=== PATIENT | male | born 1970 | race Caucasian/White ===

== ENCOUNTER 2023-11-25 12:07 | Inpatient (IN) | payer OTHER, SELFPAY ==
[2023-11-25] VITALS (36 sets, daily range): BP systolic 114–207; BP diastolic 81–125; PULSE 2–87; BMI 28.7; BMI 28.4
[2023-11-25] MEDS: VENTOLIN NEBULES 7.5 MG INH (09:15)
[2023-11-25] MEDS: ATROVENT NEBULES 1 MG INH (09:15)
[2023-11-25] MEDS: DECADRON 10 MG IV (09:15)
--- NOTE | 2023-11-25 09:31 | ED.GENMED ---
History of Present Illness
General
Chief Complaint: Breathing Problem
Source: patient and ambulance crew
Exam Limitations: none
Time Seen by Provider: 11/25/23 09:08
Nursing documentation reviewed up to this point in time: agreed with
History of Present Illness
History of Present Illness:
Patient presents to ED secondary to sudden onset of shortness of breath upon waking up this morning. Per paramedics, patient was found to be in moderate respite distress with initial pulse ox in low 80% on room air. Patient was placed on 100%
nonrebreather and transferred to ED for an evaluation. Of note, patient experienced similar symptoms 2 weeks ago, which gradually resolved on its own. Patient does not see his primary care physician on regular basis. As such, patient does not
have any diagnosed medical condition, for which he is being treated for. Patient is a daily smoker. Patient also smokes marijuana. Denies recent illness. Denies fever or chills. Denies coughing. Denies sore throat. Denies nausea, vomiting, or
diarrhea. Denies sick contact. Denies recent travel or surgery.
Past History
Past History
ED Past Medical History: None
ED Past Surgical History: Appendectomy and Orthopedic (Right wrist surgery)
Social History
Tobacco: Smoker
Alcohol: Occasional
Personal: Single
Living: with family
Employment: Employed
Family History
Family History: Negative Diabetes
Review of Systems
Review of Systems
Allergies reviewed?: Yes
All Other Systems: ROS reviewed and negative except as documented in HPI and ROS
Constitutional: Reports no symptoms
EENT: Reports no symptoms
Respiratory: Reports trouble breathing
Cardiac: Reports no symptoms
ABD/GI: Reports no symptoms
: Reports no symptoms
Musculoskeletal: Reports no symptoms
Skin: Reports no symptoms
Neurological: Reports no symptoms
Phy Exam
Physical Exam
Physical Exam:
Physical Exam
General: moderate respiratory distress, acutely ill. afebrile. hypoxic
Head: nc/at. eomi
Neck: supple. no meningeal signs. jvd noted
Heart: s1/s2 regular rate and rhythm, no murmur. equal radial pulses.
Lungs: moderate respiratory distress with use of intercostal muscles. crackles bilaterally with faint expiratory wheezing
Abdomen: normal bowel sounds. not tender.
Neuro: alert and oriented. no focal neurological deficits
Skin: no rash
Psychiatric: well kept. interactive and cooperative
Extremities: no edema. no calf tenderness.
Scores
Heart Failure Risk
Heart Failure Risk Score: Yes
History of Stroke or TIA: No
History of intubation for respiratory distress: No
Heart rate on ED arrival >/= 110: No
SaO2 <90% on arrival on room air: Yes
HR >/=110 during 3min walk test (or too ill to perform test): No
ECG has acute ischemic changes: No
Urea >/=12mmol/L (BUN 33.6mg/dL): No
Serum CO2>/=35mmol/L: No
Troponin I or T elevated to [place] Level (0.4mg/dL): No
NT-proBNP >/=5,000ng/L (5,000pg/ml): No
HF Risk Score: 1
Admission Status: MEDIUM RISK 5.1% Consider observation or discharge to home with homecare & f/u visit to PCP/Folder Machine Adjuster, or SNF for treatment
Course
Orders/Labs/Results
Orders:
Orders
11/25/23 09:08
EKG [Electrocardiogram (*1)] Urgent
Reason for Study: Chest Pain
EKG- Treatment ONCE
11/25/23 09:09
CR Chest Portable - 1 View Urgent
Comment:
Reason For Exam: sob
Reason Study Needs to be Portable: Patient Unstable
11/25/23 09:10
Albuterol Nebs [Ventolin Nebules] 7.5 mg .ROUTE .STK-MED ONE
Albuterol Sulfate [Ventolin Nebules] 7.5 mg INH R NOW STA
Dexamethasone Sod Phosphate [Decadron] 10 mg IV NOW STA
Dexamethasone Sod Phosphate [Decadron] 20 mg .ROUTE .STK-MED ONE
Ipratropium Nebs [Atrovent Nebules] 0.5 mg .ROUTE .STK-MED ONE
Ipratropium Nebs [Atrovent Nebules] 1 mg INH R NOW STA
Lorazepam [Ativan] 0.5 mg IV NOW STA
11/25/23 09:15
Furosemide [Lasix] 40 mg IV NOW STA
Nitroglycerin 100 mg/250 ml [Nitroglycerin Premix] 100 mg in 250 ml IV PER PROTOCOL
Initial dose in mcg/min, then titrate:: 100
Titrate to keep:: SBP < 160 mmHg
Titrate by mcg/min:: 5 mcg/min, may increase by 10 mcg/min if dose > 20 mcg/min
Frequency of titrations (minutes):: every 3-5 minutes
Maximum dose in mcg/min:: 200
Begin to taper infusion when:: Remained at goal for 2hrs
Taper by mcg/min:: 5 mcg/min
Frequency of taper (minutes) if patient maintains goal:: 30
Taper to off?: Yes
If infusion off & no longer maintaining goal:: Contact Provider
11/25/23 09:20
COVID-19 Antigen Urgent
Source: Nasal Swab
Complete Blood Count/With Diff Urgent
Comprehensive Metabolic Panel Urgent
Glycohemoglobin (HgbA1c) Urgent
Magnesium Urgent
NT-proBNP Urgent
Troponin I Urgent
11/25/23 10:21
Arterial Blood Gas Urgent
%Oxygen/Room Air: 78
11/25/23 11:36
Admit/Transfer Patient As Directed
Co-Sign Provider:
Level of Care: Inpatient admission
Assign to:: Telemetry
Physician / Group: Kevon
Diagnosis: Hypertensive emergency, acute heart failure, acute respiratory failure
Reason for Telemetry: Acute Heart Failure
Date to Stop Telemetry: 11/28/23
Time to Stop Telemetry: 11:00
Reason for Hospitalization: Oxygen therapy, diuresis, cardiology consult
Expected length of stay greater than two midnights?: Yes
ELOS- Estimated Length of Stay in days: 3
I certify the patient meets the requirements for IP care: Yes
11/25/23 11:38
Code Status As Directed
Resuscitation Status: Full Code
11/25/23 14:22
Acetaminophen [Tylenol] 650 mg PO Q6HPRN PRN
Albuterol Nebs [Ventolin Nebules] 2.5 mg INH R Q4HPRN PRN
11/25/23 14:22
Echo 2D MMode Color/Doppler [Echo 2D MMode Color/Doppler] Routine
Reason for Study: CHF
CARDIOLOGY CONSULT Routine
Consulting Provider: Julio Cesar Brennan
Was physician already notified: Yes
Activity As Directed
Activity Level: Ambulate
I&O [Intake/ Output] As Directed
Frequency: q12h
DX Deep Vein Thrombosis Video Routine
11/25/23 18:00
Enoxaparin Sodium [Lovenox] 40 mg SC QPM
11/26/23 06:00
Comprehensive Metabolic Panel IN AM
11/26/23 08:00
Furosemide [Lasix] 40 mg IV DAILY
11/27/23 06:00
Comprehensive Metabolic Panel IN AM
11/28/23 11:00
DC Protocol for Telemetry ONCE
Abnormal Lab Results
11/25/23 11/25/23
09:20 10:21
MPV 10.5 H fL
(7.4-10.4)
Absolute Neuts (auto) 7.2 H 10^3/uL
(1.4-6.5)
Lymphocytes % 14.0 L %
(20.5-51.1)
Eosinophils % 6.5 H %
(0-6)
pCO2 50 H mmHg
(35-48)
HCO3 29.6 H mmol/L
(21-28)
ABG O2 Sat (Measured) 98.9 H %
(94-98)
BUN 26 H mg/dl
(9-20)
Glucose 132 H mg/dl
(70-99)
AST 67 H U/L
(17-59)
ALT 69 H U/L
(0-50)
Alkaline Phosphatase 167 H U/L
(38-126)
11/25/23 09:20
11/25/23 09:20
Vital Signs
Initial and Last Documented VS:
Initial Vital Signs
Pulse Resp BP Pulse Ox
90 42 207/119 96
11/25/23 09:08 11/25/23 09:08 11/25/23 09:08 11/25/23 09:08
Last Documented Vital Signs
Temp Pulse Resp BP Pulse Ox
98.0 F 83 18 144/89 97
11/26/23 07:00 11/26/23 07:00 11/26/23 07:00 11/26/23 07:00 11/26/23 07:00
MDM/Problems Addressed
MDM/Problems Addressed:
Patient evaluated immediately upon arrival to ED, secondary to severe respiratory distress along with hypoxia. Initial evaluation concerning for COPD exacerbation versus watchful to hypotension resulting in pulm edema. As such, decision made to
place patient on BiPAP, and start nebulizer treatment, along with nitroglycerin infusion as well as a dose of Lasix. Patient slowly started to improve with treatment.
COVID test negative. Chest x-ray: No focal infiltrate, findings concerning for pulmonary edema.
Patient will be admitted for further evaluation and treatment.
Critical care statement: A total of 40 minutes of critical care time was provided for this patient. This includes management of unstable vital signs, evaluation of the patient at bedside, reviewing the patient's pertinent medical records, review of
old EKGs and review of pertinent medical records. This time with separate from time utilized to perform the aforementioned documented procedures
*Radiology
Radiology exam reviewed: radiology read reviewed
*EKG
Interpreted by ED Provider?: Yes
EKG Intrepretation Date: 11/25/23
Heart Rate: 92
Rate: normal
Rhythm: sinus
[place]: normal axis
Interval: normal interval
*Critical Care Note
Total Time (30-74mins, 75-104mins- exclusive of procedures): 40 min
ED Attending Note
-
Portions of this chart may have been created with voice recognition software.� Occasional wrong word or��sound alike� substitutions may have occurred due to the inherent limitations of voice recognition software.
Discharge Plan
Departure
Patient Disposition: Admit
Date of Disposition: 11/25/23
Time of Disposition: 09:59
Admit to: IMU
Presentation/result/management discussed w/ accepting MD/DO: Hospitalist
Patient with high blood pressure during this ER visit?: Yes
Condition: Fair
Covid-19: Negative COVID-19
Discharge Problem:
Hypertensive emergency, Pulmonary edema, COPD (chronic obstructive pulmonary disease)
Interventions
Interventions:
*General Assessment Last Done: 11/25/23 09:08
*Neglect/Abuse Screening Last Done: 11/25/23 09:08
ED- Fall Risk Assessment Last Done: 11/25/23 09:08
*Nursing Disposition Last Done: 11/25/23 14:23
ED- Cardiac Assessment Last Done: 11/25/23 09:08
ED- Pulmonary Assessment Last Done: 11/25/23 09:08
Discharge Date and Time
Discharge Date/Time: 11/25/23 14:05
[2023-11-25] MEDS: ATIVAN 0.5 MG IV (09:32)
[2023-11-25] MEDS: LASIX 40 MG IV (09:32)
[2023-11-25] MEDS: NITROGLYCERIN PREMIX 250 IV (09:33)
[2023-11-25 09:37] LABS: % Basophils 0.9 % (0-2); % Eosinophils 6.5 % (0-6); % Immature Granulocytes 0.4 % (0-0.5); % Monocytes 4.5 % (1.7-9.3); % Neutrophils 73.7 % (42.2-75.2); Absolute Basophils 0.1 10^3/uL (0-0.2); Absolute Eosinophils 0.6 10^3/uL (0-0.7); Absolute Lymphocytes 1.4 10^3/uL (1.2-3.4); Absolute Monocytes 0.4 10^3/uL (0.1-0.6); Absolute Neutrophils 7.2 10^3/uL (1.4-6.5); Hematocrit 51.8 % (39.0-52.0); Hemoglobin 17.3 g/dL (13.0-18.0); Mean Corp Hgb Conc. 33.4 g/dL (33.0-37.0); Mean Corpuscular Hgb 29.1 pg (27.0-31.0); Mean Corpuscular Volume 87.1 fL (80.0-94.0); Mean Platelet Volume 10.5 fL (7.4-10.4); Nucleated Red Blood Cells % 0 % (-); Platelet Count 260 10^3/uL (130-400); Red Blood Cell Count 5.95 10^6/uL (4.70-6.10); Red Cell Dist. Width 12.1 % (11.5-14.5); White Blood Cell Count 9.8 10^3/uL (4.8-10.8)
[2023-11-25 09:48] LABS: ALT (SGPT) 69 U/L (0-50); AST (SGOT) 67 U/L (17-59); Albumin 4.3 g/dl (3.5-5.0); Alkaline Phosphatase 167 U/L (38-126); Blood Urea Nitrogen 26 mg/dl (9-20); Calcium 9.2 mg/dl (8.4-10.2); Carbon Dioxide 30 mmol/L (22-30); Chloride 103 mmol/L (98-107); Glucose 132 mg/dl (70-99); Potassium 4.1 mmol/L (3.5-5.1); Sodium 136 mmol/L (135-145); Total Bilirubin 0.8 mg/dl (0.2-1.3); eGFR > 60.00
[2023-11-25 09:50] LABS: COVID-19 Antigen Negative (Negative)
[2023-11-25 09:59] LABS: NT-proBNP 2450 pg/ml; Troponin I 0.016 ng/ml
--- NOTE | 2023-11-25 10:06 | EDRN ---
Patient unable to recall the last time he had a medical exam. States he believes Alex was president when he was last at a doctors office.
[2023-11-25 10:36] LABS: B.E. 3.3 mmol/L; HCO3 29.6 mmol/L (21-28); O2 Saturation % 98.9 % (94-98); PCO2 50 mmHg (35-48); PO2 101 mmHg (83-108); pH 7.38 (7.35-7.45)
--- NOTE | 2023-11-25 11:40 | HPS.HSE ---
Family Physician
-
Family Physician: NOT KNOW UNKNOWN - PT DOES
Chief Complaint
-
Shortness of breath
History of Present Illness
53-year-old male with acute onset of shortness of breath this morning. Denies associated chest pain or tightness. Has not been to a doctor since 2007. Not on home medications. states that he had a transient episode of shortness of breath 2
weeks ago but did not pursue any workup for this.
Medical History
Past Medical History
Past Medical History: Reports HTN
Past Surgical History: Reports Appendectomy and Orthopedic
Social History
Tobacco: Smoker
Alcohol: None
Drug: Marijuana
Personal:
Living: With Family
Family History
Family History: Not pertinent
Allergies / Home Medications
Allergies reflects when Allergies were last updated in [employer].
Home Medications with original date entered in [employer]
Allergy/Medication List:
Allergies
Allergy/AdvReac Type Severity Reaction Status Date / Time
No Known Allergies Allergy Verified 03/30/19 17:45
Home Medications
No Meds [No Current Medications] 11/25/23
Review of Systems
-
History Source: Patient
A 12 point ROS was completed and negative except as noted: Yes
Respiratory: Reports Trouble Breathing
Physical Exam
Vital Signs
Vital Signs
Pulse Resp BP Pulse Ox
82 17 150/95 99
11/25/23 10:30 11/25/23 10:30 11/25/23 10:30 11/25/23 10:30
Physical Exam
General: Well Developed, Well Nourished, No Apparent Distress and Comfortable
HEENT: NormoCephalic, Anicteric and Moist mucous membranes
Respiratory: Decreased Breath Sounds
Cardiac: S1/S2 and Regular Rhythm
GI: Soft, Non Tender and Non Distended
Musculoskeletal: No Clubbing, No Cyanosis and No Edema
Skin: Warm and Dry
Neuro: AO x 3
Hematologic/Lymphatic: No Lymphadenopathy
Psych: Calm
Laboratory Results
-
11/25/23 09:20
11/25/23 09:20
Laboratory Results
pH 7.38 (7.35-7.45) 11/25/23:
pCO2 50 mmHg (35-48) H 11/25/23:
pO2 101 mmHg (83-108) 11/25/23 10:
HCO3 29.6 mmol/L (21-28) H 11/25/23:
Total Bilirubin 0.8 mg/dl (0.2-1.3) 11/25/23 09:20
AST 67 U/L (17-59) H 11/25/23:20
ALT 69 U/L (0-50) H 11/25/23 09:20
Alkaline Phosphatase 167 U/L (38-126) H 11/25/23 09:20
Troponin I 0.016 ng/ml 11/25/23 09:20
Impression/Plan
-
Acute hypoxic respiratory failure -due to acute pulmonary edema due to acute heart failure exacerbation, hypertensive emergency. Presentation with pulse ox of 70% on room air. Chest x-ray shows pulmonary edema.
Currently on BiPAP in the emergency room, transition to nasal cannula. Discussed with ER staff. Admit to telemetry.
Hypertensive emergency -with acute heart failure, acute pulmonary edema. Blood pressure much improved, currently on nitroglycerin drip. Patient with known history of essential hypertension but not currently being treated. Does not have a doctor.
Acute heart failure exacerbation -unknown type. Await echocardiogram. Admit to telemetry. Continue IV Lasix. Consult cardiology. BNP 2450.
Hyperglycemia -rule out DM2. Check hemoglobin A1c.
Elevated LFTs -could be due to passive congestion from heart failure. Will trend labs.
Full code
updated at the bedside.
[2023-11-25] MEDS: ZESTRIL 5 MG PO (14:56)
[2023-11-25] MEDS: LOVENOX 40 MG SC (17:09)
[2023-11-25] MEDS: ZESTRIL 10 MG PO (17:54)
--- NOTE | 2023-11-25 18:26 | PTCARENOTE ---
Pt's B/P on admission was 178/102. Zestril 5mg po given as ordered. Pt's B/P then 159/92. When rechecked later, pt was 174/105. Dr. Lund made aware and Zestril 10mg po given at 1754. Will continue to monitor.
--- NOTE | 2023-11-25 19:38 | CON.CAR ---
Consultation
Consultation Request
Date/Time Consultation Requested: 11/25/2023 at noon
Date/Time Consultation Performed: 11/25/2023 at 8 PM
Requesting Provider: Dr. Lund
Performing Provider: Julio Cesar Brennan
Reason for Consultation: Acute heart failure with hypertensive emergency
Medical History
-
Chief Complaint: Heart failure, shortness of breath
History of Present Illness:
53-year-old man who does not seek medical care with little past history other than hypertension who presents with increasing shortness of breath but no chest discomfort
Past Medical History
Past Medical History: HTN
Past Surgical History: Appendectomy and Orthopedic
Social History
Tobacco: Smoker
Alcohol: None
Drug: Marijuana
Personal: (No children)
Living: With Family
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
Family History
Family History: Reviewed & Not Pertinent
Allergies / Home Medications
Allergy/AdvReac Type Severity Reaction Status Date / Time
No Known Allergies Allergy Verified 03/30/19 17:45
Medication Instructions Recorded Confirmed Type
No Meds [No Current Medications] 11/25/23 11/25/23 History
Review of Systems
-
All other systems: Negative unless noted
Physical Exam
Vital Signs
Temp Pulse Resp BP Pulse Ox
36.6 C 76 18 174/105 95
11/25/23 15:00 11/25/23 15:00 11/25/23 15:00 11/25/23 17:54 11/25/23 15:29
Lab Results
11/25/23 09:20
11/25/23 09:20
Troponin I 0.016 ng/ml 11/25/23 09:20
Cny-F-Dqtdsspbgdp Pept 2450 pg/ml 11/25/23 09:20
Physical Exam
General: No Apparent Distress
HEENT: Normocephalic
Respiratory: Other (Relatively clear, diminished)
Cardiac: Regular Rhythm, Carotid Pulses (Normal) and Other (Very soft systolic murmur at apex)
Musculoskeletal: No Cyanosis and No Edema
Skin: Warm and Dry
Neuro: AO x 3
Psych: Calm
Impression / Plan
-
Impression:
Acute heart failure, EF unknown, suspect preserved
Hypertensive emergency
Hypoxemic respiratory failure, acute
Tobacco abuse
Plan:
He presents with acute heart failure, suspect preserved EF. He appears comfortable having received IV Lasix. He is hypertensive but blood pressure is preserved.
All may be related to hypertensive emergency, though obstructive CAD needs to be considered and EF needs to be determined.
Blood pressure elevated but improved. His exam does not show evidence of severe volume overload. Troponin is barely detectable and no acute EKG changes.
Will uptitrate lisinopril, add amlodipine, suspect he will need two drug therapy at least.
Continue IV furosemide.
Check echocardiography.
He will need an ischemic evaluation, either noninvasive or invasive, but suspect all related to hypertension.
Data Reviewed
-
EKG: Tracing Personally Visualized and interpreted (Sinus rhythm, LVH, biatrial enlargement, nonspecific ST and T changes)
Radiology: Image Personally Visualized and interpreted (CHF)
Labs: Labs Reviewed by me (Hemoglobin 17.3, platelets 260, BUN/creatinine 26 and 0.8, potassium 4.1 glucose 132, ABG 7.3 8/101/50/20 9.6, ALT and AST 69 and 67 respectively, troponin 0.0 16, proBNP 2450)
[2023-11-25] MEDS: NORVASC 2.5 MG PO (20:59)
[2023-11-26] VITALS (7 sets, daily range): BP systolic 114–160; BP diastolic 72–98; BMI 28.3
[2023-11-26 07:00] LABS: ALT (SGPT) 43 U/L (0-50); AST (SGOT) 29 U/L (17-59); Albumin 3.3 g/dl (3.5-5.0); Alkaline Phosphatase 125 U/L (38-126); Blood Urea Nitrogen 24 mg/dl (9-20); Calcium 8.8 mg/dl (8.4-10.2); Carbon Dioxide 27 mmol/L (22-30); Chloride 103 mmol/L (98-107); Estimated Creatinine Clearance 113 ml/min; Glucose 117 mg/dl (70-99); Potassium 3.9 mmol/L (3.5-5.1); Sodium 135 mmol/L (135-145); Total Bilirubin 0.8 mg/dl (0.2-1.3); Total Protein 5.6 g/dl (6.3-8.2); eGFR > 60.00
[2023-11-26] MEDS: NORVASC 5 MG PO (08:44)
[2023-11-26] MEDS: LASIX 40 MG IV (08:44)
[2023-11-26] MEDS: ZESTRIL 5 MG PO (08:44)
--- NOTE | 2023-11-26 10:38 | W.PN.HOSP.TC ---
Today's Communication/Plan
-
Continue current meds
Echocardiogram
Assessment / Plan
Assessment / Plan
Gen-AAOx3, NAD
HEENT-NC, AT, anicteric, clear oral mm
Neck-supple
CV-reg, no M, +S1/S2
Lungs-clear B/L
Abd-soft, NT, ND
Ext-no edema
Musculoskeletal-no cyanosis, clubbing
Skin-warm and dry
Neuro-grossly non-focal
Psych-calm, cooperative
Acute hypoxic respiratory failure -due to acute pulmonary edema due to acute heart failure exacerbation, hypertensive emergency.� Presentation with pulse ox of 70% on room air.� Chest x-ray shows pulmonary edema.
Transition to 4 L nasal cannula oxygen overnight, now improved and on room air. Denies dyspnea on exertion today.
Hypertensive emergency -with acute heart failure, acute pulmonary edema.� Blood pressure much improved. Continue amlodipine, lisinopril, furosemide.
Acute heart failure exacerbation -unknown type.� Await echocardiogram.� Improving, weight down 2 kg. Continue IV Lasix.� Cardiology following.� BNP 2450.
Hyperglycemia -rule out DM2.� Check hemoglobin A1c.
Elevated LFTs -could be due to passive congestion from heart failure.� LFTs improved.
Tobacco dependence -counseled on need for abstinence.
Full code
Anticipated Discharge: 24 - 48 hours
Subjective/Interval History
-
Date of Service: November 26, 2023
Patient seen and examined. Shortness of breath resolved. Feels a lot better today. No complaints.
Objective Data
-
Labs:
Laboratory Results
11/26/23
06:00
Sodium 135
Potassium 3.9
Chloride 103
Carbon Dioxide 27
BUN 24 H
Creatinine 0.9
Glucose 117 H
Calcium 8.8
Total Bilirubin 0.8
AST 29
ALT 43
Alkaline Phosphatase 125
Vital Signs:
Vital Signs
Temp Pulse Resp BP Pulse Ox
98.0 F 83 18 144/89 97
11/26/23 07:00 11/26/23 07:00 11/26/23 07:00 11/26/23 07:00 11/26/23 07:00
I&O
11/25/23 11/26/23 11/27/23
06:59 06:59 06:59
Intake Total 840 / 840
Output Total 2054
Balance -1215 / -1215
Review of Systems
-
History Source: Patient
All other systems: Reviewed and negative
--- NOTE | 2023-11-26 13:51 | CM ---
CM following re: d/c planning.
Pt now on RA.
CM met with pt at bedside to complete IA.
Pt resides with spouse in private residence.
Pt independent with mobility and ADLs.
No DME or VN.
Pt states he does not have a PCP, CM offered PCP list, but pt states he is planning to use 's PCP in [place].
Pharmacy [facility] in [place].
Pt does not anticipate any d/c needs.
CM will continue to follow.
[2023-11-26 14:01] LABS: Glycohemoglobin (HgbA1c) 5.9 % (4.0-5.6)
[2023-11-26] MEDS: LOVENOX 40 MG SC (17:37)
--- NOTE | 2023-11-26 18:50 | W.PN.CARDCBS ---
Today's Communication / Plan
-
Oral furosemide
Await echocardiogram
Hopeful discharge tomorrow
Impression / Plan
-
Impression:
Acute heart failure, EF unknown, suspect preserved
Hypertensive emergency
Hypoxemic respiratory failure, acute
Tobacco abuse
Plan:
From standpoint of acute heart failure he is very well compensated, switch to oral furosemide in AM.
From standpoint of hypertensive urgency/emergency is also much improved. Blood pressure not yet ideal but dramatically better with low-dose lisinopril and amlodipine.
Await echocardiogram.
Hopefully for discharge after echo tomorrow, can arrange for outpatient cardiac follow-up, sestamibi study, etc.
Hopefully he will not resume smoking.
I told him he could probably return to work sometime this week.
Progress Note - Photogrammetric Engineer
Subjective
Date of Service: November 26, 2023:
Allergies: None
No home meds
Current medications: Subcu Lovenox, furosemide 40 mg a day, lisinopril 5 mg daily, amlodipine 5 mg a day
PMH/PSH/FH/SH: Reviewed
Review of systems: Negative except as above
BUN and creatinine 24 and 0.9, potassium 3.9, troponin 0.03
ECG sinus rhythm left atrial enlargement QT top normal, left axis, LVH
Objective
Labs:
11/25/23 09:20
11/26/23 06:00
Labs
Hgb 17.3 g/dL (13.0-18.0) 11/25/23 09:20
Hct 51.8 % (39.0-52.0) 11/25/23 09:20
Plt Count 260 10^3/uL (130-400) 11/25/23 09:20
Sodium 135 mmol/L (135-145) 11/26/23 06:00
Potassium 3.9 mmol/L (3.5-5.1) 11/26/23 06:00
BUN 24 mg/dl (9-20) H 11/26/23 06:00
Creatinine 0.9 mg/dL (0.7-1.3) 11/26/23 06:00
Glucose 117 mg/dl (70-99) H 11/26/23 06:00
Troponins
11/25/23 11/26/23
09:20 06:00
Troponin I 0.016 0.030
Vital Signs and I&O:
Vital Signs
Temp Pulse Resp BP Pulse Ox
36.5 C 80 18 114/72 95
11/26/23 15:00 11/26/23 15:00 11/26/23 15:00 11/26/23 15:00 11/26/23 15:00
Vital Signs
Temp Pulse Resp BP Pulse Ox
36.5 C 80 18 114/72 95
11/26/23 15:00 11/26/23 15:00 11/26/23 15:00 11/26/23 15:00 11/26/23 15:00
Intake & Output
11/24/23 11/25/23 11/26/23 11/27/23
07:59 07:59 07:59 07:59
Intake Total 840 / 840
Output Total 2054
Balance -1215 / -1215
Physical Exam
Physical Exam
114/72, pulse 80, respirate 18, afebrile, Still intermittently hypertensive, no distress, head neck exam unremarkable, lungs clear, cardiac regular rate and rhythm JVD okay, abdomen benign, extremities without substantial edema, neuro nonfocal
[2023-11-26] MEDS: KCL 20 MEQ PO (19:56)
[2023-11-27 03:24] VITALS: BP 156/86
[2023-11-27 04:52] VITALS: BMI 28.4
[2023-11-27 07:52] VITALS: BP 127/81
[2023-11-27 07:59] LABS: ALT (SGPT) 33 U/L (0-50); AST (SGOT) 21 U/L (17-59); Albumin 3.2 g/dl (3.5-5.0); Alkaline Phosphatase 105 U/L (38-126); Blood Urea Nitrogen 25 mg/dl (9-20); Calcium 8.7 mg/dl (8.4-10.2); Carbon Dioxide 31 mmol/L (22-30); Chloride 102 mmol/L (98-107); Estimated Creatinine Clearance 102 ml/min; Glucose 107 mg/dl (70-99); Potassium 4.3 mmol/L (3.5-5.1); Sodium 132 mmol/L (135-145); Total Bilirubin 0.9 mg/dl (0.2-1.3); Total Protein 5.4 g/dl (6.3-8.2); eGFR > 60.00
[2023-11-27] MEDS: ZESTRIL 10 MG PO (08:16)
[2023-11-27] MEDS: KCL 20 MEQ PO (08:16)
[2023-11-27] MEDS: NORVASC 5 MG PO (08:16)
[2023-11-27] MEDS: TYLENOL 650 MG PO ×2 (08:16→20:50)
[2023-11-27] MEDS: LASIX 40 MG PO (08:16)
[2023-11-27 11:00] VITALS: BP 126/78
--- NOTE | 2023-11-27 11:06 | W.PN.CARDCBS ---
Addendum entered and electronically signed by Bo Rojo DO 11/27/23 15:26:
I saw and examined the patient.
The Cryptographic Machine Operator's note was reviewed and I agree with the note.
Comment:
Plan:
Echo reviewed and EF is reduced at 30-35% with global hypokinesis and mild LVH and mild MR and mild AR and mild TR and PASP 30-35mmHg
Reviewed with pt his dilated CM and discussed left heart cath to eval for CAD.
He appears euvolemic
Cont Lisinopril. Stop Norvasc and start Coreg 3.125 mg BID. Meds will likely need to be titrated for his CM with reeval echo as outpt.
Discussed that pending his cath findings and if his EF fails to improve with GDMT that he could be considered for ICD possibly in the future.
He was agreeable to stay for cath
Reviewed with nursing and with primary service.
Original Note:
Today's Communication / Plan
-
Continue PO lasix
BMP in 1 week
Continue lisinopril, amlodipine
If echo stable, ok for discharge
Will arrange follow up
Impression / Plan
-
PCP: None
Shared Services Manager: None prior to admission
Impression:
Acute HF unknown EF
Hypertensive emergency
Hypoxemic respiratory failure, acute
Tobacco abuse
Echo 11/27/2023: Study completed, report pending
Plan:
-Presented with increased shortness of breath and found to be in acute heart failure in the setting of hypertensive emergency.
-Diuresed with IV lasix over the weekend and has improved symptomatically. Weight down at least 2lbs.
-Creat stable at 1.0. Transitioned to PO lasix 40mg daily today.
-Check BMP in 1 week
-BP improved with addition of lasix, lisinopril, and amlodipine.
-Echo checked 11/27. Await results and if stable, would be ok for discharge today.
-Will arrange follow up and can consider OP ischemic evaluation.
HPI: 53-year-old man who does not seek medical care with little past history other than hypertension who presents with increasing shortness of breath but no chest discomfort
Progress Note - Shared Services Manager
Subjective
Date of Service: November 27, 2023
No complaints. Feeling well this AM.
Objective
Labs:
11/25/23 09:20
11/27/23 07:32
Labs
Hgb 17.3 g/dL (13.0-18.0) 11/25/23 09:20
Hct 51.8 % (39.0-52.0) 11/25/23 09:20
Plt Count 260 10^3/uL (130-400) 11/25/23 09:20
Sodium 132 mmol/L (135-145) L 11/27/23 07:32
Potassium 4.3 mmol/L (3.5-5.1) 11/27/23 07:32
BUN 25 mg/dl (9-20) H 11/27/23 07:32
Creatinine 1.0 mg/dL (0.7-1.3) 11/27/23 07:32
Glucose 107 mg/dl (70-99) H 11/27/23 07:32
Troponins
11/25/23 11/26/23
09:20 06:00
Troponin I 0.016 0.030
Vital Signs and I&O:
Vital Signs
Temp Pulse Resp BP Pulse Ox
97.9 F 74 18 127/81 96
11/27/23 07:52 11/27/23 07:52 11/27/23 07:52 11/27/23 07:52 11/27/23 07:52
Vital Signs
Temp Pulse Resp BP Pulse Ox
97.9 F 74 18 127/81 96
11/27/23 07:52 11/27/23 07:52 11/27/23 07:52 11/27/23 07:52 11/27/23 07:52
Intake & Output
11/25/23 11/26/23 11/27/23 11/28/23
06:59 06:59 06:59 06:59
Intake Total 840 / 840 1080 / 1080
Output Total 2054 1500 / 1500
Balance -1215 / -1215 -420 / -420
Physical Exam
Physical Exam
GEN: No distress, awake, alert, oriented x3
HEENT: supple, anicteric, mmm
LUNGS: CTA b/l, no wheezes/rales
CV: Reg, S1/S2, no murmur
ABD: soft, BS+, NT/ND
EXT: No clubbing, cyanosis, or edema
NEURO: Gross non-focal
SKIN: Warm, dry, no rash
--- NOTE | 2023-11-27 11:53 | W.PN.HOSP.TC ---
Today's Communication/Plan
-
await ECOH
Cards recs
monitor BP
Assessment / Plan
Assessment / Plan
Gen-AAOx3, NAD
HEENT-NC, AT, anicteric, clear oral mm
Neck-supple
CV-reg, no M, +S1/S2
Lungs-clear B/L
Abd-soft, NT, ND
Ext-no edema
Musculoskeletal-no cyanosis, clubbing
Skin-warm and dry
Neuro-grossly non-focal
Psych-calm, cooperative
Acute hypoxic respiratory failure -due to acute pulmonary edema due to acute heart failure exacerbation, hypertensive emergency.� Presentation with pulse ox of 70% on room air.� Chest x-ray shows pulmonary edema.
Transition to 4 L nasal cannula oxygen overnight, now improved and on room air. Denies dyspnea on exertion today and ambulating in room without difficulty.
Hypertensive emergency -with acute heart failure, acute pulmonary edema.� Blood pressure much improved. Continue amlodipine, lisinopril, furosemide.
Acute heart failure exacerbation -unknown type.� Await echocardiogram.� On 40mg po lasix now. � Cardiology following.� BNP 2450.
Hyperglycemia -a1c 5.9.
Elevated LFTs -could be due to passive congestion from heart failure.� LFTs improved.
Tobacco dependence -counseled on need for abstinence. Smokes 1PPD. Offered nicotine patch-pt refused
Full code
Anticipated Discharge: Today
Subjective/Interval History
-
Date of Service: November 27, 2023
on room air since yesterday
walking around
no cp or shortness of breath
Objective Data
-
Labs:
Laboratory Results
11/27/23
07:32
Sodium 132 L
Potassium 4.3
Chloride 102
Carbon Dioxide 31 H
BUN 25 H
Creatinine 1.0
Glucose 107 H
Calcium 8.7
Total Bilirubin 0.9
AST 21
ALT 33
Alkaline Phosphatase 105
Vital Signs:
Vital Signs
Temp Pulse Resp BP Pulse Ox
97.9 F 74 18 127/81 96
11/27/23 07:52 11/27/23 07:52 11/27/23 07:52 11/27/23 07:52 11/27/23 07:52
I&O
11/26/23 11/27/23 11/28/23
06:59 06:59 06:59
Intake Total 840 / 840 1080 / 1080
Output Total 2054 1500 / 1500
Balance -1215 / -1215 -420 / -420
--- NOTE | 2023-11-27 14:40 | CM ---
Patient seen bedside.
Patient denies home care needs.
Plan: home no needs.
[2023-11-27 15:20] VITALS: BP 133/77
[2023-11-27] MEDS: LOVENOX 40 MG SC (17:32)
[2023-11-27] MEDS: LOW STRENGTH ASPIRIN 81 MG PO (17:32)
[2023-11-27 20:01] VITALS: BP 110/60
[2023-11-27] MEDS: COREG 3.125 MG PO (20:25)
[2023-11-27 23:29] VITALS: BP 118/89
[2023-11-28] VITALS (14 sets, daily range): BP systolic 114–158; BP diastolic 73–96; BMI 28.4
[2023-11-28] MEDS: LOW STRENGTH ASPIRIN 81 MG PO (08:00)
[2023-11-28] MEDS: COREG 3.125 MG PO (08:00)
[2023-11-28] MEDS: LASIX 40 MG PO (08:00)
[2023-11-28] MEDS: KCL 20 MEQ PO (08:00)
[2023-11-28] MEDS: ZESTRIL 10 MG PO (08:00)
[2023-11-28 09:09] LABS: Blood Urea Nitrogen 23 mg/dl (9-20); Calcium 9.1 mg/dl (8.4-10.2); Carbon Dioxide 32 mmol/L (22-30); Chloride 99 mmol/L (98-107); Estimated Creatinine Clearance 102 ml/min; Glucose 99 mg/dl (70-99); Potassium 4.8 mmol/L (3.5-5.1); Sodium 135 mmol/L (135-145); eGFR > 60.00
--- NOTE | 2023-11-28 10:59 | PTCARENOTE ---
report was provided to cardiac cath lab radiological technologist regarding pt and his medications which he was provided this morning. pt was asked to pass his urine and remove all his clothing from the waist down. two nurses from the cardiac team came to collect pt.
[2023-11-28 11:52] LABS: ACT-LR - POC 205 Seconds (116-155)
[2023-11-28 12:00] LABS: ACT-LR - POC 232 Seconds (116-155)
--- NOTE | 2023-11-28 12:21 | ITS.CL.CATH ---
Critical Care Unit Nurse - Catheterization
Cardiac Catheterization
Procedure Report:
LEFT HEART CATHETERIZATION
Date of Procedure: November 28, 2023
Referring: Dr. Bo Rojo
PROCEDURES:
1. Left heart catheterization with coronary and single-plane left ventriculography
2. Hemodynamic assessment of the LAD, diagonal, and circumflex using a Godwin Verrata wire
INDICATION: This is a 53-year-old gentleman with a past medical history notable for hypertension. He was admitted to [facility] with acute heart failure and an echocardiogram was performed. He was found to have new LV dysfunction with an
estimated ejection fraction of 30-35%. The ventricle was globally hypokinetic. There was mild mitral regurgitation and mild aortic insufficiency. He is now referred for coronary angiography
ACCESS: Right radial artery, 6 [place] sheath
HEMODYNAMICS : (mmHg)
AO (s/d) : 123/86
LV (s/d) : 129/12
LVEDP : 14
CORONARY FINDINGS
DOMINANCE: Right
LEFT MAIN: Short and unobstructed
LEFT ANTERIOR DESCENDING: The LAD arises normally from the left main and runs in the anterior interventricular groove. The LAD supplies a large bifurcating first diagonal branch from the proximal one third of the artery. The mid LAD just beyond
the diagonal branch has a 30% steroid. The iFR in the LAD and diagonal branch both measure above the ischemic threshold at 0.90 as described below
CIRCUMFLEX: The circumflex is a medium caliber nondominant vessel with a 40% proximal stenosis. The circumflex gives rise to a single sizable obtuse marginal branch. Only minor irregularities are noted. The iFR in the terminal circumflex/OM
serially measured at 1.0.
RIGHT CORONARY ARTERY: The right coronary artery is a dominant vessel that has diffuse luminal irregularities to 20-30% over its course. No focal obstructive stenosis. The PDA is large. Posterolateral branch has minor irregularities
VENTRICULOGRAPHY: The digital single-plane left ventricular ejection fraction is estimated at 25-30%. The ventricle was dilated and globally hypokinetic.
HEMODYNAMIC ASSESSMENT OF THE LAD/DIAGONAL AND CIRCUMFLEX WITH A VOLCANO VERRATA WIRE: The origin of the left main was cannulated with a 5 Fr JL 4 guide catheter. Intravenous heparin was administered and the ACT was followed during the procedure.
Two hundred micrograms of intracoronary nitroglycerin was given through the guide catheter. A Godwin Verrata wire was advanced to the guide catheter tip and normalized to guide catheter pressure. The Verrata wire was then carefully manipulated
across the stenosis in the first diagonal branch and advanced to the distal vessel beyond the bifurcation of the diagonal branch. The iFR serially measured just above the ischemic threshold at 0.90 and 0.90 unknown angiographically the vessel
appeared free of significant atherosclerotic disease. The Verrata wire was then redirected to the apical LAD where the iFR again serially measured above the ischemic threshold at 0.90 and 0.91. A pullback was performed with the Pd/Pa measuring
0.98 back at the guide catheter. The Verrata wire was re-normalized and advanced across the stenosis in the mid circumflex and into the distal vessel where the iFR serially measured above the ischemic threshold at 1.0. The wire was withdrawn to
the guide catheter tip where the Pd/Pa measured 0.98 confirming no significant baseline drift
RADIATION SUMMARY: Fluoro Time (min): 8.1, Dose (mGy): 699.7, DAP (Gy.cm2) : 68.6
Closure Device: TR band
CONCLUSIONS
1. Nonischemic cardiomyopathy
RECOMMENDATIONS
1. Guideline directed medical therapy for newly diagnosed left ventricular dysfunction
Copy to: Dr. Julio Cesar Jenkins
--- NOTE | 2023-11-28 12:37 | PTCARENOTE ---
pt returned to the floor post cardiac cath. right wrist with external pressure device. post cath flow sheet initiated and vital signs followed. pt was alert, oriented and verbally responsive. pt was ordering his lunch currently. no complains of
discomfort or pain
--- NOTE | 2023-11-28 12:45 | W.PN.HOSP.TC ---
Today's Communication/Plan
-
Goal-directed medical therapy for now
Cardiac catheterization today
Monitor blood pressure
Cardiology recs
Assessment / Plan
Assessment / Plan
Gen-AAOx3, NAD
HEENT-NC, AT, anicteric, clear oral mm
Neck-supple
CV-reg, no M, +S1/S2
Lungs-clear B/L
Abd-soft, NT, ND
Ext-no edema
Musculoskeletal-no cyanosis, clubbing
Skin-warm and dry
Neuro-grossly non-focal
Psych-calm, cooperative
Acute hypoxic respiratory failure -due to acute pulmonary edema due to acute heart failure exacerbation, hypertensive emergency.� Presentation with pulse ox of 70% on room air.� Chest x-ray shows pulmonary edema.
Transition to 4 L nasal cannula oxygen overnight, now improved and on room air. Denies dyspnea on exertion today and ambulating in room without difficulty.
Hypertensive emergency -with acute heart failure, acute pulmonary edema.� Blood pressure much improved. Continue lisinopril, furosemide. Norvasc was discontinued and started on carvedilol. ICD per cardiology.
Acute heart failure exacerbation -unknown type.� Echocardiogram with reduced ejection fraction of 30% on 40mg po lasix now. � Cardiology following.� BNP 2450. Plan for ischemic eval with cardiac catheterization today.
Hyperglycemia -a1c 5.9.
Elevated LFTs -could be due to passive congestion from heart failure.� LFTs improved and found to be in normal limit now
Tobacco dependence -counseled on need for abstinence. Smokes 1PPD. Offered nicotine patch-pt refused
Full code
Anticipated Discharge: Within 24 hours
Subjective/Interval History
-
Date of Service: November 28, 2023
Does not chest pain or shortness of breath
Objective Data
-
Labs:
Laboratory Results
11/28/23
08:17
Sodium 135
Potassium 4.8
Chloride 99
Carbon Dioxide 32 H
BUN 23 H
Creatinine 1.0
Glucose 99
Calcium 9.1
Vital Signs:
Vital Signs
Temp Pulse Resp BP Pulse Ox
98.1 F 63 18 126/73 96
11/28/23 12:28 11/28/23 12:28 11/28/23 12:28 11/28/23 12:28 11/28/23 12:28
I&O
11/27/23 11/28/23 11/29/23
06:59 06:59 06:59
Intake Total 1080 / 1080 1800 / 1800
Output Total 1500 / 1500
Balance -420 / -420 1800 / 1800
--- NOTE | 2023-11-28 13:55 | CM ---
Patient seen bedside, reports no new concerns at this time. Patient reports his will provide transportation home when he is ready for discharge. CM will continue to follow for discharge planning needs.
Plan; home no needs.
[2023-11-28] MEDS: LOVENOX 40 MG SC (17:53)
[2023-11-28] MEDS: LIPITOR 40 MG PO (17:53)
[2023-11-28] MEDS: COREG 6.25 MG PO (20:23)
[2023-11-29 03:27] VITALS: BP 129/69
[2023-11-29 06:00] VITALS: BMI 28.1
[2023-11-29 07:00] VITALS: BP 165/104
[2023-11-29] MEDS: LASIX 40 MG PO (07:55)
[2023-11-29] MEDS: COREG 6.25 MG PO (07:55)
[2023-11-29] MEDS: ZESTRIL 20 MG PO (07:55)
[2023-11-29] MEDS: KCL 20 MEQ PO (07:55)
[2023-11-29] MEDS: LOW STRENGTH ASPIRIN 81 MG PO (07:55)
[2023-11-29 08:40] LABS: Blood Urea Nitrogen 23 mg/dl (9-20); Calcium 9.5 mg/dl (8.4-10.2); Carbon Dioxide 28 mmol/L (22-30); Chloride 98 mmol/L (98-107); Estimated Creatinine Clearance 102 ml/min; Glucose 112 mg/dl (70-99); HDL Cholesterol 36 mg/dl; LDL Cholesterol, Calculated 108 mg/dl; Potassium 4.7 mmol/L (3.5-5.1); Sodium 135 mmol/L (135-145); Total Cholesterol 180 mg/dl (50-199); Triglyceride 181 mg/dl (10-149); Very Low Density Lipoprotein 36 mg/dl (0-30); eGFR > 60.00
--- NOTE | 2023-11-29 09:37 | W.PN.CARDCBS ---
Addendum entered and electronically signed by Dannie Bajwa MD 11/29/23 12:29:
I saw and examined the patient.
The Newspaper Copy Editor's note was reviewed and I agree with the note.
Comment:
GEN: No distress, awake, Ox3
HEENT: supple, anicteric, mmm
LUNGS: CTA, no wheezes/rales
CV: Reg, S1/S2, 1/6 syst LSB, no gallop
ABD: soft, BS+, NT/ND
EXT: No edema
NEURO: Gross non-focal
SKIN: No rash
Plan:
Cardiac cath with nonobstructive CAD. Filling pressures were overall normal.
Continue lisinopril, Coreg and will start spironolactone.
Check basic metabolic panel in 1 week. Will discharge on Lasix 40 mg daily.
Okay for discharge from cardiology standpoint. Check basic metabolic panel in 1 week.
Original Note:
Today's Communication / Plan
-
Continue medical therapy of nonischemic CM
Continue lisinopril, coreg
Start spironolactone
Continue PO lasix
With starting spironolactone, will stop KCl supplement
BMP in 1 week.
Follow up arranged.
Impression / Plan
-
PCP: None
Hotel Reservation Agent: None prior to admission
Impression:
Acute HFrEF
Nonischemic CM
Hypertensive emergency
Hypoxemic respiratory failure, acute
Tobacco abuse
Echo 11/27/2023: EF 30-35%, global hypokinesis, mild cLVH, mild MR, mild AR, mild TR, estimated PAP 30-35mmHg
LHC 11/28/2023: Nonischemic cardiomyopathy. Moderate nonobstructive CAD.
Plan:
-Presented with increased shortness of breath and found to be in acute heart failure in the setting of hypertensive emergency.
-Diuresed with IV lasix over the weekend and has improved symptomatically. Weight down at least 4lbs this admission.
-Continue PO lasix 40mg daily. Creat stable at 1.0.
-Echo 11/27 with CM, EF 30-35%. Underwent LHC on 11/28 which revealed nonobstructive CAD.
-Continue medical therapy with lisinopril and coreg. BP stable, will add spironolactone 12.5mg daily.
-LDL 108. Started on lipitor 40mg daily this admission.
-Check BMP in 1 week
-Follow up arranged.
HPI: 53-year-old man who does not seek medical care with little past history other than hypertension who presents with increasing shortness of breath but no chest discomfort
Progress Note - Hotel Reservation Agent
Subjective
Date of Service: November 29, 2023
Feeling well. No chest pain or SOB. Ambulating without symptoms.
Objective
Labs:
11/25/23 09:20
11/29/23 07:54
Labs
Hgb 17.3 g/dL (13.0-18.0) 11/25/23 09:20
Hct 51.8 % (39.0-52.0) 11/25/23 09:20
Plt Count 260 10^3/uL (130-400) 11/25/23 09:20
Sodium 135 mmol/L (135-145) 11/29/23 07:54
Potassium 4.7 mmol/L (3.5-5.1) 11/29/23 07:54
BUN 23 mg/dl (9-20) H 11/29/23 07:54
Creatinine 1.0 mg/dL (0.7-1.3) 11/29/23 07:54
Glucose 112 mg/dl (70-99) H 11/29/23 07:54
Vital Signs and I&O:
Vital Signs
Temp Pulse Resp BP Pulse Ox
98.1 F 71 18 165/104 98
11/29/23 07:00 11/29/23 07:00 11/29/23 07:00 11/29/23 07:00 11/29/23 07:00
Vital Signs
Temp Pulse Resp BP Pulse Ox
98.1 F 71 18 165/104 98
11/29/23 07:00 11/29/23 07:00 11/29/23 07:00 11/29/23 07:00 11/29/23 07:00
Intake & Output
11/27/23 11/28/23 11/29/23 11/30/23
06:59 06:59 06:59 06:59
Intake Total 1080 / 1080 1800 / 1800 1440 / 1440
Output Total 1500 / 1500 1700 / 1700
Balance -420 / -420 1800 / 1800 -260 / -260
Physical Exam
Physical Exam
GEN: No distress, awake, alert, oriented x3
HEENT: supple, anicteric, mmm
LUNGS: CTA b/l, no wheezes/rales
CV: Reg, S1/S2, no murmur
ABD: soft, BS+, NT/ND
EXT: No clubbing, cyanosis, or edema
NEURO: Gross non-focal
SKIN: Warm, dry, no rash
[2023-11-29 11:00] VITALS: BP 127/83
--- NOTE | 2023-11-29 11:05 | W.PN.HOSP.TC ---
Today's Communication/Plan
-
GDMT
OP cards f/u
Assessment / Plan
Assessment / Plan
Gen-AAOx3, NAD
HEENT-NC, AT, anicteric, clear oral mm
Neck-supple
CV-reg, no M, +S1/S2
Lungs-clear B/L
Abd-soft, NT, ND
Ext-no edema
Musculoskeletal-no cyanosis, clubbing
Skin-warm and dry
Neuro-grossly non-focal
Psych-calm, cooperative
Acute hypoxic respiratory failure -due to acute pulmonary edema due to acute heart failure exacerbation, hypertensive emergency.� Presentation with pulse ox of 70% on room air.� Chest x-ray shows pulmonary edema.
Transition to 4 L nasal cannula oxygen overnight, now improved and on room air. Denies dyspnea on exertion today and ambulating in room without difficulty.
Hypertensive emergency -with acute heart failure, acute pulmonary edema.� Blood pressure much improved. Continue lisinopril, furosemide. Norvasc was discontinued and started on carvedilol. ICD per cardiology. Aldactone added per cards.
Acute HFrEF-� Echocardiogram with reduced ejection fraction of 30% on 40mg po lasix now. � Cardiology following.� BNP 2450. Ps/p cardiac cath-non ishemic CM
Hyperglycemia -a1c 5.9.
Elevated LFTs -could be due to passive congestion from heart failure.� LFTs improved and found to be in normal limit now
Tobacco dependence -counseled on need for abstinence. Smokes 1PPD. Offered nicotine patch-pt refused
Full code
More than 30 minutes spent in discharge including
Final examination of the patient
Summarizing hospital stay
Instructions for continuing care to all relevant caregivers
Preparation of discharge records, prescriptions, and referral forms
Total time spent (in minutes): 50
Anticipated Discharge: Today
Subjective/Interval History
-
Date of Service: November 29, 2023
denies cp or sob
Objective Data
-
Labs:
Laboratory Results
11/29/23
07:54
Sodium 135
Potassium 4.7
Chloride 98
Carbon Dioxide 28
BUN 23 H
Creatinine 1.0
Glucose 112 H
Calcium 9.5
Vital Signs:
Vital Signs
Temp Pulse Resp BP Pulse Ox
98.1 F 71 18 165/104 98
11/29/23 07:00 11/29/23 07:00 11/29/23 07:00 11/29/23 07:00 11/29/23 07:00
I&O
11/28/23 11/29/23 11/30/23
06:59 06:59 06:59
Intake Total 1800 / 1800 1440 / 1440
Output Total 1700 / 1700
Balance 1800 / 1800 -260 / -260
--- NOTE | 2023-11-29 11:14 | W.DCSUMMARY ---
Discharge Summary
Discharge Data
Date of Admission: 11/25/23
Date of Discharge: 11/29/23
-
Pending Results: No
Hospital Course
52-year-old male past medical history of tobacco abuse on daily basis with dependence was presenting with shortness of breath. Patient was found to be in acute hypoxic respiratory failure secondary to pulmonary edema which was seen secondary acute
heart failure exacerbation in setting of hypertension emergency. Patient was on IV Lasix. Cardiology was consulted. Patient underwent echocardiogram which showed EF of 30%. Patient with diuresis with significant improvement in oxygenation.
Patient was weaned off to room air. Patient denies any further chest pain or shortness of breath and was ambulating in room without difficulty. Patient was started on goal-directed medical therapy with lisinopril, Lasix, carvedilol. Patient
underwent cardiac catheterization and was found to be nonischemic. Patient was started on aldactone. Patient was discharged home recommendation to follow-up with cardiology and primary doctor. Patient was counseled multiple times on complete
tobacco cessation. Patient will need to follow-up outpatient with cardiology for ICD placement consideration.
Discharge Plan
-
Patient Disposition: Home (Routine Discharge)
Discharge Diagnosis/Procedures: Acute systolic exacerbation
Status post cardiac catheterization
Nonischemic cardiomyopathy
Transaminitis secondary to congestion from heart failure
Condition: Fair
Diet: 2 Gram Sodium and Restrict fluids to 48 oz
Activity: With assistance and As tolerated
Blood Work: BMP in 1 week with primary doctor or cardiology
Specialty Instructions: Weigh Daily- Call MD for wt gain/loss 3 lbs overnight/5 lbs in 1 week
Instructions: Quitting smoking, *PCP/Other Appraisal Specialist Heart Failure Instructions
Referrals:
Sarah Lopes PA-C [Specified Professional Personl] - 12/06/23 2:40 pm (You have a follow up visit with cardiology at the [facility]. Please call with questions. )
UNKNOWN - PT DOES,NOT KNOW [Family Provider] - in less than 1 week
Prescriptions:
New
furosemide 40 mg Tablet
40 mg PO DAILY 30 Days Qty: 30 0RF
atorvastatin 40 mg Tablet
40 mg PO QPM 30 Days Qty: 30 0RF
carvedilol 6.25 mg Tablet
6.25 mg PO BID 30 Days Qty: 60 0RF
spironolactone 25 mg Tablet
12.5 mg PO DAILY 30 Days Qty: 15 0RF
lisinopril 20 mg Tablet
20 mg PO DAILY 30 Days Qty: 30 0RF
aspirin [Adult Low Dose Aspirin] 81 mg tablet,delayed release (DR/EC)
81 mg PO DAILY Qty: 30 0RF
Discharge Orders:
Discharge Patient (As Directed); Ordered 11/29/23
Ordered By: Alok Hutchins
Discharge Date and Time
Discharge Date/Time: 11/29/23 13:00
--- NOTE | 2023-11-29 11:27 | CM ---
Plan: home no needs.
Spouse will transport.
[2023-11-29] MEDS: FLUZONE QUAD 2023-2024 SYRINGE 0.5 ML IM (12:45)
--- NOTE | 2023-11-29 13:11 | PTCARENOTE ---
Rn Flow mainstreaming facilitator- Patient taken to d/c lounge, iv access removed and d/c instructions provided.
--- NOTE | 2023-11-29 13:23 | PTCARENOTE ---
Rn Flow Manager Requirements- Patient requesting a work note. mic texted Dr Hutchins. This nurse went to Hospitalist office and picked up script for work note.
--- NOTE | 2023-12-18 13:21 | HFEDUCATE ---
Pt had F/U appt on 12/06/23 at 2:40PM with Dr. Sarah Lopes PA-C.
== END 2023-11-29 13:00 | disposition home or self-care (01) | DRG 286 ==
LOC: 4 WEST ACU 12:07
PROVIDERS: Internal Medicine Interventional Cardiology; ADMITTING PHYSICIAN Hospitalist; ATTENDING PHYSICIAN Hospitalist; CONSULT PHYSICIAN Internal Medicine Cardiovascular Disease; EMERGENCY PHYSICIAN Emergency Medicine
PROC: 5A09357 Assistance with Respiratory Ventilation, Less than 24 Consecutive Hours, Continuous Positive Airway Pressure (ICD-10-PCS; 2023-11-25)
PROC: 4A033BC Measurement of Arterial Pressure, Coronary, Percutaneous Approach (ICD-10-PCS; 2023-11-28)
PROC: B2111ZZ Fluoroscopy of Multiple Coronary Arteries using Low Osmolar Contrast (ICD-10-PCS; 2023-11-28)
PROC: B2151ZZ Fluoroscopy of Left Heart using Low Osmolar Contrast (ICD-10-PCS; 2023-11-28)
PROC: 4A023N7 Measurement of Cardiac Sampling and Pressure, Left Heart, Percutaneous Approach (ICD-10-PCS; 2023-11-28)
PROC: 3E02340 Introduction of Influenza Vaccine into Muscle, Percutaneous Approach (ICD-10-PCS; 2023-11-29)
DX: I11.0 Hypertensive heart disease with heart failure (principal); I50.21 Acute systolic (congestive) heart failure; J96.01 Acute respiratory failure with hypoxia; I16.1 Hypertensive emergency; I42.8 Other cardiomyopathies; F17.200 Nicotine dependence, unspecified, uncomplicated; R74.01 Elevation of levels of liver transaminase levels; F12.90 Cannabis use, unspecified, uncomplicated; I50.9 Heart failure, unspecified; R73.9 Hyperglycemia, unspecified; J44.9 Chronic obstructive pulmonary disease, unspecified; Z90.49 Acquired absence of other specified parts of digestive tract; Z23 Encounter for immunization; Z11.52 Encounter for screening for COVID-19
CPT/HCPCS: 71045; 76604; 80048; 80053; 80061; 82805; 83036; 83735; 83880; 84484; 85025; 85347; 87811; 90686; 93005; 93306; 93458; 93571; 93572; 94640; 94660; 96365; 96366; 96375; 99291; C1769; C1894; G0008; Q9967

== ENCOUNTER → 2024-02-29 08:12 | Outpatient (REF) | payer OTHER, SELFPAY | LOC: RCS 08:12 | PROVIDERS: ATTENDING PHYSICIAN Physician Assistant; FAMILY PHYSICIAN Physician Assistant Medical | DX: I50.20 Unspecified systolic (congestive) heart failure (principal); I42.8 Other cardiomyopathies | CPT/HCPCS: 93306 ==

== ENCOUNTER 2024-10-04 21:36 | Inpatient (IN) | payer OTHER, SELFPAY ==
[2024-10-04] VITALS (27 sets, daily range): BP systolic 72–183; BP diastolic 52–121; BMI 32.6
[2024-10-04 18:48] LABS: Glucose - Point of Care 209 mg/dl (70-99)
[2024-10-04 18:58] LABS: % Basophils 1.3 % (0-2); % Eosinophils 0.7 % (0-6); % Immature Granulocytes 1.1 % (0-0.5); % Lymphocytes 23.9 % (20.5-51.1); % Monocytes 11.1 % (1.7-9.3); % Neutrophils 61.9 % (42.2-75.2); Absolute Basophils 0.1 10^3/uL (0-0.2); Absolute Eosinophils 0.1 10^3/uL (0-0.7); Absolute Immature Granulocytes 0.1 10^3/uL (0-0.05); Absolute Lymphocytes 2.3 10^3/uL (1.2-3.4); Absolute Monocytes 1.1 10^3/uL (0.1-0.6); Absolute Neutrophils 5.9 10^3/uL (1.4-6.5); Hematocrit 47.7 % (39.0-52.0); Hemoglobin 15.3 g/dL (13.0-18.0); Mean Corp Hgb Conc. 32.1 g/dL (33.0-37.0); Mean Corpuscular Hgb 28.7 pg (27.0-31.0); Mean Corpuscular Volume 89.3 fL (80.0-94.0); Mean Platelet Volume 9.3 fL (7.4-10.4); Nucleated Red Blood Cells % 0 % (-); Platelet Count 408 10^3/uL (130-400); Red Blood Cell Count 5.34 10^6/uL (4.70-6.10); Red Cell Dist. Width 12.1 % (11.5-14.5); White Blood Cell Count 9.5 10^3/uL (4.8-10.8)
--- NOTE | 2024-10-04 19:01 | ED.GENMED ---
History of Present Illness
General
Chief Complaint: Unresponsive
Source: ambulance crew
Time Seen by Provider: 10/04/24 18:58
History of Present Illness
History of Present Illness:
54-year-old male presents to the emergency room after being found unresponsive. Unclear circumstances surrounding how the patient was found but when paramedics arrived they found him to have agonal respirations and be hypoxic in the 60s. They were
having difficulty increasing his oxygenation despite [id number] ventilation. They were unable to intubate because the patient did have a gag reflex. En route to the hospital paramedics felt like the patient was moving only his left side. Upon
arrival the patient is localizing the pain but not responsive in any way.
Past History
Past History
ED Past Medical History: None
ED Past Surgical History: Appendectomy and Orthopedic (Right wrist surgery)
Social History
Tobacco: Smoker
Alcohol: Occasional
Personal: Single
Living: with family
Employment: Employed
Family History
Family History: Negative Diabetes
Phy Exam
Physical Exam
Physical Exam:
General: Acute respiratory distress, agonal respirations
Vitals: Hypertensive, tachycardic
Head: Atraumatic
Eyes: Pupils equal at 2 mm, EOMI
Throat: Agonal respirations
Neck: Trachea midline
Lungs: Poor aeration,
Heart: Tachycardic regular rate, no murmurs
Abd: Soft, Nontender, No pulsatile mass
Neuro: Patient presents in distress, difficult to assess neurologic exam as he required immediate rapid sequence intubation. Patient did not move left arm or leg spontaneously during initial resuscitation
Skin: Warm, dry, no rash
Extremities: pulses equal b/l, no edema
Course
Orders/Labs/Results
Orders:
Orders
10/04/24 18:45
Electrocardiogram (*1) Urgent
Reason for Study: TIA/Stroke
EKG- Treatment ONCE
10/04/24 18:47
Portable Chest Xray [CR Chest Portable - 1 View] Urgent
Comment:
Reason For Exam: s/p intubation
Reason Study Needs to be Portable: Patient Unstable
10/04/24 18:49
CT HEAD STROKE ALERT W/o Cont Urgent
Comment:
Reason For Exam: unresponsive,right sided paralysis.
Propofol 1,000,000 Mcg/100 ml [Diprivan] 1,000,000 mcg in 100 ml .ROUTE .STK-MED
10/04/24 18:50
Complete Blood Count/With Diff Urgent
Comprehensive Metabolic Panel Urgent
NT-proBNP Urgent
Prothrombin Time Urgent
Triglycerides Urgent
Comment: ADDON
Troponin I Urgent
10/04/24 19:04
CT HEAD/NECK ANG STROKE ALERT Urgent
Comment:
Reason For Exam: left sided weakness
10/04/24 19:22
Propofol 1,000,000 Mcg/100 ml [Diprivan] 1,000,000 mcg in 100 ml IV NOW
Indication:: Light Sedation
Begin Infusion:: Now
Goal:: RASS 0 to -2
Maximum dose in mcg/kg/min:: 50
Initial dose based on RASS:: Yes
If RASS is:: +1 or pt hemodynamically unstable (SBP < 90mmHg), initiate at 10 mcg/kg/min
If RASS is:: +2, initiate at 20 mcg/kg/min
If RASS is:: greater than or equal to +3, initiate at 30 mcg/kg/min
Titration Instructions:: Titrate by 5-10 mcg/kg/min every 5 minutes until RASS 0 to -2 achieved.
Taper Instructions:: If RASS is at or below goal for 4 consecutive hours decrease infusion by
Taper Instructions:: 5-10 mcg/kg/min every 2 hours to off.
Over-sedation Instructions:: If CPOT 0-2 (at goal) AND RASS -3 to -5 (below goal) decrease sedative by
Over-sedation Instructions:: 50% first. If pain score remains at goal and RASS remains below goal in
Over-sedation Instructions:: 1 hour, decrease opioid infusion by 50%.
Notify provider:: immediately if patient exhibits signs/symptoms of propofol-related
Notify provider:: infusion syndrome.
Additional Instructions:: Patient MUST be mechanically ventilated and MUST receive analgesia.
10/04/24 19:30
ABG [Arterial Blood Gas] Urgent
%Oxygen/Room Air: 100
10/04/24 19:39
Acetaminophen [Tylenol/Feverall] 650 mg .ROUTE .STK-MED ONE
Acetaminophen [Tylenol/Feverall] 650 mg RECTAL NOW STA
10/04/24 19:42
Add On- LAB Urgent
Tests Added?: bnp
10/04/24 19:43
Cefepime HCl [Maxipime] 2,000 mg IV NOW STA
10/04/24 19:44
Lactated Ringers [Lr] 1,000 ml IV BOLUS
10/04/24 19:56
Add On- LAB Urgent
Tests Added?: Triglycerides
COVID-19 Antigen Urgent
Source: Nasal Swab
Blood Culture Routine
KEELY Source: Blood/Venous
Specimen Description:
Blood Culture Urgent
KEELY Source: Blood/Venous
Specimen Description:
Influenza A+B Rapid Molecular Urgent
KEELY Source: Nasal Swab
Specimen Description:
10/04/24 20:00
Lactic Acid Q4H
Comment: ON ICE, CANCEL 2ND ORDER IF FIRST LACTIC ACID LEVEL <2
Urinalysis Reflex To Culture Urgent
Date Specimen was Collected: 10/04/24
Time Specimen was Collected: 19:55
Urine Microscopic Reflex Cult Urgent
10/04/24 20:03
Sterile Water [Sterile Water For Injection] 20 ml .ROUTE .STK-MED
Vancomycin [Vancocin] 2,000 mg 0.9% Sodium Chloride 500 ml [Nss] 500 ml IV NOW
10/04/24 20:24
FentaNYL INFUSION TITRATE NOW X 1 BAG FentaNYL 1,000 MCG/100 ML [Sublimaze] 1,000 mcg in 100 ml IV NOW
Indication:: Light Sedation
Begin Infusion:: Now
Goal:: pain score </= 1, CPOT 0-2
Maximum dose in mcg/hr:: 300
Initial Dose in mcg/hr:: 100
Titration Instructions:: Titrate every 30 minutes if patient exhibits signs of pain or discomfort
Titration Instructions:: (pain score >/= 2, CPOT >/= 3).
Titration Instructions:: Administer bolus dose and increase infusion by 25 mcg/hr.
Taper Instructions:: If pain score at goal for 4 consecutive hours (pain score </= 1, CPOT 0-2)
Taper Instructions:: decrease infusion by 50 mcg/hr every 2 hours.
Taper Instructions:: When dose </= 50 mcg/hr may turn infusion off and consider PRN
Taper Instructions:: intermittent bolus doses only.
Over-sedation Instructions:: If CPOT 0-2 (goal) and RASS -3 to -5 (below goal) decrease sedative by 50%
Over-sedation Instructions:: first. If pain score remains at goal and RASS remains below goal in 1 hour,
Over-sedation Instructions:: decrease opioid infusion by 50%.
Notify provider:: immediately if pt exhibits: chest wall rigidity, hemodynamic instability,
Notify provider:: agitation/pain despite maximum dosing, pain when RASS below goal.
Additional Instructions:: Patient MUST be mechanically ventilated.
Fentanyl Citrate/Pf [Sublimaze] 100 mcg IV NOW STA
Fentanyl Citrate/Pf [Sublimaze] 50 mcg IV [id number] PRN
10/05/24 00:00
Lactic Acid Q4H
Comment: ON ICE, CANCEL 2ND ORDER IF FIRST LACTIC ACID LEVEL <2
Abnormal Lab Results
10/04/24 10/04/24 10/04/24
18:46 18:50 19:30
MCHC 32.1 L g/dL
(33.0-37.0)
Plt Count 408 H 10^3/uL
(130-400)
Abs Immat Gran (auto) 0.1 H 10^3/uL
(0-0.05)
Absolute Monos (auto) 1.1 H 10^3/uL
(0.1-0.6)
Immature Gran % 1.1 H %
(0-0.5)
Monocytes % 11.1 H %
(1.7-9.3)
PT 15.7 H Sec
(11.4-14.6)
pH 7.13 L*
(7.35-7.45)
pCO2 78 H* mmHg
(35-48)
Sodium 129 L mmol/L
(135-145)
Chloride 90 L mmol/L
(98-107)
BUN 22 H mg/dl
(9-20)
Creatinine 1.4 H mg/dL
(0.7-1.3)
Glucose 234 H mg/dl
(70-99)
Troponin I 0.693 H* ng/ml
Ur Occult Blood Reflex
Urine Glucose
Urine Albumin (Reflex)
POC Glucose 209 H mg/dl
(70-99)
10/04/24
20:00
MCHC
Plt Count
Abs Immat Gran (auto)
Absolute Monos (auto)
Immature Gran %
Monocytes %
PT
pH
pCO2
Sodium
Chloride
BUN
Creatinine
Glucose
Troponin I
Ur Occult Blood Reflex 2+ A
(Negative)
Urine Glucose Trace A
(Negative)
Urine Albumin (Reflex) 3+ A
(Neg - Trace)
POC Glucose
10/04/24 18:50
10/04/24 18:50
Vital Signs
Initial and Last Documented VS:
Initial Vital Signs
Pulse Resp BP Pulse Ox
131 24 179/117 79
10/04/24 18:41 10/04/24 18:41 10/04/24 18:41 10/04/24 18:41
Last Documented Vital Signs
Temp Pulse Resp BP Pulse Ox
102.7 F H 120 28 175/111 98
10/04/24 18:55 10/04/24 19:45 10/04/24 19:45 10/04/24 19:45 10/04/24 19:45
Procedures
Intubations
Procedure completed by: myself
Method of Intubation: glidescope
Tube size (cm): 7.5
Placement confirmed by: auscutation, CXR, capnography and direct visualization
Breath sounds after intubation: equal
Intubation complications: no complications
MDM/Problems Addressed
Differential Diagnosis Includes:
CHF, pneumonia, seizure, CVA, influenza, covid
MDM/Problems Addressed:
Patient presents after being found unresponsive with agonal respirations. Bag valve ventilation causing the be somewhat more responsive per paramedics. Upon arrival here the patient was immediately intubated using rapid sequence intubation. There
was some question as to whether he was moving his right side normally and therefore stroke alert was called. However CT and CTA are unremarkable. After paralytics wore off the patient is moving all 4 extremities. I do not believe there is any
evidence to suggest an ischemic event nor would he benefit from thrombolytics. In fact I think these are absolutely contraindicated at this point. Patient found to be febrile. Acetaminophen administered. Chest x-ray consistent with increased
interstitial markings. Overall presentation seems most consistent with a pulmonary infection. Patient very difficult to oxygenate initially. We were slowly able to bring his oxygenation up to adequate levels with the use of increasing PEEP and
and increasing respiratory rate. Blood gas obtained after the patient was on the ventilator for at least 30 minutes shows a hypercapnic respiratory acidosis. Influenza test turned out to be positive. Patient treated broad-spectrum antibiotics for
predict tensional bacterial infection but also with Tamiflu ordered for down the NG tube. Patient will be admitted to the intensive care unit. Discussed with hospitalist.
Chronic conditions affecting care: HTN and Cardiomyopathy
*Radiology
Radiology exam reviewed: preliminary read by ED provider (ET tube in adequate position. Increased interstitial markings particularly right greater than left)
*Pulse Oximetry
Patient hypoxic: yes
*EKG
Interpreted by ED Provider?: Yes
Interpretation: abnormal
Heart Rate: 114
Rate: tachycardiac
Rhythm: sinus tachycardia
[place]: normal axis
Interval: normal interval
QRS Pattern: normal QRS
Ischemia: non-specific ST changes
*[employer] Interpretation
Rate: tachycardiac
Interpretation: abnormal
Rhythm: sinus
*Critical Care Note
Total Time (30-74mins, 75-104mins- exclusive of procedures): 50 min
comment:
Critical care statement: A total of 50 minutes of critical care time was provided for this patient. This includes management of unstable vital signs, evaluation of the patient at bedside, reviewing the patient's pertinent medical records, discussion
with consultants, review of old EKGs and review of pertinent medical records. This time with separate from time utilized to perform the aforementioned documented procedures
ED Attending Note
-
Portions of this chart may have been created with voice recognition software.� Occasional wrong word or��sound alike� substitutions may have occurred due to the inherent limitations of voice recognition software.
Discharge Plan
Departure
Patient Disposition: Admit
Date of Disposition: 10/04/24
Time of Disposition: 19:51
Admit to: ICU
Presentation/result/management discussed w/ accepting MD/DO: Hospitalist
Condition: Critical
Discharge Problem:
Respiratory failure, Acute hypercapnic respiratory failure, Pneumonia
Prescriptions:
No Action
furosemide 40 mg Tablet
40 mg PO DAILY 30 Days Qty: 30 0RF
spironolactone 25 mg Tablet
12.5 mg PO DAILY 30 Days Qty: 15 0RF
lisinopril 20 mg Tablet
20 mg PO DAILY 30 Days Qty: 30 0RF
atorvastatin 40 mg tablet
40 mg PO DAILY
carvedilol 6.25 mg tablet
6.25 mg PO DAILY
aspirin [Adult Low Dose Aspirin] 81 mg tablet,delayed release (DR/EC)
81 mg PO Q48H
Referrals:
UNKNOWN - PT NOT,INTERVIEWE [Family Provider] -
Interventions
Interventions:
*Risk Screen - Suicide Last Done: 10/04/24 18:41
*General Assessment Last Done: 10/04/24 18:41
*Neglect/Abuse Screening Last Done: 10/04/24 18:41
ED- Neurological Assessment Last Done: 10/04/24 18:55
Discharge Date and Time
Print Language: TAJIK
[2024-10-04 19:13] LABS: INR 1.22; PT 15.7 Sec (11.4-14.6)
[2024-10-04 19:21] LABS: ALT (SGPT) 24 U/L (0-50); AST (SGOT) 31 U/L (17-59); Albumin 4.1 g/dl (3.5-5.0); Alkaline Phosphatase 107 U/L (38-126); Blood Urea Nitrogen 22 mg/dl (9-20); Calcium 8.6 mg/dl (8.4-10.2); Carbon Dioxide 24 mmol/L (22-30); Chloride 90 mmol/L (98-107); Estimated Creatinine Clearance 77 ml/min; Glucose 234 mg/dl (70-99); Potassium 4.9 mmol/L (3.5-5.1); Sodium 129 mmol/L (135-145); Total Bilirubin 0.8 mg/dl (0.2-1.3); Total Protein 6.6 g/dl (6.3-8.2); eGFR 59.73
[2024-10-04 19:24] LABS: Troponin I 0.693 ng/ml
[2024-10-04] MEDS: DIPRIVAN 100 IV (19:31)
[2024-10-04 19:39] LABS: B.E. -5.3 mmol/L; HCO3 25.9 mmol/L (21-28); O2 Saturation % 96.3 % (94-98); O2 Therapy 100%; PO2 86 mmHg (83-108)
[2024-10-04 19:41] LABS: PCO2 78 mmHg (35-48); pH 7.13 (7.35-7.45)
[2024-10-04] MEDS: TYLENOL/FEVERALL 650 MG RECTAL (19:46)
[2024-10-04] MEDS: LR 1000 IV (20:04)
[2024-10-04] MEDS: MAXIPIME 2000 MG IV (20:04)
[2024-10-04 20:12] LABS: Urine Albumin 3+ (Neg - Trace); Urine Bilirubin Negative (Negative); Urine Character Clear (Clear); Urine Color Yellow; Urine Glucose Trace (Negative); Urine Ketone Negative (Negative); Urine Leukocyte Negative (Negative); Urine Nitrite Negative (Negative); Urine Occult Blood 2+ (Negative); Urine Urobilinogen Negative (Neg - 1+)
[2024-10-04 20:19] LABS: NT-proBNP 7590 pg/ml
--- NOTE | 2024-10-04 20:19 | HPS.HSE ---
Family Physician
-
Family Physician: INTERVIEWE UNKNOWN - PT NOT
Chief Complaint
-
Agonal breathing unresponsive
History of Present Illness
Patient unresponsive, unable to get any corroborating history from family, history is as obtained by EMS record on initial ED records.
Patient is a 54-year-old who has a past medical history of nonischemic cardiomyopathy EF around 50% on last evaluation on echo, COPD, diabetes and chronic tobacco use, hypertension with history of hypertensive urgency in the past, prior admissions
for CHF exacerbation who presents to the emergency department with agonal breathing and unresponsiveness. Per EMS record on the arrival to the home the patient was awake and alert but in acute respiratory distress and unable to communicate. The
home was found disheveled with pets cigarette smoke other paraphernalia. EMS he was frothing at the mouth. No known seizure-like activity but they thought he was flaccid on the right side. He became unresponsive upon transportation. They tried
to intubate en route but also unsuccessful. Patient was bagged until arrival in the emergency department where he was successfully intubated. Initially hypotensive. Was started on propofol and his blood pressure has dropped since then.
At the time of seeing the patient he was on the ventilator and getting a bolus of lactated ringer. Was found to be febrile to 102.7, he was satting 90% on 100%. Blood pressure was 90/60. Heart rate had come down from 120s to the 1 teens. It was
regular. ECG sinus tachycardia, RBBB. Troponin was 0.6. BMP is pending. He has a white count of 9.5 hemoglobin 15.3 platelet count of 408. BUN/creatinine were 22 and 1.4 potassium was 4.9 sodium [address] head shows no bleed. CT angio
shows no acute dissection aneurysm or acute stenosis. Chest x-ray shows diffuse bronchial alveolar infiltrates which could be pulmonary edema or acute infection.
Medical History
Past Medical History
Past Medical History: Reports CHF (Nonischemic cardiomyopathy), COPD, HTN and Hypercholesterolemia
Past Surgical History: Reports Other
Social History
Tobacco: Smoker
Drug: None
Personal:
Living: With Family
Family History
Family History: Not pertinent
Allergies / Home Medications
Allergies reflects when Allergies were last updated in [facility].
Home Medications with original date entered in [facility]
Allergy/Medication List:
Allergies
Allergy/AdvReac Type Severity Reaction Status Date / Time
No Known Allergies Allergy Verified 03/30/19 17:45
Home Medications
furosemide 40 mg tablet 40 mg PO DAILY Fluid retention/Swelling 30 days #30 tabs 11/29/23
lisinopril 20 mg tablet 20 mg PO DAILY 30 days #30 tabs 11/29/23
spironolactone 25 mg tablet 12.5 mg (1/2 x 25 mg) PO DAILY Fluid retention/Swelling 30 days #15 tabs 11/29/23
aspirin 81 mg tablet,delayed release (Adult Low Dose Aspirin) 81 mg PO Q48H Heart disease/condition 10/04/24
atorvastatin 40 mg tablet 40 mg PO DAILY High cholesterol 10/04/24
carvedilol 6.25 mg tablet 6.25 mg PO DAILY Blood pressure 10/04/24
Review of Systems
-
Unable to obtain full review of systems at this time due to: Patient Intubation
Physical Exam
Vital Signs
Vital Signs
Temp Pulse Resp BP Pulse Ox
102.7 F H 120 28 175/111 98
10/04/24 18:55 10/04/24 19:45 10/04/24 19:45 10/04/24 19:45 10/04/24 19:45
Physical Exam
General: Intubated
HEENT: NormoCephalic, Anicteric, Moist mucous membranes and Atraumatic
Respiratory: Wheezes
Cardiac: S1/S2 and Tachycardia
Breast: Deferred by me
GI: Soft, Non Distended, Normal Bowel Sounds and No Hepatosplenomegaly
Rectal: Deferred by Provider
Genito-urinary: Clear Urine
Musculoskeletal: No Clubbing, No Cyanosis, Edema, Left Lower Extremity (Trace) and Edema, Right Lower Extremity (Trace)
Skin: Warm
Neuro: Sedated
Hematologic/Lymphatic: No Lymphadenopathy
Laboratory Results
-
10/04/24 18:50
10/04/24 18:50
Laboratory Results
PT 15.7 Sec (11.4-14.6) H 10/04/24 18:50
INR 1.22 10/04/24 18:50
pH 7.13 (7.35-7.45) L* 10/04/24 19:30
pCO2 78 mmHg (35-48) H* 10/04/24 19:30
pO2 86 mmHg (83-108) 10/04/24 19:30
HCO3 25.9 mmol/L (21-28) 10/04/24 19:30
Total Bilirubin 0.8 mg/dl (0.2-1.3) 10/04/24 18:50
AST 31 U/L (17-59) 10/04/24 18:50
ALT 24 U/L (0-50) 10/04/24 18:50
Alkaline Phosphatase 107 U/L (38-126) 10/04/24 18:50
Troponin I 0.693 ng/ml H* 10/04/24 18:50
Data Reviewed
-
Diagnostic Radiology: Image Personally Visualized and interpreted
CT Scan: Report Reviewed by me
Medical Tests (Nuc Med, Echo, EKG etc): Image Personally Visualized and interpreted
Lab Data: Labs Reviewed by me
Old Records: Reviewed
Impression/Plan
-
IMPRESSION:
Patient in respiratory distress and found unresponsive s/p intubation. History of present illness sparse. Known facts including frothing at the mouth with respiratory distress, fever, transient flaccid paralysis on the right now improved, negative
head CT, CTA. Elevated troponin (h/o NICM). ABG with acute respiratory acidosis. COVID negative.
PLAN:
1. Acute Respiratory failure with AMS - Infectious, seizure, COPD exacerbation versus CHF exacerbation. With the acute fever infectious such as influenza is most likely. Unlikely acute meningitis but cannot rule out.
- airway management and vent - AC 20 500 10 100 for now
- attempt maximal sedation on propofol
- getting bolus of LR x 1 L, afterwards will start levophed due to known CHF
- will start nebs RTC and solumedrol 125 and 40 q 6
- procalcitonin, influenza, vanc, cefepime
- repeat abg and labs in 1 hour
- clinical services assistant consulted
2. ID - Fever likely of respiratory origin, influenza now positive
- blood cultures, u/a urine culture
- influenza, covid pending
- vanc/cefepime for now for possible post/co infection
- tamiflu q 12
3. NSTEMI - Suspect non-obstructive myocardial injury with trop of 0.6. Last cath with NICM
- aspirn 325 x 1
- hold heparin and trend
- continue statin
- echo
- hold furosemide, lisonopril and spironolactone
- cardiology consult
4. AMS - In addition to infection, cannot rule out seizure with aspiration given transient paralysis
- on propofol for now
- hold off on AED
- EEG in am
- neuro consultation
DVT PPX - heparin sq
Code status - full code
[2024-10-04 20:20] LABS: COVID-19 Antigen Negative (Negative)
[2024-10-04 20:23] LABS: Urine Mucus Moderate
[2024-10-04] MEDS: VANCOCIN 540 MG IV (20:24)
[2024-10-04 20:26] LABS: Lactic Acid 1.4 mmol/L (0.7-2.0); Urine Bacteria Moderate (Negative)
[2024-10-04 20:29] LABS: Triglycerides 78 mg/dl (10-149)
[2024-10-04] MEDS: SUBLIMAZE 100 MCG IV (20:30)
[2024-10-04] MEDS: SUBLIMAZE 100 IV (20:43)
[2024-10-04] MEDS: SOLU-MEDROL PF 125 MG IV (20:58)
[2024-10-04] MEDS: VENTOLIN NEBULES 2.5 MG INH (20:58)
[2024-10-04] MEDS: LEVOPHED 250 IV (21:18)
[2024-10-04 21:30] LABS: B.E. -3.3 mmol/L; PCO2 65 mmHg (35-48); PO2 125 mmHg (83-108); pH 7.21 (7.35-7.45)
[2024-10-04] MEDS: TAMIFLU 75 MG TUBE (21:45)
[2024-10-04 23:52] LABS: Blood Urea Nitrogen 23 mg/dl (9-20); Carbon Dioxide 24 mmol/L (22-30); Chloride 90 mmol/L (98-107); Estimated Creatinine Clearance 83 ml/min; Glucose 258 mg/dl (70-99); Potassium 5.4 mmol/L (3.5-5.1); Sodium 122 mmol/L (135-145); eGFR > 60.00
[2024-10-04 23:53] LABS: Triglycerides 78 mg/dl (10-149)
[2024-10-04 23:56] LABS: B.E. -2.9 mmol/L; HCO3 23.7 mmol/L (21-28); PCO2 47 mmHg (35-48); PO2 123 mmHg (83-108); pH 7.31 (7.35-7.45)
[2024-10-04 23:57] LABS: O2 Therapy 80%
[2024-10-04 23:59] LABS: Troponin I 0.907 ng/ml
[2024-10-05] VITALS (72 sets, daily range): BP systolic 77–133; BP diastolic 55–89; PULSE 2–88; BMI 30.7
[2024-10-05 00:03] LABS: Procalcitonin 8.29 ng/ml (0.0-0.25)
--- NOTE | 2024-10-05 00:58 | PTCARENOTE ---
Rec. pt. from ED approx 2300.
Intubated/Sedated/pressed. See titration flowsheets for details.
Ventilator settings adjusted per ABG results, FI02 decreased, peep decreased.
Osiel inserted.
[2024-10-05] MEDS: DIPRIVAN 100 IV ×2 (02:17→06:09)
[2024-10-05] MEDS: HEPARIN 5000 UNITS SC ×3 (02:17→16:33)
--- NOTE | 2024-10-05 03:35 | PTCARENOTE ---
No change in patient assessment.
Weaning norepi/sedation, tolerating vent settings.
--- NOTE | 2024-10-05 03:51 | PTCARENOTE ---
Auto diuresing, urine op 1500 in past 3 hours, sodium trending down. ICU NNAMDI notified.
Hypothermic 96.9, warming blankets added.
Sliding scale added for coverage of POC, serum glu elevated, of note pt. listed in H/P as DM2, however does not take anything for that in home regiment.
[2024-10-05 03:55] LABS: Glucose - Point of Care 146 mg/dl (70-99)
[2024-10-05] MEDS: MAXIPIME 2000 MG IV ×3 (04:10→20:21)
[2024-10-05] MEDS: STERILE WATER FOR INJECTION 10 ML IV ×3 (04:10→20:21)
[2024-10-05] MEDS: LEVOPHED 250 IV (04:31)
[2024-10-05 04:53] LABS: APTT 34.2 Sec (23.4-35.0)
[2024-10-05 04:55] LABS: Hemoglobin 14.4 g/dL (13.0-18.0); Mean Corp Hgb Conc. 33.5 g/dL (33.0-37.0); Mean Corpuscular Volume 86.7 fL (80.0-94.0); Mean Platelet Volume 9.5 fL (7.4-10.4); Platelet Count 323 10^3/uL (130-400); Red Blood Cell Count 4.96 10^6/uL (4.70-6.10); Red Cell Dist. Width 12.2 % (11.5-14.5); White Blood Cell Count 8.5 10^3/uL (4.8-10.8)
[2024-10-05 05:02] LABS: Blood Urea Nitrogen 24 mg/dl (9-20); Calcium 8.5 mg/dl (8.4-10.2); Carbon Dioxide 25 mmol/L (22-30); Chloride 99 mmol/L (98-107); Estimated Creatinine Clearance 98 ml/min; Glucose 140 mg/dl (70-99); Potassium 4.8 mmol/L (3.5-5.1); Sodium 134 mmol/L (135-145); eGFR > 60.00
[2024-10-05 05:03] LABS: Troponin I 0.595 ng/ml
--- NOTE | 2024-10-05 07:52 | PHA.VAN.IN ---
Assessment
- Assessment
Renal Function: Appears elevated from baseline (SCr 1.4->1.1; baseline 0.8-1.0; BUN slightly elevated)
Maximum Temperature: 102.7
Minimum Temperature: 96.9
Concomitant Antimicrobials: cefepime, oseltamavir
AUC Dosing Plan
- Empiric Dosing
Initial / Loading Dose: 2000mg 10/04 20:24
Maintenance Regimen: vanc 1250 mg q12h
Estimated AUC (mcg*h/mL): 521
Estimated Peak (mcg*h/mL): 32.3
Estimated Trough (mcg/ml): 13.5
Estimated Half Life (H): 8.3
- Monitoring
No levels ordered at this time: cosnider in the upcoming days
MRSA Screen: Ordered per protocol (PCR)
Pharmacokinetics Vancomycin I
- -
Patient Age: 54
Patient Sex: Male
Vancomycin Day #: 1
Indication: Pulmonary/Respiratory
Requesting Provider: Dr Lin
Pertinent Antimicrobial Allergies:
no known allergies
Height / Weight:
Height 6 ft
Actual Weight 102.5 kg
Pertinent Past Medical History: COPD, BMI 30
- Vital Signs / Lab Results
Temp Pulse Resp BP Pulse Ox
98 F 60 19 80/60 96
10/05/24 06:15 10/05/24 06:15 10/05/24 06:15 10/05/24 06:15 10/05/24 06:15
Lab Results - Hematology
10/04/24 10/05/24
18:50 04:11
WBC 9.5 8.5
Lab Results - Chemistry
10/04/24 10/04/24 10/05/24
18:50 23:25 04:11
BUN 22 H 23 H 24 H
Creatinine 1.4 H 1.3 1.1
Estimated Creat Clear 77 83 98
Albumin 4.1
10/04/24
20:00
Lactic Acid 1.4
Lab Results - Urine
10/04/24
20:00
Urine Nitrite (Reflex) Negative
Leukocyte Esterase Rfl Negative
Urine WBC (Reflex) 6-10
Ur Squamous Epith Cells 3-5
Urine Bacteria (Reflex) Moderate A
Microbiology Results
10/04/24 19:56 Influenza Types A & B (PIPER) - Final
Nasal Swab Influenza A Positive, NAAT
--- NOTE | 2024-10-05 08:23 | CON.INTV ---
Consultation
Consultation Request
Date/Time Consultation Requested: 10/04/20242238
Date/Time Consultation Performed: 10/05/2024819
Requesting Provider: Dr. Lin
Performing Provider: Dr. Marques
Reason for Consultation: Hypoxia; Intubated
Medical History
-
Chief Complaint: Agonal breathing/unresponsiveness
History of Present Illness:
54-year-old male active tobacco smoker with a past medical history of HFmrEF, hypertension, NICM and hypercholesterolemia who presents with unresponsiveness and agonal breathing. Initially his right side was flaccid and he was receiving rescue
breaths on arrival to the ER here at [place]. When EMS arrived at the patient's home he was in respiratory distress and unable to communicate. He is homeless disheveled with animals, cigarette smoke and other paraphernalia. EMS said that the
patient was frothing at the mouth. He became unresponsive en route here to the hospital. They tried to intubate en route here to the hospital but was unsuccessful. He was intubated in the ER for airway protection. Initially in the ER he was
febrile to 102.7 �F, pulse rate 131, breathing at 24 breaths/min, BP 179/117 and he was saturating 96% on the ventilator. Initial labs showed pCO2 78, pH 7.13, sodium 129, creatinine 1.4, glucose 234, troponin 0.693, proBNP 7590, procalcitonin
8.29, COVID-19 antigen negative and he was positive for flu A. Blood cultures were collected. CXR showed moderate diffuse coarsening of bronchovascular markings throughout both lungs. Head CT was normal, and CTA head/neck done as a stroke alert
showed no intracranial branch occlusion or intracranial stenosis, with minimal atherosclerotic plaque at the left carotid bifurcation without significant stenosis. In the ER he was given IVF with 1 L LR, 125 mg Solu-Medrol, cefepime/vancomycin,
nebulized albuterol, and given his SBP remained in the 70�80s he was started on Levophed. He was admitted to the ICU for further care and degreasing solution reclaimer services consulted for additional management/recommendations.
When I saw the patient he was resting in bed in no acute distress, intubated and currently on a pressure support wean on 02/17 at 40% FiO2. His VTe is 562 mL, PIP: 13 cmH2O and breathing at 18 breaths/min. Currently sedated on 50mcg/hr of fentanyl +
propofol 20 mcg/kg/min. Currently on Levophed at 3 mcg/min. He is awake, alert, following all commands, able to sit up from the bed without difficulty. Denies chest pain, MISHRA, abdominal pain, chills. He nods his no that he does not use a CPAP or
BiPAP at home.
PMHx: HFmrEF, hypertension, NICM, tobacco use disorder, hypercholesterolemia
PSHx: Wrist fusion, appendectomy
Past Medical History
Past Medical History: Other (Above as per HPI)
Past Surgical History: Other (Above as per HPI)
Social History
Tobacco: Smoker (Smokes 0.25-0.5 PPD)
Alcohol: Occasional
Drug: None
Family History
Family History: Reviewed & Not Pertinent
Allergies / Home Medications
Allergies
Allergy/AdvReac Type Severity Reaction Status Date / Time
No Known Allergies Allergy Verified 03/30/19 17:45
Home Medications
�Medication �Instructions �Recorded �Confirmed �Last Taken �Type
furosemide 40 mg tablet 40 mg PO DAILY Fluid 11/29/23 10/04/24 10/04/24 Rx
retention/Swelling 30 days #30 tabs
lisinopril 20 mg tablet 20 mg PO DAILY 30 days #30 tabs 11/29/23 10/04/24 10/04/24 Rx
spironolactone 25 mg tablet 12.5 mg (1/2 x 25 mg) PO DAILY 11/29/23 10/04/24 10/04/24 Rx
Fluid retention/Swelling 30 days
#15 tabs
aspirin 81 mg tablet,delayed 81 mg PO Q48H Heart 10/04/24 10/04/24 10/03/24 History
release (Adult Low Dose Aspirin) disease/condition
atorvastatin 40 mg tablet 40 mg PO DAILY High cholesterol 10/04/24 10/04/24 10/04/24 History
carvedilol 6.25 mg tablet 6.25 mg PO DAILY Blood pressure 10/04/24 10/04/24 10/04/24 History
Review of Systems
-
Unable to Obtain full review of systems at this time due to: Patient Intubation
Vitals / Labs / Diagnostic Testing
Vital Signs
Temp Pulse Resp BP Pulse Ox
98 F 60 19 80/60 96
10/05/24 06:15 10/05/24 06:15 10/05/24 06:15 10/05/24 06:15 10/05/24 08:43
Lab Data
10/05/24 04:11
10/05/24 04:11
Laboratory Results
10/04/24 10/04/24 10/04/24
18:50 19:30 21:22
PT 15.7 H
INR 1.22
APTT
pH 7.13 L* 7.21 L
pCO2 78 H* 65 H
pO2 86 125 H
HCO3 25.9 26.0
O2 Delivery Level 100%
10/04/24 10/04/24 10/05/24
23:10 23:51 04:11
PT
INR
APTT 34.2
pH Cancelled 7.31 L
pCO2 Cancelled 47
pO2 Cancelled 123 H
HCO3 Cancelled 23.7
O2 Delivery Level Cancelled 80%
Microbiology
10/04/24 19:56 Nasal Swab Influenza Types A & B (PIPER) - Final
Influenza A Positive, NAAT
Diagnostic Testing:
Physical Exam
-
HEENT: Normocephalic, Anicteric and Other (ETT in place)
Cardiovascular: S1/S2 and Peripheral Edema (negative)
Respiratory: Wheeze (negative), Rales (Right hemithorax), Rhonchi (negative), Non-Labored Respirations and Other (Mechanical breath sounds heard bilaterally)
GI: Soft, Non Distended, Non Tender and Normal Bowel Sounds
Neurology: Awake, Alert and Tremors (negative)
Skin: Warm and Dry
General: Respiratory Distress (negative), Comfortable, Fever (negative) and Chills (negative)
Assessment
-
Assessment: 54-year-old male active tobacco smoker with a past medical history of HFmrEF, hypertension, NICM and hypercholesterolemia who presents with unresponsiveness and agonal breathing. Initially his right side was flaccid and he was
receiving rescue breaths on arrival to the ER here at [place]. When EMS arrived at the patient's home he was in respiratory distress and unable to communicate. He is homeless disheveled with animals, cigarette smoke and other paraphernalia.
EMS said that the patient was frothing at the mouth. He became unresponsive en route here to the hospital. They tried to intubate en route here to the hospital but was unsuccessful. He was intubated in the ER for airway protection. Initially in
the ER he was febrile to 102.7 �F, pulse rate 131, breathing at 24 breaths/min, BP 179/117 and he was saturating 96% on the ventilator. Initial labs showed pCO2 78, pH 7.13, sodium 129, creatinine 1.4, glucose 234, troponin 0.693, proBNP 7590,
procalcitonin 8.29, COVID-19 antigen negative and he was positive for flu A. Blood cultures were collected. CXR showed moderate diffuse coarsening of bronchovascular markings throughout both lungs. Head CT was normal, and CTA head/neck done as a
stroke alert showed no intracranial branch occlusion or intracranial stenosis, with minimal atherosclerotic plaque at the left carotid bifurcation without significant stenosis. In the ER he was given IVF with 1 L LR, 125 mg Solu-Medrol,
cefepime/vancomycin, nebulized albuterol, and given his SBP remained in the 70�80s he was started on Levophed. He was admitted to the ICU for further care and degreasing solution reclaimer services consulted for additional management/recommendations.
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
Impression:
#Acute respiratory failure with hypoxia + hypercapnia on mechanical ventilation
#Influenza A pneumonia with bacterial superinfection (CAP predominantly involving right hemithorax)
#Septic shock on levophed
#Hyponatremia (mild)
#Elevated troponin likely due to demand ischemia with type II NE (troponin peaked at 0.907 on 10/04/2024)
#Tobacco use disorder
#Elevated proBNP of 7590 on 10/04/2024 with Hx of chronic HFmrEF (via TTE from 02/29/2024)
#NICM
#Hypercholesterolemia
#Hypertension
Plan:
- Continue with mechanical ventilation and perform SAT/SBT this morning with plans to extubate
- Given that he was hypercapnic on arrival he will need to be extubated to BiPAP; after extubation we can continue with BiPAP with sleep and prn during the day
- Continue with aspiration precautions
- While he remains intubated, titrate FiO2 + PEEP to maintain SpO2 >90-94%
- Maintain plateau pressure <30
- Suctioning as needed from oropharynx + ETT
- Continue DuoNebs QID with prn nebulized bronchodilators - not currently bronchospastic
- Continue with broad-spectrum antibiotics (currently on cefepime + IV vancomycin)
- Follow-up respiratory culture (collected today), + urine culture + blood cultures (collected 10/04/2024)
- Continue Tamiflu x 5 days
- Given he has severe CAP, continue with systemic steroids, currently on Solu-Medrol 40 mg IV q12hr --> wean steroids as tolerated as he clinically improves
- Maintain euglycemia while on systemic steroids with goal BG 140-180mg/dL; use ISS q6hr and once extubated can change to AC assuming he is safe to tolerte PO diet
- Maintain MAP>65 while on vasopressors and wean down as tolerated
- Although his proBNP is elevated for 7590, given his infection with septic shock would maintain net neutral volume status
- He does take Lasix at home but in the setting of hypotension on vasopressors would hold this for now
- Can resume diuretics in the next 1-2 days assuming he is hemodynamically stable off vasopressors
- Consider cardiology consult given his Hx of CHF (he follows with Dr. Brennan as an outpatient � last visit on 03/12/2024)
- Hold other anti-HTN/cardiac meds while he remains on vasopressors
- Continue to trend his sNa
- Nicotine patch
- Replete electrolytes with K>4, Mg>2
- Trend H/H and transfuse if needed to keep Hb>7g/dL; keep plt>20k, unless there is concern for bleeding then keep plt>50k
- Stress ulcer ppx: PPI
- DVT ppx: HSQ
This patient is critically ill and requires ICU level of care.
Critical care statement: A total of 42 minutes of critical care time was provided for this patient today. This includes management of unstable vital signs, evaluation of the patient at bedside, reviewing the patient's pertinent medical records
including radiographs, microbiology, laboratory evaluations, and discussion with primary team, consultants, pharmacy, nutrition, physical therapy, case management, charge nurse, critical care nursing, and respiratory therapy.
Data:
CXR 10/04/2024:
The tip of the endotracheal tube is 5 cm above the manuel
There is moderate diffuse coarsening of the bronchovascular markings throughout both lungs which has worsened in the interval since the prior study. I'm uncertain whether this reflects inflammatory airspace disease or pulmonary edema
Transthoracic echocardiogram 02/29/2024:
Left ventricle is mildly dilated with moderate concentric left ventricular
hypertrophy. Low normal left ventricular systolic function. Left ventricular
ejection fraction is 50% by Gardner's method of disc. Diastolic function
indeterminate.
Normal right ventricular size and function.
Mild mitral regurgitation.
Mild aortic sclerosis without stenosis. Mild aortic regurgitation.
Trace tricuspid regurgitation. Estimated pulmonary artery pressure of 34 mmHg
assuming a right atrial pressure of 3 mmHg.
Compared to previous echo 11/27/2023, the LVEF has improved from 30-35% to 50%.
[2024-10-05] MEDS: DUONEB 3 ML INH ×4 (08:24→19:45)
[2024-10-05] MEDS: SUBLIMAZE 100 IV (09:09)
[2024-10-05] MEDS: SOLU-MEDROL PF 40 MG IV ×2 (09:13→20:22)
[2024-10-05] MEDS: VANCOCIN 275 MG IV ×2 (09:15→18:30)
[2024-10-05] MEDS: PROTONIX IV 40 MG IV (09:15)
--- NOTE | 2024-10-05 09:15 | PTCARENOTE ---
Rec'd pt at 0800 resting in bed sedated on Diprivan at 35 mcg and Fentanyl at 50 mcg. Initially was calm and restful then around 0845 suddenly woke up and was sitting upright in bed, gagged and vomited a small amt of brownish/pink tinged secretions-
NG had been clamped and placed back to suction for return of the same-small amt. When awake initially was anxious and coughing but then settled and was calm after explaining what was going on. Then pt was nodding approp and following commands.
Denies pain. Bilat soft wrist restraints on for pt safety. TUBBS. Skin is pink wm and dry. Respris are intact on the vent. #7.5 ett 26 cm retaped in the center of the mouth. Currently on AC 20, tv 500 , peep 5- RR mostly 20, Tv 450-460's. Sats are
97%. Will update Dr. Marques now that pt is wakeful about an SBT. BS are coarse throughout and sl decreased. + cough. Suctioned for thick tannish secretions-will send resp culture as ordered. Sats are 97%. Monitor SR-Sbrady with BB config. +
pulses. Tr ankle edema. VS as documented. Remains on Levophed at 4 mcg-will wean as BP permits keeping MAP >65. Abd is soft with + BS. Orogastric [place]- briefly put back to suction- then clamped after meds. [place] intact for cloudy yellow urine. UA
drug screen sent. MRSA swab sent. IV fluids-Levo, fent and prop infusing via L upper arm IV site. Capped ints LAC and RAC. Pt repositioned. Skin care given. Plan of care reviewed with pt. Call randall in reach.
[2024-10-05] MEDS: FLUSH (NSS) 1 FLUSH IV ×3 (09:16→18:31)
[2024-10-05] MEDS: NSS (PRESERVATIVE FREE) 10 ML IV (09:16)
[2024-10-05] MEDS: FLUSH (NSS) 3 FLUSH IV (09:21)
[2024-10-05] MEDS: TAMIFLU 75 MG PO ×2 (09:21→20:29)
--- NOTE | 2024-10-05 10:00 | PTCARENOTE ---
Dr. Marques updated and currently pt placed on CPAP 5/PS 5 wean at 0950. TV 540 and RR 16-17. Overall is calm. Just needs reassurance. As pt is already awake and alert on current sedation of prop at 35 mcg and fent at 50 mcg -will wean as
tolerated. Will also wean Levophed as tolerated. Vancomycin continues to infuse.
--- NOTE | 2024-10-05 10:45 | PTCARENOTE ---
Tolerating CPAP 5/PSV 5 wean well. RR 15-17 and TV in the 500's. Denies discomfort and following commands but nods head yes to being anxious to get ETT out. Weaning Prop and Fentanyl and Levophed as tolerated.
[2024-10-05 11:05] LABS: Amphetamines Negative (Negative); Barbiturates Negative (Negative); Benzodiazepines Negative (Negative); Buprenorphine Negative (Negative); Cocaine Negative (Negative); Marijuana Negative (Negative); Methadone Negative (Negative); Methamphetamines Negative (Negative); Opiates Negative (Negative); Phencyclidine Negative (Negative); Tricyclic Antidepressants Negative (Negative)
--- NOTE | 2024-10-05 11:16 | PTCARENOTE ---
Has been tolerating CPAP/PSV wean. Fentanyl and Propophol turned off. ABG sent. Awake, following commands. VS as documented. Will continue to wean IV Levophed.
[2024-10-05 11:25] LABS: B.E. -0.7 mmol/L; HCO3 24.2 mmol/L (21-28); O2 Saturation % 99.2 % (94-98); PCO2 40 mmHg (35-48); PO2 91 mmHg (83-108); pH 7.39 (7.35-7.45)
--- NOTE | 2024-10-05 11:45 | PTCARENOTE ---
Dr. Marques updated on ABGS and order given to extubate pt.
--- NOTE | 2024-10-05 11:45 | W.PN.HOSP.TC ---
Today's Communication/Plan
-
Continue with antibiotic
Continue with Tamiflu
Continue with steroid
Went/sedation per role player
Assessment / Plan
Assessment / Plan
IMPRESSION:
Patient in respiratory distress and found unresponsive s/p intubation. History of present illness sparse. Known facts including frothing at the mouth with respiratory distress, fever, transient flaccid paralysis on the right now improved, negative
head CT, CTA. Elevated troponin (h/o NICM). ABG with acute respiratory acidosis. COVID negative.
PLAN:
Acute hypoxic and hypercapnic respiratory failure
- vent and sedation per ICU
- getting bolus of LR x 1 L, afterwards will start levophed due to known CHF
- will start nebs RTC and solumedrol 125 and 40 q 6
- procalcitonin, influenza, vanc, cefepime
- repeat abg and labs in 1 hour
- role player consulted
Shock likely 2/2 hypovolemia and exacerbated by sedation
-s/p IVF.
-Wean off levophed as tolerated
Sepsis likely 2/2 influenza w/superimposed bacterial pneumonia
- blood cultures, u/a urine culture
- influenza A positive .COVID NEGATIVE.
- vanc/cefepime for now. Procal negative.
- tamiflu q 12
NSTEMI - Suspect non-obstructive myocardial injury with trop of 0.6. Last cath with NICM
- aspirn 325 x 1
- hold heparin and trend
- continue statin
- echo on monday
- hold furosemide, lisonopril and spironolactone
Chronic HFrEF
-recent recovery of EF
-repeat ECHO pending
-restart GDMT once BP stabilizes
Toxic metabolic encephalopathy likely secondary to hypoxemia versus influenza versus hypercapnic respiratory failure versus shock versus infection
- on propofol for now
- hold off on AED
- Check UDS.
- Monitor mentation closely post extubation. Stroke alert on admission. CT head CTA do negative for acute pathology. Can consider MRI if concern for any neurological deficit. However currently on sedation and unable to properly assess.
History of tobacco dependence
DVT PPX - heparin sq
Code status - full code
Anticipated Discharge: > 48 hours
Subjective/Interval History
-
Date of Service: October 05, 2024
intubated and sedated
Objective Data
-
Labs:
Laboratory Results
10/04/24 10/04/24 10/05/24
23:25 23:51 04:11
WBC 8.5
Hgb 14.4
Hct 43.0
Plt Count 323 D
APTT 34.2
HCO3 23.7
Sodium 122 L 134 L D
Potassium 5.4 H 4.8
Chloride 90 L 99
Carbon Dioxide 24 25
BUN 23 H 24 H
Creatinine 1.3 1.1
Glucose 258 H 140 H
Calcium 8.0 L 8.5
10/05/24
11:11
WBC
Hgb
Hct
Plt Count
APTT
HCO3 24.2
Sodium
Potassium
Chloride
Carbon Dioxide
BUN
Creatinine
Glucose
Calcium
Vital Signs:
Vital Signs
Temp Pulse Resp BP Pulse Ox
98.4 F 68 17 109/76 98
10/05/24 08:00 10/05/24 11:37 10/05/24 11:37 10/05/24 10:30 10/05/24 11:37
I&O
10/04/24 10/05/24 10/06/24
06:59 06:59 06:59
Intake Total 829.7 / 872.4 507.4 / 507.4
Output Total 2310 / 2310 220 / 220
Balance -1480.3 / -1437.6 287.4 / 287.4
Physical Exam
-
General: Well Developed, No Apparent Distress and Appears Chronically Ill
HEENT: Normocephalic, Atraumatic, Moist Mucous Membranes and Other (ETT noted )
Respiratory: Wheezes
Cardiac: Regular Rhythm and S1/S2; Negative Murmur, Rub or Gallop
GI: Soft, Nondistended and Normal Bowel Sounds; Negative Organomegaly
Rectal: Deferred by Provider
Musculoskeletal: No Clubbing, No Cyanosis and No Edema
Skin: Negative Rash
Neuro: Other (sedated )
Data Reviewed
-
Total Time Spent with Patient (in minutes): 52
[2024-10-05 11:50] LABS: Glucose - Point of Care 117 mg/dl (70-99)
--- NOTE | 2024-10-05 11:58 | PTCARENOTE ---
Extubated at 1155 to Biap 12/5 +6L. Pt is awake, alert, talkative. States he does not remember coming into the hospital. Denies pain. Wrist restraints removed. Sats are 94%. Denies shortness of breath. States he feels much better. Call randall in
reach.
--- NOTE | 2024-10-05 13:30 | PTCARENOTE ---
Levophed weaned to off at 1315. VS as documented. Has tolerated Bipap- is anxious for something to eat. States he feels so much better today. Stated he was feeling awful yesterday- has had no appetite so he is excited that he is hungry again.
--- NOTE | 2024-10-05 14:00 | PTCARENOTE ---
Dr. Marques updated and pt transitioned off of Bipap to 6l nc with sats of 93%. Moist non-prod cough. Pt then assisted oob to the chair with assist of 1. Admits to feeling weak but easily able to bear wt and no increase in sob. Cholesterol
lowering Diet ordered and pt will order lunch. Pt updated on plan of care and call randall in reach.
--- NOTE | 2024-10-05 15:48 | CM ---
CM attempted to call patient , Daren Coary [phone], but unable to leave VM and no response.
[2024-10-05] MEDS: NICODERM TRANSDERMAL 14 MG TRANSDERM (16:34)
--- NOTE | 2024-10-05 16:45 | PTCARENOTE ---
Has remained sitting oob since earlier and states he is more comfortable sitting up. States overall he feels much better. Denies shortness of breath. Skin is wm and dry. Face at times gets flushed but temp 98.7 po. Respirs are decreased at the bases
and few crackles at the L base. Occasional moist non-prod cough. Monitor SR. VS as documented. Excellent appetite for lunch earlier and no c/o nausea. Pt asked about having jason out -ok given by Dr. Marques and jason [email or web address] at 1645. Pt repositioning
himself in the chair. Watching TV - call randall in reach. Droplet precautions maintained.
[2024-10-05 16:52] LABS: Glucose - Point of Care 167 mg/dl (70-99)
[2024-10-05] MEDS: NOVOLOG FLEXPEN-LOW RESISTANCE 1 UNITS SC (18:53)
--- NOTE | 2024-10-05 19:21 | PTCARENOTE ---
assumed care of pt. approx 1900.
Extubated by day team, on 6L NC, hemodynamically stable.
OOB in chair, no neurological deficits noted, focally intact, normocephalic/atraumatic. Anicteric =/r 3mm brisk response, full gaze. All protective reflexes intact.
Plan of care explained to patient bedside, provided smoking cessation information, all questions answered.
[2024-10-06] VITALS (19 sets, daily range): BP systolic 96–129; BP diastolic 58–88; PULSE 2–75; BMI 30.6
--- NOTE | 2024-10-06 00:37 | PTCARENOTE ---
No change in assessment.
[2024-10-06] MEDS: HEPARIN 5000 UNITS SC ×2 (01:05→08:25)
[2024-10-06] MEDS: MAXIPIME 2000 MG IV ×3 (03:58→19:30)
[2024-10-06] MEDS: STERILE WATER FOR INJECTION 10 ML IV ×3 (03:58→19:30)
[2024-10-06 04:06] LABS: Venous Blood Gas B.E. 0.7 mmol/L (-4 to +4); Venous Blood Gas HCO3 25.4 mmol/L (22-27); Venous Blood Gas O2 Sat % 98.7 %; Venous Blood Gas pCO2 40 mmHg (35-48); Venous Blood Gas pH 7.41 (7.32-7.43); Venous Blood Gas pO2 93 mmHg (30-50)
[2024-10-06 04:17] LABS: Hematocrit 38.3 % (39.0-52.0); Hemoglobin 13.2 g/dL (13.0-18.0); Mean Corp Hgb Conc. 34.5 g/dL (33.0-37.0); Mean Corpuscular Volume 84.2 fL (80.0-94.0); Mean Platelet Volume 9.7 fL (7.4-10.4); Platelet Count 263 10^3/uL (130-400); Red Blood Cell Count 4.55 10^6/uL (4.70-6.10); Red Cell Dist. Width 12.2 % (11.5-14.5); White Blood Cell Count 8.1 10^3/uL (4.8-10.8)
[2024-10-06 04:39] LABS: Blood Urea Nitrogen 32 mg/dl (9-20); Calcium 8.3 mg/dl (8.4-10.2); Carbon Dioxide 26 mmol/L (22-30); Chloride 101 mmol/L (98-107); Estimated Creatinine Clearance 116 ml/min; Glucose 145 mg/dl (70-99); Magnesium 2.2 mg/dl (1.6-2.3); Sodium 131 mmol/L (135-145); eGFR > 60.00
[2024-10-06] MEDS: VANCOCIN 275 MG IV (05:09)
[2024-10-06] MEDS: DUONEB 3 ML INH ×4 (07:47→19:15)
[2024-10-06 07:51] LABS: Glucose - Point of Care 142 mg/dl (70-99)
[2024-10-06] MEDS: PROTONIX IV 40 MG IV (08:24)
[2024-10-06] MEDS: NOVOLOG FLEXPEN-LOW RESISTANCE SC ×2 (08:24→11:56)
[2024-10-06] MEDS: NICODERM TRANSDERMAL 14 MG TRANSDERM (08:25)
[2024-10-06] MEDS: SOLU-MEDROL PF 40 MG IV (08:25)
[2024-10-06] MEDS: NSS (PRESERVATIVE FREE) 10 ML IV (08:25)
--- NOTE | 2024-10-06 08:25 | W.PN.INTV ---
Today's Communication / Plan
Recommendations
Trend blood gas to assure pH and pCO2 remain stable - he is not tolerating BiPAP
Continue antibiotics
DuoNebs
Tamiflu
Aspiration precaution
Trend serum sodium
Restart home Lasix
Slowly resume home antihypertensives
Maintain SpO2 >90-94%
Nicotine patch; tobacco cessation strongly encouraged
Outpatient PFTs and discussion of LDCT chest for lung cancer screening
Patient has markedly improved. No longer requires ICU level of care and can be downgraded to telemetry. Pulmonary service will continue to follow along.
Assessment
-
Assessment: 54-year-old male active tobacco smoker with a past medical history of HFmrEF, hypertension, NICM and hypercholesterolemia who presents with unresponsiveness and agonal breathing. Initially his right side was flaccid and he was
receiving rescue breaths on arrival to the ER here at [facility]. When EMS arrived at the patient's home he was in respiratory distress and unable to communicate. He is homeless disheveled with animals, cigarette smoke and other paraphernalia.
EMS said that the patient was frothing at the mouth. He became unresponsive en route here to the hospital. They tried to intubate en route here to the hospital but was unsuccessful. He was intubated in the ER for airway protection. Initially in
the ER he was febrile to 102.7 �F, pulse rate 131, breathing at 24 breaths/min, BP 179/117 and he was saturating 96% on the ventilator. Initial labs showed pCO2 78, pH 7.13, sodium 129, creatinine 1.4, glucose 234, troponin 0.693, proBNP 7590,
procalcitonin 8.29, COVID-19 antigen negative and he was positive for flu A. Blood cultures were collected. CXR showed moderate diffuse coarsening of bronchovascular markings throughout both lungs. Head CT was normal, and CTA head/neck done as a
stroke alert showed no intracranial branch occlusion or intracranial stenosis, with minimal atherosclerotic plaque at the left carotid bifurcation without significant stenosis. In the ER he was given IVF with 1 L LR, 125 mg Solu-Medrol,
cefepime/vancomycin, nebulized albuterol, and given his SBP remained in the 70�80s he was started on Levophed. He was admitted to the ICU for further care and hoop driving machine operator services consulted for additional management/recommendations.
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
Impression:
#Acute respiratory failure with hypoxia + hypercapnia on mechanical ventilation (intubated 10/04 --> extubated 10/05/2024)
#Influenza A pneumonia with bacterial superinfection (CAP predominantly involving right hemithorax)
#Septic shock on levophed - shock state resolved
#Hyponatremia (mild)
#Elevated troponin likely due to demand ischemia with type II AK (troponin peaked at 0.907 on 10/04/2024)
#Tobacco use disorder
#Elevated proBNP of 7590 on 10/04/2024 with Hx of chronic HFmrEF (via TTE from 02/29/2024)
#NICM
#Hypercholesterolemia
#Hypertension
Plan:
-Patient was extubated on 10/05/2024 and is now on nasal cannula at 4 L/min saturating 93% and breathing comfortably
- Given that he was hypercapnic on arrival he was extubated to BiPAP; he is not tolerating BiPAP -> will hold off on bipap tonight and trend blood gas to see if pH and pCO2 remain stable
- If pCO2 starts to climb then he will need to resume BiPAP with sleep and be DC'd home on this
- Continue with aspiration precautions
- Maintain SpO2 >90-94%
- Continue DuoNebs QID with prn nebulized bronchodilators - not currently bronchospastic
- Continue with broad-spectrum antibiotics (currently on cefepime); MRSA swab negative --> IV vancomycin DC'd
- Follow-up respiratory culture (collected 10/05/2024 - NGTD), + urine culture + blood cultures (collected 10/04/2024 - NGTD)
- Continue Tamiflu x 5 days
- Given he had severe CAP, he was on systemic steroids with Solu-Medrol 40 mg IV q12hr --> now stopped given his marked improvement; continue to monitor off steroids
- Maintain euglycemia with goal BG 140-180mg/dL; check A1C (5.9 in November 2023)
- Maintain MAP>65
- Although his proBNP is elevated for 7590, given his infection with recent septic shock would maintain net neutral volume status
- Resume home lasix tomorrow
- Consider cardiology consult given his Hx of CHF (he follows with Dr. Brennan as an outpatient � last visit on 03/12/2024)
- Slowly resume home anti-HTN/cardiac meds
- Continue to trend his sNa
- Nicotine patch
- Replete electrolytes with K>4, Mg>2
- Trend H/H and transfuse if needed to keep Hb>7g/dL; keep plt>20k, unless there is concern for bleeding then keep plt>50k
- Stress ulcer ppx: PPI DC'd now that he is extubated and off pressors
- DVT ppx: change HSQ to LMWH
Patient has markedly improved. No longer requires ICU level of care and can be downgraded to telemetry. Pulmonary service will continue to follow along; outpatient follow-up will be arranged for full PFTs, discussion of low-dose CT chest for lung
cancer screening and for symptom monitoring with possibly starting maintenance inhalers if COPD is diagnosed.
Data:
CXR 10/04/2024:
The tip of the endotracheal tube is 5 cm above the manuel
There is moderate diffuse coarsening of the bronchovascular markings throughout both lungs which has worsened in the interval since the prior study. I'm uncertain whether this reflects inflammatory airspace disease or pulmonary edema
Transthoracic echocardiogram 02/29/2024:
Left ventricle is mildly dilated with moderate concentric left ventricular
hypertrophy. Low normal left ventricular systolic function. Left ventricular
ejection fraction is 50% by Gardner's method of disc. Diastolic function
indeterminate.
Normal right ventricular size and function.
Mild mitral regurgitation.
Mild aortic sclerosis without stenosis. Mild aortic regurgitation.
Trace tricuspid regurgitation. Estimated pulmonary artery pressure of 34 mmHg
assuming a right atrial pressure of 3 mmHg.
Compared to previous echo 11/27/2023, the LVEF has improved from 30-35% to 50%.
Total time spent today was 56 minutes for this encounter. Time includes reviewing laboratory test/imaging results, reviewing pertinent medical records, obtaining and reviewing medical history, performing an appropriate exam, ordering medications,
tests and procedures. Time also includes documentation of this encounter, coordinating patient care and communicating with other healthcare professionals. Total time does not include separately billed tests performed on this date of service.
Subjective Dataa
Subjective Data
Date of Service:
Date of Service: October 06, 2024
Chief Complaint: [employer] Follow Up
Subjective:
Patient seen and evaluated today at bedside. He feels much better today. Has a cough and sore throat. Denies shortness of breath or chest pain. Currently saturating 93% on 4 L/min nasal cannula, heart rate 85 and BP 111/79. Wore BiPAP overnight
on 12/5cmH2O bled with 6 L/min, but he was unable to tolerate it and only lasted about 2.5 hours before removing it.
Review of Systems
General: Other (Negative unless mentioned above)
Objective Data
Data Reviewed
Vital Signs / I&O / Oxygen:
Vital Signs
Temp Pulse Resp BP Pulse Ox
98.5 F 74 17 113/76 95
10/06/24 07:00 10/06/24 07:53 10/06/24 07:53 10/06/24 05:00 10/06/24 07:53
Intake and Output
10/05/24 10/06/24 10/07/24
06:59 06:59 06:59
Intake Total 829.7 / 872.4 1785.0 / 1785.0
Output Total 2310 / 2310 1690 / 1690
Balance -1480.3 / -1437.6 95.0 / 95.0
SaO2 [CPAP/PSV] 96
SaO2 [A/C] 97
SaO2 95
Nasal Cannula flow liters per 6
minute
Physical Exam
General: Respiratory Distress (negative), Comfortable, Chills (negative) and Sweats (negative)
HEENT: Normocephalic, Anicteric and Moist Mucous Membranes
Cardiovascular: S1-S2, Murmur (negative) and Peripheral Edema (negative)
Respiratory: Wheeze (negative), Crackles (Bibasilar (L >R)), Rhonchi (negative), Non-Labored Respirations and Stridor (negative)
GI: Soft, Non Distended, Non Tender and Normal Bowel Sounds
Neurology: AO x 3 and Tremors (negative)
Skin: Warm, Dry, Cyanosis (negative) and Jaundice (negative)
Labs/Micro/Reports
Lab Data
10/06/24 03:54
10/06/24 03:54
Laboratory Results
10/05/24
11:11
pH 7.39
pCO2 40
pO2 91
HCO3 24.2
O2 Delivery Level Not Reportable
Microbiology
10/04/24 19:56 Blood/Venous Blood Culture - Preliminary
No Growth in 24 hours- Final report to follow
10/04/24 19:56 Blood/Venous Blood Culture - Preliminary
No Growth in 24 hours- Final report to follow
10/05/24 09:49 Sputum Gram Stain - Preliminary
10/05/24 09:49 Nose Nasal Screen MRSA (PCR) - Final
MRSA not detected - performed by PCR methodology.
10/04/24 19:56 Nasal Swab Influenza Types A & B (PIPER) - Final
Influenza A Positive, NAAT
[2024-10-06] MEDS: FLUSH (NSS) 2 FLUSH IV (08:26)
[2024-10-06] MEDS: TAMIFLU 75 MG PO ×2 (08:26→19:30)
--- NOTE | 2024-10-06 09:00 | PTCARENOTE ---
Rec'd pt at 0800 awake alert and oriented resting in bed. Overall states he feels better and not as weak as yesterday. Denies pain. Speech is clear. VIDHI at 3 mm. TUBBS. Skin is pink wm and dry. Face at times is sl flushed but temp wnl. Respirs
overall are unlabored on now 4l nc - sats are 93-94%. . BS are diminished-mostly at the bases with coarse breath sounds at the bases. Coughing an intermittent moist non-prod cough. Monitor SR- BB Config. + pulses. Tr ankle edema. Denies chest pain.
Abd is soft with + BS. HNV this am but was voiding during the night. Ints intact in L upper arm and L hand. Pt assisted oob to the chair for breakfast. Gait is steady and pt stated he legs felt stronger today. Call randall in reach. Plan of care
reviewed.
--- NOTE | 2024-10-06 11:45 | PTCARENOTE ---
Remains resting. Sat up for about 2 hrs and is back in bed, dozing at intervals. No complaints. Currently on 3l nc with sats of 93-94%. Voiding without difficulty.
[2024-10-06] MEDS: FLUSH (NSS) 1 FLUSH IV (11:56)
[2024-10-06 12:06] LABS: Glucose - Point of Care 134 mg/dl (70-99)
--- NOTE | 2024-10-06 13:24 | W.PN.HOSP.TC ---
Today's Communication/Plan
-
Restart goal-directed medical therapy
DC steroids
Cont bronchodilators
Continue with Tamiflu
Continue with cefepime. DC Vanco
CXR in am
Assessment / Plan
Assessment / Plan
IMPRESSION:
Patient in respiratory distress and found unresponsive s/p intubation. History of present illness sparse. Known facts including frothing at the mouth with respiratory distress, fever, transient flaccid paralysis on the right now improved, negative
head CT, CTA. Elevated troponin (h/o NICM). ABG with acute respiratory acidosis. COVID negative.
PLAN:
Acute hypoxic and hypercapnic respiratory failure
-Status post intubation status post extubation
-Status post IV fluid resuscitation. Off Levophed.
-Continue bronchodilators. Discontinue further steroids.
-Significantly elevated procalcitonin. MRSA negative. DC vancomycin. Continue with cefepime and Tamiflu.
-Wean oxygen as tolerated. Repeat 2-view x-ray in the morning
- security assistant consulted
Shock likely 2/2 hypovolemia and exacerbated by sedation
-s/p IVF.
-Off Levophed. Blood pressure stabilized.
Sepsis likely 2/2 influenza w/superimposed bacterial pneumonia
- blood cultures, u/a urine culture
- influenza A positive .COVID NEGATIVE.
- vanc/cefepime for now. Procal negative.
- tamiflu q 12
Nonischemic myocardial injury likely secondary to severe hypoxemia, shock, influenza, pneumonia, sepsis
-Trop downtrended.
- continue statin
- echo on monday. No chest pain. If with significant normality consult cardiology. Has outpatient appointment on 10/15.
-Restart Lasix and carvedilol and aspirin.
Chronic HFrEF
Nonischemic cardiomyopathy. Cardiac catheterization on 12/09 noted.
-recent recovery of EF
-repeat ECHO pending
-Restart aspirin, statin, carvedilol and Lasix. Restart lisinopril and Aldactone blood pressure can tolerate in the next 24 to 48 hours.
Toxic metabolic encephalopathy likely secondary to hypoxemia versus influenza versus hypercapnic respiratory failure versus shock versus infection
-UDS negative. Patient mentation back to baseline. Awake alert and oriented. Moving all 4 extremities.
History of tobacco dependence
Counseled on cessation. Continues to smoke.
DVT PPX - heparin sq
Code status - full code
Discussed with security assistant
Transfer to telemetry
Anticipated Discharge: > 48 hours
Subjective/Interval History
-
Date of Service: October 06, 2024
Patient is sitting in chair
Status post extubation on nasal cannula
States he is feeling better
Denies any productive cough
States is sick at home also with influenza
Tolerating diet
Objective Data
-
Labs:
Laboratory Results
10/06/24
03:54
WBC 8.1
Hgb 13.2
Hct 38.3 L
Plt Count 263
Sodium 131 L
Potassium 5.0
Chloride 101
Carbon Dioxide 26
BUN 32 H
Creatinine 0.9
Glucose 145 H
Calcium 8.3 L
Vital Signs:
Vital Signs
Temp Pulse Resp BP Pulse Ox
97.7 F 83 23 111/79 93
10/06/24 11:09 10/06/24 11:31 10/06/24 11:31 10/06/24 10:00 10/06/24 12:00
I&O
10/05/24 10/06/24 10/07/24
06:59 06:59 06:59
Intake Total 829.7 / 872.4 1785.0 / 2055.0 620 / 620
Output Total 2310 / 2310 1690 / 1690 1000 / 1000
Balance -1480.3 / -1437.6 95.0 / 365.0 -380 / -380
Physical Exam
-
General: Well Developed, No Apparent Distress and Appears Chronically Ill
HEENT: Normocephalic, Atraumatic, Moist Mucous Membranes and Oxygen
Respiratory: Rhonchi
Cardiac: Regular Rhythm and S1/S2; Negative Murmur, Rub or Gallop
GI: Soft, Nontender, Nondistended and Normal Bowel Sounds; Negative Organomegaly
Rectal: Deferred by Provider
Musculoskeletal: No Clubbing, No Cyanosis and No Edema
Skin: Negative Rash
Neuro: Awake, Alert, Oriented, AO x 3 and No Motor Deficits
Psych: Calm
Data Reviewed
-
Total Time Spent with Patient (in minutes): 58
--- NOTE | 2024-10-06 14:00 | PTCARENOTE ---
In bathroom for per pt large soft brown stool. in to see pt and updated. Pt goes between the chair and the bed. Remains in 3l nc. Sats are 93%. Call randall in reach.
--- NOTE | 2024-10-06 14:50 | CM ---
Patient seen in ICU at bedside. Patient stated that he is feeling much better. Patient lives in a 3 story home with . Patient stated that he plans to go home with no needs. Patient PCP is Dr. Monaco and he uses [facility] in [address]. Patient is
for transfer to [facility] per nursing. Patient stated he started this year in Nov with an [place] that he was treated for here and he is ending the year with the flu. Patient plan is for discharge home with no needs. CM will continue to follow for discharge
planning needs.
Plan; home with no needs watch for possible O2 needs or VN
[2024-10-06] MEDS: ASPIR LOW (ENTERIC COATED) 81 MG PO (15:45)
--- NOTE | 2024-10-06 17:00 | PTCARENOTE ---
Remains resting - currently oob in the chair. No complaints offered. O2 decreased to 2l nc and sats currently 95%. Call randall in reach. Watching TV
[2024-10-06 17:15] LABS: Glucose - Point of Care 150 mg/dl (70-99)
[2024-10-06] MEDS: LOVENOX 40 MG SC (18:44)
--- NOTE | 2024-10-06 21:24 | PTCARENOTE ---
Received pt at 1900 sitting up in chair, AAOx3, without complaints, in good spirits. TUBBS, walking independently to bathroom. SR/SA on tele, HR 80s. BP 100s/60s-80s. Afebrile. On 2L NC, spo2 95%. Lungs diminished throughout. + bowel sounds. Had BM in
bathroom. Voiding in urinal.
Report given to Kimberly latham RN. Pt. transferred in wheelchair to new room 430 with belongings on tele monitor.
--- NOTE | 2024-10-06 22:02 | PTCARENOTE ---
Rec'd pt from IMU. Walked in to room and is sitting in chair. Oriented to room. tele pack #[id number] placed on pt. denies pain. call randall in reach
[2024-10-07 03:03] VITALS: BP 102/65
[2024-10-07] MEDS: STERILE WATER FOR INJECTION 10 ML IV (04:16)
[2024-10-07] MEDS: MAXIPIME 2000 MG IV (04:16)
[2024-10-07 05:52] LABS: B.E. 4.7 mmol/L; HCO3 29.2 mmol/L (21-28); O2 Saturation % 97.4 % (94-98); PCO2 42 mmHg (35-48); PO2 77 mmHg (83-108); pH 7.45 (7.35-7.45)
[2024-10-07 05:53] LABS: O2 Therapy 4L/min
[2024-10-07 06:00] VITALS: BMI 30.2
[2024-10-07 07:41] VITALS: BP 128/87
[2024-10-07 07:44] LABS: % Basophils 0.3 % (0-2); % Eosinophils 0.1 % (0-6); % Immature Granulocytes 0.3 % (0-0.5); % Lymphocytes 25.7 % (20.5-51.1); % Monocytes 9.2 % (1.7-9.3); % Neutrophils 64.4 % (42.2-75.2); Absolute Lymphocytes 1.7 10^3/uL (1.2-3.4); Absolute Monocytes 0.6 10^3/uL (0.1-0.6); Absolute Neutrophils 4.4 10^3/uL (1.4-6.5); Hematocrit 39.5 % (39.0-52.0); Hemoglobin 13.6 g/dL (13.0-18.0); Mean Corp Hgb Conc. 34.4 g/dL (33.0-37.0); Mean Corpuscular Hgb 29.2 pg (27.0-31.0); Mean Corpuscular Volume 84.9 fL (80.0-94.0); Mean Platelet Volume 9.6 fL (7.4-10.4); Nucleated Red Blood Cells % 0 % (-); Platelet Count 254 10^3/uL (130-400); Red Blood Cell Count 4.65 10^6/uL (4.70-6.10); Red Cell Dist. Width 12.5 % (11.5-14.5); White Blood Cell Count 6.8 10^3/uL (4.8-10.8)
[2024-10-07] MEDS: DUONEB 3 ML INH ×2 (07:46→11:33)
[2024-10-07] MEDS: TAMIFLU 75 MG PO ×2 (07:51→19:59)
[2024-10-07] MEDS: LIPITOR 40 MG PO (07:51)
[2024-10-07] MEDS: NICODERM TRANSDERMAL 14 MG TRANSDERM (07:51)
[2024-10-07] MEDS: COREG 6.25 MG PO (07:51)
[2024-10-07] MEDS: LASIX 40 MG PO (07:51)
[2024-10-07] MEDS: NSS (PRESERVATIVE FREE) IV (07:55)
[2024-10-07 07:58] LABS: Glucose - Point of Care 144 mg/dl (70-99)
[2024-10-07 08:07] LABS: NT-proBNP 4530 pg/ml
[2024-10-07 08:18] LABS: Blood Urea Nitrogen 28 mg/dl (9-20); Calcium 8.3 mg/dl (8.4-10.2); Carbon Dioxide 29 mmol/L (22-30); Chloride 100 mmol/L (98-107); Estimated Creatinine Clearance 116 ml/min; Glucose 100 mg/dl (70-99); Magnesium 2.1 mg/dl (1.6-2.3); Phosphorus 2.5 mg/dl (2.5-4.5); Potassium 4.5 mmol/L (3.5-5.1); Sodium 133 mmol/L (135-145); eGFR > 60.00
[2024-10-07 08:21] LABS: Procalcitonin 5.03 ng/ml (0.0-0.25)
[2024-10-07 09:07] LABS: Glycohemoglobin (HgbA1c) 6.1 % (4.0-5.6)
--- NOTE | 2024-10-07 10:28 | CM ---
Continues on IV antibiotics
Maintained on Tamiflu.
Maintained on oxygen 2 liters Pox 93%.
Will need home oxygen test prior to dc if remains on oxygen.
Repeat CXR done today.
PLAN Home no needs Watch for oxygen needs
[2024-10-07 10:37] VITALS: BP 102/73
--- NOTE | 2024-10-07 10:37 | W.PN.HOSP.TC ---
Addendum entered and electronically signed by Bari Lund DO 10/07/24 17:04:
Troponin elevation -possibly NSTEMI given echocardiogram showing moderate hypokinesis of the mid�distal inferior lateral wall and the basal anterolateral wall.
DAWSON -present on admission. Resolved.
Original Note:
Today's Communication/Plan
-
Ambulatory pulse ox on room air
Echocardiogram
Change to oral antibiotics
Assessment / Plan
Assessment / Plan
Gen-AAOx3, NAD
HEENT-NC, AT, anicteric, clear oral mm
Neck-supple
CV-reg, no M, +S1/S2
Lungs-clear B/L
Abd-soft, NT, ND
Ext-no edema
Musculoskeletal-no cyanosis, clubbing
Skin-warm and dry
Neuro-grossly non-focal
Psych-calm, cooperative
Acute hypoxic/hypercapnic respiratory failure -due to acute influenza pneumonia, community-acquired pneumonia.
-Status post intubation status post extubation. Still on 2 L nasal, oxygen. Check ambulatory pulse ox on room air prior to discharge.
Shock -likely 2/2 hypovolemia and exacerbated by sedation. Shock resolved. Off vasopressors.
Sepsis likely 2/2 influenza w/superimposed bacterial pneumonia. Sepsis resolved.
- blood cultures, u/a urine culture
- influenza A positive .COVID NEGATIVE.
Acute influenza pneumonia -day 3 of Tamiflu.
Acute bacterial community-acquired pneumonia -day 3 of antibiotics. Will change to Augmentin and doxycycline. Repeat chest x-ray today shows improvement.
Hyponatremia -present on admission. Improved.
Hyperkalemia -resolved.
Nonischemic myocardial injury likely secondary to severe hypoxemia, shock, influenza, pneumonia, sepsis
-Trop downtrended.
- continue statin
-Echocardiogram completed today, report pending. No chest pain. If with significant normality consult cardiology. Has outpatient appointment on 10/15.
-Restart Lasix and carvedilol and aspirin.
Chronic HFrEF
Nonischemic cardiomyopathy. Cardiac catheterization on 12/09 noted.
-recent recovery of EF
-repeat ECHO pending
-Restart aspirin, statin, carvedilol and Lasix. Restart lisinopril and Aldactone blood pressure can tolerate in the next 24 to 48 hours.
Acute toxic metabolic encephalopathy - likely secondary to hypoxemia versus influenza versus hypercapnic respiratory failure versus shock versus infection
-UDS negative. Patient mentation back to baseline. Awake alert and oriented. Moving all 4 extremities.
History of tobacco dependence
Counseled on cessation. Continues to smoke.
DVT PPX - heparin sq
Full code
Dispo - check ambulatory pulse ox on room air. Await echocardiogram report. Potential discharge later today if stable.
He has an appointment to see Dr. Brennan of cardiology next week. Follow-up with PCP as well.
Anticipated Discharge: Today
Subjective/Interval History
-
Date of Service: October 07, 2024
Patient seen and examined. No complaints.
Objective Data
-
Labs:
Laboratory Results
10/07/24 10/07/24
05:41 07:33
WBC 6.8
Hgb 13.6
Hct 39.5
Plt Count 254
HCO3 29.2 H
Sodium 133 L
Potassium 4.5
Chloride 100
Carbon Dioxide 29
BUN 28 H
Creatinine 0.8
Glucose 100 H
Calcium 8.3 L
Vital Signs:
Vital Signs
Temp Pulse Resp BP Pulse Ox
98 F 82 16 128/87 94
10/07/24 07:41 10/07/24 07:51 10/07/24 07:49 10/07/24 07:51 10/07/24 07:41
I&O
10/06/24 10/07/24 10/08/24
06:59 06:59 06:59
Intake Total 1785.0 / 2054.0 1510 / 1510
Output Total 1690 / 1690 1300 / 1300
Balance 95.0 / 365.0 210 / 210
Review of Systems
-
History Source: Patient
All other systems: Reviewed and negative
[2024-10-07 11:39] LABS: Glucose - Point of Care 130 mg/dl (70-99)
[2024-10-07] MEDS: VIBRAMYCIN 100 MG PO ×2 (12:49→20:00)
[2024-10-07] MEDS: AUGMENTIN 875 MG/125 MG 1 TABLET PO ×2 (12:49→20:00)
--- NOTE | 2024-10-07 12:50 | W.PN.PUL3 ---
Today's Communication / Plan
-
Agree with transition to oral antibiotics-complete 7-day
Discontinue uvkbeo-oiq-ipijt nebulizers
Oxygen has been weaned off
Smoking cessation
Recommend outpatient pulmonary follow-up
Patient requires radiographic follow-up.
No additional recommendations-sign off.
Assessment
-
Assessment: 54-year-old male active tobacco smoker with a past medical history of HFmrEF, hypertension, NICM and hypercholesterolemia who presents with unresponsiveness and agonal breathing. Initially his right side was flaccid and he was
receiving rescue breaths on arrival to the ER here at [facility]. When EMS arrived at the patient's home he was in respiratory distress and unable to communicate. He is homeless disheveled with animals, cigarette smoke and other paraphernalia.
EMS said that the patient was frothing at the mouth. He became unresponsive en route here to the hospital. They tried to intubate en route here to the hospital but was unsuccessful. He was intubated in the ER for airway protection. Initially in
the ER he was febrile to 102.7 �F, pulse rate 131, breathing at 24 breaths/min, BP 179/117 and he was saturating 96% on the ventilator. Initial labs showed pCO2 78, pH 7.13, sodium 129, creatinine 1.4, glucose 234, troponin 0.693, proBNP 7590,
procalcitonin 8.29, COVID-19 antigen negative and he was positive for flu A. Blood cultures were collected. CXR showed moderate diffuse coarsening of bronchovascular markings throughout both lungs. Head CT was normal, and CTA head/neck done as a
stroke alert showed no intracranial branch occlusion or intracranial stenosis, with minimal atherosclerotic plaque at the left carotid bifurcation without significant stenosis. In the ER he was given IVF with 1 L LR, 125 mg Solu-Medrol,
cefepime/vancomycin, nebulized albuterol, and given his SBP remained in the 70�80s he was started on Levophed. He was admitted to the ICU for further care and water safety instructor services consulted for additional management/recommendations.
Chronic conditions [place]: HFmrEF, hypertension, NICM, tobacco use disorder, hypercholesterolemia
Impression:
#Acute respiratory failure with hypoxia + hypercapnia on mechanical ventilation (intubated 10/04 --> extubated 10/05/2024)
#Influenza A pneumonia with bacterial superinfection (CAP predominantly involving right hemithorax)
#Septic shock on levophed - shock state resolved
#Hyponatremia (mild)
#Elevated troponin likely due to demand ischemia with type II [place] (troponin peaked at 0.907 on 10/04/2024)
#Tobacco use disorder
#Elevated proBNP of 7590 on 10/04/2024 with Hx of chronic HFmrEF (via TTE from 02/29/2024)
#NICM
#Hypercholesterolemia
#Hypertension
Plan:
-Patient was extubated on 10/05/2024.
- Given that he was hypercapnic on arrival he was extubated to BiPAP; h he did not BiPAP ->
ABG 10/07/2024: 7.40 -normalized.
No need for noninvasive mechanical ventilation.
Oxygen has been weaned off 10/07/2024.
-
Discontinue okmzku-cpi-uzsyn nebulizers. Not bronchospastic. No significant phlegm production.
Continue as needed while in the hospital.
-
Infectious workup negative.
MRSA negative.
Agree with transition to oral antibiotics and complete total of 7 days
-Completed Tamiflu x 5 days
Status post short course of steroids. No longer needed
-proBNP 7590
Oral Lasix
- Hx of CHF (he follows with Dr. Brennan as an outpatient � last visit on 03/12/2024)
- Slowly resume home anti-HTN/cardiac meds
-Smoking cessation encouraged.
- DVT ppx: change HSQ to LMWH
Agree with discharge planning.
Outpatient pulmonary follow-up recommended
Radiographic follow-up will be needed in the next 4 to 6 weeks.

Data:
CXR 10/04/2024:
The tip of the endotracheal tube is 5 cm above the manuel
There is moderate diffuse coarsening of the bronchovascular markings throughout both lungs which has worsened in the interval since the prior study. I'm uncertain whether this reflects inflammatory airspace disease or pulmonary edema
Transthoracic echocardiogram 02/29/2024:
Left ventricle is mildly dilated with moderate concentric left ventricular
hypertrophy. Low normal left ventricular systolic function. Left ventricular
ejection fraction is 50% by Gardner's method of disc. Diastolic function
indeterminate.
Normal right ventricular size and function.
Mild mitral regurgitation.
Mild aortic sclerosis without stenosis. Mild aortic regurgitation.
Trace tricuspid regurgitation. Estimated pulmonary artery pressure of 34 mmHg
assuming a right atrial pressure of 3 mmHg.
Compared to previous echo 11/27/2023, the LVEF has improved from 30-35% to 50%.
Subjective Data
-
Date of Service:
Date of Service: October 07, 2024
Chief Complaint: Pulmonary Follow Up (Hypoxemic respiratory failure, pneumonia/influenza A)
Subjective:
Clinically improved
Shortness of breath is minimal with ambulation
Denies phlegm production or hemoptysis
Review of Systems
General: Fever (n)
Cardiopulmonary: Dyspnea (Improved) and Cough (Improved)
Objective Data
Data Reviewed
Vital Signs / I&O / Oxygen:
Vital Signs
Temp Pulse Resp BP Pulse Ox
97.5 F 84 16 102/73 96
10/07/24 10:37 10/07/24 11:34 10/07/24 11:34 10/07/24 10:37 10/07/24 10:37
Intake and Output
10/06/24 10/07/24 10/08/24
06:59 06:59 06:59
Intake Total 1785.0 / 2055.0 1510 / 1510
Output Total 1690 / 1690 1300 / 1300
Balance 95.0 / 365.0 210 / 210
SaO2 [CPAP/PSV] 96
SaO2 [A/C] 97
SaO2 96
Nasal Cannula flow liters per 2
minute
Physical Exam
General: Comfortable
HEENT: Normocephalic
Cardiovascular: S1-S2
Respiratory: Non-Labored Respirations
GI: Soft and Non Distended
Neurology: Awake, Alert and AO x 3
Skin: Warm
Labs/Micro/Reports
Lab Data
10/07/24 07:33
10/07/24 07:33
Laboratory Results
10/07/24
05:41
pH 7.45
pCO2 42
pO2 77 L
HCO3 29.2 H
O2 Delivery Level 4l/min
Microbiology
10/05/24 09:49 Sputum Respiratory Culture - Final
Usual Respiratory Ayala
10/05/24 09:49 Sputum Gram Stain - Final
10/04/24 19:56 Blood/Venous Blood Culture - Preliminary
No Growth in 48 hours- Final report to follow
10/04/24 19:56 Blood/Venous Blood Culture - Preliminary
No Growth in 48 hours- Final report to follow
10/04/24 20:00 Urine Urine Culture - Final
NO GROWTH
10/05/24 09:49 Nose Nasal Screen MRSA (PCR) - Final
MRSA not detected - performed by PCR methodology.
10/04/24 19:56 Nasal Swab Influenza Types A & B (PIPER) - Final
Influenza A Positive, NAAT
--- NOTE | 2024-10-07 16:09 | CON.CAR ---
Addendum entered and electronically signed by Dannie Bajwa MD 10/07/24 18:08:
I saw and examined the patient.
The Cafe Associate's note was reviewed and I agree with the note.
Comment:
GEN: No distress, awake, Ox3
HEENT: supple, anicteric, mmm
LUNGS: CTA, no wheezes/rales
CV: Reg, S1/S2, 2/6 syst apex, no gallop
ABD: soft, BS+, NT/ND
EXT: No edema
NEURO: Gross non-focal
SKIN: No rash
Plan:
54-year-old male with past medical history of nonischemic cardiomyopathy, tobacco abuse, LVEF 30 to 35% presents to [facility] with acute respiratory failure and influenza. The patient presented several days ago with marked hypoxemia
orthopnea, and PND. He presented to the emergency room in respiratory distress requiring intubation. He eventually was extubated and clinically improved with IV diuresis. Echocardiogram today revealed worsening now with severe mitral
regurgitation with LVEF of 45% but markedly dilated ventricle. Prior cardiac catheterization had mild to moderate nonobstructive coronary artery disease earlier in 2023.
I do lengthy discussion with him about his echo findings. He has new severe mitral regurgitation in the setting of congestive heart failure with influenza.
Recommend continue carvedilol and restart lisinopril and Aldactone over next 24 hours. Continue Lasix.
He will need a transesophageal echo to reevaluate his mitral valve. We agreed that we could do this as an outpatient over the next week. He likely will need a repeat cardiac catheterization as well.
I think ultimately he may need a mitral valve repair.
Finish treatments for influenza with Tamiflu/Doxycycline and Augmentin.
Original Note:
Consultation
Consultation Request
Date/Time Consultation Requested: 10/07/24
Date/Time Consultation Performed: 10/07/24
Requesting Provider: Dr. Lund
Performing Provider: Dr. Bajwa
Reason for Consultation: Abnorml echo
Medical History
-
History of Present Illness:
Patient came to [facility] this past Monday with acute hypoxic respiratory failure and cardiology is consulted for worsening echo changes. Patient was admitted to earlier this year with new CM and had nonobstructive CAD by cath. Patient has been
following up with Dr. Brennan. Patient was found unresponsive in his home on Monday and was intubated when he arrived in the ER, but able to be extubated over the weekend. Echo was repeated today and EF is a bit better, but ventricle is more dilated
and now with severe MR and concern for posterior leaflet tethering, overall the MR changes are markedly different compared to echo 10 months ago. Patient denies chest pain or SOB. He feels that he was not having chest pain recently, but Troponin was
up to 0.907.
PMH:
Chronic HFrEF
Nonischemic CM EF 41% by echo 10/07/24
HTN
Tobacco abuse
Past Medical History
Past Medical History: HTN
Past Surgical History: Appendectomy and Orthopedic
Social History
Tobacco: Smoker
Alcohol: None
Drug: Marijuana
Personal: (No children)
Living: With Family
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
Family History
Family History: Reviewed & Not Pertinent
Allergies / Home Medications
Allergy/AdvReac Type Severity Reaction Status Date / Time
No Known Allergies Allergy Verified 03/30/19 17:45
�Medication �Instructions �Recorded �Confirmed �Type
furosemide 40 mg tablet 40 mg PO DAILY Fluid 11/29/23 10/04/24 Rx
retention/Swelling 30 days #30 tabs
lisinopril 20 mg tablet 20 mg PO DAILY 30 days #30 tabs 11/29/23 10/04/24 Rx
spironolactone 25 mg tablet 12.5 mg (1/2 x 25 mg) PO DAILY 11/29/23 10/04/24 Rx
Fluid retention/Swelling 30 days
#15 tabs
aspirin 81 mg tablet,delayed 81 mg PO Q48H Heart 10/04/24 10/04/24 History
release (Adult Low Dose Aspirin) disease/condition
atorvastatin 40 mg tablet 40 mg PO DAILY High cholesterol 10/04/24 10/04/24 History
carvedilol 6.25 mg tablet 6.25 mg PO DAILY Blood pressure 10/04/24 10/04/24 History
Review of Systems
-
History Source: Patient and Family
All other systems: Negative unless noted
Physical Exam
Vital Signs
Temp Pulse Resp BP Pulse Ox
97.5 F 84 16 102/73 96
10/07/24 10:37 10/07/24 11:34 10/07/24 11:34 10/07/24 10:37 10/07/24 10:37
GEN: NAD. AAOx3
HEENT: EOMI, MMM
LUNGS: RA. No audible wheeze
CV: SR on tele. Reg
ABD: ND
EXT: No edema B/L
NEURO: Gross non-focal
SKIN: Warm, dry, no rash
Lab Results
10/07/24 07:33
10/07/24 07:33
Troponin I 0.595 ng/ml H* D 10/05/24 04:11
Zgz-W-Yidgfbevwuo Pept 4530 pg/ml 10/07/24 07:33
Impression / Plan
-
PCP: None
Valving Machine Operator: Dr. NJ Brennan
Impression:
Acute hypoxic and hypercapnic respiratory failure on admission 10/04/24
Acute hypoxic respiratory failure, s/p VDRF
Sepsis
Shock
Influenza positive
PNA
Elevated Troponin
Severe MR by echo 10/07/24
Chronic HFrEF
Nonischemic CM EF 41% by echo 10/07/24
HTN
Tobacco abuse
[facility] 11/28/2023: Nonischemic cardiomyopathy. Moderate nonobstructive CAD.
Echo 11/27/2023: EF 30-35%, global hypokinesis, mild cLVH, mild MR, mild AR, mild TR, estimated PAP 30-35mmHg
Echo 10/07/24: EF 41% by volumetric assessment and 48% by Gardner's method, moderate hypokinesis of the mid-distal inferolateral wall and the basal anterolateral wall, stage II diastolic dysfunction, normal right ventricular size and function,
thickened mitral valve leaflets. Mitral valve opens normally, restricted posterior leaflet with tethering and severe eccentric MR, systolic flow reversal in the pulmonary veins with MR, mild-moderate aortic regurgitation, ascending aorta measures
4.1 cm.
Plan:
-Patient came to [facility] this past Monday with acute hypoxic respiratory failure and cardiology is consulted for worsening echo changes. Patient was admitted to earlier this year with new CM and had nonobstructive CAD by cath. Patient has been
following up with Dr. Brennan. Patient was found unresponsive in his home on Monday and was intubated when he arrived in the ER, but able to be extubated over the weekend. Echo was repeated today and EF is a bit better, but ventricle is more dilated
and now with severe MR and concern for posterior leaflet tethering, overall the MR changes are markedly different compared to echo 10 months ago. Patient denies chest pain or SOB. He feels that he was not having chest pain recently, but Troponin was
up to 0.907.
-ECG reviewed by me and there are nonspecific ST changes.
-Talked with patient at length and reviewed echo changes and concern that he has now severe MR and that he will need ZENON to better assess MR and pending those results cardiac cath and evaluation by CT surgery team. Patient says he understands and
will be compliant with outpatient testing. Patient was recommended to stay in the hospital for testing and that he was at risk for recurrent respiratory decompensation, but patient feels strongly that he would like to go home tomorrow and return for
ZENON later this week or next week depending on insurance authorization and schedule availability.
-For now, cont outpatient dose of Coreg 6.25 mg BID
-Outpatient dose of lisinopril has been lowered to 5 mg daily and restarted on 10/07/24
-Outpatient dose of spironolactone 12.5 mg daily has been restarted on 10/07/24
-Outpatient dose of Lasix 40 mg daily has been restarted.
-Presented with increased shortness of breath and found to be in acute heart failure in the setting of hypertensive emergency.
-Diuresed with IV lasix over the weekend and has improved symptomatically. Weight down at least 4lbs this admission.
-Continue PO lasix 40mg daily. Creat stable at 1.0.
-Echo 11/27 with CM, EF 30-35%. Underwent LHC on 11/28 which revealed nonobstructive CAD.
-Continue medical therapy with lisinopril and coreg. BP stable, will add spironolactone 12.5mg daily.
-LDL 108. Started on lipitor 40mg daily this admission.
-Check BMP in 1 week
-Follow up arranged.
HPI: 53-year-old man who does not seek medical care with little past history other than hypertension who presents with increasing shortness of breath but no chest discomfort
[2024-10-07 16:23] VITALS: BP 111/63
--- NOTE | 2024-10-07 16:26 | PN.CDI ---
CDI
- -
CDI:
Physician Documentation Request
Admit Date: 10/04/24 21:36
Dear Doctor Kevon,
Please review the following and provide your response in the progress notes.
Clinical Indicators:
Pt admitted with sepsis and acute respiratory failure.
Laboratory Tests
10/04/24 10/04/24 10/07/24
18:50 23:25 07:33
Creatinine 1.4 H 1.3 0.8
Clarify which of the following accurately represents the patient's renal status:
Acute kidney injury
Other
Criteria for DAWSON*
1 Increase in serum creatinine by > or = to 0.3 mg/dL (> or = to 26.5 micromol/L) within 48 hours, OR
2 Increase in serum creatinine to > or = to 1.5 times baseline, which is known or presumed to have occurred within 7 days, OR
3 Urine volume < 0.5 nL/kg/hour for six hours
Use of terms such as suspected, likely, concern for, or probable (associated with a specific diagnosis that is being evaluated, monitored, or treated as if it exists) are acceptable and can be coded in the inpatient setting, when documented at the
time of discharge.
Thank you,
Delmy Germain RN, BSN
CDI Specialist
Available via [place] Text
Please use your independent medical judgment in providing your response.
*Source: Kidney Disease: Improving Global Outcomes (KDIGO) 2012
--- NOTE | 2024-10-07 16:43 | PN.CDI ---
CDI
- -
CDI:
Physician Documentation Request
Admit Date: 10/04/24 21:36
Dear Doctor Kevon,
Please review the following and provide your response in the progress notes.
Clinical Indicators:
Pt admitted with sepsis and acute respiratory failure.
10/04 H&P: 'NSTEMI - Suspect non-obstructive myocardial injury with trop of 0.6.'
10/06 Associate Professor Of Literacy: 'Elevated troponin likely due to demand ischemia with type II OK (troponin peaked at 0.907 on 10/04/2024)'
10/07 Progress Note: 'Nonischemic myocardial injury likely secondary to severe hypoxemia, shock, influenza, pneumonia, sepsis'
Laboratory Tests
10/04/24 10/04/24 10/05/24
18:50 23:25 04:11
Troponin I 0.693 H* 0.907 H* D 0.595 H* D
Due to the potential conflicting documentation, please clarify the following regarding the documented myocardial infarction
NSTEMI
Type II OK
Nonischemic myocardial injury
Other
Use of terms such as suspected, likely, concern for, or probable (associated with a specific diagnosis that is being evaluated, monitored, or treated as if it exists) are acceptable and can be coded in the inpatient setting, when documented at the
time of discharge.
Thank you,
Delmy Germain RN, BSN
CDI Specialist
Available via [place] Text
Please use your independent medical judgment in providing your response.
[2024-10-07 16:50] LABS: Glucose - Point of Care 125 mg/dl (70-99)
[2024-10-07] MEDS: LOVENOX 40 MG SC (17:41)
[2024-10-07] MEDS: ZESTRIL 5 MG PO (17:41)
[2024-10-07 19:50] VITALS: BP 119/82
[2024-10-07] MEDS: MELATONIN 5 MG PO (21:58)
[2024-10-07 22:03] LABS: Glucose - Point of Care 111 mg/dl (70-99)
[2024-10-07 23:30] VITALS: BP 112/75
[2024-10-08 03:10] VITALS: BP 117/81
[2024-10-08 06:00] VITALS: BMI 29.9
[2024-10-08 07:57] VITALS: BP 118/75
[2024-10-08 08:08] LABS: Glucose - Point of Care 92 mg/dl (70-99)
[2024-10-08] MEDS: NICODERM TRANSDERMAL 14 MG TRANSDERM (08:38)
[2024-10-08] MEDS: ZESTRIL 5 MG PO (08:39)
[2024-10-08] MEDS: ALDACTONE 12.5 MG PO (08:39)
[2024-10-08] MEDS: AUGMENTIN 875 MG/125 MG 1 TABLET PO (08:39)
[2024-10-08] MEDS: TAMIFLU 75 MG PO (08:40)
[2024-10-08] MEDS: COREG 6.25 MG PO (08:40)
[2024-10-08] MEDS: VIBRAMYCIN 100 MG PO (08:40)
[2024-10-08] MEDS: LASIX 40 MG PO (08:40)
[2024-10-08] MEDS: LIPITOR 40 MG PO (08:40)
[2024-10-08] MEDS: NSS (PRESERVATIVE FREE) IV (08:44)
--- NOTE | 2024-10-08 10:01 | W.PN.CARDCBS ---
Addendum entered and electronically signed by Dannie Bajwa MD 10/08/24 10:50:
Abnormal troponin is nonmyocardial ischemic injury in setting of CHF
Plan will be to likely proceed with cardiac catheterization after ZENON.
Addendum entered and electronically signed by Dannie Bajwa MD 10/08/24 10:49:
I saw and examined the patient.
The Culvert Installer's note was reviewed and I agree with the note.
Comment:
GEN: No distress, awake, Ox3
HEENT: supple, anicteric, mmm
LUNGS: CTA, no wheezes/rales
CV: Reg, S1/S2, 2/6 syst LSB, no gallop
ABD: soft, BS+, NT/ND
EXT: No edema
NEURO: Gross non-focal
SKIN: No rash
plan:
Clinically doing well. Continue Coreg, lisinopril, Aldactone, and Lasix. Repeat basic metabolic panel in 1 week.
Plan for ZENON 10/10/2024 as outpatient.
Will arrange outpatient follow-up.
Likely will need cath and CT surgery evaluation pending results of ZENON.
Original Note:
Today's Communication / Plan
-
Continue Coreg, lisinopril (lower dose), Aldactone and Lasix at discharge
Basic metabolic panel in 1 week (ordered placed on chart)
Outpatient ZENON has been scheduled for 10/10/2024. Patient n.p.o. after midnight on 10/09/2026
Eventual catheterization and CT surgery evaluation for severe MR
Outpatient cardiology follow-up has been arranged
Impression / Plan
-
PCP: None
Narcotics And/Or Vice Detective: Dr. NJ Brennan
Impression:
Acute hypoxic and hypercapnic respiratory failure on admission 10/04/24
Acute hypoxic respiratory failure, s/p VDRF
Severe mitral regurgitation
Sepsis
Shock
Influenza positive
PNA
Elevated Troponin
Severe MR by echo 10/07/24
Chronic HFrEF
Nonischemic CM EF 41% by echo 10/07/24
HTN
Tobacco abuse
[facility] 11/28/2023: Nonischemic cardiomyopathy. Moderate nonobstructive CAD.
Echo 11/27/2023: EF 30-35%, global hypokinesis, mild cLVH, mild MR, mild AR, mild TR, estimated PAP 30-35mmHg
Echo 10/07/24: EF 41% by volumetric assessment and 48% by Gardner's method, moderate hypokinesis of the mid-distal inferolateral wall and the basal anterolateral wall, stage II diastolic dysfunction, normal right ventricular size and function,
thickened mitral valve leaflets. Mitral valve opens normally, restricted posterior leaflet with tethering and severe eccentric MR, systolic flow reversal in the pulmonary veins with MR, mild-moderate aortic regurgitation, ascending aorta measures
4.1 cm.
Plan:
-Presented 10/04/2024 with acute hypoxic and hypercapnic respiratory failure requiring intubation, found to have influenza A/sepsis. Successfully extubated
-Now found to have severe MR on echo. Discussed in great detail this hospitalization. He will need ZENON to better assess MR and pending those results cardiac cath and evaluation by CT surgery team.
-Patient prefers to go home for [place]. Cardiology has arranged for patient to come back on 10/10/2024 for ZENON. Patient instructed to be n.p.o. after midnight on 08/10/2024
-Continue outpatient dose of Coreg 6.25 mg BID
-Outpatient dose of lisinopril has been lowered to 5 mg daily and restarted on 10/07/24
-Outpatient dose of spironolactone 12.5 mg daily has been restarted on 10/07/24
-Outpatient dose of Lasix 40 mg daily has been restarted.
-Presented with increased shortness of breath and found to be in acute heart failure in the setting of hypertensive emergency. proBNP 4530
-Diuresed with IV lasix over the weekend and has improved symptomatically. Weight down at least 5 lbs this admission.
-Continue PO lasix 40mg daily. Creat stable at 1.0.
-Echo 11/27 with CM, EF 30-35%. Underwent LHC on 11/28 which revealed nonobstructive CAD.
-Continue medical therapy with lisinopril, Coreg and Aldactone
-LDL 108. Started on lipitor 40mg daily this admission.
-Check BMP in 1 week
-Follow up arranged.
History of Present Illness 10/07/24:
Patient came to [facility] this past Monday with acute hypoxic respiratory failure and cardiology is consulted for worsening echo changes. Patient was admitted to earlier this year with new CM and had nonobstructive CAD by cath. Patient has been
following up with Dr. Brennan. Patient was found unresponsive in his home on Monday and was intubated when he arrived in the ER, but able to be extubated over the weekend. Echo was repeated today and EF is a bit better, but ventricle is more dilated
and now with severe MR and concern for posterior leaflet tethering, overall the MR changes are markedly different compared to echo 10 months ago. Patient denies chest pain or SOB. He feels that he was not having chest pain recently, but Troponin was
up to 0.907.
Progress Note - Narcotics And/Or Vice Detective
Subjective
Date of Service: October 08, 2024
Patient seen and examined. Patient ambulating around the halls and reports that he feels great. He is eager to go home
Objective
Labs:
10/07/24 07:33
10/07/24 07:33
Labs
Hgb 13.6 g/dL (13.0-18.0) 10/07/24 07:33
Hct 39.5 % (39.0-52.0) 10/07/24 07:33
Plt Count 254 10^3/uL (130-400) 10/07/24 07:33
PT 15.7 Sec (11.4-14.6) H 10/04/24 18:50
INR 1.22 10/04/24 18:50
APTT 34.2 Sec (23.4-35.0) 10/05/24 04:11
Sodium 133 mmol/L (135-145) L 10/07/24 07:33
Potassium 4.5 mmol/L (3.5-5.1) 10/07/24 07:33
BUN 28 mg/dl (9-20) H 10/07/24 07:33
Creatinine 0.8 mg/dL (0.7-1.3) 10/07/24 07:33
Glucose 100 mg/dl (70-99) H 10/07/24 07:33
Vital Signs and I&O:
Vital Signs
Temp Pulse Resp BP Pulse Ox
98 F 80 19 118/75 96
10/08/24 07:57 10/08/24 08:39 10/08/24 07:57 10/08/24 08:39 10/08/24 07:57
Vital Signs
Temp Pulse Resp BP Pulse Ox
98 F 80 19 118/75 96
10/08/24 07:57 10/08/24 08:39 10/08/24 07:57 10/08/24 08:39 10/08/24 07:57
Intake & Output
10/06/24 10/07/24 10/08/24 10/09/24
06:59 06:59 06:59 06:59
Intake Total 1785.0 / 5.0 1510 / 1510 1800 / 1800
Output Total 1690 / 1690 1300 / 1300
Balance 95.0 / 365.0 210 / 210 1800 / 1800
Physical Exam
Physical Exam
GEN: No distress, awake, Ox3
HEENT: supple, anicteric, mmm
LUNGS: CTA, no wheezes/rales
CV: Reg, S1/S2, 2/6 syst apex murmur loudest at the
ABD: soft, BS+, NT/ND
EXT: No edema, clubbing or cyanosis
NEURO: Gross non-focal
SKIN: No rash, warm, dry, pink
--- NOTE | 2024-10-08 10:52 | W.PN.HOSP.TC ---
Today's Communication/Plan
-
Discharge
Assessment / Plan
Assessment / Plan
Gen-AAOx3, NAD
HEENT-NC, AT, anicteric, clear oral mm
Neck-supple
CV-reg, no M, +S1/S2
Lungs-clear B/L
Abd-soft, NT, ND
Ext-no edema
Musculoskeletal-no cyanosis, clubbing
Skin-warm and dry
Neuro-grossly non-focal
Psych-calm, cooperative
Acute hypoxic/hypercapnic respiratory failure -due to acute influenza pneumonia, community-acquired pneumonia.
-Status post intubation status post extubation. Off oxygen now. Ambulatory pulse ox on room air normal.
Shock -likely 2/2 hypovolemia and exacerbated by sedation. Shock resolved. Off vasopressors.
Sepsis likely 2/2 influenza w/superimposed bacterial pneumonia. Sepsis resolved.
- blood cultures, u/a urine culture
- influenza A positive .COVID NEGATIVE.
Acute influenza pneumonia -has received 8 doses of Tamiflu so far.
Acute bacterial community-acquired pneumonia -day 4 of antibiotics. Continue Augmentin, doxycycline. 10/07 chest x-ray shows improvement.
DAWSON -present on admission. Resolved.
Hyponatremia -present on admission. Sodium improving.
Hyperkalemia -resolved.
Troponin elevation -possibly due to NSTEMI. Awaiting cardiology input.
-Echocardiogram shows reduced LVEF, 41%. Worsening mitral regurgitation, now severe. Mild to moderate aortic regurgitation. Stage II diastolic dysfunction.
ZENON scheduled this 10/10. Cardiology recommends eventual mitral valve repair.
Chronic HFrEF
Nonischemic cardiomyopathy. Cardiac catheterization on 12/09 noted.
-Restart aspirin, statin, carvedilol and Lasix. Lisinopril resumed at lower dose. Spironolactone resumed by cardiology.
Acute toxic metabolic encephalopathy - likely secondary to hypoxemia versus influenza versus hypercapnic respiratory failure versus shock versus infection
-UDS negative. Patient mentation back to baseline. Awake alert and oriented. Moving all 4 extremities.
History of tobacco dependence
Counseled on cessation. Continues to smoke.
Impaired fasting glucose - hemoglobin A1c 6.1%. Will need diet, exercise, weight loss.
DVT PPX - heparin sq
Full code
Dispo -medically stable for discharge. Cardiology plans on ZENON on 10/10. Outpatient follow-up for
35 minutes spent in discharge process.
Anticipated Discharge: Today
Subjective/Interval History
-
Date of Service: October 08, 2024
Patient seen and examined. No complaints.
Objective Data
-
Vital Signs:
Vital Signs
Temp Pulse Resp BP Pulse Ox
98 F 80 19 118/75 96
10/08/24 07:57 10/08/24 08:39 10/08/24 07:57 10/08/24 08:39 10/08/24 07:57
I&O
10/07/24 10/08/24 10/09/24
06:59 06:59 06:59
Intake Total 1510 / 1510 1800 / 1800
Output Total 1300 / 1300
Balance 210 / 210 1800 / 1800
Review of Systems
-
History Source: Patient
All other systems: Reviewed and negative
--- NOTE | 2024-10-08 11:03 | W.DS.TRANS ---
DC Summary - Cumulative Effects Analyst
-
Discharge Instructions:
Discharge Diagnosis/Procedures Sepsis, influenza, pneumonia, acute kidney
injury, severe mitral regurgitation
Diet Low Cholesterol,Low Fat
Activity As tolerated
Driving Restrictions As prior to admission
Bathing Restrictions None
Blood Work Basic metabolic panel at one week
Others Tests You have been scheduled for transesophageal echo
on 10/10/2024 at [facility]. Nothing
to eat or drink after midnight on 10/09/2024 or
day of procedure. The hospital will call you to
give you arrival time.
Instructions:
Stand-Alone Forms:
Changes to Home Medications: Yes
Discharge Medications:
DC Medications w/original date entered in [facility]
furosemide 40 mg tablet 40 mg PO DAILY Fluid retention/Swelling 30 days #30 tabs 11/29/23
spironolactone 25 mg tablet 12.5 mg (1/2 x 25 mg) PO DAILY Fluid retention/Swelling 30 days #15 tabs 11/29/23
aspirin 81 mg tablet,delayed release (Adult Low Dose Aspirin) 81 mg PO Q48H Heart disease/condition 10/04/24
atorvastatin 40 mg tablet 40 mg PO DAILY High cholesterol 10/04/24
carvedilol 6.25 mg tablet 6.25 mg PO DAILY Blood pressure 10/04/24
amoxicillin 875 mg-potassium clavulanate 125 mg tablet 1 tab PO Q12 #7 tabs 10/08/24
doxycycline hyclate 100 mg capsule 100 mg PO Q12 #7 caps 10/08/24
lisinopril 5 mg tablet 5 mg PO DAILY #30 tabs 10/08/24
nicotine 14 mg/24 hr daily transdermal patch 14 mg transdermal DAILY #0 ea 10/08/24
oseltamivir 75 mg capsule 75 mg PO BID #2 caps 10/08/24
spironolactone 25 mg tablet 12.5 mg (1/2 x 25 mg) PO DAILY #30 tabs 10/08/24
Home Medication Changes
Lisinopril dose reduced.
Pending Results: No
[2024-10-08 11:18] VITALS: BP 101/68
--- NOTE | 2024-10-08 11:24 | CM ---
Chart reviewed and patient has been cleared for discharge today home no needs.
Plan; Home no needs.
[2024-10-08] MEDS: ASPIR LOW (ENTERIC COATED) 81 MG PO (13:25)
== END 2024-10-08 14:56 | disposition home or self-care (01) | DRG 871 ==
LOC: 4 WEST ACU 21:36
PROVIDERS: Hospitalist; Internal Medicine Critical Care Medicine; Nurse Practitioner Primary Care; ADMITTING PHYSICIAN Internal Medicine; ATTENDING PHYSICIAN Hospitalist; CONSULT PHYSICIAN Internal Medicine Cardiovascular Disease; CONSULT PHYSICIAN Internal Medicine Critical Care Medicine; EMERGENCY PHYSICIAN Emergency Medicine
PROC: 5A1935Z Respiratory Ventilation, Less than 24 Consecutive Hours (ICD-10-PCS; 2024-10-04)
PROC: 0BH17EZ Insertion of Endotracheal Airway into Trachea, Via Natural or Artificial Opening (ICD-10-PCS; 2024-10-04)
DX: A41.89 Other specified sepsis (principal); G92.8 Other toxic encephalopathy; I21.4 Non-ST elevation (NSTEMI) myocardial infarction; J10.00 Influenza due to other identified influenza virus with unspecified type of pneumonia; J96.01 Acute respiratory failure with hypoxia; J96.02 Acute respiratory failure with hypercapnia; R57.1 Hypovolemic shock; R65.21 Severe sepsis with septic shock; N17.9 Acute kidney failure, unspecified; E87.1 Hypo-osmolality and hyponatremia; J44.0 Chronic obstructive pulmonary disease with (acute) lower respiratory infection; I50.22 Chronic systolic (congestive) heart failure; I42.8 Other cardiomyopathies; I16.1 Hypertensive emergency; E87.5 Hyperkalemia; E11.9 Type 2 diabetes mellitus without complications; I11.0 Hypertensive heart disease with heart failure; I25.10 Atherosclerotic heart disease of native coronary artery without angina pectoris
CPT/HCPCS: 31500; 36600; 43752; 70450; 70496; 70498; 71045; 71046; 80048; 80053; 80306; 81003; 81015; 82805; 82962; 83036; 83605; 83735; 83880; 84100; 84145; 84478; 84484; 85025; 85027; 85610; 85730; 87040; 87070; 87086; 87205; 87502; 87641; 87811; 93005; 93306; 94002; 94003; 94640; 94660; 94761; 96365; 96366; 96367; 96375; 99291; Q9967

== ENCOUNTER 2024-10-10 06:12 | Day surgery (SDC) | payer OTHER, SELFPAY | END 2024-10-10 09:15 | disposition home or self-care (01) | LOC: CATH 06:12 | PROVIDERS: ATTENDING PHYSICIAN Internal Medicine Cardiovascular Disease; FAMILY PHYSICIAN Physician Assistant Medical; OTHER PHYSICIAN Internal Medicine Cardiovascular Disease | DX: I08.3 Combined rheumatic disorders of mitral, aortic and tricuspid valves (principal); I08.8 Other rheumatic multiple valve diseases; I11.0 Hypertensive heart disease with heart failure; I50.22 Chronic systolic (congestive) heart failure; F17.200 Nicotine dependence, unspecified, uncomplicated; E11.9 Type 2 diabetes mellitus without complications; E78.00 Pure hypercholesterolemia, unspecified | CPT/HCPCS: 93312; 93320; 93325 ==

== ENCOUNTER 2024-11-24 09:46 | Inpatient (IN) | payer OTHER, SELFPAY ==
[2024-11-24] VITALS (75 sets, daily range): BP systolic 59–180; BP diastolic 35–124; BMI 30.5; BMI 29.2
[2024-11-24] MEDS: DECADRON 10 MG IV (07:35)
[2024-11-24] MEDS: LASIX 40 MG IV ×2 (07:36→15:04)
[2024-11-24] MEDS: VERSED 5 MG IV ×2 (07:45→09:12)
[2024-11-24 07:46] LABS: % Basophils 1.8 % (0-2); % Immature Granulocytes 0.3 % (0-0.5); % Lymphocytes 37.6 % (20.5-51.1); % Monocytes 7.5 % (1.7-9.3); % Neutrophils 39.8 % (42.2-75.2); Absolute Basophils 0.3 10^3/uL (0-0.2); Absolute Eosinophils 1.9 10^3/uL (0-0.7); Absolute Lymphocytes 5.5 10^3/uL (1.2-3.4); Absolute Monocytes 1.1 10^3/uL (0.1-0.6); Absolute Neutrophils 5.8 10^3/uL (1.4-6.5); Hematocrit 50.4 % (39.0-52.0); Hemoglobin 16.5 g/dL (13.0-18.0); Mean Corp Hgb Conc. 32.7 g/dL (33.0-37.0); Mean Corpuscular Hgb 29.2 pg (27.0-31.0); Mean Platelet Volume 10.4 fL (7.4-10.4); Nucleated Red Blood Cells % 0 % (-); Platelet Count 345 10^3/uL (130-400); Red Blood Cell Count 5.66 10^6/uL (4.70-6.10); Red Cell Dist. Width 13.2 % (11.5-14.5); White Blood Cell Count 14.6 10^3/uL (4.8-10.8)
[2024-11-24] MEDS: NITROGLYCERIN PREMIX 250 IV (07:53)
[2024-11-24 07:56] LABS: ALT (SGPT) 20 U/L (0-50); AST (SGOT) 26 U/L (17-59); Alkaline Phosphatase 120 U/L (38-126); Blood Urea Nitrogen 29 mg/dl (9-20); Calcium 9.2 mg/dl (8.4-10.2); Carbon Dioxide 26 mmol/L (22-30); Chloride 105 mmol/L (98-107); Glucose 270 mg/dl (70-99); Potassium 4.4 mmol/L (3.5-5.1); Sodium 139 mmol/L (135-145); Total Bilirubin 0.9 mg/dl (0.2-1.3); Total Protein 6.8 g/dl (6.3-8.2); eGFR > 60.00
[2024-11-24 08:06] LABS: Venous Blood Gas B.E. -7.1 mmol/L (-4 to +4); Venous Blood Gas HCO3 26.6 mmol/L (22-27); Venous Blood Gas O2 Sat % 93.5 %; Venous Blood Gas pO2 78 mmHg (30-50)
[2024-11-24 08:07] LABS: NT-proBNP 1930 pg/ml; Troponin I 0.024 ng/ml
[2024-11-24 08:08] LABS: Venous Blood Gas pCO2 96 mmHg (35-48); Venous Blood Gas pH 7.05 (7.32-7.43)
--- NOTE | 2024-11-24 08:13 | ED.GENMED ---
History of Present Illness
General
Chief Complaint: Breathing Problem
Source: ambulance crew
Exam Limitations: clinical condition
Time Seen by Provider: 11/24/24 07:35
History of Present Illness
History of Present Illness:
54-year-old male who presents in respiratory distress. EMS Called and found the patient diaphoretic and respiratory distress. Reportedly patient complained of shortness of breath starting 30 mL at night. He is a smoker. He has a history of [place] in
the past. He has a history of heart failure. Patient is unable to further give any history due to severe respiratory distress.
Past History
Past History
ED Past Medical History: COPD, HTN, Hypercholesterolemia and [place]
ED Past Surgical History: Appendectomy and Orthopedic (Right wrist surgery)
Social History
Tobacco: Smoker
Alcohol: Occasional
Personal: Single
Living: with family
Employment: Employed
Family History
Family History: Negative Diabetes
Phy Exam
Physical Exam
Physical Exam:
CONSTITUTIONAL Patient somewhat somnolent but does shake his head to questions. Unable to speak due to severe respiratory distress. Patient is diaphoretic and in severe respiratory distress. Vital signs reviewed.
HEAD atraumatic, normocephalic.
EYES eyelids normal to inspection, Extraocular muscles intact, Conjunctiva normal, Sclera normal.
NECK normal range of motion, Trachea midline.
RESPIRATORY CHEST severe respiratory distress, poor air movement bilaterally. Rales bilaterally
CARDIOVASCULAR regular rate and rhythm, Heart sounds normal.
ABDOMEN abdomen nontender, Bowel sounds normal. No distention.
BACK normal inspection, no obvious deformities
UPPER EXTREMITY range of motion normal, Motor strength normal, no cyanosis, no edema.
LOWER EXTREMITY range of motion normal, Motor strength normal, no cyanosis, no edema.
NEURO unable to complete detailed exam due to current condition
SKIN diaphoretic
Scores
Heart Failure Risk
Heart Failure Risk Score: Yes
History of Stroke or TIA: No
History of intubation for respiratory distress: Yes
Heart rate on ED arrival >/= 110: No
SaO2 <90% on arrival on room air: Yes
HR >/=110 during 3min walk test (or too ill to perform test): Yes
ECG has acute ischemic changes: No
Urea >/=12mmol/L (BUN 33.6mg/dL): No
Serum CO2>/=35mmol/L: No
Troponin I or T elevated to [place] Level (0.4mg/dL): No
NT-proBNP >/=5,000ng/L (5,000pg/ml): No
HF Risk Score: 5
Admission Status: VERY HIGH RISK 39.8% Consider admission to hospital
Course
Orders/Labs/Results
Orders:
Orders
11/24/24 07:29
EKG [Electrocardiogram (*1)] Urgent
Reason for Study: Shortness of Breath
EKG- Treatment ONCE
11/24/24 07:32
Cr Chest Portable [CR Chest Portable - 1 View] Stat
Comment:
Reason For Exam: tube chest
Reason Study Needs to be Portable: Patient Unstable
11/24/24 07:34
Complete Blood Count/With Diff Urgent
Comprehensive Metabolic Panel Urgent
Lactic Acid Urgent
NT-proBNP Urgent
Troponin I Urgent
11/24/24 07:35
Dexamethasone Sod Phosphate [Decadron] 10 mg IV NOW STA
Ipratropium/Albuterol Sulfate [Duoneb] 3 ml INH R NOW ONE
Ipratropium/Albuterol Sulfate [Duoneb] 3 ml INH R NOW STA
11/24/24 07:42
Midazolam HCl [Versed] 5 mg .ROUTE .STK-MED ONE
Propofol 1,000,000 Mcg/100 ml [Diprivan] 1,000,000 mcg in 100 ml .ROUTE .STK-MED
11/24/24 07:49
COVID-19 Antigen Urgent
Source: Nasal Swab
Venous Blood Gas Urgent
%Oxygen/Room Air: 60
Blood Culture Urgent
KEELY Source: Blood/Venous
Specimen Description:
Influenza A+B Rapid Molecular Urgent
KEELY Source: Nasal Swab
Specimen Description:
11/24/24 07:50
Furosemide [Lasix] 40 mg IV NOW STA
11/24/24 07:54
Furosemide [Lasix] 40 mg .ROUTE .STK-MED ONE
Nitroglycerin 100 mg/250 ml [Nitroglycerin Premix] 100 mg in 250 ml .ROUTE .STK-MED
11/24/24 07:56
Nitroglycerin 100 mg/250 ml [Nitroglycerin Premix] 100 mg in 250 ml IV NOW
Initial dose in mcg/min, then titrate:: 5
Titrate to keep:: SBP < 160 mmHg
Titrate by mcg/min:: 5 mcg/min, may increase by 10 mcg/min if dose > 20 mcg/min
Frequency of titrations (minutes):: every 3-5 minutes
Maximum dose in mcg/min:: 200
Begin to taper infusion when:: Remained at goal for 2hrs
Taper by mcg/min:: 5 mcg/min
Frequency of taper (minutes) if patient maintains goal:: 30
Taper to off?: Yes
If infusion off & no longer maintaining goal:: Contact Provider
11/24/24 08:28
FentaNYL 1,000 MCG/100 ML [Sublimaze] 1,000 mcg in 100 ml IV NOW
Indication:: Light Sedation
Begin Infusion:: Now
Goal:: pain score </= 1, CPOT 0-2
Maximum dose in mcg/hr:: 300
Initial Dose in mcg/hr:: 50
Titration Instructions:: Titrate every 30 minutes if patient exhibits signs of pain or discomfort
Titration Instructions:: (pain score >/= 2, CPOT >/= 3).
Titration Instructions:: Administer bolus dose and increase infusion by 25 mcg/hr.
Taper Instructions:: If pain score at goal for 4 consecutive hours (pain score </= 1, CPOT 0-2)
Taper Instructions:: decrease infusion by 50 mcg/hr every 2 hours.
Taper Instructions:: When dose </= 50 mcg/hr may turn infusion off and consider PRN
Taper Instructions:: intermittent bolus doses only.
Over-sedation Instructions:: If CPOT 0-2 (goal) and RASS -3 to -5 (below goal) decrease sedative by 50%
Over-sedation Instructions:: first. If pain score remains at goal and RASS remains below goal in 1 hour,
Over-sedation Instructions:: decrease opioid infusion by 50%.
Notify provider:: immediately if pt exhibits: chest wall rigidity, hemodynamic instability,
Notify provider:: agitation/pain despite maximum dosing, pain when RASS below goal.
Additional Instructions:: Patient MUST be mechanically ventilated.
Fentanyl Citrate/Pf [Sublimaze] 50 mcg IV NOW STA
Fentanyl Citrate/Pf [Sublimaze] 50 mcg IV [id number] PRN
11/24/24 08:47
NORepinephrine 4 MG/250 ML [Levophed] 4 mg in 250 ml IV NOW
Initial dose in mcg/min, then titrate:: 2
Titrate to keep:: MAP > 65 mmHg
Titrate by mcg/min:: 1-2 mcg/min
Frequency of titrations (minutes):: 5
Maximum dose in ICU in mcg/min:: 30
Maximum dose in IMU in mcg/min:: 8
Maximum dose in IVU in mcg/min:: 4
Begin to taper infusion when:: Remained at goal for 4hrs
Taper by mcg/min:: 1-2 mcg/min
Frequency of taper (minutes) if patient maintains goal:: 30
Taper to off?: Yes
If infusion off & no longer maintaining goal:: Contact Provider
11/24/24 08:52
UA Reflex to Culture [Urinalysis Reflex To Culture] Urgent
Date Specimen was Collected: 11/24/24
Time Specimen was Collected: 08:41
Urine Microscopic Reflex Cult Urgent
Influenza A+B Rapid Molecular Routine
KEELY Source: [facility]
Specimen Description:
11/24/24 08:56
Piperacillin/Tazo 4.5 Gram [Zosyn] 4.5 gram in 100 ml IV NOW
11/24/24 09:04
Fentanyl Citrate/Pf [Sublimaze] 100 mcg .ROUTE .STK-MED ONE
Midazolam HCl [Versed] 5 mg .ROUTE .STK-MED ONE
11/24/24 09:12
Midazolam HCl [Versed] 5 mg IV NOW STA
11/24/24 09:20
Can Pusher Consult Routine
Consulting Provider: Kenny Armijo
Was physician already notified: Yes
Reason for consult: VDRF, circulatory shock
11/24/24 09:26
Admit/Transfer Patient As Directed
Co-Sign Provider:
Level of Care: Inpatient admission
Assign to:: ICU
Physician / Group: Benton Iglesias
Diagnosis: VDRF
Reason for Hospitalization: Ventilator dependent respiratory failure, circulatory shock
Expected length of stay greater than two midnights?: Yes
ELOS- Estimated Length of Stay in days: 5
I certify the patient meets the requirements for IP care: Yes
PRN Pain Medication Management As Directed
May give lesser potent ordered pain med per pt: Yes
preference::
Protocol:: Medication orders for pain may be administered in a
manner that supports deferring to patient preference
when the pt is:
- Requesting an ordered lesser potent pain medication.
Least to most potent pain medications are defined
as: acetaminophen < NSAID < tramadol < opioids
(morphine, oxycodone, hydromorphone).
- Requesting a lesser dose of the same medication IF
ORDERED.
- Requesting a less intrusive route of administration
if both routes are prescribed by the provider (PO <
IV).
11/24/24 09:29
Code Status As Directed
Resuscitation Status: Full Code
11/24/24 09:30
Blood Culture Q30M
KEELY Source: Blood/Venous
Specimen Description:
11/24/24 09:36
Vancomycin [Vancocin] 2,000 mg 0.9% Sodium Chloride 500 ml [Nss] 500 ml IV NOW
11/24/24 09:39
ABG [Arterial Blood Gas] Urgent
%Oxygen/Room Air: 50
11/24/24 09:42
Fentanyl Citrate/Pf [Sublimaze] 100 mcg .ROUTE .STK-MED ONE
11/24/24 09:46
Accucheck [Bedside Glucose Monitoring] As Directed
Frequency: Q6H
11/24/24 Lunch
NPO
Allow oral meds: No
Allow clear liquids: No
Blood Culture Q30M
KEELY Source: Blood/Venous
Specimen Description:
Piperacillin/Tazo 3.375 Gram [Zosyn] 3.375 gram in 50 ml IV Q6H
11/24/24 11:00
Dexamethasone Sod Phosphate [Decadron] 6 mg IV Q12H
11/24/24 11:30
Insulin Aspart Corrective Mod [Novolog Flexpen-Moderate Resistance] See Protocol SC AC
11/24/24 12:59
Bisacodyl [Dulcolax] 10 mg RECTAL [id number] PRN
Docusate W/Senna [Senokot-S] 1 tablet PO BIDPRN PRN
Ipratropium/Albuterol Sulfate [Duoneb] 3 ml INH R Q4HPRN PRN
Polyethylene Glycol Powder [Miralax] 17 grams PO DAILYPRN PRN
11/24/24 12:59
Activity As Directed
Activity Level: Out of Bed-Early Mobility
Intake/ Output As Directed
Frequency: Per unit guidelines
Vital Signs As Directed
Frequency: Per unit guidelines
Weight As Directed
Frequency: Daily
O2 Therapy [RESP] Routine
Titrate/Wean O2 to maintain O2 sat greater than (%): 88
DX Deep Vein Thrombosis Video Routine
11/24/24 13:12
Troponin I Q6H
11/24/24 16:00
Furosemide [Lasix] 40 mg IV BID AT 0800,1600
11/24/24 19:36
Troponin I Q6H
11/25/24 03:55
Complete Blood Count/With Diff IN AM
Comprehensive Metabolic Panel IN AM
Magnesium IN AM
11/25/24 06:00
Echo Follow up Study W Dop Routine
Reason for Study: CHF
11/25/24 08:00
Aspirin Low Dose EC [Aspir Low (Enteric Coated)] 81 mg PO DAILY
Atorvastatin [Lipitor] 40 mg PO DAILY
Nicotine [Nicoderm Transdermal] 14 mg TRANSDERM DAILY
Pantoprazole [Protonix IV] 40 mg IV DAILY
Abnormal Lab Results
11/24/24 11/24/24 11/24/24
07:34 07:49 08:52
WBC 14.6 H 10^3/uL
(4.8-10.8)
MCHC 32.7 L g/dL
(33.0-37.0)
Absolute Lymphs (auto) 5.5 H 10^3/uL
(1.2-3.4)
Absolute Monos (auto) 1.1 H 10^3/uL
(0.1-0.6)
Absolute Eos (auto) 1.9 H 10^3/uL
(0-0.7)
Absolute Basos (auto) 0.3 H 10^3/uL
(0-0.2)
Neutrophils % 39.8 L %
(42.2-75.2)
Eosinophils % 13.0 H %
(0-6)
pH
pCO2
pO2
ABG O2 Sat (Measured)
VBG pH 7.05 L*
(7.32-7.43)
VBG pCO2 96 H* mmHg
(35-48)
VBG pO2 78 H mmHg
(30-50)
BUN 29 H mg/dl
(9-20)
Glucose 270 H mg/dl
(70-99)
Ur Occult Blood Reflex 2+ A
(Negative)
Urine RBC 7-10 A /HPF
(0-2)
Urine Glucose 1+ A
(Negative)
Urine Albumin (Reflex) 4+ A
(Neg - Trace)
11/24/24
09:39
WBC
MCHC
Absolute Lymphs (auto)
Absolute Monos (auto)
Absolute Eos (auto)
Absolute Basos (auto)
Neutrophils %
Eosinophils %
pH 7.19 L*
(7.35-7.45)
pCO2 69 H mmHg
(35-48)
pO2 66 L mmHg
(83-108)
ABG O2 Sat (Measured) 92.5 L %
(94-98)
VBG pH
VBG pCO2
VBG pO2
BUN
Glucose
Ur Occult Blood Reflex
Urine RBC
Urine Glucose
Urine Albumin (Reflex)
11/24/24 07:34
11/24/24 07:34
Vital Signs
Initial and Last Documented VS:
Initial Vital Signs
Pulse Ox
64
11/24/24 07:25
Last Documented Vital Signs
Temp Pulse Resp BP Pulse Ox
98.1 F 99 29 106/74 98
11/25/24 19:00 11/25/24 19:45 11/25/24 19:45 11/25/24 19:00 11/25/24 19:00
Procedures
Intubations
Procedure completed by: Dr Francis/Luther Villanueva PA-C
Method of Intubation: glidescope
Tube size (cm): 7.0
Placement confirmed by: auscutation, CXR, capnography and direct visualization
Breath sounds after intubation: equal
Intubation complications: no complications
Central Line
Right Femoral:
Indication for procedure:: critical illness
Procedure completed by: Dr Francis
Consent form signed: Yes
If no, reason: Emergency procedure
Anesthesia: 1% Lidocaine
Central line lumen: triple
Number of attempts: 2
Central line complications: none
Sterile dressing applied?: Yes
MDM/Problems Addressed
MDM/Problems Addressed:
Hypercapnic respiratory failure, CHF, acute COPD exacerbation, vent dependent respiratory failure
*Radiology
Radiology exam reviewed: preliminary read by ED provider (Pulmonary edema)
*Pulse Oximetry
Patient hypoxic: yes
*EKG
Interpreted by ED Provider?: Yes
Interpretation: abnormal
Rate: normal
Rhythm: sinus
Shunk: normal axis
QRS Pattern: right bundle branch block
Ischemia: non-specific ST changes
*Barber Or Beauty Shop Manager Interpretation
Rate: normal
Interpretation: normal
Rhythm: sinus
*Critical Care Note
Total Time (30-74mins, 75-104mins- exclusive of procedures): 65 minutes
Data Reviewed
Review of Other/Old Records Reveals: Discharge Summary (Discharge summary reviewed from 10/08)
Source: ambulance crew
Prescriptions/Medications Considered But Not Given:
Consider CT of the chest but suspect CHF.
Patient Management
Discussion with other providers: Hospitalist
Escalation/DeEscalation of care consider admission/obs:
54-year-old male who presents with severe respiratory distress. Found to be diaphoretic. Patient intubated on arrival. Was on CPAP by EMS but was persistently hypoxic. Suspect mostly CHF. Chest x-ray looks to have volume overload. Currently
being sedated with propofol but add fentanyl. Did become a little bit hypotensive after initially being hypertensive. Given nitroglycerin drip but that has stopped because of hypotension. For now we will initiate Levophed. Continue with
sedation. Given diuretics. Will cover broad-spectrum antibiotics as well.
1012 Sedation and BP better. Central line placed. Stable on the vent for now. Seen by hospitalist.
ED Attending Note
-
Portions of this chart may have been created with voice recognition software.� Occasional wrong word or��sound alike� substitutions may have occurred due to the inherent limitations of voice recognition software.
Discharge Plan
Departure
Patient Disposition: Admit
Date of Disposition: 11/24/24
Time of Disposition: 08:13
Admit to: ICU
Presentation/result/management discussed w/ accepting MD/DO: Hospitalist
Discharge Problem:
Vent dependent respiratory failure, Acute hypercapnic respiratory failure, Acute exacerbation of chronic obstructive pulmonary disease, CHF (congestive heart failure)
Interventions
Interventions:
*Risk Screen - Suicide Last Done: 11/24/24 08:56
*General Assessment Last Done: 11/24/24 08:56
*Neglect/Abuse Screening Last Done: 11/24/24 08:56
ED- Fall Risk Assessment Last Done: 11/24/24 13:05
*ED COVID-19 Vaccine History Last Done: 11/24/24 08:56
*Nursing Disposition Last Done: 11/24/24 13:05
ED- Cardiac Assessment Last Done: 11/24/24 07:25
ED- Pulmonary Assessment Last Done: 11/24/24 07:30
Discharge Date and Time
Discharge Date/Time: 11/24/24 13:05
[2024-11-24 08:17] LABS: Lactic Acid 0.8 mmol/L (0.7-2.0)
[2024-11-24 08:22] LABS: COVID-19 Antigen Negative (Negative)
[2024-11-24] MEDS: NEO-SYNEPHRINE 100 MCG IV (08:35)
[2024-11-24] MEDS: SUBLIMAZE 100 IV ×2 (08:36→13:16)
[2024-11-24] MEDS: SUBLIMAZE 50 MCG IV (08:36)
[2024-11-24 08:57] LABS: Urine Albumin 4+ (Neg - Trace); Urine Bilirubin Negative (Negative); Urine Character Clear (Clear); Urine Color Yellow; Urine Glucose 1+ (Negative); Urine Ketone Negative (Negative); Urine Leukocyte Negative (Negative); Urine Nitrite Negative (Negative); Urine Occult Blood 2+ (Negative); Urine Specific Gravity 1.025 (<1.030); Urine Urobilinogen Negative (Neg - 1+)
[2024-11-24] MEDS: SUBLIMAZE 100 MCG IV ×2 (09:01→09:44)
[2024-11-24] MEDS: DUONEB 3 ML INH ×2 (09:02)
--- NOTE | 2024-11-24 09:23 | HPS.HSE ---
Family Physician
-
Family Physician: Edwina Monaco
Chief Complaint
-
Respiratory Distress
History of Present Illness
54-year-old male with nonischemic cardiomyopathy with recovered EF, COPD, HTN, HLD, CAD s/p [place] who is presenting to the hospital today with respiratory distress. EMS was notified that the patient was diaphoretic and in respiratory distress,
complains of shortness of breath prior to this episode. Further history was limited due to his severe respiratory distress. Upon arrival was hypotensive, hypoxemic with increased work of breathing, hypothermic. Required intubation and placement
on mechanical ventilation while in the ED. Initially was hypertensive and started on short course of nitroglycerin drip, then propofol for intubation however blood pressure became hypotensive and was started on Levophed. Initial labs with WBC 14.6,
BUN 29, BNP 1900. Initial ECG without acute ischemic findings, initial troponin WNL. Initial blood gas with pH 7.05/pCO2 96/pO2 78/bicarb 26. Chest x-ray with signs of pulmonary congestion on my prelim read without final read pending. In the ED
was started on broad-spectrum antibiotics, IV steroid and IV diuretics.
Medical History
Past Medical History
Past Medical History: Reports CHF, COPD and AZ
Past Surgical History: Reports Other
Social History
Unable to obtain full social history at this time due to: Patient Intubation
Family History
Family History: Not pertinent
Allergies / Home Medications
Allergies reflects when Allergies were last updated in [facility].
Home Medications with original date entered in [facility]
Allergy/Medication List:
Allergies
Allergy/AdvReac Type Severity Reaction Status Date / Time
No Known Allergies Allergy Verified 11/24/24 07:44
Home Medications
furosemide 40 mg tablet 40 mg PO DAILY Fluid retention/Swelling 30 days #30 tabs 11/29/23
spironolactone 25 mg tablet 12.5 mg (1/2 x 25 mg) PO DAILY Fluid retention/Swelling 30 days #15 tabs 11/29/23
aspirin 81 mg tablet,delayed release (Adult Low Dose Aspirin) 81 mg PO DAILY Heart disease/condition 10/04/24
atorvastatin 40 mg tablet 40 mg PO DAILY High cholesterol 10/04/24
carvedilol 6.25 mg tablet 6.25 mg PO DAILY Blood pressure 10/04/24
amoxicillin 875 mg-potassium clavulanate 125 mg tablet 1 tab PO Q12 #7 tabs 10/08/24
doxycycline hyclate 100 mg capsule 100 mg PO Q12 #7 caps 10/08/24
lisinopril 5 mg tablet 5 mg PO DAILY #30 tabs 10/08/24
nicotine 14 mg/24 hr daily transdermal patch 14 mg transdermal DAILY #0 ea 10/08/24
oseltamivir 75 mg capsule 75 mg PO BID #2 caps 10/08/24
Review of Systems
-
Unable to obtain full review of systems at this time due to: Patient Intubation
Physical Exam
Vital Signs
Vital Signs
Temp Pulse Resp BP Pulse Ox
94.5 F L 81 36 97/61 64
11/24/24 09:20 11/24/24 09:15 11/24/24 09:15 11/24/24 09:15 11/24/24 07:25
Physical Exam
General: No Apparent Distress, Obese and Intubated
HEENT: NormoCephalic, Anicteric, Moist mucous membranes and PERRLA
Respiratory: Rhonchi, Non Labored Respirations and Decreased Breath Sounds; No Wheezes, Rales or Accessory Resp Muscle Use
Cardiac: S1/S2, Regular Rhythm and Peripheral Edema; No Murmur, Rub, Gallop or JVD
GI: Soft, Non Tender, Non Distended and Normal Bowel Sounds
Musculoskeletal: No Clubbing and No Cyanosis
Skin: Warm and Dry; No Rash
Neuro: Nonfocal/grossly intact and Sedated
Laboratory Results
-
11/24/24 07:34
11/24/24 07:34
Laboratory Results
pH Cancelled 11/24/24 07:26
pCO2 Cancelled 11/24/24 07:26
pO2 Cancelled 11/24/24 07:26
HCO3 Cancelled 11/24/24 07:26
Lactic Acid 0.8 mmol/L (0.7-2.0) 11/24/24 07:34
Total Bilirubin 0.9 mg/dl (0.2-1.3) 11/24/24 07:34
AST 26 U/L (17-59) 11/24/24 07:34
ALT 20 U/L (0-50) 11/24/24 07:34
Alkaline Phosphatase 120 U/L (38-126) 11/24/24 07:34
Troponin I 0.024 ng/ml 11/24/24 07:34
Data Reviewed
-
Lab Data: Discussed with Physician (ED attending, residential director, entertainment manager)
Impression/Plan
-
#Acute hypoxemic and hypercapnic respiratory failure
#VDRF
#Severe respiratory acidosis
-Likely multifactorial with COPD and decompensated heart failure/flash pulmonary edema
-Significant signs of hypercapnia on ABG, was significantly hypertensive upon arrival
-Presented in respiratory distress and required mechanical ventilation; flu and COVID-negative
-Chest x-ray showing signs of pulmonary edema, BNP 2000, lower than previous however
-Venous blood gas with significant hypercapnia, pCO2 near 100, pH 7.05
-Currently on CMV with settings 14/550/70/8, P peak 23
-ICU aware of patient, consult placed
Plan
-Continue mechanical ventilation with daily SAT/SBT
-Trend ABG/VBG to assess improvement of CO2 levels
-Start IV Lasix 40 mg twice daily for heart failure
-Start IV Solu-Medrol 40 mg every 12 hours for COPD
-Start empiric antibiotics for now
-SpO2 goal 88-94
#Circulatory shock
#Sepsis secondary to possible aspiration pneumonia
#H/O hypertension
-Possibly secondary to nitroglycerin drip in the ED, was hypertensive prior to this; cannot rule out sepsis
-Was started on IV Levophed drip while in the emergency department
-Does have leukocytosis though no obvious other signs of infection
-Currently hemodynamically stable with Levophed support
-Hold ACEi, Aldactone due to circulatory shock
Plan
-Continue Levophed for MAP goal 65-95
-Empiric antibiotics and cultures for now
-Wean pressors as able
-Trend CBC and temperature curve
-Place Cartagena for strict I/Os
#Hypothermia
-Temperature 94.8 �F; likely secondary to low flow from heart failure versus sepsis
-Currently on Itzel hugger
-Consider RHC pending echo result
#COPD
-Does not wear supplemental oxygen at baseline
-Per pharmacy records he is not on inhaler regimen
-Will initiate DuoNebs for when patient is extubated
-Will need PFTs and standing inhaler regimen
#HFrecEF
#Nonischemic cardiomyopathy
-History of hypertensive heart disease, previous LVEF near 30% though most recently up to 50%
-Home medications include GDMT with lisinopril, carvedilol, Aldactone; Lasix for diuresis
-Will transition to IV Lasix for presumed decompensation of heart failure/flash pulmonary edema
-Will hold GDMT for now due to circulatory shock
-Order repeat echocardiogram
-Cardiology consult
#CAD s/p [place]
-Home medications include carvedilol, aspirin, high intensity statin
-No known history of PCI or CABG
-Suspicion for ACS at this time
DVT prophylaxis: Subcutaneous heparin
GI prophylaxis: IV PPI daily
Diet: N.p.o. for now, plan for tube feeds if unable to extubate
CODE STATUS: Full code
Disposition: Admit to ICU
[2024-11-24 09:47] LABS: B.E. -3.3 mmol/L; HCO3 26.4 mmol/L (21-28); O2 Saturation % 92.5 % (94-98); PCO2 69 mmHg (35-48); PO2 66 mmHg (83-108)
[2024-11-24 09:50] LABS: pH 7.19 (7.35-7.45)
[2024-11-24 10:03] LABS: Urine Squamous Cell 0-2 /LPF (Few)
[2024-11-24 10:04] LABS: Urine Amorphous Seen; Urine Granular Cast >15 /LPF (0); Urine Hyaline Cast >15 /LPF (0-2); Urine White Cell 0-2 /HPF (0-5)
[2024-11-24] MEDS: VANCOCIN 540 MG IV (11:21)
[2024-11-24] MEDS: ZOSYN 50 IV ×3 (11:22→21:57)
[2024-11-24] MEDS: LEVOPHED 250 IV ×2 (11:24→15:09)
--- NOTE | 2024-11-24 11:34 | PHA.VAN.IN ---
Assessment
- Assessment
Renal Function: Appears elevated from baseline
Renal Function may be Overestimated due to: obesity
Minimum Temperature: 94.5
Concomitant Antimicrobials: piperacillin/tazobactam
Plan
- Plan
Initial / Loading Dose: 2000 mg load dose - administered 11/24 11:21
Maintenance Regimen: dose by random level due to elevated SCr
Monitoring: random level AM 11/25/24 0600
Pharmacokinetics Vancomycin I
- -
Patient Age: 54
Patient Sex: Male
Vancomycin Day #: 1
Indication: Pulmonary/Respiratory
Requesting Provider: Harris
Height / Weight:
Height 6 ft 2 in
Actual Weight 107.6 kg
Pertinent Past Medical History: BMI~30
- Vital Signs / Lab Results
Temp Pulse Resp BP Pulse Ox
95.9 F L 64 20 79/59 64
11/24/24 11:28 11/24/24 11:25 11/24/24 11:25 11/24/24 11:25 11/24/24 07:25
Lab Results - Hematology
11/24/24
07:34
WBC 14.6 H
Lab Results - Chemistry
11/24/24
07:34
BUN 29 H
Creatinine 1.2
Albumin 4.0
11/24/24
07:34
Lactic Acid 0.8
Lab Results - Urine
11/24/24
08:52
Urine Nitrite (Reflex) Negative
Leukocyte Esterase Rfl Negative
Urine WBC (Reflex) 0-2
Ur Squamous Epith Cells 0-2
Microbiology Results
11/24/24 08:52 Influenza Types A & B (PIPER) - Final
Nasal Swab Negative for Influenza A & B, NAAT
Negative results must be combined with clinical observations
and patient history.
Nucleic Acid Amplification test (NAAT)performed on the
[employer] NOW platform.
11/24/24 07:49 Influenza Types A & B (PIPER) - Final
Nasal Swab Test repeatedly invalid.
Nucleic Acid Amplification test (NAAT)performed on the
[employer] ID NOW platform.
[2024-11-24] MEDS: AMIDATE 20 MG IV (11:43)
[2024-11-24] MEDS: ANECTINE 200 MG IV (11:44)
--- NOTE | 2024-11-24 12:27 | CON.INTV ---
Consultation
Consultation Request
Date/Time Consultation Requested: 11/24/2024
Date/Time Consultation Performed: 11/24/2024
Requesting Provider: Dr. Iglesias
Performing Provider: Dr. Kenny Zelaya
Reason for Consultation: Acute hypoxemic respiratory failure requiring intubation and MV
Medical History
-
Chief Complaint: Agonal breathing/unresponsiveness
History of Present Illness:
54-year-old male active tobacco smoker with a past medical history of HFmrEF, hypertension, NICM and hypercholesterolemia, discharged from the hospital in September after developing respiratory failure, influenza pneumonia, septic shock require
mechanical ventilation.
Readmitted 11/24/2024 through the emergency room with respiratory distress. Upon arrival to the emergency room apparently hypotensive, hypoxemic with increased work of breathing, hypothermic. He was placed on mechanical ventilation due to increased
work of breathing and hypoxemia.
Became hypotensive after sedation was started. Requiring Levophed.
Patient has leukocytosis. Increased proBNP. Negative troponin.
ABG acute hypercapnia and hypoxemia.
Chest x-ray consistent with possible pulmonary edema.
He was started on antibiotics for possible infectious component steroids and IV diuretics.
-
Upon my evaluation patient is intubated, sedated on mechanical ventilation. Unable to provide history.
Records reviewed.
PMHx: HFmrEF, hypertension, NICM, tobacco use disorder, hypercholesterolemia
PSHx: Wrist fusion, appendectomy
Past Medical History
Past Medical History: Other (Above as per HPI)
Past Surgical History: Other (Above as per HPI)
Social History
Tobacco: Smoker (Smokes 0.25-0.5 PPD)
Alcohol: Occasional
Drug: None
Family History
Family History: Reviewed & Not Pertinent
Allergies / Home Medications
Allergies
Allergy/AdvReac Type Severity Reaction Status Date / Time
No Known Allergies Allergy Verified 11/24/24 07:44
Home Medications
�Medication �Instructions �Recorded �Confirmed �Last Taken �Type
furosemide 40 mg tablet 40 mg PO DAILY Fluid 11/29/23 10/10/24 10/09/24 10:00 Rx
retention/Swelling 30 days #30 tabs
spironolactone 25 mg tablet 12.5 mg (1/2 x 25 mg) PO DAILY 11/29/23 10/10/24 10/09/24 10:00 Rx
Fluid retention/Swelling 30 days
#15 tabs
aspirin 81 mg tablet,delayed 81 mg PO DAILY Heart 10/04/24 10/10/24 10/09/24 10:00 History
release (Adult Low Dose Aspirin) disease/condition
atorvastatin 40 mg tablet 40 mg PO DAILY High cholesterol 10/04/24 10/10/24 10/09/24 10:00 History
carvedilol 6.25 mg tablet 6.25 mg PO DAILY Blood pressure 10/04/24 10/10/24 10/09/24 10:00 History
amoxicillin 875 mg-potassium 1 tab PO Q12 #7 tabs 10/08/24 10/10/24 10/09/24 10:00 Rx
clavulanate 125 mg tablet
doxycycline hyclate 100 mg capsule 100 mg PO Q12 #7 caps 10/08/24 10/10/24 10/09/24 10:00 Rx
lisinopril 5 mg tablet 5 mg PO DAILY #30 tabs 10/08/24 10/10/24 10/09/24 10:00 Rx
nicotine 14 mg/24 hr daily 14 mg transdermal DAILY #0 ea 10/08/24 10/10/24 10/09/24 10:00 Rx
transdermal patch
oseltamivir 75 mg capsule 75 mg PO BID #2 caps 10/08/24 10/10/24 10/09/24 10:00 Rx
Review of Systems
-
Unable to Obtain full review of systems at this time due to: Acuity and Patient Intubation
Vitals / Labs / Diagnostic Testing
Vital Signs
Temp Pulse Resp BP Pulse Ox
96.8 F L 65 23 98/71 64
11/24/24 12:11 11/24/24 12:10 11/24/24 12:10 11/24/24 12:10 11/24/24 07:25
Lab Data
11/24/24 07:34
11/24/24 07:34
Laboratory Results
11/24/24 11/24/24
07:26 09:39
pH Cancelled 7.19 L*
pCO2 Cancelled 69 H
pO2 Cancelled 66 L
HCO3 Cancelled 26.4
O2 Delivery Level Cancelled
Microbiology
11/24/24 08:52 Nasal Swab Influenza Types A & B (PIPER) - Final
Negative for Influenza A & B, NAAT
Negative results must be combined with clinical observations
and patient history.
Nucleic Acid Amplification test (NAAT)performed on the
[employer] NOW platform.
11/24/24 07:49 Nasal Swab Influenza Types A & B (PIPER) - Final
Test repeatedly invalid.
Nucleic Acid Amplification test (NAAT)performed on the
[employer] ID NOW platform.
Diagnostic Testing:
Physical Exam
-
HEENT: Normocephalic and Other (ET tube in place.)
Cardiovascular: S1/S2
Respiratory: Wheeze (n) and Non-Labored Respirations
GI: Non Distended
Neurology: Other (Sedated, mechanical ventilation.)
Skin: Warm and Other (Both feet slightly cyanotic but Dopplers pulses positive.)
General: Comfortable
Assessment
-
Assessment: 54-year-old male active tobacco smoker with a past medical history of HFmrEF, hypertension, NICM and hypercholesterolemia who presents with unresponsiveness and agonal breathing. Influenza A recurrent intubation mechanical ventilation
and September 2024.
Readmitted with increased work of breathing, hypoxemia, hypercapnia, chest x-ray with bilateral infiltrate suggestive pulmonary edema. Intubated and transferred to the critical care unit for further care
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
Impression:
# Acute hypoxemic/hypercapnic respiratory failure recurrent intubation 11/24/2024.
ABG on admission: 7.//66
Chest x-ray 11/24/2024: Reviewed showed moderate to severe pulmonary edema pattern. Mild bilateral pleural effusions.
proBNP greater 1930/negative troponin
# Shock likely due to sedation versus infections/sepsis.
# Bilateral infiltrates: Cannot rule out pneumonia. Less likely as he is recovering from pneumonia in September.
# History of COPD: Possible mild exacerbation component.
-
#Tobacco use disorder
#Chronic HFmrEF (via TTE from 02/29/2024)
ZENON: 10/10/2024 normal LVEF. Normal RV function. Mild to moderate MR.
#NICM
#Hypercholesterolemia
#Hypertension
Plan:
-
Critically ill. Recurrent intubation and mechanical ventilation.
Clinical picture suggestive of acute pulmonary edema-acute on chronic heart failure with preserved ejection fraction based on ZENON September 2024.
Severe respiratory acidosis based on ABG.
Cannot rule out COPD component with acute exacerbation as well.
-
Mechanical ventilation settings reviewed
Assist-control/550/20/50%/post 5
Peak pressure 27-not significantly bronchospastic on exam.
ET tube without significant secretions.
Will follow pulmonary mechanics
Repeat ABG in 30 minutes
Decrease FiO2 to maintain pulse ox above 90%
-
Continue sedation Fentanyl/propofol for RASS score 0 to -1
Sedation breaks per protocol.
Restraints
-
Heart failure with preserved ejection fraction based on transesophageal echocardiogram 10/10/2024: LVEF has recovered. Moderate MR present. Normal RV function.
Status post diuresis in the emergency room on hold for now due to hypotension.
Continue with cardiac management
Follow urinary output
Daily weight
So far troponin is negative
Check a UDS
-
From the ? COPD perspective: Not clear if there is an exacerbation of COPD component at this point. Given acute illness not unreasonable to treat for now.
For now agree with IV dexamethasone
Continue nebulizer therapy with DuoNebs 4 times a day
Smoking cessation counseling has provided during prior hospital stays.
He does not have formal diagnosis of COPD. No PFTs available. No pulmonary follow-up.
-
-Antibiotics for possible bacterial pneumonia: Vancomycin/Zosyn as the patient was recently discharged from the hospital within the last 90 days.
If there is rapid clearance of chest x-ray after diuresis consider discontinuation.
Follow fever curve/Follow leukocytosis
Sputum culture if producing
Blood cultures
-
Shock, undifferentiated: Initially hypertensive: Upon intubation/sedation became hypotensive-requiring vasopressors
Continue Levophed to maintain mean arterial blood pressure 65 mmHg.
Hopefully can wean off Levophed. Currently on 19 mics per minute.
Cannot rule out sepsis component versus hypotension due to sedation.
Hold antihypertensives for now
Patient did receive diuretics in the emergency room. On hold for now.
-
Tobacco abuse: Eventual nicotine patch
-
N.p.o.
Head of elevation
NG tube
-
Glycemic control-Target 140-180.
-
Stress ulcer ppx: PPI DC'd now that he is extubated and off pressors
DVT ppx: change HSQ to LMWH
Critical care statement: A total of 38 minutes of critical care time was provided for this patient today. This includes management of unstable vital signs, evaluation of the patient at bedside, reviewing the patient's pertinent medical records
including ventilator settings, arterial blood gases, radiographs, microbiology, laboratory evaluations and discussion with primary team, critical care nursing, and respiratory therapy.

Data:
Chest x-ray 11/24/2024: Reviewed showed ET tube in place. Bilateral pulmonary edema pattern.
-
CXR 10/04/2024:
The tip of the endotracheal tube is 5 cm above the manuel
There is moderate diffuse coarsening of the bronchovascular markings throughout both lungs which has worsened in the interval since the prior study. I'm uncertain whether this reflects inflammatory airspace disease or pulmonary edema
Transthoracic echocardiogram 02/29/2024:
Left ventricle is mildly dilated with moderate concentric left ventricular
hypertrophy. Low normal left ventricular systolic function. Left ventricular
ejection fraction is 50% by Gardner's method of disc. Diastolic function
indeterminate.
Normal right ventricular size and function.
Mild mitral regurgitation.
Mild aortic sclerosis without stenosis. Mild aortic regurgitation.
Trace tricuspid regurgitation. Estimated pulmonary artery pressure of 34 mmHg
assuming a right atrial pressure of 3 mmHg.
Compared to previous echo 11/27/2023, the LVEF has improved from 30-35% to 50%.
[2024-11-24] MEDS: LEVOPHED 258 MG IV (13:16)
[2024-11-24 13:32] LABS: INR 1.05; PT 14.1 Sec (11.4-14.6)
[2024-11-24 13:33] LABS: APTT 29.6 Sec (23.4-35.0)
[2024-11-24] MEDS: DIPRIVAN 100 IV ×3 (13:34→21:23)
--- NOTE | 2024-11-24 13:34 | W.PN.UPDATE ---
Update Note
Progress Note Update
It was brought to my attention by nursing that the mottling of the right leg was worse. Upon accessing one of the ports of the triple-lumen catheter it was obvious that there was pulsating blood.
Blood pressure correlates to arterial line.
Immediately Levophed was discontinued from that IV access and transition to peripheral blood.
In the subsequent minutes color, cyanosis of the right leg improved significantly. Patient never lost peripheral pulses through Dopplers.
Will continue to monitor closely.
At this point no need for vascular surgery intervention-will need to follow closely.
Hopefully Levophed can be discontinued, blood pressure significantly improved Levophed down to 10 mics per minute at this point
-
at the bedside: I notified about the arterial cannulation of the right femoral artery.
-
reports the patient continues to smoke about a pack a day or more per day
He does not drink alcohol but he uses marijuana.
-
Will continue to monitor closely.
[2024-11-24 13:49] LABS: Troponin I 0.033 ng/ml
[2024-11-24 13:52] LABS: Triglycerides 91 mg/dl (10-149)
[2024-11-24 14:03] LABS: HCO3 23.7 mmol/L (21-28); O2 Saturation % 99.2 % (94-98); PCO2 43 mmHg (35-48); PO2 133 mmHg (83-108); pH 7.35 (7.35-7.45)
--- NOTE | 2024-11-24 14:25 | PTCARENOTE ---
pt received from er- intubated and sedated. pt with number 7 ett 22cm at the lip, see vent settings as charted. Dr Zelaya at bedside- pt nsr with ekg changes, ekg completed and trop sent. right leg noted with mottling, doppler pulses present,
infusions moved to peripheral lines, transducer connected to right fem. cvc and noted waveform. right femoral line arterial line, per Dr. Zelaya ok to use line and transduced. abg and labs sent per order. coloring to leg improved, extremity warm to
touch and remains with pulses. fentanyl and propofol gtts continue, weaning for rass -2, pt opened eyes to name, moves extremities. levophed being weaned as tolerated. all safety precautions in place, at bedside and updated.
--- NOTE | 2024-11-24 14:32 | CON.CAR ---
Consultation
Consultation Request
Date/Time Consultation Requested: 11/24/24
Date/Time Consultation Performed: 11/24/24
Requesting Provider: Harris
Performing Provider: Celso
Reason for Consultation: CHF
Medical History
-
Chief Complaint: SOB
History of Present Illness:
54-year-old man past medical history of heart failure with recovered cardiomyopathy, COPD, current smoker who presents with shortness of breath and respiratory distress. It seems that his worsening shortness of breath began overnight and he
presents this morning to [facility] emergency department for evaluation. Patient was intubated in the emergency department and subsequently became hypotensive requiring norepinephrine for pressor support. He was then transferred to the medical ICU
for further management.
Chest x-ray suggestive of pulmonary edema and proBNP was elevated to 1900 consistent with acute heart failure.
He is also being treated for possible COPD exacerbation with antibiotics, steroids and nebulizer treatments.
Past Medical History
Past Medical History: CHF and COPD
Past Surgical History: Other
Social History
Tobacco: Smoker
Living: With Family
Family History
Family History: Reviewed & Not Pertinent
Allergies / Home Medications
Allergy/AdvReac Type Severity Reaction Status Date / Time
No Known Allergies Allergy Verified 11/24/24 07:44
�Medication �Instructions �Recorded �Confirmed �Type
furosemide 40 mg tablet 40 mg PO DAILY Fluid 11/29/23 10/10/24 Rx
retention/Swelling 30 days #30 tabs
spironolactone 25 mg tablet 12.5 mg (1/2 x 25 mg) PO DAILY 11/29/23 10/10/24 Rx
Fluid retention/Swelling 30 days
#15 tabs
aspirin 81 mg tablet,delayed 81 mg PO DAILY Heart 10/04/24 10/10/24 History
release (Adult Low Dose Aspirin) disease/condition
atorvastatin 40 mg tablet 40 mg PO DAILY High cholesterol 10/04/24 10/10/24 History
carvedilol 6.25 mg tablet 6.25 mg PO DAILY Blood pressure 10/04/24 10/10/24 History
amoxicillin 875 mg-potassium 1 tab PO Q12 #7 tabs 10/08/24 10/10/24 Rx
clavulanate 125 mg tablet
doxycycline hyclate 100 mg capsule 100 mg PO Q12 #7 caps 10/08/24 10/10/24 Rx
lisinopril 5 mg tablet 5 mg PO DAILY #30 tabs 10/08/24 10/10/24 Rx
nicotine 14 mg/24 hr daily 14 mg transdermal DAILY #0 ea 10/08/24 10/10/24 Rx
transdermal patch
oseltamivir 75 mg capsule 75 mg PO BID #2 caps 10/08/24 10/10/24 Rx
Review of Systems
-
Unable to obtain full review of systems at this time due to: Patient Intubation
Physical Exam
Vital Signs
Temp Pulse Resp BP Pulse Ox
96.8 F L 64 20 122/90 96
11/24/24 12:11 11/24/24 14:00 11/24/24 14:00 11/24/24 14:00 11/24/24 14:08
Lab Results
11/24/24 07:34
11/24/24 07:34
Troponin I 0.033 ng/ml D 11/24/24 13:12
Hcq-V-Xdbvlqruuaz Pept 1930 pg/ml 11/24/24 07:34
Physical Exam
General: Well Developed
HEENT: Normocephalic
Respiratory: Crackles and Other (Mechanically ventilated)
Cardiac: S1/S2 and Regular Rhythm
GI: Soft
Musculoskeletal: No Edema
Skin: Warm and Dry
Neuro: Sedated
Psych: Calm
Impression / Plan
-
PCP: None
Orthodontic Band Maker: Dr. NJ Brennan
Impression:
Acute hypoxic and hypercapnic respiratory failure on admission 11/24/24
Acute on chronic HF with recovered EF
NICM
Nonobstructive CAD
HTN
COPD
Current smoker
LHC 11/28/2023: Nonischemic cardiomyopathy. Moderate nonobstructive CAD.
Echo 11/27/2023: EF 30-35%, global hypokinesis, mild cLVH, mild MR, mild AR, mild TR, estimated PAP 30-35mmHg
Echo 10/07/24: EF 41% by volumetric assessment and 48% by Gardner's method, moderate hypokinesis of the mid-distal inferolateral wall and the basal anterolateral wall, stage II diastolic dysfunction, normal right ventricular size and function,
thickened mitral valve leaflets. Mitral valve opens normally, restricted posterior leaflet with tethering and severe eccentric MR, systolic flow reversal in the pulmonary veins with MR, mild-moderate aortic regurgitation, ascending aorta measures
4.1 cm.
Plan:
-Presented with acute respiratory failure requiring intubation
-Remains intubated in the medical ICU
-Chest Xray suggestive of pulm edema
-ProBNP elevated, but lower than prior at 1930
-Recommend IV Lasix twice daily and wean vent as able
-Currently requiring norepinephrine for pressor support. Hold outpatient beta-shannon/PAULA/MRA and resume as hemodynamics allow.
-Check echo in a.m.
Discussed with nurse practitioner physician assistant, nursing and at bedside
Data Reviewed
-
EKG: Tracing Personally Visualized and interpreted
Radiology: Image Personally Visualized and interpreted
Medical Tests (Nuc Med, Echo etc): Report Reviewed by me
Labs: Labs Reviewed by me
Old Records: Reviewed
--- NOTE | 2024-11-24 15:25 | PTCARENOTE ---
ogt advanced to 60cm, xray completed and confirmed placement, og to low int. suction per order, green bile out on suction.
[2024-11-24 17:25] LABS: Glucose - Point of Care 129 mg/dl (70-99)
[2024-11-24] MEDS: LOVENOX 40 MG SC (17:44)
--- NOTE | 2024-11-24 17:52 | PTCARENOTE ---
pt opens eyes to name, follows commands appropriately, denies pain at this time. turned and repositioned. assessment unchanged further.
[2024-11-24] MEDS: DECADRON 6 MG IV (19:38)
--- NOTE | 2024-11-24 20:00 | PTCARENOTE ---
Received pt intubated and sedated on propofol and fentanyl gtts. Pt. awakens to voice, follows commands, is calm, able to nod yes/no appropriately. Wrist restraints in place for safety. SR on tele, HR 70s. R fem triple lumen in place but transducing
one lumen as arterial line. Other two lumens capped. Received on levo at 4mcg- weaning as able. + pulses. Temp 99.2. #7 ETT at 22cm, moved to the center. Lungs coarse and dim at bases. OG tube to LIWS. Temp sensing gomez draining yellow urine - see
I&O. Turning q2.
[2024-11-24 20:17] LABS: Troponin I 0.028 ng/ml
[2024-11-25] VITALS (11 sets, daily range): BP systolic 94–129; BP diastolic 66–83; BMI 28.6
[2024-11-25] MEDS: SUBLIMAZE 100 IV
--- NOTE | 2024-11-25 | PTCARENOTE ---
Pt reassessed. No changes. Bathed with CHG, gomez care provided. Turning q2. Easily arousable to verbal, following commands, trying to communicate.
[2024-11-25 00:30] LABS: Glucose - Point of Care 130 mg/dl (70-99)
[2024-11-25] MEDS: DIPRIVAN 100 IV ×2 (02:05→07:14)
[2024-11-25] MEDS: ZOSYN 50 IV ×4 (03:56→21:14)
[2024-11-25 04:14] LABS: HCO3 25.2 mmol/L (21-28); O2 Saturation % 97.9 % (94-98); PCO2 38 mmHg (35-48); PO2 84 mmHg (83-108); pH 7.43 (7.35-7.45)
[2024-11-25 04:18] LABS: O2 Therapy VENT
[2024-11-25 04:28] LABS: % Basophils 0.1 % (0-2); % Immature Granulocytes 0.5 % (0-0.5); % Lymphocytes 9.1 % (20.5-51.1); % Neutrophils 86.3 % (42.2-75.2); Absolute Immature Granulocytes 0.1 10^3/uL (0-0.05); Absolute Lymphocytes 0.9 10^3/uL (1.2-3.4); Absolute Monocytes 0.4 10^3/uL (0.1-0.6); Absolute Neutrophils 8.5 10^3/uL (1.4-6.5); Hematocrit 40.7 % (39.0-52.0); Hemoglobin 13.8 g/dL (13.0-18.0); Mean Corp Hgb Conc. 33.9 g/dL (33.0-37.0); Mean Corpuscular Hgb 28.9 pg (27.0-31.0); Mean Corpuscular Volume 85.1 fL (80.0-94.0); Nucleated Red Blood Cells % 0 % (-); Platelet Count 255 10^3/uL (130-400); Red Blood Cell Count 4.78 10^6/uL (4.70-6.10); Red Cell Dist. Width 13.3 % (11.5-14.5); White Blood Cell Count 9.8 10^3/uL (4.8-10.8)
[2024-11-25 04:49] LABS: ALT (SGPT) 16 U/L (0-50); AST (SGOT) 18 U/L (17-59); Albumin 3.7 g/dl (3.5-5.0); Alkaline Phosphatase 92 U/L (38-126); Blood Urea Nitrogen 32 mg/dl (9-20); Calcium 8.8 mg/dl (8.4-10.2); Carbon Dioxide 24 mmol/L (22-30); Chloride 104 mmol/L (98-107); Estimated Creatinine Clearance 101 ml/min; Glucose 135 mg/dl (70-99); Potassium 4.4 mmol/L (3.5-5.1); Sodium 136 mmol/L (135-145); Total Protein 5.8 g/dl (6.3-8.2); Triglycerides 118 mg/dl (10-149); eGFR > 60.00
--- NOTE | 2024-11-25 04:49 | PTCARENOTE ---
Fentanyl weaned to 50mcg. Pt. been resting calmly. AM labs drawn. No changes in assessment
[2024-11-25 05:07] LABS: Vancomycin Random 7.4 ug/ml
[2024-11-25] MEDS: MIRALAX 17 GRAMS TUBE (07:16)
[2024-11-25] MEDS: LIPITOR 40 MG PO (07:16)
[2024-11-25] MEDS: NICODERM TRANSDERMAL 14 MG TRANSDERM (07:16)
[2024-11-25] MEDS: LASIX 40 MG IV ×2 (07:16→15:11)
[2024-11-25] MEDS: NSS (PRESERVATIVE FREE) 10 ML IV (07:17)
[2024-11-25] MEDS: DECADRON 6 MG IV (07:17)
[2024-11-25] MEDS: PROTONIX IV 40 MG IV (07:17)
--- NOTE | 2024-11-25 07:48 | W.PN.INTV ---
Today's Communication / Plan
Recommendations
Spontaneous breathing trial
Hope to extubate
Empiric antibiotics
Check procalcitonin
Decrease Decadron
Wean norepinephrine
Diuresis as tolerated
If able to be weaned off ventilator and off norepinephrine then transfer out of ICU-pulmonary will follow briefly
Assessment
-
Assessment: 54-year-old male active tobacco smoker with a past medical history of HFmrEF, hypertension, NICM and hypercholesterolemia who presents with unresponsiveness and agonal breathing. Influenza A recurrent intubation mechanical ventilation
and September 2024.
Readmitted with increased work of breathing, hypoxemia, hypercapnia, chest x-ray with bilateral infiltrate suggestive pulmonary edema. Intubated and transferred to the critical care unit for further care
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
Impression:
# Acute hypoxemic/hypercapnic respiratory failure recurrent intubation 11/24/2024.
ABG on admission: 7.19/69/66
Chest x-ray 11/24/2024: Reviewed showed moderate to severe pulmonary edema pattern. Mild bilateral pleural effusions.
proBNP greater 1930/negative troponin
# Shock likely due to sedation versus infections/sepsis.
# Bilateral infiltrates: Cannot rule out pneumonia. Less likely as he is recovering from pneumonia in September.
# History of COPD: Possible mild exacerbation component.
-
#Tobacco use disorder
#Chronic HFmrEF (via TTE from 02/29/2024)
ZENON: 10/10/2024 normal LVEF. Normal RV function. Mild to moderate MR.
#NICM
#Hypercholesterolemia
#Hypertension
Plan:
Remains critically ill on a ventilator
Ventilator settings reviewed
Wean FiO2
Monitor airway pressures
Spontaneous breathing trial
Minimize sedation
VAP prevention protocol
Nebulizers if needed
Follow chest x-ray
Decadron taper-fairly rapidly-suspect CHF and not COPD exacerbation
Chest x-ray 11/24/2024-endotracheal tube present 5 cm above manuel, CHF slightly improved
Repeat chest x-ray 11/26/2024
Diuresis as tolerated--3.7 L thus far
Monitor renal function, electrolytes, intake/output, lower extremity edema and weight
Replace electrolytes as needed
Cardiology following-correspondence reviewed
Troponin negative
Urine drug screen negative
Repeat echocardiogram 11/25/2024-pending
Smoking cessation counseling
Nicotine patch if needed
Cultures reviewed
Empiric antibiotics-suspect mostly CHF-vancomycin and Zosyn continue for now
Check procalcitonin-consider discontinuation
Wean norepinephrine
Monitor blood sugar
Insulin supplementation as needed
DVT prophylaxis-on Lovenox
GI prophylaxis while on the ventilator-discontinue thereafter
Nutrition
Early mobilization
Outpatient pulmonary [id number], smoking cessation counseling, if qualifies yearly low-dose lung cancer screening CT, etc.
If able to be successfully extubated and off pressors then transfer out of ICU-pulmonary will follow briefly
Critical care statement: A total of 45 minutes of critical care time was provided for this patient today. This includes management of unstable vital signs, evaluation of the patient at bedside, reviewing the patient's pertinent medical records
including radiographs, ventilator management, pressor management, microbiology, laboratory evaluations, and discussion with primary team, consultants, pharmacy, nutrition, physical therapy, case management, charge nurse, critical care nursing, and
respiratory therapy.
Data:
Chest x-ray 11/24/2024: Reviewed showed ET tube in place. Bilateral pulmonary edema pattern.
-
CXR 10/04/2024:
The tip of the endotracheal tube is 5 cm above the manuel
There is moderate diffuse coarsening of the bronchovascular markings throughout both lungs which has worsened in the interval since the prior study. I'm uncertain whether this reflects inflammatory airspace disease or pulmonary edema
Transthoracic echocardiogram 02/29/2024:
Left ventricle is mildly dilated with moderate concentric left ventricular
hypertrophy. Low normal left ventricular systolic function. Left ventricular
ejection fraction is 50% by Gardner's method of disc. Diastolic function
indeterminate.
Normal right ventricular size and function.
Mild mitral regurgitation.
Mild aortic sclerosis without stenosis. Mild aortic regurgitation.
Trace tricuspid regurgitation. Estimated pulmonary artery pressure of 34 mmHg
assuming a right atrial pressure of 3 mmHg.
Compared to previous echo 11/27/2023, the LVEF has improved from 30-35% to 50%.
Subjective Dataa
Subjective Data
Date of Service:
Date of Service: November 25, 2024
Chief Complaint: Evaporator Operator Follow Up and Pulmonary Follow Up
Subjective:
Alert on the ventilator, no increase secretions, no complaints of chest pain or abdominal pain
Review of Systems
General: Other (Per HPI)
Objective Data
Data Reviewed
Vital Signs / I&O / Oxygen:
Vital Signs
Temp Pulse Resp BP Pulse Ox
99 F 72 20 110/70 95
11/25/24 07:47 11/25/24 06:30 11/25/24 06:30 11/25/24 06:00 11/25/24 07:40
Intake and Output
11/24/24 11/25/24 11/26/24
06:59 06:59 06:59
Intake Total 557.5 / 575.4 17.9 / 17.9
Output Total 3145 / 3205 60 / 60
Balance -2587.5 / -2629.6 -42.1 / -42.1
SaO2 [A/C] 95
SaO2 96
Physical Exam
General: Respiratory Distress (n) and Comfortable
HEENT: Normocephalic and Anicteric
Cardiovascular: Regular Rhythm
Respiratory: Wheeze (n), Crackles (n), Rhonchi, Non-Labored Respirations, Accessory Resp Muscle Use (n) and Stridor (n)
GI: Soft, Non Distended and Non Tender
Neurology: Awake, Alert and No Motor Deficits
Skin: Warm, Good Color, Cyanosis (n) and Jaundice (n)
Labs/Micro/Reports
Lab Data
11/25/24 03:55
11/25/24 03:55
Laboratory Results
11/24/24 11/24/24 11/24/24
09:39 13:12 13:44
PT 14.1
INR 1.05
APTT 29.6
pH 7.19 L* 7.35
pCO2 69 H 43
pO2 66 L 133 H
HCO3 26.4 23.7
O2 Delivery Level Not Reportable
11/25/24
03:55
PT
INR
APTT
pH 7.43
pCO2 38
pO2 84
HCO3 25.2
O2 Delivery Level Vent
Microbiology
11/24/24 08:52 Nasal Swab Influenza Types A & B (PIPER) - Final
Negative for Influenza A & B, NAAT
Negative results must be combined with clinical observations
and patient history.
Nucleic Acid Amplification test (NAAT)performed on the
[employer] ID NOW platform.
11/24/24 07:49 Nasal Swab Influenza Types A & B (PIPER) - Final
Test repeatedly invalid.
Nucleic Acid Amplification test (NAAT)performed on the
[employer] ID NOW platform.
--- NOTE | 2024-11-25 07:53 | PTCARENOTE ---
pt received from previous rn ett to vent, on propofol and fentanyl, pt awake and calm able to follow all commands appropriately and nod yes and no. pt denies pain. pt suctioned for large amounts of lara thick secretions. nsr on monitor. right fem
ulises zeroed and functioning. turned and repositioned, pt assists and able to move all extremities. all safety precautions in place, education provided, all care explained as given.
--- NOTE | 2024-11-25 08:15 | PHA.VAN.FU ---
Vancomycin Assessment / Plan
- Assessment
Renal Function: SCR Decreasing
WBC's are: WNL
Concomitant Antimicrobials: piperacillin/tazobactam
- Assessment - Therapeutic Drug Monitoring
Random Level: 7.4 - drawn ~16.5H after 2g loading dose
- Dosing Plan
Adjust Regimen to: Vanc 1500mg Q12H - first dose now
- Monitoring Plan
No level(s) ordered at this time: follow renal function
- Follow Up
Pharmacy will continue to follow.
Vancomycin Follow UP
- -
Patient Age: 54
Patient Sex: Male
Vancomycin Day #: 2
Indication: Pulmonary/Respiratory
Requesting Provider: Marcy Iglesias
Pertinent Antimicrobial Allergies:
NKDA
Height / Weight:
Height 6 ft 3 in
Actual Weight 103.9 kg
Pertinent Past Medical History: BMI ~30
- Vital Signs / Lab Results
Temp Pulse Resp BP Pulse Ox
99 F 72 20 110/70 98
11/25/24 07:47 11/25/24 06:30 11/25/24 06:30 11/25/24 06:00 11/25/24 07:55
Lab Results - Hematology
11/24/24 11/25/24
07:34 03:55
WBC 14.6 H 9.8
Lab Results - Chemistry
11/24/24 11/25/24
07:34 03:55
BUN 29 H 32 H
Creatinine 1.2 1.0
Estimated Creat Clear 101
Albumin 4.0 3.7
11/24/24
07:34
Lactic Acid 0.8
Lab Results - Urine
11/24/24
08:52
Urine Nitrite (Reflex) Negative
Leukocyte Esterase Rfl Negative
Ur Squamous Epith Cells 0-2
Microbiology Results
11/24/24 07:49 Blood Culture - Preliminary
Blood/Venous No Growth in 24 hours- Final report to follow
11/24/24 08:52 Influenza Types A & B (PIPER) - Final
Nasal Swab Negative for Influenza A & B, NAAT
Negative results must be combined with clinical observations
and patient history.
Nucleic Acid Amplification test (NAAT)performed on the
[employer] NOW platform.
11/24/24 07:49 Influenza Types A & B (PIPER) - Final
Nasal Swab Test repeatedly invalid.
Nucleic Acid Amplification test (NAAT)performed on the
[employer] NOW platform.
Therapeutic Drug Monitoring
Random Vancomycin 7.4 ug/ml 11/25/24 03:55
--- NOTE | 2024-11-25 08:30 | PTCARENOTE ---
pt placed on wean, sedation off. pt tolerated and extubated to 2LNC. pt with no complaints at this time.
[2024-11-25] MEDS: VANCOCIN 530 MG IV ×2 (09:13→17:30)
--- NOTE | 2024-11-25 09:28 | W.PN.CARDCBS ---
Today's Communication / Plan
-
Continue IV Lasix
Check echo
Impression / Plan
-
PCP: None
Manager [employer] Sales: Dr. NJ Brennan
Impression:
Acute hypoxic and hypercapnic respiratory failure on admission 11/24/24
Acute on chronic HF with recovered EF
Status post VDRF
NICM
Nonobstructive CAD
HTN
COPD
Current smoker
LHC 11/28/2023: Nonischemic cardiomyopathy. Moderate nonobstructive CAD.
Echo 11/27/2023: EF 30-35%, global hypokinesis, mild cLVH, mild MR, mild AR, mild TR, estimated PAP 30-35mmHg
Echo 10/07/24: EF 41% by volumetric assessment and 48% by Gardner's method, moderate hypokinesis of the mid-distal inferolateral wall and the basal anterolateral wall, stage II diastolic dysfunction, normal right ventricular size and function,
thickened mitral valve leaflets. Mitral valve opens normally, restricted posterior leaflet with tethering and severe eccentric MR, systolic flow reversal in the pulmonary veins with MR, mild-moderate aortic regurgitation, ascending aorta measures
4.1 cm.
Plan:
He continues to do well with weight loss of as much as 8 pounds.
Continue IV Lasix
Check echo
Continue antibiotics
Discussed with telephone lineman
Progress Note - Manager [employer]
Subjective
Date of Service: November 25, 2024
He is without complaints
Objective
Labs:
11/25/24 03:55
11/25/24 03:55
Labs
Hgb 13.8 g/dL (13.0-18.0) 11/25/24 03:55
Hct 40.7 % (39.0-52.0) 11/25/24 03:55
Plt Count 255 10^3/uL (130-400) D 11/25/24 03:55
PT 14.1 Sec (11.4-14.6) 11/24/24 13:12
INR 1.05 11/24/24 13:12
APTT 29.6 Sec (23.4-35.0) 11/24/24 13:12
Sodium 136 mmol/L (135-145) 11/25/24 03:55
Potassium 4.4 mmol/L (3.5-5.1) 11/25/24 03:55
BUN 32 mg/dl (9-20) H 11/25/24 03:55
Creatinine 1.0 mg/dL (0.7-1.3) 11/25/24 03:55
Glucose 135 mg/dl (70-99) H 11/25/24 03:55
Troponins
11/24/24 11/24/24 11/24/24
07:34 13:12 19:36
Troponin I 0.024 0.033 D 0.028
11/25/24
00:59
Troponin I Cancelled
Vital Signs and I&O:
Vital Signs
Temp Pulse Resp BP Pulse Ox
99 F 85 15 105/78 95
11/25/24 07:47 11/25/24 08:30 11/25/24 08:30 11/25/24 08:00 11/25/24 08:30
Vital Signs
Temp Pulse Resp BP Pulse Ox
99 F 85 15 105/78 95
11/25/24 07:47 11/25/24 08:30 11/25/24 08:30 11/25/24 08:00 11/25/24 08:30
Intake & Output
11/23/24 11/24/24 11/25/24 11/26/24
06:59 06:59 06:59 06:59
Intake Total 557.5 / 575.4 17.9 / 17.9
Output Total 3145 / 3205 60 / 60
Balance -2587.5 / -2629.6 -42.1 / -42.1
Physical Exam
Physical Exam
General: Well developed, well nourished in NAD.
Neck: Supple, no JVD, HJR, carotids +2 B/L, no bruits bilaterally.
Heart: Non displaced PMI, RRR, no murmurs, No S3, S4, no rubs.
Lungs: Scattered rhonchi
Extremities: No clubbing, cyanosis or edema bilaterally.
Neuro: Grossly nonfocal, awake, alert and oriented x3.
[2024-11-25] MEDS: ASPIR LOW (ENTERIC COATED) 81 MG PO (09:46)
--- NOTE | 2024-11-25 09:50 | PTCARENOTE ---
pt passed swallow eval, diet started. plan of care discussed in rounds, gomez removed. pt turns and repositions self, verbalized understanding to plan of care.
--- NOTE | 2024-11-25 11:17 | PTCARENOTE ---
Anjana PRATT PA at bedside to remove right femoral line. pt educated about flat bed rest for 4 hours, verbalized understanding.
[2024-11-25] MEDS: DUONEB 3 ML INH ×2 (11:28→19:18)
--- NOTE | 2024-11-25 11:31 | W.PN.CARD.SR ---
Sheath/IABP Sheath Removal
Sheath Removal
Right Arterial Femoral:
Site appearance prior to sheath removal: Oozing
Sheath removed by:: Physician histology assistant
Name of associate removing sheath: Anjana Merida PA-C
Time of sheath removal: 11:15
Time hemostasis achieved: 11:27
Site appearance post sheath removal: Intact
Method of Hemostasis Post Sheath Removal: Manual Pressure
Dressing dry and intact?: Yes
Comments: Removal of inadvertently placed Triple lumen CVC into R Fem artery--no complications. Pt tolerated well. Bedrest x4 hours
--- NOTE | 2024-11-25 11:42 | W.PN.HOSP.TC ---
Today's Communication/Plan
-
Status post extubation
Confirm home meds
Continue with diuresis
Continue with antibiotic
Antibiotics for 24 hours
Pro-Frank in the morning
Assessment / Plan
Assessment / Plan
# Acute on chronic HFrecEF
#Nonischemic cardiomyopathy
# Severe valvular disease of severe mitral regurgitation
-History of hypertensive heart disease, previous LVEF near 30% though most recently up to 50%
-Home medications include GDMT with lisinopril, carvedilol, Aldactone; Lasix for diuresis
-Will transition to IV Lasix for presumed decompensation of heart failure/flash pulmonary edema
-Order repeat echocardiogram
-Cardiology following
#Acute hypoxemic and hypercapnic respiratory failure
#VDRF
#Severe respiratory acidosis
-Likely multifactorial with decompensated heart failure/flash pulmonary edema and may be mild component of COPD exacerbation
-Significant signs of hypercapnia on ABG, was significantly hypertensive upon arrival
-Presented in respiratory distress and required mechanical ventilation status post extubation on 11/25/24
-flu and COVID-negative
-Chest x-ray showing signs of pulmonary edema, BNP 2000, lower than previous however
-Start IV Lasix 40 mg twice daily for heart failure
-Decreased steroids
-Check procalcitonin. Continue antibiotics for now and can de-escalate slowly.
-SpO2 goal 88-94
# Suspected mild COPD exacerbation
-Does not wear supplemental oxygen at baseline
-Decrease steroids. Bronchodilators.
-bronchodilators
-Senior Piping Designer update correspondence noted from 11/24 and patient seems to continue with smoking
#Circulatory shock
#Sepsis secondary to possible aspiration pneumonia
#H/O hypertension
-Possibly secondary to nitroglycerin drip in the ED, was hypertensive prior to this; cannot rule out sepsis
-Was started on IV Levophed drip while in the emergency department
-Does have leukocytosis though no obvious other signs of infection
-Currently hemodynamically stable with Levophed support-wean as tolerated
-Central line was placed in the ER. Found to be inadvertently placed in the femoral artery which has been removed. Patient denies any groin pain or right leg pain.
#Hypothermia
Resolved
#CAD s/p DC
-Home medications include carvedilol, aspirin, high intensity statin
-No known history of PCI or CABG
-Suspicion for ACS at this time
DVT prophylaxis: Subcutaneous heparin
CODE STATUS: Full code
Anticipated Discharge: > 48 hours
Subjective/Interval History
-
Date of Service: November 25, 2024
Seen post extubation
States he is starting to feel better
Passing increasing amount of urine
Objective Data
-
Labs:
Laboratory Results
11/25/24
03:55
WBC 9.8
Hgb 13.8
Hct 40.7
Plt Count 255 D
HCO3 25.2
Sodium 136
Potassium 4.4
Chloride 104
Carbon Dioxide 24
BUN 32 H
Creatinine 1.0
Glucose 135 H
Calcium 8.8
Total Bilirubin 1.0
AST 18
ALT 16
Alkaline Phosphatase 92
Vital Signs:
Vital Signs
Temp Pulse Resp BP Pulse Ox
99 F 80 16 110/83 93
11/25/24 07:47 11/25/24 11:32 11/25/24 11:32 11/25/24 10:00 11/25/24 11:32
I&O
11/24/24 11/25/24 11/26/24
06:59 06:59 06:59
Intake Total 557.5 / 575.4 17.9 / 17.9
Output Total 3145 / 3205 1260 / 1260
Balance -2587.5 / -2629.6 -1242.1 / -1242.1
Physical Exam
-
General: Well Developed, No Apparent Distress and Appears Chronically Ill
HEENT: Normocephalic, Atraumatic, Moist Mucous Membranes and Oxygen
Respiratory: Rales
Cardiac: Regular Rhythm and S1/S2; Negative Murmur, Rub or Gallop
GI: Soft, Nontender, Nondistended and Normal Bowel Sounds; Negative Organomegaly
Rectal: Deferred by Provider
Musculoskeletal: No Clubbing, No Cyanosis and No Edema
Skin: Negative Rash
Neuro: Awake, Alert, Oriented, AO x 3 and No Motor Deficits
Psych: Calm
Data Reviewed
-
Total Time Spent with Patient (in minutes): 56
--- NOTE | 2024-11-25 15:38 | PTCARENOTE ---
pressure dressing to right fem remains c/d/i/. bedrest complete. pt oob to chair and tolerating.
--- NOTE | 2024-11-25 17:29 | CM ---
Patient seen at bedside. Patient states he lives with his and 2 dogs/cat in a 2 story home. Patient has no DME at home. Patient is working 2 jobs but stated that he did not have problems with paying bills. Patient is independent of ADL's and
IADL's. Patient PCP is Dr. Monaco and he uses the [facility] on [address] in [place]. Patient plan is home with no needs. CM will continue to follow for discharge planning needs.
Plan; home with no needs vs VN
[2024-11-25] MEDS: LOVENOX 40 MG SC (17:30)
--- NOTE | 2024-11-25 20:07 | PTCARENOTE ---
Report called and patient transported to room 409-1. Patient remained stable throughout. VSS on the monitor.
[2024-11-26 03:02] VITALS: BP 107/82
[2024-11-26] MEDS: ZOSYN 50 IV (04:20)
[2024-11-26] MEDS: VANCOCIN 530 MG IV (05:48)
[2024-11-26 06:00] VITALS: BMI 28.6
[2024-11-26 07:36] LABS: % Basophils 0.4 % (0-2); % Eosinophils 0.2 % (0-6); % Immature Granulocytes 0.3 % (0-0.5); % Lymphocytes 26.2 % (20.5-51.1); % Monocytes 8.3 % (1.7-9.3); % Neutrophils 64.6 % (42.2-75.2); Absolute Lymphocytes 2.6 10^3/uL (1.2-3.4); Absolute Monocytes 0.8 10^3/uL (0.1-0.6); Absolute Neutrophils 6.4 10^3/uL (1.4-6.5); Hematocrit 38.7 % (39.0-52.0); Hemoglobin 13.1 g/dL (13.0-18.0); Mean Corp Hgb Conc. 33.9 g/dL (33.0-37.0); Mean Corpuscular Volume 85.8 fL (80.0-94.0); Mean Platelet Volume 10.6 fL (7.4-10.4); Nucleated Red Blood Cells % 0 % (-); Platelet Count 216 10^3/uL (130-400); Red Blood Cell Count 4.51 10^6/uL (4.70-6.10); Red Cell Dist. Width 13.3 % (11.5-14.5); White Blood Cell Count 9.9 10^3/uL (4.8-10.8)
[2024-11-26 07:52] LABS: Blood Urea Nitrogen 37 mg/dl (9-20); Calcium 8.6 mg/dl (8.4-10.2); Carbon Dioxide 29 mmol/L (22-30); Chloride 101 mmol/L (98-107); Estimated Creatinine Clearance 92 ml/min; Glucose 113 mg/dl (70-99); Potassium 3.8 mmol/L (3.5-5.1); Sodium 136 mmol/L (135-145); Triglycerides 110 mg/dl (10-149); eGFR > 60.00
[2024-11-26 07:55] VITALS: BP 92/60
[2024-11-26 08:08] LABS: Procalcitonin < 0.05 ng/ml (0.0-0.25)
[2024-11-26] MEDS: NICODERM TRANSDERMAL 14 MG TRANSDERM (08:44)
[2024-11-26] MEDS: DECADRON 6 MG IV (08:45)
[2024-11-26] MEDS: NSS (PRESERVATIVE FREE) 10 ML IV (08:47)
[2024-11-26] MEDS: PROTONIX IV 40 MG IV (08:47)
[2024-11-26] MEDS: LASIX 40 MG IV ×2 (08:47→15:52)
[2024-11-26] MEDS: LIPITOR 40 MG PO (08:49)
[2024-11-26] MEDS: ASPIR LOW (ENTERIC COATED) 81 MG PO (08:49)
[2024-11-26] MEDS: MIRALAX 17 GRAMS TUBE (08:50)
[2024-11-26 08:59] LABS: Glucose - Point of Care 90 mg/dl (70-99)
--- NOTE | 2024-11-26 10:32 | W.PN.HOSP.TC ---
Today's Communication/Plan
-
GDMT bb, acei, aldactone
IV steroids for 24h
po lasix on dc
Assessment / Plan
Assessment / Plan
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
#Nonischemic cardiomyopathy
# Severe valvular disease of severe mitral regurgitation
-History of hypertensive heart disease
-Home medications include GDMT with lisinopril, carvedilol, Aldactone restarted. Monitor BP.
-Will transition to IV Lasix for presumed decompensation of heart failure/flash pulmonary edema
-Repeat echocardiogram with normal left ventricular size and function. Possible basal inferior and basal inferolateral hypokinesis. EF of 55 to 60%. Moderate to severe mitral regurgitation. Since echo on 10/07/2024 EF has improved from 41% to
50-55
-Cardiology following and recommend to continue with home dose of diuresis. Lost approximately 4 kg so far.
#Acute hypoxemic and hypercapnic respiratory failure
#VDRF
#Severe respiratory acidosis
-Likely multifactorial with decompensated heart failure/flash pulmonary edema and may be mild component of COPD exacerbation
-Significant signs of hypercapnia on ABG, was significantly hypertensive upon arrival
-Presented in respiratory distress and required mechanical ventilation status post extubation on 11/25/24
-flu and COVID-negative
-Chest x-ray showing signs of pulmonary edema, BNP 2000, lower than previous however
-Start IV Lasix 40 mg twice daily for heart failure and switch to p.o. on discharge.
-Decreased steroids with p.o. prednisone taper.
-Pro-Frank negative. DC antibiotics.
-SpO2 goal 88-94 on room air.
#Suspected mild COPD exacerbation
-Does not wear supplemental oxygen at baseline
-Decrease steroids. Bronchodilators. P.o. prednisone taper on discharge.
-bronchodilators
-Patient states decreasing amount of cigarettes. But continues to smoke. Counseled located in 10 minutes for tobacco cessation. Nicotine patch.
#Circulatory shock
#H/O hypertension
-Possibly secondary to nitroglycerin drip in the ED, was hypertensive prior to this;
-Was started on IV Levophed drip while in the emergency department
-Does have leukocytosis though no obvious other signs of infection
-Currently hemodynamically stable with Levophed support-wean as tolerated
-Infection ruled out. Pro-Frank negative. Off antibiotics. Off note blood culture ordered on 11/24/24 were drawn today for some reason-unclear reason for delay. Prelim blood culture checked on admission remains negative.
-Central line was placed in the ER. Found to be inadvertently placed in the femoral artery which has been removed. Patient denies any groin pain or right leg pain. Patient ambulating without difficulty.
#Hypothermia
Resolved
#CAD s/p PA
-Home medications include carvedilol, aspirin, high intensity statin
-No known history of PCI or CABG
-Suspicion for ACS at this time
DVT prophylaxis: Subcutaneous heparin
CODE STATUS: Full code
Anticipated Discharge: Within 24 hours
Subjective/Interval History
-
Date of Service: November 26, 2024
on room air
states passing increasing amount of urine
Objective Data
-
Labs:
Laboratory Results
11/26/24
07:10
WBC 9.9
Hgb 13.1
Hct 38.7 L
Plt Count 216
Sodium 136
Potassium 3.8
Chloride 101
Carbon Dioxide 29
BUN 37 H
Creatinine 1.1
Glucose 113 H
Calcium 8.6
Vital Signs:
Vital Signs
Temp Pulse Resp BP Pulse Ox
97.6 F 70 20 121/76 94
11/26/24 07:55 11/26/24 08:47 11/26/24 07:55 11/26/24 08:47 11/26/24 07:55
I&O
11/25/24 11/26/24 11/27/24
06:59 06:59 06:59
Intake Total 557.5 / 575.4 617.9 / 617.9
Output Total 3145 / 3205 2910 / 2910
Balance -2587.5 / -2629.6 -2292.1 / -2292.1
Physical Exam
-
General: Well Developed, No Apparent Distress and Appears Chronically Ill
HEENT: Normocephalic, Atraumatic, Moist Mucous Membranes and Oxygen
Respiratory: Wheezes (mild)
Cardiac: Regular Rhythm and S1/S2; Negative Murmur, Rub or Gallop
GI: Soft, Nontender, Nondistended and Normal Bowel Sounds; Negative Organomegaly
Rectal: Deferred by Provider
Musculoskeletal: No Clubbing, No Cyanosis and No Edema
Skin: Negative Rash
Neuro: Awake, Alert, Oriented, AO x 3 and No Motor Deficits
Psych: Calm
--- NOTE | 2024-11-26 11:41 | W.PN.CARDCBS ---
Addendum entered and electronically signed by Benton Aguirre MD 11/26/24 12:21:
I saw and examined the patient.
The [employer] SUPERVISOR or PA's note was reviewed and I agree with the note.
Comment: General: Well developed, well nourished in NAD.
Neck: Supple, no JVD, HJR, carotids +2 B/L, no bruits bilaterally.
Heart: Non displaced PMI, RRR, no murmurs, No S3, S4, no rubs.
Lungs: Clear to auscultation bilaterally, no wheeze, rhonchi, rubs bilaterally,
normal expiratory phase.
Extremities: No clubbing, cyanosis or edema bilaterally.
Neuro: Grossly nonfocal, awake, alert and oriented x3.
Stable cardiology status for discharge. Restart Lasix at 40 mg p.o. daily. Restart Coreg and lisinopril as well as spironolactone. Will arrange follow-up. Discussed with primary service.
Addendum entered and electronically signed by Loren Boucher PA-C 11/26/24 12:15:
.
Original Note:
Today's Communication / Plan
-
Recheck ECG in AM, ordered by me
Restart outpatient doses of Coreg and lisinopril today and then spironolactone tomorrow, ordered by me
52 min in face to face and coordination of care
Impression / Plan
-
PCP: Edwina Monaco PA-C at [facility]
Cloth Folder Machine: Dr. NJ Brennan
Impression:
Acute hypoxic and hypercapnic respiratory failure on admission 11/24/24
Flash pulmonary edema
Acute on chronic HPimpEF
EF 41% by echo 10/07/24 and improved to 55-60% by echo 11/25/24
Mod to sev MR by echo 11/25/24, but was mild to mod by ZENON 10/10/24
Status post VDRF 11/24/24
NICM
Nonobstructive CAD
HTN
COPD
Current smoker
Former ETOH use
Marijuana use
LHC 11/28/2023: Nonischemic cardiomyopathy. Moderate nonobstructive CAD.
Echo 11/27/2023: EF 30-35%, global hypokinesis, mild cLVH, mild MR, mild AR, mild TR, estimated PAP 30-35mmHg
Echo 10/07/24: EF 41% by volumetric assessment and 48% by Gardner's method, moderate hypokinesis of the mid-distal inferolateral wall and the basal anterolateral wall, stage II diastolic dysfunction, normal right ventricular size and function,
thickened mitral valve leaflets. Mitral valve opens normally, restricted posterior leaflet with tethering and severe eccentric MR, systolic flow reversal in the pulmonary veins with MR, mild-moderate aortic regurgitation, ascending aorta measures
4.1 cm.
ZENON 10/10/2024: EF 55%, at most mild to moderate MR
Echo 11/25/24: EF 55 to 60%, moderate to severe MR
Plan:
-Flash pulmonary edema on admission with VDRF on admission. Extubated 11/25/24
-Weight is down 5 lbs from admission with Lasix 40 mg IV BID. Patient was taking Lasix 40 mg PO daily prior to admission.
-EF preserved and TTE suggests mod to sev MR, but ZENON from 10/10/24 suggested at most mild to moderate MR.
-Troponin serially normal
-Nonobstructive CAD by cath 11/28/23 including hemodynamic assessments of the LAD, diagonal, and circumflex using a [place] wire at that time.
-Patient has been managed as a NICM.
-Outpatient dose of Coreg 6.25 mg BID was held on admission due to hypotension, will restart 11/26/24
-Outpatient dose of lisinopril 5 mg daily was held on admission due to hypotension, will restart 11/26/24
-Outpatient dose of spironolactone 12.5 mg daily was held on admission due to hypotension, will restart 11/27/24
-Initially on Nitro gtt in the ER due to HTN, but then developed hypotension.
-Of note there was inadvertent triple lumen CVC placed in the right femoral artery which was removed 11/24/24
HPI: 54-year-old man past medical history of heart failure with recovered cardiomyopathy, COPD, current smoker who presents with shortness of breath and respiratory distress. It seems that his worsening shortness of breath began overnight and he
presents this morning to [place] emergency department for evaluation. Patient was intubated in the emergency department and subsequently became hypotensive requiring norepinephrine for pressor support. He was then transferred to the medical ICU
for further management. Chest x-ray suggestive of pulmonary edema and proBNP was elevated to 1900 consistent with acute heart failure. He is also being treated for possible COPD exacerbation with antibiotics, steroids and nebulizer treatments.
Progress Note - Cloth Folder Machine
Subjective
Date of Service: November 26, 2024
No chest pain
Objective
Labs:
11/26/24 07:10
11/26/24 07:10
Labs
Hgb 13.1 g/dL (13.0-18.0) 11/26/24 07:10
Hct 38.7 % (39.0-52.0) L 11/26/24 07:10
Plt Count 216 10^3/uL (130-400) 11/26/24 07:10
PT 14.1 Sec (11.4-14.6) 11/24/24 13:12
INR 1.05 11/24/24 13:12
APTT 29.6 Sec (23.4-35.0) 11/24/24 13:12
Sodium 136 mmol/L (135-145) 11/26/24 07:10
Potassium 3.8 mmol/L (3.5-5.1) 11/26/24 07:10
BUN 37 mg/dl (9-20) H 11/26/24 07:10
Creatinine 1.1 mg/dL (0.7-1.3) 11/26/24 07:10
Glucose 113 mg/dl (70-99) H 11/26/24 07:10
Troponins
11/24/24 11/24/24 11/24/24
07:34 13:12 19:36
Troponin I 0.024 0.033 D 0.028
11/25/24
00:59
Troponin I Cancelled
Vital Signs and I&O:
Vital Signs
Temp Pulse Resp BP Pulse Ox
97.6 F 70 20 121/76 94
11/26/24 07:55 11/26/24 08:47 11/26/24 07:55 11/26/24 08:47 11/26/24 08:50
Vital Signs
Temp Pulse Resp BP Pulse Ox
97.6 F 70 20 121/76 94
11/26/24 07:55 11/26/24 08:47 11/26/24 07:55 11/26/24 08:47 11/26/24 08:50
Intake & Output
11/24/24 11/25/24 11/26/24 11/27/24
06:59 06:59 06:59 06:59
Intake Total 557.5 / 575.4 617.9 / 617.9
Output Total 3145 / 3205 2910 / 2910
Balance -2587.5 / -2629.6 -2292.1 / -2292.1
Physical Exam
Physical Exam
GEN: NAD. AAOx3
HEENT: EOMI, MMM
LUNGS: RA. No audible wheeze
CV: SR on tele. Reg
ABD: ND
EXT: No edema B/L
NEURO: Gross non-focal
SKIN: Warm, dry, no rash
[2024-11-26 11:55] VITALS: BP 117/77
--- NOTE | 2024-11-26 12:18 | W.PN.PUL3 ---
Today's Communication / Plan
-
Doing well, stable on RA
Not in acute exacerbation, stop steroids
Add on nebs and Mucinex for cough
Ongoing IV diuresis per cards
Recommend OP Pulm FU w/ PFTs otherwise
D/c planning per team pending further cardiac w/u
We will sign off at this time, pls call with questions
Assessment
-
54-year-old male active tobacco smoker with a past medical history of HFmrEF, hypertension, NICM and hypercholesterolemia who presents with unresponsiveness and agonal breathing. Influenza A recurrent intubation mechanical ventilation and September
2023.
Readmitted with increased work of breathing, hypoxemia, hypercapnia, chest x-ray with bilateral infiltrate suggestive pulmonary edema. Intubated and transferred to the critical care unit for further care
Chronic conditions HEAD RIGGER: HFmrEF, hypertension, NICM, tobacco use disorder, hypercholesterolemia, hospitalization for acute respiratory failure due to influenza A/pneumonia requiring intubation 09/2024
Impression:
# Acute hypoxemic/hypercapnic respiratory failure recurrent intubation 11/24/2024.
ABG on admission: 7.19/69/66
Chest x-ray 11/24/2024: Reviewed showed moderate to severe pulmonary edema pattern. Mild bilateral pleural effusions.
proBNP greater 1930/negative troponin
# Shock likely due to sedation versus infections/sepsis.
# Bilateral infiltrates: Cannot rule out pneumonia. Less likely as he is recovering from pneumonia in September.
# History of COPD: Possible mild exacerbation component.
#Tobacco use disorder
#Chronic HFmrEF (via TTE from 02/29/2024)
ZENON: 10/10/2024 normal LVEF. Normal RV function. Mild to moderate MR.
#NICM
#Hypercholesterolemia
#Hypertension
Plan:
Extubated 11/25, tolerated well
Currently 95% on RA
Nebulizers if needed
Follow chest x-ray
Decadron taper-fairly rapidly-suspect CHF and not COPD exacerbation
No indication for steroids, does not appear in exacerbation, will stop
Diuresis as tolerated--3.7 L thus far
Monitor renal function, electrolytes, intake/output, lower extremity edema and weight
Replace electrolytes as needed
Cardiology following-correspondence reviewed
Troponin negative
Urine drug screen negative
Repeat echocardiogram 11/25/2024- stable function; ejection fraction has improved from 41-48% to 50-55%.
Cough noted, mild
Will add nebs and Mucinex
Smoking cessation counseling
Nicotine patch if needed
Can obtain OP PFT and further w/u
Cultures reviewed
Empiric antibiotics-suspect mostly CHF-vancomycin and Zosyn continue for now
Check procalcitonin-consider discontinuation
Wean norepinephrine
Monitor blood sugar
Insulin supplementation as needed
DVT prophylaxis-on Lovenox
GI prophylaxis while on the ventilator-discontinue thereafter
Nutrition
Early mobilization
Outpatient pulmonary etarlj-[id number], smoking cessation counseling, if qualifies yearly low-dose lung cancer screening CT, etc.
Data:
Chest x-ray 11/24/2024: Reviewed showed ET tube in place. Bilateral pulmonary edema pattern.
CXR 10/04/2024: The tip of the endotracheal tube is 5 cm above the manuel. There is moderate diffuse coarsening of the bronchovascular markings throughout both lungs which has worsened in the interval since the prior study.
Transthoracic echocardiogram 02/29/2024: Left ventricle is mildly dilated with moderate concentric left ventricular hypertrophy. Low normal left ventricular systolic function. Left ventricular ejection fraction is 50% by Gardner's method of disc.
Diastolic function indeterminate. Normal right ventricular size and function. Mild mitral regurgitation. Mild aortic sclerosis without stenosis. Mild aortic regurgitation. Trace tricuspid regurgitation. Estimated pulmonary artery pressure of 34
mmHg assuming a right atrial pressure of 3 mmHg. Compared to previous echo 11/27/2023, the LVEF has improved from 30-35% to 50%.
ECHO 11/25/24- Normal left ventricular size and systolic function. There is possible basal inferior and basal inferolateral hypokinesis. LV ejection fraction is 55-60% by Gardner's method of discs. Mitral valve opens normally. Moderate to severe
mitral regurgitation. Dilated left atrium. Since echocardiogram October 07, 2024 which was reviewed, ejection fraction has improved from 41-48% to 50-55%.
Reports and relevant images were personally reviewed.
Total time spent on this encounter __50__ includes review of history, physical exam, medications, laboratory data, personal review of imaging, extensive review of outpatient records, discussion with care team and respiratory therapy.
Subjective Data
-
Date of Service:
Date of Service: November 26, 2024
Chief Complaint: Pulmonary Follow Up
Subjective:
Remains on RA, doing well
Cough, mild and at times productive
No new complaints
Objective Data
Data Reviewed
Vital Signs / I&O / Oxygen:
Vital Signs
Temp Pulse Resp BP Pulse Ox
97.5 F 84 20 117/77 97
11/26/24 11:55 11/26/24 11:55 11/26/24 11:55 11/26/24 11:55 11/26/24 11:55
Intake and Output
11/25/24 11/26/24 11/27/24
06:59 06:59 06:59
Intake Total 557.5 / 575.4 617.9 / 617.9
Output Total 3145 / 3205 2910 / 2910
Balance -2587.5 / -2629.6 -2292.1 / -2292.1
SaO2 [A/C] 95
SaO2 97
Nasal Cannula flow liters per 5
minute
Physical Exam
General: Comfortable and Other (NAD)
HEENT: Normocephalic, Anicteric and Moist Mucous Membranes
Cardiovascular: S1-S2 and Regular Rhythm
Respiratory: Rhonchi (slight) and Non-Labored Respirations
GI: Soft, Non Distended and Non Tender
Neurology: Awake, Alert, Oriented, AO x 3 and No Motor Deficits
Skin: Warm, Dry and Good Color
Labs/Micro/Reports
Lab Data
11/26/24 07:10
11/26/24 07:10
Microbiology
11/24/24 07:49 Blood/Venous Blood Culture - Preliminary
No Growth in 48 hours- Final report to follow
11/25/24 09:15 Nose Nasal Screen MRSA (PCR) - Final
MRSA not detected - performed by PCR methodology.
11/24/24 08:52 Nasal Swab Influenza Types A & B (PIPER) - Final
Negative for Influenza A & B, NAAT
Negative results must be combined with clinical observations
and patient history.
Nucleic Acid Amplification test (NAAT)performed on the
[employer] platform.
11/24/24 07:49 Nasal Swab Influenza Types A & B (PIPER) - Final
Test repeatedly invalid.
Nucleic Acid Amplification test (NAAT)performed on the
[employer] platform.
[2024-11-26 12:39] LABS: Glucose - Point of Care 124 mg/dl (70-99)
[2024-11-26] MEDS: ZESTRIL 5 MG PO (12:51)
[2024-11-26] MEDS: COREG 6.25 MG PO ×2 (12:52→20:22)
[2024-11-26 15:55] VITALS: BP 111/87
[2024-11-26] MEDS: LOVENOX 40 MG SC (17:23)
[2024-11-26 19:05] LABS: Glucose - Point of Care 131 mg/dl (70-99)
[2024-11-26] MEDS: DUONEB 3 ML INH (19:30)
[2024-11-26 19:59] VITALS: BP 116/76
[2024-11-26] MEDS: MUCINEX 600 MG PO (20:22)
[2024-11-26 23:40] LABS: Glucose - Point of Care 119 mg/dl (70-99)
[2024-11-26 23:48] VITALS: BP 107/68
[2024-11-27 03:49] VITALS: BP 118/66
[2024-11-27 06:00] VITALS: BMI 28.1
[2024-11-27 06:01] LABS: Glucose - Point of Care 115 mg/dl (70-99)
[2024-11-27] MEDS: DUONEB 3 ML INH (07:13)
[2024-11-27] MEDS: ZESTRIL 5 MG PO (07:46)
[2024-11-27] MEDS: ALDACTONE 12.5 MG PO (07:46)
[2024-11-27] MEDS: MUCINEX 600 MG PO (07:46)
[2024-11-27] MEDS: LASIX 40 MG IV (07:47)
[2024-11-27] MEDS: MIRALAX TUBE (07:47)
[2024-11-27] MEDS: COREG 6.25 MG PO (07:47)
[2024-11-27] MEDS: LIPITOR 40 MG PO (07:47)
[2024-11-27] MEDS: ASPIR LOW (ENTERIC COATED) 81 MG PO (07:47)
[2024-11-27] MEDS: NICODERM TRANSDERMAL 14 MG TRANSDERM (07:52)
[2024-11-27 08:29] VITALS: BP 134/91
[2024-11-27 09:17] LABS: % Basophils 0.7 % (0-2); % Eosinophils 0.8 % (0-6); % Immature Granulocytes 0.3 % (0-0.5); % Lymphocytes 36.2 % (20.5-51.1); % Monocytes 7.4 % (1.7-9.3); % Neutrophils 54.6 % (42.2-75.2); Absolute Basophils 0.1 10^3/uL (0-0.2); Absolute Eosinophils 0.1 10^3/uL (0-0.7); Absolute Lymphocytes 3.3 10^3/uL (1.2-3.4); Absolute Monocytes 0.7 10^3/uL (0.1-0.6); Hematocrit 44.4 % (39.0-52.0); Hemoglobin 14.9 g/dL (13.0-18.0); Mean Corp Hgb Conc. 33.6 g/dL (33.0-37.0); Mean Corpuscular Hgb 28.8 pg (27.0-31.0); Mean Corpuscular Volume 85.9 fL (80.0-94.0); Mean Platelet Volume 10.5 fL (7.4-10.4); Nucleated Red Blood Cells % 0 % (-); Platelet Count 251 10^3/uL (130-400); Red Blood Cell Count 5.17 10^6/uL (4.70-6.10); Red Cell Dist. Width 13.2 % (11.5-14.5); White Blood Cell Count 9.1 10^3/uL (4.8-10.8)
[2024-11-27 10:11] LABS: Blood Urea Nitrogen 28 mg/dl (9-20); Calcium 9.2 mg/dl (8.4-10.2); Carbon Dioxide 29 mmol/L (22-30); Chloride 94 mmol/L (98-107); Estimated Creatinine Clearance 101 ml/min; Glucose 99 mg/dl (70-99); Potassium 4.2 mmol/L (3.5-5.1); Sodium 136 mmol/L (135-145); Triglycerides 175 mg/dl (10-149); eGFR > 60.00
--- NOTE | 2024-11-27 10:53 | W.PN.HOSP.TC ---
Today's Communication/Plan
-
GDMT
cont lasix
op cards/pulm f/u
Assessment / Plan
Assessment / Plan
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
#Nonischemic cardiomyopathy
# Severe valvular disease of severe mitral regurgitation
-History of hypertensive heart disease
-Home medications include GDMT with lisinopril, carvedilol, Aldactone restarted. Monitor BP. Remains stable.
-Will transition to IV Lasix for presumed decompensation of heart failure/flash pulmonary edema
-Repeat echocardiogram with normal left ventricular size and function. Possible basal inferior and basal inferolateral hypokinesis. EF of 55 to 60%. Moderate to severe mitral regurgitation. Since echo on 10/07/2024 EF has improved from 41% to
50-55
-Cardiology following and recommend to continue with home dose of diuresis. Lost approximately 5 kg so far.
#Acute hypoxemic and hypercapnic respiratory failure
#VDRF
#Severe respiratory acidosis
-Likely multifactorial with decompensated heart failure/flash pulmonary edema and may be mild component of COPD exacerbation
-Significant signs of hypercapnia on ABG, was significantly hypertensive upon arrival
-Presented in respiratory distress and required mechanical ventilation status post extubation on 11/25/24
-flu and COVID-negative
-Chest x-ray showing signs of pulmonary edema, BNP 2000, lower than previous however
-Start IV Lasix 40 mg twice daily for heart failure and switch to p.o. on discharge.
-steroids stopped.
-Pro-Frank negative. DC antibiotics.
-SpO2 goal 88-94 on room air.
#COPD not in acute exacerbation
-Does not wear supplemental oxygen at baseline
-DCed steroids. Bronchodilators.
-bronchodilators
-Patient states decreasing amount of cigarettes. But continues to smoke. Counseled located in 10 minutes for tobacco cessation. Nicotine patch.
#Circulatory shock
#H/O hypertension
-Possibly secondary to nitroglycerin drip in the ED, was hypertensive prior to this;
-Was started on IV Levophed drip while in the emergency department
-Does have leukocytosis though no obvious other signs of infection
-Currently hemodynamically stable with Levophed support-wean as tolerated
-Infection ruled out. Pro-Frank negative. Off antibiotics. Off note blood culture ordered on 11/24/24 were drawn today for some reason-unclear reason for delay. Prelim blood culture checked on admission remains negative. Blood cultures remains
negative.
-Central line was placed in the ER. Found to be inadvertently placed in the femoral artery which has been removed. Patient denies any groin pain or right leg pain. Patient ambulating without difficulty.
#Hypothermia
Resolved
#CAD s/p CA
-Home medications include carvedilol, aspirin, high intensity statin
-No known history of PCI or CABG
DVT prophylaxis: Subcutaneous heparin
CODE STATUS: Full code
More than 30 minutes spent in discharge including
Final examination of the patient
Summarizing hospital stay
Instructions for continuing care to all relevant caregivers
Preparation of discharge records, prescriptions, and referral forms
Total time spent (in minutes): 52
Anticipated Discharge: Today
Subjective/Interval History
-
Date of Service: November 27, 2024
States he is feeling significantly better
Denies any chest pain or shortness of breath on room air
Objective Data
-
Labs:
Laboratory Results
11/27/24
08:33
WBC 9.1
Hgb 14.9
Hct 44.4
Plt Count 251
Sodium 136
Potassium 4.2
Chloride 94 L
Carbon Dioxide 29
BUN 28 H
Creatinine 1.0
Glucose 99
Calcium 9.2
Vital Signs:
Vital Signs
Temp Pulse Resp BP Pulse Ox
98.4 F 71 20 134/91 98
11/27/24 08:29 11/27/24 08:29 11/27/24 08:29 11/27/24 08:29 11/27/24 08:29
I&O
11/26/24 11/27/24 11/28/24
06:59 06:59 06:59
Intake Total 617.9 / 617.9 1076
Output Total 2910 / 2910
Balance -2292.1 / -2292.1 1076
Physical Exam
-
General: Well Developed, No Apparent Distress and Appears Chronically Ill
HEENT: Normocephalic, Atraumatic, Moist Mucous Membranes and Oxygen
Respiratory: Rhonchi (MILD)
Cardiac: Regular Rhythm and S1/S2; Negative Murmur, Rub or Gallop
GI: Soft, Nontender, Nondistended and Normal Bowel Sounds; Negative Organomegaly
Rectal: Deferred by Provider
Musculoskeletal: No Clubbing, No Cyanosis and No Edema
Skin: Negative Rash
Neuro: Awake, Alert, Oriented, AO x 3 and No Motor Deficits
Psych: Calm
--- NOTE | 2024-11-27 10:55 | W.DCSUMMARY ---
Discharge Summary
Discharge Data
Date of Admission: 11/24/24
Date of Discharge: 11/27/24
-
Pending Results: No
Hospital Course
54-year-old male past medical history of active tobacco abuse, heart failure, hypertension, hyperlipidemia is presenting with complaints of shortness of breath. Patient with severe shortness of breath and hypoxemia status post intubation upon
admission. Patient was admitted to medical ICU. Cardiology was consulted. Patient with pulmonary edema and a chest x-ray. Patient was started on diuresis. Initially patient was also started on IV Decadron and broad-spectrum antibiotics.
Patient was subsequently able to be weaned off mechanical ventilation was transitioned to nasal cannula and then transition on room air. Levophed was weaned off. Patient blood pressure stabilized. Patient procalcitonin was found to be negative and
antibiotics were discontinued. Patient IV steroids were discontinued. Patient was kept on IV diuresis with significantly good urinary output. Patient home blood pressure medications were restarted and patient was able to tolerated without any
difficulty. Repeat echocardiogram with normal left ventricular size and function. Possible basal inferior and basal inferolateral hypokinesis. EF of 55 to 60%. Moderate to severe mitral regurgitation. Since echo on 10/07/2024 EF has improved
from 41% to 50-55. Counseled multiple times to patient about complete tobacco cessation. Nicotine patch was offered and also prescribed to the patient. Patient initially was also found to be hypotensive which was deemed secondary to sedation.
Patient vital signs were stable and will be discharged home with recommendation to follow-up outpatient with primary doctor and cardiology.
Discharge Plan
-
Patient Disposition: Home (Routine Discharge)
Discharge Diagnosis/Procedures: Acute on chronic heart failure exacerbation
Acute hypoxic and hypercapnic respiratory failure
Shock
Hypothymia
Condition: Fair
Diet: 2 Gram Sodium and Restrict fluids to 48 oz
Activity: As tolerated
Driving Restrictions: As prior to admission
Specialty Instructions: Weigh Daily- Call MD for wt gain/loss 3 lbs overnight/5 lbs in 1 week
Instructions: Quitting smoking for adults, *[facility] Heart Failure Instructions
Referrals:
Edwina Monaco PA-C [Family Provider] - in less than 1 week
Kenny Armijo MD [Active] - in two to three weeks
(Dr. Zelaya or SURVEY INSTRUMENT OPERATOR
PFTs, smoking cessation counseling, potentially yearly low-dose lung cancer screening CT)
Julio Cesar Brennan MD [Active] - 12/03/24 7:40 am (You have an appt to see Dr. Brennan's physician faculty i on call medical assistant, Loren, at the [facility] office on 12/03/24 at 7:40 AM. You then have an appt to see Dr. Brennan in the [facility] office on 01/27/25 at 8 AM. Please
call [phone] if you need to reschedule.)
Additional Discharge Medication Instructions: -Continue your usual doses of:
#Coreg (carvedilol) 6.25 mg twice a day
#lisinopril 5 mg once a day
#Lasix (furosemide) 40 mg once a day
#spironolactone 12.5 mg (1/2 of a 25 mg tablet) once a day
Prescriptions:
New
guaifenesin 600 mg Tablet Extended Release 12hr
600 mg PO Q12 Qty: 20 0RF
ipratropium-albuterol 0.5 mg-3 mg(2.5 mg base)/3 mL Solution For Nebulization
3 ml inhalation R TID 10 Days Qty: 90 0RF
(DME) nebulizer and compressor Device
See Rx Instructions .Route Qty: 1 0RF
Rx Instructions:
As directed
Continued
furosemide 40 mg Tablet
40 mg PO DAILY 30 Days Qty: 30 0RF
spironolactone 25 mg Tablet
12.5 mg PO DAILY 30 Days Qty: 15 0RF
atorvastatin 40 mg tablet
40 mg PO DAILY
carvedilol 6.25 mg tablet
6.25 mg PO BID
Patient Comments:
pt unsure of dosing
aspirin [Adult Low Dose Aspirin] 81 mg tablet,delayed release (DR/EC)
81 mg PO DAILY
nicotine 14 mg/24 hr Patch 24 Hour
14 mg transdermal DAILY Qty: 28 0RF
lisinopril 5 mg Tablet
5 mg PO DAILY Qty: 30 0RF
Discontinued
amoxicillin-pot clavulanate 875-125 mg Tablet
1 tab PO Q12 Qty: 7 0RF
Patient Comments:
pt not taking
doxycycline hyclate 100 mg Capsule
100 mg PO Q12 Qty: 7 0RF
Patient Comments:
pt not taking
oseltamivir 75 mg Capsule
75 mg PO BID Qty: 2 0RF
Patient Comments:
pt no longer taking
Discharge Orders:
Discharge Patient (As Directed); Ordered 11/27/24
Ordered By: Alok Hutchins
Discharge Date and Time
Discharge Date/Time: 11/27/24 12:04
Print Language: BELIZEAN
--- NOTE | 2024-11-27 11:26 | CM ---
RAIMUNDO met with Lalo at bedside prior to discharge. He is (I) amb and adls in the room; denies need for VN services.
Plan: Discharge to home with no needs; will transport.
--- NOTE | 2024-11-27 12:27 | W.PN.CARDCBS ---
Today's Communication / Plan
-
Stable cardiology status for discharge
Impression / Plan
-
PCP: Edwina Monaco PA-C at [facility]
Professional Athletes Coach: Dr. [place] Brennan
Impression:
Acute hypoxic and hypercapnic respiratory failure on admission 11/24/24
Flash pulmonary edema
Acute on chronic HPimpEF
EF 41% by echo 10/07/24 and improved to 55-60% by echo 11/25/24
Mod to sev MR by echo 11/25/24, but was mild to mod by ZENON 10/10/24
Status post VDRF 11/24/24
NICM
Nonobstructive CAD
HTN
COPD
Current smoker
Former ETOH use
Marijuana use
[facility] 11/28/2023: Nonischemic cardiomyopathy. Moderate nonobstructive CAD.
Echo 11/27/2023: EF 30-35%, global hypokinesis, mild cLVH, mild MR, mild AR, mild TR, estimated PAP 30-35mmHg
Echo 10/07/24: EF 41% by volumetric assessment and 48% by Gardner's method, moderate hypokinesis of the mid-distal inferolateral wall and the basal anterolateral wall, stage II diastolic dysfunction, normal right ventricular size and function,
thickened mitral valve leaflets. Mitral valve opens normally, restricted posterior leaflet with tethering and severe eccentric MR, systolic flow reversal in the pulmonary veins with MR, mild-moderate aortic regurgitation, ascending aorta measures
4.1 cm.
ZENON 10/10/2024: EF 55%, at most mild to moderate MR
Echo 11/25/24: EF 55 to 60%, moderate to severe MR
Plan:
Weight is down possibly as much is 12 pounds and is 225 pounds on discharge
Stable for discharge from cardiology standpoint on current medications
Follow-up has been arranged
HPI: 54-year-old man past medical history of heart failure with recovered cardiomyopathy, COPD, current smoker who presents with shortness of breath and respiratory distress. It seems that his worsening shortness of breath began overnight and he
presents this morning to [place] emergency department for evaluation. Patient was intubated in the emergency department and subsequently became hypotensive requiring norepinephrine for pressor support. He was then transferred to the medical ICU
for further management. Chest x-ray suggestive of pulmonary edema and proBNP was elevated to 1900 consistent with acute heart failure. He is also being treated for possible COPD exacerbation with antibiotics, steroids and nebulizer treatments.
Progress Note - Professional Athletes Coach
Subjective
Date of Service: November 27, 2024
He is without complaints
Objective
Labs:
11/27/24 08:33
11/27/24:
Labs
Hgb 14.9 g/dL (13.0-18.0) 11/27/24 08:
Hct 44.4 % (39.0-52.0) 11/27/24 08:
Plt Count 251 10^3/uL (130-400) 11/27/24 08:33
PT 14.1 Sec (11.4-14.6) 11/24/24 13:12
INR 1.05 11/24/24 13:12
APTT 29.6 Sec (23.4-35.0) 11/24/24 13:12
Sodium 136 mmol/L (135-145) 11/27/24 08:
Potassium 4.2 mmol/L (3.5-5.1) 11/27/24 08:33
BUN 28 mg/dl (9-20) H 11/27/24 08:33
Creatinine 1.0 mg/dL (0.7-1.3) 11/27/24 08:33
Glucose 99 mg/dl (70-99) 11/27/24 08:33
Troponins
11/24/24 11/24/24 11/25/24
13:12 19:36 00:59
Troponin I 0.033 D 0.028 Cancelled
Vital Signs and I&O:
Vital Signs
Temp Pulse Resp BP Pulse Ox
98.4 F 71 20 134/91 98
11/27/24 08:29 11/27/24 08:29 11/27/24 08:29 11/27/24 08:29 11/27/24 08:29
Vital Signs
Temp Pulse Resp BP Pulse Ox
98.4 F 71 20 134/91 98
11/27/24 08:29 11/27/24 08:29 11/27/24 08:29 11/27/24 08:29 11/27/24 08:29
Intake & Output
11/25/24 11/26/24 11/27/24 11/28/24
06:59 06:59 06:59 06:59
Intake Total 557.5 / 575.4 617.9 / 617.9 1077 / 1077
Output Total 3145 / 3205 2910 / 2910
Balance -2587.5 / -2629.6 -2292.1 / -2292.1 1077 / 1077
Physical Exam
Physical Exam
General: Well developed, well nourished in NAD.
Neck: Supple, no JVD, HJR, carotids +2 B/L, no bruits bilaterally.
Heart: Non displaced PMI, RRR, no murmurs, No S3, S4, no rubs.
Lungs: Clear to auscultation bilaterally, no wheeze, rhonchi, rubs bilaterally,
normal expiratory phase.
Extremities: No clubbing, cyanosis or edema bilaterally.
Neuro: Grossly nonfocal, awake, alert and oriented x3.
== END 2024-11-27 12:04 | disposition home or self-care (01) | DRG 871 ==
LOC: 4 EAST ACU 09:46
PROVIDERS: Internal Medicine Critical Care Medicine; Nurse Practitioner Family; ADMITTING PHYSICIAN Internal Medicine; ATTENDING PHYSICIAN Hospitalist; CONSULT PHYSICIAN Internal Medicine Cardiovascular Disease; CONSULT PHYSICIAN Internal Medicine Critical Care Medicine; EMERGENCY PHYSICIAN Emergency Medicine; FAMILY PHYSICIAN Physician Assistant Medical
PROC: 5A1945Z Respiratory Ventilation, 24-96 Consecutive Hours (ICD-10-PCS; 2024-11-24)
DX: A41.9 Sepsis, unspecified organism (principal); J96.01 Acute respiratory failure with hypoxia; J96.02 Acute respiratory failure with hypercapnia; I50.42 Chronic combined systolic (congestive) and diastolic (congestive) heart failure; I42.8 Other cardiomyopathies; J44.1 Chronic obstructive pulmonary disease with (acute) exacerbation; R57.9 Shock, unspecified; E87.29 Other acidosis; Z99.11 Dependence on respirator [ventilator] status; J44.9 Chronic obstructive pulmonary disease, unspecified; Z11.52 Encounter for screening for COVID-19; F17.200 Nicotine dependence, unspecified, uncomplicated; I08.0 Rheumatic disorders of both mitral and aortic valves; I11.0 Hypertensive heart disease with heart failure; I25.10 Atherosclerotic heart disease of native coronary artery without angina pectoris; Z71.6 Tobacco abuse counseling; Z79.82 Long term (current) use of aspirin; Z79.899 Other long term (current) drug therapy; Z87.01 Personal history of pneumonia (recurrent)
CPT/HCPCS: 93308; 31500; 36556; 71045; 71046; 74018; 80048; 80053; 80202; 81003; 81015; 82805; 82962; 83605; 83735; 83880; 84145; 84478; 84484; 85025; 85610; 85730; 87040; 87502; 87641; 87811; 93005; 93321; 93325; 94002; 94003; 94640; 96374; 96375; 96376; 99291; 99406

== ENCOUNTER 2025-01-06 08:01 | Inpatient (IN) | payer OTHER, SELFPAY ==
[2025-01-06] VITALS (41 sets, daily range): BP systolic 87–173; BP diastolic 53–132; PULSE 2–103; BMI 34.1
[2025-01-06 06:21] LABS: % Basophils 1.5 % (0-2); % Eosinophils 13.5 % (0-6); % Immature Granulocytes 0.3 % (0-0.5); % Lymphocytes 38.2 % (20.5-51.1); % Monocytes 6.8 % (1.7-9.3); % Neutrophils 39.7 % (42.2-75.2); Absolute Basophils 0.2 10^3/uL (0-0.2); Absolute Eosinophils 1.9 10^3/uL (0-0.7); Absolute Immature Granulocytes 0.1 10^3/uL (0-0.05); Absolute Lymphocytes 5.5 10^3/uL (1.2-3.4); Absolute Neutrophils 5.7 10^3/uL (1.4-6.5); Hematocrit 53.8 % (39.0-52.0); Mean Corp Hgb Conc. 33.5 g/dL (33.0-37.0); Mean Corpuscular Hgb 28.9 pg (27.0-31.0); Mean Corpuscular Volume 86.4 fL (80.0-94.0); Mean Platelet Volume 10.3 fL (7.4-10.4); Nucleated Red Blood Cells % 0 % (-); Platelet Count 333 10^3/uL (130-400); Red Blood Cell Count 6.23 10^6/uL (4.70-6.10); White Blood Cell Count 14.4 10^3/uL (4.8-10.8)
[2025-01-06] MEDS: DECADRON 10 MG IV (06:21)
[2025-01-06] MEDS: LASIX 80 MG IV (06:23)
[2025-01-06] MEDS: MORPHINE SULFATE 2 MG IV (06:24)
[2025-01-06] MEDS: DUONEB 3 ML INH (06:24)
[2025-01-06] MEDS: VENTOLIN NEBULES 2.5 MG INH (06:25)
[2025-01-06 06:33] LABS: ALT (SGPT) 20 U/L (0-50); AST (SGOT) 24 U/L (17-59); Albumin 4.5 g/dl (3.5-5.0); Alkaline Phosphatase 134 U/L (38-126); Blood Urea Nitrogen 24 mg/dl (9-20); Calcium 9.6 mg/dl (8.4-10.2); Carbon Dioxide 25 mmol/L (22-30); Chloride 105 mmol/L (98-107); Glucose 238 mg/dl (70-99); Magnesium 2.3 mg/dl (1.6-2.3); Potassium 5.3 mmol/L (3.5-5.1); Sodium 138 mmol/L (135-145); Total Bilirubin 0.9 mg/dl (0.2-1.3); Total Protein 7.3 g/dl (6.3-8.2); eGFR > 60.00
[2025-01-06] MEDS: NITROGLYCERIN PREMIX 250 IV (06:34)
[2025-01-06] MEDS: ZOSYN 50 IV ×4 (06:40→23:00)
[2025-01-06 06:44] LABS: NT-proBNP 1110 pg/ml; Troponin I 0.016 ng/ml
--- NOTE | 2025-01-06 06:45 | EDRN ---
critical care note:
doc at [facility] provided Nitro push
0611 400 mcg nitro
0615 400 mcg nitro
0620 400 mcg nitro
please see tia for the reminder of medications administered.
--- NOTE | 2025-01-06 06:45 | ED.GENMED ---
History of Present Illness
General
Chief Complaint: Breathing Problem
Source: patient
Exam Limitations: none
Time Seen by Provider: 01/06/25 06:06
Nursing documentation reviewed up to this point in time: agreed with
History of Present Illness
History of Present Illness:
Patient with history of COPD, congestive heart failure on Lasix, current smoker, who required intubation during admission to the hospital last month secondary to respiratory failure, presents to ED secondary to worsening shortness of breath upon
waking up this morning. Patient does report coughing recently. Denies weight gain. Denies fever or chills. Denies nausea, vomiting, or diarrhea. Patient takes Lasix 40 mg daily. Patient states that he woke up this morning short of breath, but
became progressively worse. When paramedics arrived at patient's house, patient was found to be in severe respite distress with initial pulse ox 70% on room air and hypotensive. Patient was placed on CPAP and given nitroglycerin sublingual x 2,
prior to arrival in ED, with minimal relief in symptoms.
Past History
Past History
ED Past Medical History: COPD, HTN, Hypercholesterolemia and MS
ED Past Surgical History: Appendectomy and Orthopedic (Right wrist surgery)
Social History
Tobacco: Smoker
Alcohol: Occasional
Personal: Single
Living: with family
Employment: Employed
Family History
Family History: Negative Diabetes
Review of Systems
Review of Systems
Allergies reviewed?: Yes
All Other Systems: ROS reviewed and negative except as documented in HPI and ROS
Constitutional: Reports no symptoms; Denies fever or chills
Respiratory: Reports cough and trouble breathing
Cardiac: Reports no symptoms
ABD/GI: Reports no symptoms
Musculoskeletal: Reports no symptoms; Denies edema
Skin: Reports no symptoms
Neurological: Reports no symptoms
Phy Exam
Physical Exam
Physical Exam:
Physical Exam
General: severe respiratory distress, acutely ill. afebrile. overweight. diaphoretic
Head: nc/at. eomi
Neck: supple. normal range of motion. no jvd
Heart: tachycardic, systolic ejection murmur.
Lungs: severe respiratory distress. wheezing/crackles bilaterally. moderate use of intercostal muscles
Abdomen: normal bowel sounds. not tender.
Neuro: alert and oriented x 3. no focal neurological deficits
Skin: no rash
Psychiatric: well kept. interactive and cooperative
Extremities: b/l LE pitting edema. no calf tenderness.
Scores
Heart Failure Risk
Heart Failure Risk Score: Yes
History of Stroke or TIA: No
History of intubation for respiratory distress: No
Heart rate on ED arrival >/= 110: Yes
SaO2 <90% on arrival on room air: Yes
HR >/=110 during 3min walk test (or too ill to perform test): Yes
ECG has acute ischemic changes: No
Urea >/=12mmol/L (BUN 33.6mg/dL): No
Serum CO2>/=35mmol/L: No
Troponin I or T elevated to MS Level (0.4mg/dL): No
NT-proBNP >/=5,000ng/L (5,000pg/ml): No
HF Risk Score: 3
Admission Status: HIGH RISK 15.9% Consider SNF treatment or admission to hospital
Course
Orders/Labs/Results
Orders:
Orders
01/06/25
Electrocardiogram (*1) Stat
Reason for Study: Chest Pain
Comment: DONE
01/06/25 06:04
Furosemide [Lasix] 80 mg .ROUTE .STK-MED ONE
01/06/25 06:05
Morphine Sulfate 2 mg .ROUTE .STK-MED ONE
Nitroglycerin 100 mg/250 ml [Nitroglycerin Premix] 100 mg in 250 ml .ROUTE .STK-MED
01/06/25 06:06
Furosemide [Lasix] 80 mg IV NOW STA
CR Chest Portable - 1 View Urgent
Comment:
Reason For Exam: sob
Reason Study Needs to be Portable: Patient Unstable
01/06/25 06:07
Albuterol Nebs [Ventolin Nebules] 2.5 mg INH R NOW STA
Dexamethasone Sod Phosphate [Decadron] 10 mg IV NOW STA
Ipratropium/Albuterol Sulfate [Duoneb] 3 ml INH R NOW STA
Morphine Sulfate 2 mg IV NOW STA
01/06/25 06:11
Complete Blood Count/With Diff Urgent
Comprehensive Metabolic Panel Urgent
Magnesium Urgent
NT-proBNP Urgent
Troponin I Urgent
01/06/25 06:15
Dexamethasone Pf [Decadron] 10 mg .ROUTE .STK-MED ONE
Nitroglycerin 100 mg/250 ml [Nitroglycerin Premix] 100 mg in 250 ml IV PER PROTOCOL
Initial dose in mcg/min, then titrate:: 200
Titrate to keep:: SBP < 160 mmHg
Titrate by mcg/min:: 5 mcg/min, may increase by 10 mcg/min if dose > 20 mcg/min
Frequency of titrations (minutes):: every 3-5 minutes
Maximum dose in mcg/min:: 200
Begin to taper infusion when:: Remained at goal for 2hrs
Taper by mcg/min:: 5 mcg/min
Frequency of taper (minutes) if patient maintains goal:: 30
Taper to off?: Yes
If infusion off & no longer maintaining goal:: Contact Provider
01/06/25 06:18
COVID-19 Antigen Urgent
Source: Nasal Swab
Lactic Acid Urgent
Blood Culture Urgent
KEELY Source: Blood/Venous
Specimen Description:
01/06/25 06:30
Piperacillin/Tazo 3.375 Gram [Zosyn] 3.375 gram in 50 ml IV NOW
01/06/25 06:32
Blood Culture Urgent
KEELY Source: Blood/Venous
Specimen Description:
Date Specimen was Collected: 01/06/25
Time Specimen was Collected: 06:29
01/06/25 06:50
Vancomycin [Vancocin] 2,000 mg 0.9% Sodium Chloride 500 ml [Nss] 500 ml IV NOW
01/06/25 07:36
Contracts Manager Consult Urgent
Consulting Provider: Marco Marques
Was physician already notified: Yes
Reason for consult: CHF w pulm edema, on NIPPV
Nitroglycerin Sublingual [Nitrostat (Sublingual)] 0.4 mg SL [id number] PRN
Bedside Glucose Monitoring-ONCE As Directed
Comment: upon arrival to ICU
Bladder Scan As Directed
Follow Bladder Retention/Intermittent Cath Algorithm?: Yes
Frequency: Per Retention Algorithm
Comment: as per intermittent urinary catheter algorithm
Bladder Scan As Directed
Follow Bladder Retention/Intermittent Cath Algorithm?: Yes
PRN if no void in __ hours: 6
Frequency: Per Retention Algorithm
If Bladder Scan Result >: 400
then:: Straight cath
ECG as needed As Directed
ECG as needed for:: Chest Pain
Other reason
Other reason for ECG as needed:: new suspicion of ACS
Comment: At onset of Chest Pain and then Q__H x 2. draw Troponin with each ECG
Additional Instructions:: at onset of chest pain or new suspicion of ACS:
-- ECG and Troponin urgent now
-- then ECG and Troponin with each ECG every 3 hours x total of 3,
including ED or other inpatient ECG/troponins.
Intake/ Output As Directed
Frequency: Per unit guidelines
Notify MD As Directed
Notify physician if: if patient has chest pain or new suspicion of ACS
Notify MD As Directed
Notify physician if: while in ICU level of care:
glucose greater than or equal to 180 mg/dL once, contact provider to initiate Critical
Care Glycemic Protocol Target Range 140-180 mg/dL.
Straight Cath As Directed
Frequency: Per Retention Algorithm
Additional Instructions: as per intermittent urinary catheter algorithm
Straight Cath As Directed
Frequency: Per Retention Algorithm
Additional Instructions: straight cath as needed per acute urinary retention algorithm for 24 hrs
Additional Instructions: for bladder scan greater than 400 mL
Vital Signs As Directed
Frequency: Per unit guidelines
Weight As Directed
Frequency: Daily
Pulse Ox/spot Check [RESP] Urgent
Quantity: 1
Special Instructions: Pulse Oximetry on admission
01/06/25 07:37
DX Deep Vein Thrombosis Video Routine
01/06/25 07:42
Bipap [RESP] Urgent
Patient to use own unit?: No
Inspiratory Pressure (cm H2O): 12
Expiratory Pressure (cm H2O): 5
01/06/25 07:48
I&O [Intake/ Output] As Directed
Frequency: q12h
01/06/25 07:49
Admit/Transfer Patient As Directed
Co-Sign Provider:
Level of Care: Inpatient admission
Assign to:: ICU
Physician / Group: Hospitalist: Demian
Diagnosis: Acute hypoxic respiratory failure
Reason for Hospitalization: Acute hypoxic respiratory failure
Expected length of stay greater than two midnights?: Yes
ELOS- Estimated Length of Stay in days: 3
I certify the patient meets the requirements for IP care: Yes
PRN Pain Medication Management As Directed
May give lesser potent ordered pain med per pt: Yes
preference::
Protocol:: Medication orders for pain may be administered in a
manner that supports deferring to patient preference
when the pt is:
- Requesting an ordered lesser potent pain medication.
Least to most potent pain medications are defined
as: acetaminophen < NSAID < tramadol < opioids
(morphine, oxycodone, hydromorphone).
- Requesting a lesser dose of the same medication IF
ORDERED.
- Requesting a less intrusive route of administration
if both routes are prescribed by the provider (PO <
IV).
01/06/25 07:56
Arterial Blood Gas Urgent
%Oxygen/Room Air: 70
01/06/25 12:00
Piperacillin/Tazo 3.375 Gram [Zosyn] 3.375 gram in 50 ml IV Q6H
01/06/25 16:00
Furosemide [Lasix] 40 mg IV BID AT 0800,1600
01/06/25 18:00
Enoxaparin Sodium [Lovenox] 40 mg SC QPM
01/07/25 06:00
BMP [Basic Metabolic Panel] IN AM
CBC/With Diff [Complete Blood Count/With Diff] IN AM
Magnesium IN AM
Phosphorus IN AM
01/08/25 06:00
BMP [Basic Metabolic Panel] IN AM
CBC/With Diff [Complete Blood Count/With Diff] IN AM
Magnesium IN AM
Phosphorus IN AM
01/09/25 06:00
BMP [Basic Metabolic Panel] IN AM
CBC/With Diff [Complete Blood Count/With Diff] IN AM
Magnesium IN AM
Phosphorus IN AM
Abnormal Lab Results
01/06/25 01/06/25
06:11 07:56
WBC 14.4 H 10^3/uL
(4.8-10.8)
RBC 6.23 H 10^6/uL
(4.70-6.10)
Hct 53.8 H %
(39.0-52.0)
Abs Immat Gran (auto) 0.1 H 10^3/uL
(0-0.05)
Absolute Lymphs (auto) 5.5 H 10^3/uL
(1.2-3.4)
Absolute Monos (auto) 1.0 H 10^3/uL
(0.1-0.6)
Absolute Eos (auto) 1.9 H 10^3/uL
(0-0.7)
Neutrophils % 39.7 L %
(42.2-75.2)
Eosinophils % 13.5 H %
(0-6)
pH 7.32 L
(7.35-7.45)
pO2 74 L mmHg
(83-108)
Potassium 5.3 H mmol/L
(3.5-5.1)
BUN 24 H mg/dl
(9-20)
Glucose 238 H mg/dl
(70-99)
Alkaline Phosphatase 134 H U/L
(38-126)
01/06/25 06:11
01/06/25 06:11
Vital Signs
Initial and Last Documented VS:
Initial Vital Signs
Pulse Resp BP Pulse Ox
92 30 173/132 75
01/06/25 06:10 01/06/25 06:10 01/06/25 06:10 01/06/25 06:10
Last Documented Vital Signs
Temp Pulse Resp BP Pulse Ox
97.6 F 66 16 114/84 94
01/06/25 12:00 01/06/25 12:00 01/06/25 12:00 01/06/25 12:00 01/06/25 12:00
MDM/Problems Addressed
MDM/Problems Addressed:
Patient evaluated immediately upon arrival in ED, secondary to severe respiratory distress. Patient found to be profoundly hypoxic with moderate use of intercostal muscles and retracting. Patient placed on BiPAP immediately and given treatments,
including Lasix, morphine, nitroglycerin infusion, along with multiple boluses. [place] catheter placed. Chest x-ray ordered immediately and reviewed, consistent with likely pulmonary congestion along with right lower lobe infiltrate, suggestive of
pneumonia. Blood cultures drawn antibiotics ordered.
After treatment, patient reports improvement in symptoms, with normalization of vital signs. Patient will be admitted to ICU for evaluation, with patient at high risk for potential respiratory failure.
Critical care statement: A total of 40 minutes of critical care time was provided for this patient. This includes management of unstable vital signs, evaluation of the patient at bedside, reviewing the patient's pertinent medical records, review of
old EKGs and review of pertinent medical records. This time with separate from time utilized to perform the aforementioned documented procedures
*EKG
Interpreted by ED Provider?: Yes
EKG Intrepretation Date: 01/06/25
Heart Rate: 94
Rate: normal
Rhythm: sinus
[place]: normal axis
Interval: normal interval
*Critical Care Note
Total Time (30-74mins, 75-104mins- exclusive of procedures): 40 min
ED Attending Note
-
Portions of this chart may have been created with voice recognition software.� Occasional wrong word or��sound alike� substitutions may have occurred due to the inherent limitations of voice recognition software.
Discharge Plan
Departure
Patient Disposition: Admit
Date of Disposition: 01/06/25
Time of Disposition: 06:53
Admit to: IMU
Presentation/result/management discussed w/ accepting MD/DO: Hospitalist
Discharge Problem:
Respiratory distress, Pneumonia, Hypoxia
Interventions
Interventions:
*Risk Screen - Suicide Last Done: 01/06/25 07:13
*General Assessment Last Done: 01/06/25 07:13
*Neglect/Abuse Screening Last Done: 01/06/25 07:13
*ED- Fall Risk Assessment Last Done: 01/06/25 07:13
*ED COVID-19 Vaccine History Last Done: 01/06/25 07:13
*Nursing Disposition Last Done: 01/06/25 11:26
ED- Cardiac Assessment Last Done: 01/06/25 07:13
ED- Pulmonary Assessment Last Done: 01/06/25 08:22
Discharge Date and Time
Discharge Date/Time: 01/06/25 11:15
[2025-01-06 06:57] LABS: COVID-19 Antigen Negative (Negative)
[2025-01-06] MEDS: VANCOCIN 540 MG IV (07:57)
--- NOTE | 2025-01-06 08:05 | EDRN ---
Nitro stopped at 0730 d/t hypotension, pt mental status AAOx4, physician aware, per physician BP goal SBP <140.
--- NOTE | 2025-01-06 08:08 | PHA.VAN.IN ---
Assessment
- Assessment
Renal Function: Appears similar to baseline
Concomitant Antimicrobials: piperacillin/tazobactam
AUC Dosing Plan
- Dosing Variables
Dosing Weight (kg): 120.5
Dosing CrCl (ml/min): 116
Vd coefficient (L/kg): 0.6
- Empiric Dosing
Initial / Loading Dose: 2000mg - 01/06 07:57
Maintenance Regimen: Vanc 1500mg Q12H starting at 1800
Estimated AUC (mcg*h/mL): 443
Estimated Peak (mcg*h/mL): 29.6
Estimated Trough (mcg/ml): 10.3
Estimated Half Life (H): 6.9
- Monitoring
No levels ordered at this time: consider levels in next few days
MRSA Screen: Ordered per protocol
Pharmacokinetics Vancomycin I
- -
Patient Age: 54
Patient Sex: Male
Vancomycin Day #: 1
Indication: Pulmonary/Respiratory
Requesting Provider: Dr. Arciniega
Pertinent Antimicrobial Allergies:
NKDA
Height / Weight:
Height 6 ft 2 in
Actual Weight 120.5 kg
Pertinent Past Medical History: BMI ~34
- Vital Signs / Lab Results
Pulse Resp BP Pulse Ox
78 21 107/76 89
01/06/25 07:50 01/06/25 07:50 01/06/25 07:50 01/06/25 06:25
Lab Results - Hematology
01/06/25
06:11
WBC 14.4 H
Lab Results - Chemistry
01/06/25
06:11
BUN 24 H
Creatinine 1.0
Albumin 4.5
01/06/25
06:18
Lactic Acid 2.0
--- NOTE | 2025-01-06 08:10 | EDRN ---
RT at bedside drawing ABG, Bipap settings adjusted to 15/6 @ 15L.
[2025-01-06 08:12] LABS: HCO3 24.7 mmol/L (21-28); O2 Saturation % 96.3 % (94-98); PCO2 48 mmHg (35-48); PO2 74 mmHg (83-108); pH 7.32 (7.35-7.45)
--- NOTE | 2025-01-06 08:28 | EDRN ---
pt had moderate amount brown soft stool, incontinence care provided.
[2025-01-06] MEDS: ZOSYN IV (08:32)
--- NOTE | 2025-01-06 10:37 | HPS.HSE ---
Family Physician
-
Family Physician: NOT KNOW UNKNOWN - PT DOES
Chief Complaint
-
Shortness of breath
History of Present Illness
Mr. Augustine is a 54-year-old male with a medical history of COPD, current smoker, HFimpEF (nonischemic, 55 to 60% 11/25/2024), moderate to severe MR, nonobstructive CAD, and recent hospitalization for respiratory failure requiring intubation who now
presents from home with recurrent shortness of breath. His symptoms began while making breakfast this morning, initially with mild cough and shortness of breath and then progressing to the point where he felt he was unable to breathe. EMS was
called and found him to be hypoxic to 70% on room air and hypotensive when they arrived. He was placed on CPAP and given sublingual nitro x 2 and brought to the ED for further evaluation. Of note, he was recently admitted with similar presentation
from 11/24 to 11/27 during which time he required intubation. He does report continuing to smoke cigarettes.
In the ED, he remained hypoxic and in respiratory distress using intercostal muscles for respiration. He was placed on BiPAP. Chest x-ray showed pulmonary edema and right lower lobe infiltrate suggesting pneumonia. He was started on nitroglycerin
infusion and given IV Lasix. Blood cultures were drawn and he was started on antibiotics. Labs were significant for leukocytosis of 14,000, potassium of 5.3, and a glucose of 238. He has been admitted for management of acute hypoxic respiratory
failure due to pulmonary edema and possible pneumonia.
Medical History
Past Medical History
Past Medical History: Reports CAD (Nonobstructive), CHF (HFrEF with recovered EF), COPD and Valvular Disease (Mitral regurgitation)
Past Surgical History: Reports Other
Social History
Tobacco: Smoker
Personal:
Living: With Family
Family History
Family History: Not pertinent
Allergies / Home Medications
Allergies reflects when Allergies were last updated in [facility].
Home Medications with original date entered in [facility]
Allergy/Medication List:
Allergies
Allergy/AdvReac Type Severity Reaction Status Date / Time
No Known Allergies Allergy Verified 11/24/24 07:44
Home Medications
spironolactone 25 mg tablet 12.5 mg (1/2 x 25 mg) PO DAILY Fluid retention/Swelling 30 days #15 tabs 11/29/23
atorvastatin 40 mg tablet 40 mg PO DAILY High cholesterol 10/04/24
carvedilol 6.25 mg tablet 6.25 mg PO BID Blood pressure 10/04/24
lisinopril 5 mg tablet 5 mg PO DAILY Blood pressure #30 tabs 11/27/24
furosemide 40 mg tablet 20 mg PO BID Fluid retention/Swelling 01/06/25
ibuprofen 200 mg tablet 1,000 mg PO HSPRN PRN mild pain 01/06/25
Review of Systems
-
History Source: Patient
A 12 point ROS was completed and negative except as noted: Yes
Respiratory: Reports Cough and Trouble Breathing
Physical Exam
Vital Signs
Vital Signs
Temp Pulse Resp BP Pulse Ox
96.4 F L 64 20 123/89 89
01/06/25 08:20 01/06/25 10:00 01/06/25 10:00 01/06/25 10:00 01/06/25 06:25
Physical Exam
General: No Apparent Distress
Laboratory Results
-
01/06/25 06:11
01/06/25 06:11
Laboratory Results
pH 7.32 (7.35-7.45) L 01/06/25 07:56
pCO2 48 mmHg (35-48) 01/06/25 07:56
pO2 74 mmHg (83-108) L 01/06/25 07:56
HCO3 24.7 mmol/L (21-28) 01/06/25 07:56
Lactic Acid 2.0 mmol/L (0.7-2.0) 01/06/25 06:18
Total Bilirubin 0.9 mg/dl (0.2-1.3) 01/06/25 06:11
AST 24 U/L (17-59) 01/06/25 06:11
ALT 20 U/L (0-50) 01/06/25 06:11
Alkaline Phosphatase 134 U/L (38-126) H 01/06/25 06:11
Troponin I 0.016 ng/ml 01/06/25 06:11
Impression/Plan
-
Gen-AAOx3, NAD
HEENT-NC, AT, anicteric, BiPAP in place
Neck-supple
CV-reg, no M, +S1/S2
Lungs-bilateral rales, breathing comfortably on BiPAP
Abd-soft, NT, ND
Musculoskeletal-no edema, no deformity
Skin-warm and dry
Neuro-grossly non-focal
Psych-calm, cooperative
Mr. Augustine is a 54-year-old male with a medical history of COPD, current smoker, HFimpEF (nonischemic, 55 to 60% 11/25/2024), moderate to severe MR, nonobstructive CAD, and recent hospitalization for respiratory failure requiring intubation who
presented from home with recurrent shortness of breath. EMS was called and found him to be hypoxic to 70% on room air and hypotensive when they arrived. He was placed on CPAP and given sublingual nitro x 2 and brought to the ED for further
evaluation. He was initially hypertensive, hypoxic, and afebrile in the ED. He was placed on BiPAP. Chest x-ray showed pulmonary edema and right lower lobe infiltrate suggesting pneumonia. He was started on nitroglycerin infusion and given IV
Lasix. Cartagena catheter was placed. Blood cultures were drawn and he was started on antibiotics. Labs were significant for leukocytosis of 14,000, potassium of 5.3, and a glucose of 238. Troponin within normal limits. EKG showing
age-indeterminate inferior infarct. He was admitted for management of acute hypoxic respiratory failure due to pulmonary edema and possible pneumonia.
Acute hypoxic respiratory failure:
-Due to volume overload with pulmonary edema, possible right lower lobe pneumonia
-Suspect acute exacerbation of HFrEF, last echo from 11/25/2024 showed recovered EF
-Continue diuresis, monitor I's and O's and daily weights
-Has been transition to supplemental oxygen via nasal cannula, BiPAP discontinued
-Will repeat echocardiogram and ask for cardiology input
CHF with acute exacerbation
-History of HFrEF with recovered ejection fraction per echo 11/25/2024
-However now presenting with volume overload and pulmonary edema with acute hypoxic respiratory failure
-Continue diuresis with IV Lasix 40 mg twice daily
-Monitor I's and O's and daily weights
-Afterload reduction with home lisinopril 5 mg daily as blood pressure tolerates
-Beta-blockade with home carvedilol 6.25 mg p.o. twice daily
-Appreciate further recommendations from cardiology
Pneumonia:
-Suspect hospital-acquired considering recent hospitalization requiring intubation
-Broad-spectrum antibiotics for now
-Follow-up cultures and MRSA screen
Hypokalemia:
-Mild, initial potassium 5.3
-Will monitor electrolytes with aggressive diuresis
-Hold spironolactone
CODE STATUS: Full code
--- NOTE | 2025-01-06 11:15 | PTCARENOTE ---
Pt from ER , AAOx3 on 4l O2 no distress no SOB. PT states he is tiredhad a rough night. Lungs are diminished , gomez in plae for I/O on Iv lasix
[2025-01-06 12:58] LABS: Amphetamines Negative (Negative); Barbiturates Negative (Negative); Benzodiazepines Negative (Negative); Opiates Positive (Negative)
[2025-01-06 12:59] LABS: Buprenorphine Negative (Negative); Cocaine Negative (Negative); Marijuana Negative (Negative); Methadone Negative (Negative); Methamphetamines Negative (Negative); Phencyclidine Negative (Negative); Tricyclic Antidepressants Negative (Negative)
[2025-01-06 13:41] LABS: Fentanyl, Urine Negative (Negative)
--- NOTE | 2025-01-06 14:44 | CON.PUL ---
Consultation
Consultation Request
Date/Time Consultation Requested: 01/06/2025
Date/Time Consultation Performed: 01/06/2025
Requesting Provider: Dr. Arciniega
Performing Provider: Dr. Kenny Zelaya
Reason for Consultation: Acute hypoxemic respiratory failure
Medical History
-
Chief Complaint: Agonal breathing/unresponsiveness
History of Present Illness:
54-year-old male active tobacco smoker with a past medical history of HFmrEF, hypertension, NICM and hypercholesterolemia, discharged from the hospital in September after developing respiratory failure, influenza pneumonia, septic shock require
mechanical ventilation.
Readmitted 11/24/2024 through the emergency room with respiratory distress. Upon arrival to the emergency room apparently hypotensive, hypoxemic with increased work of breathing, hypothermic. He was placed on mechanical ventilation due to increased
work of breathing and hypoxemia. At that time chest x-ray was consistent with pulmonary edema.
-
He returns on 01/06/2025 with similar clinical picture. Symptoms started this morning with mild cough and shortness of breath then progressive to severe respiratory symptoms with minimal effort.
EMS was called and he was found hypoxemic down to 70% on room air and hypotensive on arrival to the emergency room. Initial placed on CPAP therapy, treated with sublingual nitroglycerin.
He continues to smoke cigarettes.
Initially he was admitted to the critical care unit but due to improvement he was transferred to the intermediate care unit and I was consulted on 01/06/2025 for evaluation.
Chest x-ray again consistent with pulmonary edema and right lower lobe infiltrate.
He was started on nitroglycerin drip and IV Lasix.
Antibiotic started for possible pneumonia as patient has a leukocytosis of 14,000.
-
PMHx: HFmrEF, hypertension, NICM, tobacco use disorder, hypercholesterolemia
PSHx: Wrist fusion, appendectomy
Past Medical History
Past Medical History: Other (See assessment and plan)
Past Surgical History: Other (Above as per HPI)
Social History
Tobacco: Smoker (Smokes 0.25-0.5 PPD)
Alcohol: Occasional
Drug: None
Family History
Family History: Reviewed & Not Pertinent
Allergies / Home Medications
Allergies
Allergy/AdvReac Type Severity Reaction Status Date / Time
No Known Allergies Allergy Verified 11/24/24 07:44
Home Medications
�Medication �Instructions �Recorded �Confirmed �Last Taken �Type
spironolactone 25 mg tablet 12.5 mg (1/2 x 25 mg) PO DAILY 11/29/23 01/06/25 01/05/25 Rx
Fluid retention/Swelling 30 days
#15 tabs
atorvastatin 40 mg tablet 40 mg PO DAILY High cholesterol 10/04/24 01/06/25 01/05/25 History
carvedilol 6.25 mg tablet 6.25 mg PO BID Blood pressure 10/04/24 01/06/25 01/05/25 History
lisinopril 5 mg tablet 5 mg PO DAILY Blood pressure #30 11/27/24 01/06/25 01/05/25 Rx
tabs
furosemide 40 mg tablet 20 mg PO BID Fluid 01/06/25 01/06/25 01/05/25 History
retention/Swelling
ibuprofen 200 mg tablet 1,000 mg PO HSPRN PRN mild pain 01/06/25 01/06/25 01/05/25 History
Review of Systems
-
History Source: Patient
All other systems: Negative unless noted
Vitals / Labs / Diagnostic Testing
Vital Signs
Temp Pulse Resp BP Pulse Ox
97.6 F 66 16 114/84 94
01/06/25 12:00 01/06/25 12:00 01/06/25 12:00 01/06/25 12:00 01/06/25 12:00
Lab Data
01/06/25 06:11
01/06/25 06:11
Laboratory Results
01/06/25
07:56
pH 7.32 L
pCO2 48
pO2 74 L
HCO3 24.7
O2 Delivery Level
Microbiology
01/06/25 12:15 Nose Nasal Screen MRSA (PCR) - Final
MRSA not detected - performed by PCR methodology.
Diagnostic Testing:
Physical Exam
-
HEENT: Normocephalic
Cardiovascular: S1/S2
Respiratory: Rales
GI: Soft and Non Distended
Neurology: Awake, Alert and Oriented
Skin: Warm
General: Comfortable
Assessment
-
54-year-old male active tobacco smoker with a past medical history of HFmrEF, hypertension, NICM and hypercholesterolemia who presents acute onset cough and severe shortness of breath requiring noninvasive mechanical ventilation. Chest x-ray
consistent with pulmonary edema and possible right lower lobe infiltrate. There is also leukocytosis.
Initially admitted to the ICU but downgraded the emergency room due to clinical improvement with IV Lasix, nitroglycerin drip and noninvasive mechanical ventilation. We were consulted on 01/06/2025 for evaluation.
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
Impression:
# Acute hypoxemic/hypercapnic -requiring noninvasive mechanical ventilation.
Likely due to heart failure with preserved ejection fraction/MR moderate
Possible right lower lobe infiltrate-cannot rule out pneumonia
ABG 01/06/2025: 7.32/48/74
Chest x-ray 01/06/2025: Reviewed showed moderate to severe pulmonary edema pattern. Also dense consolidation right lower lobe.
proBNP greater 1110/negative troponin.
Echocardiogram 11/25/2024: Normal LVEF. Possible basal inferior hypokinesis. LVEF 55-60%. Moderate to severe MR.
Hyperkalemia
# History of COPD: Has not been able to follow-up with pulmonary. Not in acute exacerbation
# Admission to the ICU 11/2024 with hypoxemic respiratory failure recurrent intubation due to pulmonary edema.
#Tobacco use disorder
#NICM
#Hypercholesterolemia
#Hypertension
Plan:
Unfortunately, clinical picture similar to prior admission-About a month ago where he was admitted with pulmonary edema requiring intubation and MV.
This time chest x-ray also demonstrated possible right lower lobe infiltrate and leukocytosis suggestive of pneumonia.
-
Continue with cardiac management with IV diuresis
Goal directed therapy for heart failure
Cardiology has been consulted
Low-sodium diet
Follow renal function and electrolytes
Follow hemodynamics
-
Continue oxygen supplementation to maintain pulse ox above 90%
Currently on 6 L-pulse ox 97%. Wean down as able.
Continue CPAP/BiPAP as needed for increased work of breathing-currently not requiring he quickly improved.
-
Possible right lower lobe pneumonia:
Agree with broad-spectrum antibiotics Zosyn/vancomycin as the patient was recently in the hospital.
Leukocytosis may be reactive versus due to infection.
Follow fever curve
Will follow closely.
Legionella and strep antigen in the urine will be sent
Blood culture sent
Will repeat chest x-ray in the next 24 to 48 hours, if there is rapid clearance of the right lower lobe infiltrate less likely pneumonia and antibiotics will be discontinued depending on clinical situation.
-
Possible COPD/tobacco abuse.
No evidence for acute exacerbation-not bronchospastic on exam. Bibasilar crackles consistent with heart failure.
Patient did receive 10 mg of dexamethasone in the emergency room-no longer requires systemic corticosteroids.
Nebulizers as needed
Continue to monitor for bronchospasm
Not on inhalers
Has not followed up with pulmonary as of now.
Monitor blood sugar
Insulin supplementation as needed
Smoking cessation encouraged. Smoking about 10 cigarettes/day.
Strongly advised to follow with pulmonary and he agreed.
DVT prophylaxis-on Lovenox
Aspiration precautions
Diet as able
Outpatient pulmonary [id number], smoking cessation counseling, if qualifies yearly low-dose lung cancer screening CT, etc. patient was given information last admission. [facility] records reviewed. Patient has not followed up.
High risk situation. Has been intubated in the past. Will follow
Data:
Chest x-ray 11/24/2024: Reviewed showed ET tube in place. Bilateral pulmonary edema pattern.
CXR 10/04/2024: The tip of the endotracheal tube is 5 cm above the manuel. There is moderate diffuse coarsening of the bronchovascular markings throughout both lungs which has worsened in the interval since the prior study.
Transthoracic echocardiogram 02/29/2024: Left ventricle is mildly dilated with moderate concentric left ventricular hypertrophy. Low normal left ventricular systolic function. Left ventricular ejection fraction is 50% by Gardner's method of disc.
Diastolic function indeterminate. Normal right ventricular size and function. Mild mitral regurgitation. Mild aortic sclerosis without stenosis. Mild aortic regurgitation. Trace tricuspid regurgitation. Estimated pulmonary artery pressure of 34
mmHg assuming a right atrial pressure of 3 mmHg. Compared to previous echo 11/27/2023, the LVEF has improved from 30-35% to 50%.
ECHO 11/25/24- Normal left ventricular size and systolic function. There is possible basal inferior and basal inferolateral hypokinesis. LV ejection fraction is 55-60% by Gardner's method of discs. Mitral valve opens normally. Moderate to severe
mitral regurgitation. Dilated left atrium. Since echocardiogram October 07, 2024 which was reviewed, ejection fraction has improved from 41-48% to 50-55%.
Reports and relevant images were personally reviewed.
Total time spent on this encounter __60__ includes review of history, physical exam, medications, laboratory data, personal review of imaging, extensive review of outpatient records, discussion with care team and respiratory therapy.
--- NOTE | 2025-01-06 15:00 | CON.CAR ---
Addendum entered and electronically signed by Benton Aguirre MD 01/06/25 15:55:
I saw and examined the patient.
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
Comment: General: Well developed, well nourished in NAD.
Neck: Supple, no JVD, HJR, carotids +2 B/L, no bruits bilaterally.
Heart: Non displaced PMI, RRR, no murmurs, No S3, S4, no rubs.
Lungs: Scattered rhonchi
Abdomen: Normal bowel sounds, soft, non-tender, non-distended.
Extremities: No clubbing, cyanosis or edema bilaterally.
Neuro: Grossly nonfocal, awake, alert and oriented x3.
Lalo has a history of chronic diastolic CHF, moderate to severe MR on echo but mild to moderately ZENON 2023, nonobstructive CAD in 2023, hypertension, COPD, tobacco abuse. He presents with acute respiratory failure and evidence of CHF
Etiology of CHF is unclear. This is his third CHF admission. Catheterization 2023 without significant disease. In addition MR was only mild to moderate on ZENON in September 2024. He reports being compliant with weighing himself and reports his
weight at home was only 229 pounds and was 225 pounds on discharge in November 2024..
Original Note:
Consultation
Consultation Request
Date/Time Consultation Requested: 01/06/25
Date/Time Consultation Performed: 01/06/25
Requesting Provider: Dr. Rosario
Performing Provider: Dr. Aguirre
Reason for Consultation: CHF
Medical History
-
History of Present Illness:
Patient came to ER early this morning with complaints of sudden onset SOB and was admitted with flash pulmonary edema and cardiology has been consulted. Patient previously admitted for pulmonary edema 10/04/2024 until 10/08/2024, 11/24/2024 until
11/27/2024 and again now. Patient had cardiac cath 11/28/2023 and had moderate nonobstructive CAD including IFR assessments of the LAD, diagonal and circumflex that measured above the ischemic threshold indicating nonflow limiting lesion. There is
also been previous concern about the level of his MR, MR has been moderate to severe by TTE, but by ZENON on 10/10/2024 it was at most mild to moderate. Patient says that he follows a sodium and fluid restriction, but 1-2 times a week has a 'Lalo
day' where he lets himself eat above his salt and fluid restrictions. Patient feels that in the week leading up to this admission he had noticed some abdominal bloating and coughing, but denied any weight gain or LE edema. Denied any orthopnea.
Then woke up in the night feeling profoundly SOB and was able to call 911, but by the time paramedics arrived he was in respiratory distress and BiPAP was started. This is an improvement compared to last admission where he had VDRF.
PMH:
Chronic HPimpEF
EF 41% by echo 10/07/24 and improved to 55-60% by echo 11/25/24
Mod to sev MR by echo 11/25/24, but was at most mild to mod by ZENON 10/10/24
NICM
Nonobstructive CAD by cath 11/28/23
HTN
COPD
Current smoker
Former ETOH use
Marijuana use
Past Medical History
Past Medical History: HTN
Past Surgical History: Appendectomy and Orthopedic
Social History
Tobacco: Smoker
Alcohol: None
Drug: Marijuana
Personal: (No children)
Living: With Family
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
Family History
Family History: Reviewed & Not Pertinent
Allergies / Home Medications
Allergy/AdvReac Type Severity Reaction Status Date / Time
No Known Allergies Allergy Verified 11/24/24 07:44
�Medication �Instructions �Recorded �Confirmed �Type
spironolactone 25 mg tablet 12.5 mg (1/2 x 25 mg) PO DAILY 11/29/23 01/06/25 Rx
Fluid retention/Swelling 30 days
#15 tabs
atorvastatin 40 mg tablet 40 mg PO DAILY High cholesterol 10/04/24 01/06/25 History
carvedilol 6.25 mg tablet 6.25 mg PO BID Blood pressure 10/04/24 01/06/25 History
lisinopril 5 mg tablet 5 mg PO DAILY Blood pressure #30 11/27/24 01/06/25 Rx
tabs
furosemide 40 mg tablet 20 mg PO BID Fluid 01/06/25 01/06/25 History
retention/Swelling
ibuprofen 200 mg tablet 1,000 mg PO HSPRN PRN mild pain 01/06/25 01/06/25 History
Review of Systems
-
History Source: Patient
All other systems: Negative unless noted
Physical Exam
Vital Signs
Temp Pulse Resp BP Pulse Ox
97.6 F 66 16 114/84 94
01/06/25 12:00 01/06/25 12:00 01/06/25 12:00 01/06/25 12:00 01/06/25 12:00
GEN: NAD. AAOx3
HEENT: EOMI, MMM
LUNGS: 4 L NC. Bibasilar rales without wheeze. No conversational dyspnea observed.
CV: SR on tele. Reg, 2/ AHSM
ABD: ND
EXT: Trace edema B/L LE
NEURO: Gross non-focal
SKIN: Warm, dry, no rash
: +Cartagena cath draining clear yellow urine
Lab Results
01/06/25 06:11
01/06/25 06:11
Troponin I 0.016 ng/ml 01/06/25 06:11
Dhl-O-Gusosgcixxu Pept 1110 pg/ml 01/06/25 06:11
Impression / Plan
-
PCP: Edwina Monaco PA-C at [facility]
Manager Respiratory Care: Dr. NJ Brennan
Impression:
Admitted with plumonary edema 01/06/25
Recent admission for acute hypoxic and hypercapnic respiratory failure on admission 11/24/24 until 11/27/24
Recent admission for pulmonary edema 10/04/24 until 10/08/24
Acute on chronic HPimpEF
EF 41% by echo 10/07/24 and improved to 55-60% by echo 11/25/24
Mod to sev MR by echo 11/25/24, but was at most mild to mod by ZENON 10/10/24
NICM
Nonobstructive CAD by cath 11/28/23
HTN
COPD
Current smoker
Former ETOH use
Marijuana use
LHC 11/28/2023: Nonischemic cardiomyopathy. Moderate nonobstructive CAD.
Echo 11/27/2023: EF 30-35%, global hypokinesis, mild cLVH, mild MR, mild AR, mild TR, estimated PAP 30-35mmHg
Echo 10/07/24: EF 41% by volumetric assessment and 48% by Gardner's method, moderate hypokinesis of the mid-distal inferolateral wall and the basal anterolateral wall, stage II diastolic dysfunction, normal right ventricular size and function,
thickened mitral valve leaflets. Mitral valve opens normally, restricted posterior leaflet with tethering and severe eccentric MR, systolic flow reversal in the pulmonary veins with MR, mild-moderate aortic regurgitation, ascending aorta measures
4.1 cm.
ZENON 10/10/2024: EF 55%, at most mild to moderate MR
Echo 11/25/24: EF 55 to 60%, moderate to severe MR
Plan:
-Patient came to ER early this morning with complaints of sudden onset SOB and was admitted with flash pulmonary edema and cardiology has been consulted. Patient previously admitted for pulmonary edema 10/04/2024 until 10/08/2024, 11/24/2024 until
11/27/2024 and again now. Patient had cardiac cath 11/28/2023 and had moderate nonobstructive CAD including IFR assessments of the LAD, diagonal and circumflex that measured above the ischemic threshold indicating nonflow limiting lesion. There is
also been previous concern about the level of his MR, MR has been moderate to severe by TTE, but by ZENON on 10/10/2024 it was at most mild to moderate. Patient says that he follows a sodium and fluid restriction, but 1-2 times a week has a 'Lalo
day' where he lets himself eat above his salt and fluid restrictions. Patient feels that in the week leading up to this admission he had noticed some abdominal bloating and coughing, but denied any weight gain or LE edema. Denied any orthopnea.
Then woke up in the night feeling profoundly SOB and was able to call 911, but by the time paramedics arrived he was in respiratory distress and BiPAP was started. This is an improvement compared to last admission where he had VDRF.
-ECG reviewed by me shows SR with possible old inferior infarct, but no acute ST changes
-Patient reports symptomatic improvement following Lasix 80 mg IV in the ER along with NTG gtt plus morphine.
-Continue Lasix 40 mg IV BID. Patient was taking Lasix 20 mg PO BID prior to admission
-Recorded weight is 265 lbs and that was performed using the stretcher scale in the ER. Previous dry weight was 225 lbs at last HF d/c on 11/27/2024
-EF preserved and ZENON 10/10/24 suggested at most mild to moderate MR.
-Troponin normal thus far. Nonobstructive CAD by cath 11/28/23 including hemodynamic assessments of the LAD, diagonal, and circumflex using a Henderson Verrata wire at that time.
-Patient has been managed as a NICM.
-Outpatient dose of Coreg 6.25 mg BID has been continued
-Outpatient dose of lisinopril 5 mg daily has been continued
-Outpatient dose of spironolactone 12.5 mg daily was held on admission due to hyperkalemia
-Started on Nitro gtt in the ER due to HTN
-Cartagena can be d/c'd, order placed by me
[2025-01-06] MEDS: LASIX 40 MG IV (16:23)
[2025-01-06] MEDS: LOVENOX 40 MG SC (17:20)
[2025-01-06] MEDS: VANCOCIN 530 MG IV (18:22)
[2025-01-06] MEDS: COREG 6.25 MG PO (20:39)
--- NOTE | 2025-01-06 23:28 | PTCARENOTE ---
Received pt from daysscft RN. Pt aaox3. NSR on monitor 92% on 2L NC. Lungs diminished throughout on auscultation. Pt refused hygiene and stated he will do it in the morning. This RN educated the pt on importance of hygiene. Pt resting in bed with
call randall in reach.
[2025-01-07] VITALS (10 sets, daily range): BP systolic 90–123; BP diastolic 57–88; BMI 29.8
[2025-01-07 04:53] LABS: % Basophils 0.3 % (0-2); % Eosinophils 0.1 % (0-6); % Immature Granulocytes 0.7 % (0-0.5); % Lymphocytes 12.5 % (20.5-51.1); % Neutrophils 79.4 % (42.2-75.2); Absolute Immature Granulocytes 0.1 10^3/uL (0-0.05); Absolute Lymphocytes 1.7 10^3/uL (1.2-3.4); Absolute Neutrophils 10.7 10^3/uL (1.4-6.5); Hematocrit 43.1 % (39.0-52.0); Hemoglobin 14.8 g/dL (13.0-18.0); Mean Corp Hgb Conc. 34.3 g/dL (33.0-37.0); Mean Corpuscular Hgb 28.5 pg (27.0-31.0); Mean Corpuscular Volume 82.9 fL (80.0-94.0); Mean Platelet Volume 10.4 fL (7.4-10.4); Nucleated Red Blood Cells % 0 % (-); Platelet Count 248 10^3/uL (130-400); Red Cell Dist. Width 12.8 % (11.5-14.5); White Blood Cell Count 13.5 10^3/uL (4.8-10.8)
[2025-01-07 05:06] LABS: Blood Urea Nitrogen 29 mg/dl (9-20); Calcium 9.2 mg/dl (8.4-10.2); Carbon Dioxide 25 mmol/L (22-30); Chloride 104 mmol/L (98-107); Estimated Creatinine Clearance 98 ml/min; Glucose 135 mg/dl (70-99); Phosphorus 3.8 mg/dl (2.5-4.5); Potassium 4.5 mmol/L (3.5-5.1); Sodium 137 mmol/L (135-145); eGFR > 60.00
[2025-01-07] MEDS: ZOSYN 50 IV ×4 (05:09→23:35)
[2025-01-07 05:15] LABS: Troponin I 0.021 ng/ml
[2025-01-07] MEDS: VANCOCIN 530 MG IV (05:55)
--- NOTE | 2025-01-07 07:22 | PTCARENOTE ---
Pt AAOx3 standing to void, O2 off POX 92%. Pt states he had a good night. Kamaljit running
[2025-01-07] MEDS: ZESTRIL 5 MG PO (08:03)
[2025-01-07] MEDS: COREG 6.25 MG PO ×2 (08:07→19:36)
[2025-01-07] MEDS: LASIX 40 MG IV (08:07)
[2025-01-07] MEDS: LIPITOR 40 MG PO (08:07)
[2025-01-07] MEDS: NICODERM TRANSDERMAL 14 MG TRANSDERM (09:28)
[2025-01-07] MEDS: LOW STRENGTH ASPIRIN 324 MG PO (09:56)
--- NOTE | 2025-01-07 10:33 | W.PN.PUL3 ---
Today's Communication / Plan
-
Continue with diuresis
Continue with cardiac management
For cardiac catheterization tomorrow
Discontinue vancomycin
Continue Zosyn and wait for final cultures
Repeat chest x-ray PA and lateral tomorrow
Smoking cessation encouraged
Will follow
Assessment
-
54-year-old male active tobacco smoker with a past medical history of HFmrEF, hypertension, NICM and hypercholesterolemia who presents acute onset cough and severe shortness of breath requiring noninvasive mechanical ventilation. Chest x-ray
consistent with pulmonary edema and possible right lower lobe infiltrate. There is also leukocytosis.
Initially admitted to the ICU but downgraded the emergency room due to clinical improvement with IV Lasix, nitroglycerin drip and noninvasive mechanical ventilation. We were consulted on 01/06/2025 for evaluation.
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
Impression:
# Acute hypoxemic/hypercapnic -requiring noninvasive mechanical ventilation.
Likely due to heart failure with preserved ejection fraction/MR moderate
Possible right lower lobe infiltrate-cannot rule out pneumonia
ABG 01/06/2025: 7.32/48/74
Chest x-ray 01/06/2025: Reviewed showed moderate to severe pulmonary edema pattern. Also dense consolidation right lower lobe.
proBNP greater 1110/negative troponin.
Echocardiogram 11/25/2024: Normal LVEF. Possible basal inferior hypokinesis. LVEF 55-60%. Moderate to severe MR.
Hyperkalemia
# History of COPD: Has not been able to follow-up with pulmonary. Not in acute exacerbation
# Admission to the ICU 11/2024 with hypoxemic respiratory failure recurrent intubation due to pulmonary edema.
#Tobacco use disorder
#NICM
#Hypercholesterolemia
#Hypertension
Plan:
Unfortunately, clinical picture similar to prior admission-About a month ago where he was admitted with pulmonary edema requiring intubation and MV.
This time chest x-ray also demonstrated possible right lower lobe infiltrate and leukocytosis suggestive of pneumonia.
-
He clinically feels better
Has not required noninvasive mechanical ventilation
Oxygen has been weaned off
He has been ambulating in the room-denies shortness of breath with light walking or chest pain.
-
Echocardiogram noted: Decline on LVEF compared to prior echocardiogram recently.
Continue with cardiac management with IV diuresis
Goal directed therapy for heart failure
Cardiology following
Low-sodium diet
Follow renal function and electrolytes
Follow hemodynamics-for cardiac catheterization
-
Oxygen has been weaned off
CPAP/BiPAP discontinued as he is clinically improved.
-
Possible right lower lobe pneumonia:
Agree with broad-spectrum antibiotics Zosyn- patient was recently in the hospital.
Vancomycin discontinued 01/07/2025-MRSA screening negative.
Leukocytosis may be reactive versus due to infection. Improving
Follow fever curve
Blood culture negative
Will repeat chest x-ray in the next 24, if there is rapid clearance of the right lower lobe infiltrate less likely pneumonia and antibiotics will be discontinued depending on clinical situation. Order has been placed
-
Possible COPD/history of tobacco abuse.
No evidence for acute exacerbation-not bronchospastic on exam. Bibasilar crackles consistent with heart failure.
Patient did receive 10 mg of dexamethasone in the emergency room-no longer requires systemic corticosteroids.
Nebulizers as needed
Continue to monitor for bronchospasm
Not on inhalers
Has not followed up with pulmonary as of now.
Monitor blood sugar
Insulin supplementation as needed
Smoking cessation encouraged. Smoking about 10 cigarettes/day.
Strongly advised to follow with pulmonary and he agreed.
DVT prophylaxis-on Lovenox
Aspiration precautions
Diet as able
Outpatient pulmonary [id number], smoking cessation counseling, if qualifies yearly low-dose lung cancer screening CT, etc. patient was given information last admission. [facility] records reviewed. Patient has not followed up.
High risk situation. Has been intubated in the past. Will follow
Data:
Chest x-ray 11/24/2024: Reviewed showed ET tube in place. Bilateral pulmonary edema pattern.
CXR 10/04/2024: The tip of the endotracheal tube is 5 cm above the manuel. There is moderate diffuse coarsening of the bronchovascular markings throughout both lungs which has worsened in the interval since the prior study.
-
Transthoracic echocardiogram 01/06/2025: Reviewed
Left ventricular is moderately dilated. Mild LVH. Mildly reduced left ventricular systolic function. There is inferolateral akinesis. Left ventricular ejection fraction 45 to 50%. Stage I diastolic dysfunction.
Moderate MR. Mild AR.
Compared to 11/25/2024 LVEF has decreased.
-
Transthoracic echocardiogram 02/29/2024: Left ventricle is mildly dilated with moderate concentric left ventricular hypertrophy. Low normal left ventricular systolic function. Left ventricular ejection fraction is 50% by Gardner's method of disc.
Diastolic function indeterminate. Normal right ventricular size and function. Mild mitral regurgitation. Mild aortic sclerosis without stenosis. Mild aortic regurgitation. Trace tricuspid regurgitation. Estimated pulmonary artery pressure of 34
mmHg assuming a right atrial pressure of 3 mmHg. Compared to previous echo 11/27/2023, the LVEF has improved from 30-35% to 50%.
ECHO 11/25/24- Normal left ventricular size and systolic function. There is possible basal inferior and basal inferolateral hypokinesis. LV ejection fraction is 55-60% by Gardner's method of discs. Mitral valve opens normally. Moderate to severe
mitral regurgitation. Dilated left atrium. Since echocardiogram October 07, 2024 which was reviewed, ejection fraction has improved from 41-48% to 50-55%.
Reports and relevant images were personally reviewed.
Subjective Data
-
Date of Service:
Date of Service: January 07, 2025
Objective Data
Data Reviewed
Vital Signs / I&O / Oxygen:
Vital Signs
Temp Pulse Resp BP Pulse Ox
98.2 F 72 18 114/88 96
01/07/25 07:01 01/07/25 08:03 01/07/25 06:00 01/07/25 08:07 01/07/25 10:00
Intake and Output
01/06/25 01/07/25 01/08/25
06:59 06:59 06:59
Intake Total 1920 / 1920
Output Total 4550 / 4550 1550 / 1550
Balance -2630 / -2630 -1550 / -1550
SaO2 96
Nasal Cannula flow liters per 2
minute
Labs/Micro/Reports
Lab Data
01/07/25 03:49
01/07/25 03:49
Microbiology
01/06/25 06:32 Blood/Venous Blood Culture - Preliminary
No Growth in 24 hours- Final report to follow
01/06/25 06:18 Blood/Venous Blood Culture - Preliminary
No Growth in 24 hours- Final report to follow
01/06/25 12:15 Nose Nasal Screen MRSA (PCR) - Final
MRSA not detected - performed by PCR methodology.
--- NOTE | 2025-01-07 11:41 | W.PN.CARDCBS ---
Addendum entered and electronically signed by Benton Aguirre MD 01/07/25 11:58:
I saw and examined the patient.
The SACK LIFTER or PA's note was reviewed and I agree with the note.
Comment: General: Well developed, well nourished in NAD.
Neck: Supple, no JVD, HJR, carotids +2 B/L, no bruits bilaterally.
Heart: Non displaced PMI, RRR, no murmurs, No S3, S4, no rubs.
Lungs: Scattered rhonchi
Extremities: No clubbing, cyanosis or edema bilaterally.
Neuro: Grossly nonfocal, awake, alert and oriented x3.
He has had 3 episodes of CHF. Ejection fraction appears reduced on echocardiogram. Will do right and left heart catheterization to evaluate further. Question possible ischemic MR with RCA distribution regional wall motion abnormalities. Of note
ZENON in September 2024 only revealed mild to moderate MR. Explained risk and benefits of cardiac catheterization and stenting in detail and he agrees. Total visit time 53 minutes
Original Note:
Today's Communication / Plan
-
R/LHC in AM
Cont Lasix 40 mg IV daily for now
Impression / Plan
-
PCP: Edwina Monaco PA-C at [facility]
Appliance Service Representative: Dr. NJ Brennan
Impression:
Admitted with pulmonary edema 01/06/25
Recent admission for acute hypoxic and hypercapnic respiratory failure on admission 11/24/24 until 11/27/24
Recent admission for pulmonary edema 10/04/24 until 10/08/24
Acute on chronic HFrEF
EF 41% by echo 10/07/24 and improved to 55-60% by echo 11/25/24, reduced again to 45-50% by echo 01/06/25
Mod to sev MR by echo 11/25/24, but was at most mild to mod by ZENON 10/10/24
NICM
Nonobstructive CAD by cath 11/28/23
HTN
COPD
Current smoker
Former ETOH use
Marijuana use
C 11/28/2023: Nonischemic cardiomyopathy. Moderate nonobstructive CAD.
Echo 11/27/2023: EF 30-35%, global hypokinesis, mild cLVH, mild MR, mild AR, mild TR, estimated PAP 30-35mmHg
Echo 10/07/24: EF 41% by volumetric assessment and 48% by Gardner's method, moderate hypokinesis of the mid-distal inferolateral wall and the basal anterolateral wall, stage II diastolic dysfunction, normal right ventricular size and function,
thickened mitral valve leaflets. Mitral valve opens normally, restricted posterior leaflet with tethering and severe eccentric MR, systolic flow reversal in the pulmonary veins with MR, mild-moderate aortic regurgitation, ascending aorta measures
4.1 cm.
ZENON 10/10/2024: EF 55%, at most mild to moderate MR
Echo 11/25/24: EF 55 to 60%, moderate to severe MR
Echo 01/06/2025: EF 45 to 50%, inferior and lateral wall hypokinesis, stage I diastolic dysfunction, moderate MR, mild aortic regurgitation, Mildly dilated aortic root. Aortic root (3.8 cm), sinuses of Valsalva (4.3 cm) and ascending aorta (3.9 cm).
The aortic arch is normal in caliber. Since echocardiogram 11/25/2024 which was reviewed, left ventricle appears more dilated and ejection fraction is decreased from 55-60% to 45-50%.
Plan:
Repeat echo on 01/06/2025 outlined above, the EF has dropped again compared to last echo from 11/25/2024.
-Concerns of recurrent pulmonary edema and reduced EF reviewed with the patient. We also discussed his last cardiac cath 11/28/2023 that showed that showed nonobstructive CAD with borderline IFR assessments of the LAD, diagonal and circumflex that
measured above the ischemic threshold. Patient is agreeable to cardiac cath, will plan on 01/08/2025
-Troponin normal this admission
-The initial recorded weight this admission was 265 lbs and that was using a stretcher scale in the ER, this is not correct. Patient weight at 231 lbs on 01/07/2025. Last dry weight from last HF discharge on 11/27/2024 was 225 lbs
-Patient reports symptomatic improvement with diuresis thus far. Cont Lasix 40 mg IV daily for now. Patient was taking Lasix 20 mg PO BID prior to admission. If diuresis slows then would increase Lasix back up to 40 mg IV BID
-ZENON 10/10/24 suggested at most mild to moderate MR.
-Outpatient dose of Coreg 6.25 mg BID has been continued
-Outpatient dose of lisinopril 5 mg daily has been continued
-Outpatient dose of spironolactone 12.5 mg daily was held on admission due to hyperkalemia
HPI: Patient came to ER early this morning with complaints of sudden onset SOB and was admitted with flash pulmonary edema and cardiology has been consulted. Patient previously admitted for pulmonary edema 10/04/2024 until 10/08/2024, 11/24/2024
until 11/27/2024 and again now. Patient had cardiac cath 11/28/2023 and had moderate nonobstructive CAD including IFR assessments of the LAD, diagonal and circumflex that measured above the ischemic threshold indicating nonflow limiting lesion.
There is also been previous concern about the level of his MR, MR has been moderate to severe by TTE, but by ZENON on 10/10/2024 it was at most mild to moderate. Patient says that he follows a sodium and fluid restriction, but 1-2 times a week has a
' day' where he lets himself eat above his salt and fluid restrictions. Patient feels that in the week leading up to this admission he had noticed some abdominal bloating and coughing, but denied any weight gain or LE edema. Denied any
orthopnea. Then woke up in the night feeling profoundly SOB and was able to call 911, but by the time paramedics arrived he was in respiratory distress and BiPAP was started. This is an improvement compared to last admission where he had VDRF.
Progress Note - Appliance Service Representative
Subjective
Date of Service: January 07, 2025
Less SOB
Objective
Labs:
01/07/25 03:49
01/07/25 03:49
Labs
Hgb 14.8 g/dL (13.0-18.0) 01/07/25 03:49
Hct 43.1 % (39.0-52.0) 01/07/25 03:49
Plt Count 248 10^3/uL (130-400) D 01/07/25 03:49
Sodium 137 mmol/L (135-145) 01/07/25 03:49
Potassium 4.5 mmol/L (3.5-5.1) 01/07/25 03:49
BUN 29 mg/dl (9-20) H 01/07/25 03:49
Creatinine 1.0 mg/dL (0.7-1.3) 01/07/25 03:49
Glucose 135 mg/dl (70-99) H 01/07/25 03:49
Troponins
01/06/25 01/07/25
06:11 03:49
Troponin I 0.016 0.021
Vital Signs and I&O:
Vital Signs
Temp Pulse Resp BP Pulse Ox
98.2 F 82 17 114/88 95
01/07/25 07:01 01/07/25 10:00 01/07/25 10:00 01/07/25 08:07 01/07/25 10:00
Vital Signs
Temp Pulse Resp BP Pulse Ox
98.2 F 82 17 114/88 95
01/07/25 07:01 01/07/25 10:00 01/07/25 10:00 01/07/25 08:07 01/07/25 10:00
Intake & Output
01/05/25 01/06/25 01/07/25 01/08/25
06:59 06:59 06:59 06:59
Intake Total 1920 / 1920 50 / 50
Output Total 4550 / 4550 1550 / 1550
Balance -2630 / -2630 -1500 / -1500
Physical Exam
Physical Exam
GEN: NAD. AAOx3
HEENT: EOMI, MMM
LUNGS: RA. No audible wheeze
CV: SR on tele.
ABD: ND
EXT: Trace edema B/L LE
NEURO: Gross non-focal
SKIN: Warm, dry, no rash
[2025-01-07 11:58] LABS: Troponin I 0.018 ng/ml
--- NOTE | 2025-01-07 12:23 | CM ---
Patient with Hx recent admission to ICU, active tobacco smoker with Dx Acute hypoxic respiratory failure, CHF, PNA. Plan cardiac cath tomorrow. Room air. BiPAP HS. Receiving IV Lasix, IV Zosyn, Nicoderm Patch. Per nursing; ambulatory in room.
Met with patient who resides with his and 2 dogs/cat in a 2 story home.
The patient was independent in ADLs and ambulation.
He was active and working.
DME - nebulizer
No prior VN or SNF.
PCP - Laura Monaco
Pharmacy - [facility] on [address] in [place]
Plan watch for any home BiPAP needs.
Plan home.
--- NOTE | 2025-01-07 16:25 | W.PN.HOSP.TC ---
Addendum entered and electronically signed by Jose Arciniega DO 01/08/25 14:45:
Do not feel this patient's presentation is consistent with sepsis. He is being treated empirically for possible pneumonia although pulmonary abnormalities noted on chest imaging are most likely due to edema in the setting of heart failure
exacerbation. Leukocytosis likely due to recent steroid use. Tachycardia likely related to hypoxic respiratory failure due to pulmonary edema.
Original Note:
Today's Communication/Plan
-
Assessment / Plan
Assessment / Plan
Gen-AAOx3, NAD
HEENT-NC, AT, anicteric
Neck-supple
CV-reg, no M, +S1/S2
Lungs-lungs clear to auscultation bilaterally, no accessory muscle use
Abd-soft, NT, ND
Musculoskeletal-no edema, no deformity
Skin-warm and dry
Neuro-grossly non-focal
Psych-calm, cooperative
Mr. Augustine is a 54-year-old male with a medical history of COPD, current smoker, HFimpEF (nonischemic, 55 to 60% 11/25/2024), moderate to severe MR, nonobstructive CAD, and recent hospitalization for respiratory failure requiring intubation who
presented from home with recurrent shortness of breath. EMS was called and found him to be hypoxic to 70% on room air and hypotensive when they arrived. He was placed on CPAP and given sublingual nitro x 2 and brought to the ED for further
evaluation. He was initially hypertensive, hypoxic, and afebrile in the ED. He was placed on BiPAP. Chest x-ray showed pulmonary edema and right lower lobe infiltrate suggesting pneumonia. He was started on nitroglycerin infusion and given IV
Lasix. Cartagena catheter was placed. Blood cultures were drawn and he was started on antibiotics. Labs were significant for leukocytosis of 14,000, potassium of 5.3, and a glucose of 238. Troponin within normal limits. EKG showing
age-indeterminate inferior infarct. He was admitted for management of acute hypoxic respiratory failure due to pulmonary edema and possible pneumonia.
Acute hypoxic respiratory failure:
-Due to volume overload with pulmonary edema, possible right lower lobe pneumonia
-Suspect acute exacerbation of HFrEF, last echo from 11/25/2024 showed recovered EF
-Diuresing well since admission with the fluid balance of just over -2 L and significant improvement in respiratory status
-Now breathing comfortably on room air
CHF with acute exacerbation
-History of HFrEF with recovered ejection fraction per echo 11/25/2024
-Now with third hospitalization for CHF recently
-Repeat echo 01/06/2025 shows moderately dilated LV with inferolateral akinesis and moderate MR
-Has been diuresing well since admission with a fluid balance of -2 L so far
-Decreasing Lasix to 40 mg IV daily
-Afterload reduction with home lisinopril 5 mg daily as blood pressure tolerates
-Beta-blockade with home carvedilol 6.25 mg p.o. twice daily
-Cardiology following, planning left and right heart catheterization tomorrow 01/08
Pneumonia:
-At risk for hospital-acquired infection considering recent hospitalization
-Started on broad-spectrum antibiotics
-MRSA swab negative, will discontinue vancomycin
-Continue Zosyn, follow-up cultures
Hypokalemia:
-Mild, initial potassium 5.3
-Now resolved
-Hold spironolactone
CODE STATUS: Full code
Anticipated Discharge: 24 - 48 hours
Subjective/Interval History
-
Date of Service: January 07, 2025
Patient was seen and examined at bedside this morning. Now breathing comfortably on room air. Feels much better. Plan for right and left heart cath tomorrow.
Objective Data
-
Labs:
Laboratory Results
01/07/25
03:49
WBC 13.5 H
Hgb 14.8
Hct 43.1
Plt Count 248 D
Sodium 137
Potassium 4.5
Chloride 104
Carbon Dioxide 25
BUN 29 H
Creatinine 1.0
Glucose 135 H
Calcium 9.2
Vital Signs:
Vital Signs
Temp Pulse Resp BP Pulse Ox
98.7 F 74 22 114/88 97
01/07/25 11:32 01/07/25 14:00 01/07/25 12:00 01/07/25 08:07 01/07/25 14:00
I&O
01/06/25 01/07/25 01/08/25
06:59 06:59 06:59
Intake Total 1920 / 1920 50 / 50
Output Total 4550 / 4550 1550 / 1550
Balance -2630 / -2630 -1500 / -1500
Review of Systems
-
History Source: Patient
All other systems: Reviewed and negative
Physical Exam
-
General: No Apparent Distress
[2025-01-07] MEDS: LOVENOX 40 MG SC (17:08)
[2025-01-08] VITALS (14 sets, daily range): BP systolic 82–156; BP diastolic 66–107; BMI 30.2
--- NOTE | 2025-01-08 01:14 | PTCARENOTE ---
Assumed care of pt from tom SELF. Pt aaox3. NSR on monitor. 94% on RA. Pt ambulates in room independently with a steady gait. IV abx administered (see MAR). Pt resting in bed with call randall in reach.
[2025-01-08 04:29] LABS: % Basophils 1.3 % (0-2); % Eosinophils 4.8 % (0-6); % Immature Granulocytes 0.2 % (0-0.5); % Lymphocytes 36.7 % (20.5-51.1); % Monocytes 8.1 % (1.7-9.3); % Neutrophils 48.9 % (42.2-75.2); Absolute Basophils 0.1 10^3/uL (0-0.2); Absolute Eosinophils 0.4 10^3/uL (0-0.7); Absolute Lymphocytes 3.1 10^3/uL (1.2-3.4); Absolute Monocytes 0.7 10^3/uL (0.1-0.6); Absolute Neutrophils 4.2 10^3/uL (1.4-6.5); Mean Corp Hgb Conc. 34.1 g/dL (33.0-37.0); Mean Corpuscular Hgb 28.8 pg (27.0-31.0); Mean Corpuscular Volume 84.4 fL (80.0-94.0); Mean Platelet Volume 10.6 fL (7.4-10.4); Nucleated Red Blood Cells % 0 % (-); Platelet Count 200 10^3/uL (130-400); Red Blood Cell Count 4.86 10^6/uL (4.70-6.10); Red Cell Dist. Width 13.1 % (11.5-14.5); White Blood Cell Count 8.5 10^3/uL (4.8-10.8)
[2025-01-08 04:50] LABS: Blood Urea Nitrogen 30 mg/dl (9-20); Calcium 9.2 mg/dl (8.4-10.2); Carbon Dioxide 27 mmol/L (22-30); Chloride 105 mmol/L (98-107); Estimated Creatinine Clearance 89 ml/min; Glucose 115 mg/dl (70-99); Magnesium 2.1 mg/dl (1.6-2.3); Phosphorus 3.5 mg/dl (2.5-4.5); Potassium 4.4 mmol/L (3.5-5.1); Sodium 138 mmol/L (135-145); eGFR > 60.00
[2025-01-08] MEDS: ZOSYN 50 IV (05:02)
[2025-01-08] MEDS: NICODERM TRANSDERMAL 14 MG TRANSDERM (08:32)
[2025-01-08] MEDS: COREG 6.25 MG PO ×2 (08:33→20:49)
[2025-01-08] MEDS: LIPITOR 40 MG PO (08:35)
[2025-01-08] MEDS: ZESTRIL 5 MG PO (08:35)
[2025-01-08] MEDS: LASIX 40 MG IV (09:25)
--- NOTE | 2025-01-08 10:12 | W.PN.PUL3 ---
Today's Communication / Plan
-
Discontinue Zosyn, rapid resolution of right lower lobe infiltrate.
Start Augmentin twice a day and complete total 5 days of antibiotics
Left and right heart catheterization today
Continue cardiac management
Outpatient pulmonary follow-up
Sign off
Assessment
-
54-year-old male active tobacco smoker with a past medical history of HFmrEF, hypertension, NICM and hypercholesterolemia who presents acute onset cough and severe shortness of breath requiring noninvasive mechanical ventilation. Chest x-ray
consistent with pulmonary edema and possible right lower lobe infiltrate. There is also leukocytosis.
Initially admitted to the ICU but downgraded the emergency room due to clinical improvement with IV Lasix, nitroglycerin drip and noninvasive mechanical ventilation. We were consulted on 01/06/2025 for evaluation.
Chronic conditions MEDICAL BILLING SERVICE: HFmrEF, hypertension, NICM, tobacco use disorder, hypercholesterolemia, hospitalization for acute respiratory failure due to influenza A/pneumonia requiring intubation 09/2024
Impression:
# Acute hypoxemic/hypercapnic -requiring noninvasive mechanical ventilation.
Likely due to heart failure with preserved ejection fraction/MR moderate
Possible right lower lobe infiltrate-cannot rule out pneumonia
ABG 01/06/2025: 7.32/48/74
Chest x-ray 01/06/2025: Reviewed showed moderate to severe pulmonary edema pattern. Also dense consolidation right lower lobe.
proBNP greater 1110/negative troponin.
Echocardiogram 11/25/2024: Normal LVEF. Possible basal inferior hypokinesis. LVEF 55-60%. Moderate to severe MR.
Hyperkalemia
# History of COPD: Has not been able to follow-up with pulmonary. Not in acute exacerbation
# Admission to the ICU 11/2024 with hypoxemic respiratory failure recurrent intubation due to pulmonary edema.
#Tobacco use disorder
#NICM
#Hypercholesterolemia
#Hypertension
Plan:
Unfortunately, clinical picture similar to prior admission-About a month ago where he was admitted with pulmonary edema requiring intubation and MV.
This time chest x-ray also demonstrated possible right lower lobe infiltrate and leukocytosis suggestive of pneumonia.
-
Clinically improved
Oxygen has been weaned off
Afebrile
Leukocytosis resolved
-
Echocardiogram noted: Decline on LVEF compared to prior echocardiogram recently.
Continue diuresis at cardiology discretion.
Goal directed therapy for heart failure
Cardiology following
For right and left catheterization 01/08/2025.
-
Possible right lower lobe pneumonia:
Chest x-ray 01/08/2025: Reviewed, showed improvement on pulmonary edema pattern. Right lower lobe opacity completely resolved. Less likely pneumonia more likely asymmetric pulmonary edema.
on broad-spectrum antibiotics Zosyn- patient was recently in the hospital.
Vancomycin discontinued 01/07/2025-MRSA screening negative.
Leukocytosis resolved. Afebrile.
Culture negative.
Given rapid resolution of right lower lobe infiltrate suggest short course of antibiotic for 5 days. Okay to transition to Augmentin.
Leukocytosis may be reactive versus due to infection. Improving
Follow fever curve
-
Possible COPD/history of tobacco abuse.
No evidence for acute exacerbation-not bronchospastic on exam. Bibasilar crackles consistent with heart failure.
Patient did receive 10 mg of dexamethasone in the emergency room-no longer requires systemic corticosteroids.
Nebulizers as needed
Continue to monitor for bronchospasm
Not on inhalers
Has not followed up with pulmonary as of now. Strongly encouraged to make an appointment. Information will be left in the chart.
Smoking cessation encouraged. Smoking about 10 cigarettes/day. He is committed to quitting.
DVT prophylaxis-on Lovenox
Aspiration precautions
Diet as able
Outpatient pulmonary [id number], smoking cessation counseling, if qualifies yearly low-dose lung cancer screening CT, etc. patient was given information last admission. [facility] records reviewed. Patient has not followed up.
At this point, no additional recommendation from the pulmonary perspective.
Sign off
Data:
Chest x-ray 11/24/2024: Reviewed showed ET tube in place. Bilateral pulmonary edema pattern.
CXR 10/04/2024: The tip of the endotracheal tube is 5 cm above the manuel. There is moderate diffuse coarsening of the bronchovascular markings throughout both lungs which has worsened in the interval since the prior study.
-
Transthoracic echocardiogram 01/06/2025: Reviewed
Left ventricular is moderately dilated. Mild LVH. Mildly reduced left ventricular systolic function. There is inferolateral akinesis. Left ventricular ejection fraction 45 to 50%. Stage I diastolic dysfunction.
Moderate MR. Mild AR.
Compared to 11/25/2024 LVEF has decreased.
-
Transthoracic echocardiogram 02/29/2024: Left ventricle is mildly dilated with moderate concentric left ventricular hypertrophy. Low normal left ventricular systolic function. Left ventricular ejection fraction is 50% by Gardner's method of disc.
Diastolic function indeterminate. Normal right ventricular size and function. Mild mitral regurgitation. Mild aortic sclerosis without stenosis. Mild aortic regurgitation. Trace tricuspid regurgitation. Estimated pulmonary artery pressure of 34
mmHg assuming a right atrial pressure of 3 mmHg. Compared to previous echo 11/27/2023, the LVEF has improved from 30-35% to 50%.
ECHO 11/25/24- Normal left ventricular size and systolic function. There is possible basal inferior and basal inferolateral hypokinesis. LV ejection fraction is 55-60% by Gardner's method of discs. Mitral valve opens normally. Moderate to severe
mitral regurgitation. Dilated left atrium. Since echocardiogram October 07, 2024 which was reviewed, ejection fraction has improved from 41-48% to 50-55%.
Reports and relevant images were personally reviewed.
Subjective Data
-
Date of Service:
Date of Service: January 08, 2025
Chief Complaint: Pulmonary Follow Up (Acute hypoxemic respiratory failure)
Subjective:
Patient feels better.
Denies increased cough or phlegm production.
Shortness of breath resolved
Denies chest pain at rest
Review of Systems
General: Fever (n)
Cardiopulmonary: Dyspnea (resolved)
GI: Abdominal Pain (n) and Nausea (n)
Neuro: Headache (n)
Objective Data
Data Reviewed
Vital Signs / I&O / Oxygen:
Vital Signs
Temp Pulse Resp BP Pulse Ox
97.4 F 64 19 132/107 96
01/08/25 04:10 01/08/25 09:25 01/08/25 08:34 01/08/25 09:25 01/08/25 08:48
Intake and Output
01/07/25 01/08/25 01/09/25
06:59 06:59 06:59
Intake Total 1920 / 1920 100 / 100
Output Total 4550 / 4550 1650 / 1650
Balance -2630 / -2630 -1550 / -1550
SaO2 96
Nasal Cannula flow liters per 2
minute
Physical Exam
General: Comfortable
HEENT: Normocephalic
Cardiovascular: S1-S2
Respiratory: Clear and Non-Labored Respirations
GI: Soft and Non Distended
Neurology: Awake, Oriented and No Motor Deficits
Skin: Warm
Labs/Micro/Reports
Lab Data
01/08/25 04:07
01/08/25 04:07
Microbiology
01/06/25 06:32 Blood/Venous Blood Culture - Preliminary
No Growth in 48 hours- Final report to follow
01/06/25 06:18 Blood/Venous Blood Culture - Preliminary
No Growth in 48 hours- Final report to follow
01/06/25 12:15 Nose Nasal Screen MRSA (PCR) - Final
MRSA not detected - performed by PCR methodology.
[2025-01-08] MEDS: AUGMENTIN 875 MG/125 MG 1 TABLET PO ×2 (11:30→20:49)
--- NOTE | 2025-01-08 12:04 | PTCARENOTE ---
Assumed care of patient this morning. He was anxious to know when his procedure would be, as yesterday was a 'wasted day.' I advised the patient he would be going down for a chest XR and pt states, 'good, nothing got done yesterday.' Pt then stating
'my stomach is growling, why don't they do these procedures early in the morning, I could have eaten by now.' Attempted to educate patient on NPO status. Assessment within normal limits. Vital signs stable. Patient's heart rate occasionally goes
bradycardic. Care as documented.
--- NOTE | 2025-01-08 14:00 | PN.CDI ---
CDI
- -
CDI:
Physician Documentation Request
Admit Date: 01/06/25 08:01
Dear Doctor Vivian Olivier,
Patient admitted with acute on chronic diastolic CHF.
01/07 PN, 'Pneumonia...Continue Zosyn.'
On admission, WBC 14.4, HR >90 and RR> 20.
Please clarify which of the following most accurately describes the status of the patient's infection:
Sepsis, POA
Pneumonia only
Other
Sepsis
- Systemic manifestations of infection, with 2 or more SIRS criteria which include:
- Fever >100.4 degrees F or hypothermia < 96.8 degrees F
- Leukocytosis - WBC > 12,000 or leukopenia - WBC < 4,000 or > 10% bands
- Tachycardia > 90 beats per minute
- Tachypnea - RR > 20 breaths per minute or PaCO2 , 32mmHg
Source: Merck Manual 2013
- Indicate the known or suspected organism
- Indicate the known or suspected underlying infection, such as pneumonia
Localized Infection Only, Without Systemic Illness
- indicate the site/source, such as pneumonia
Other
Use of terms such as suspected, likely, concern for, or probable (associated with a specific diagnosis that is being evaluated, monitored, or treated as if it exists) are acceptable and can be coded in the inpatient setting, when documented at the
time of discharge.
Thank you,
Kandi BELTRANN,RN,CCDS
CDI Specialist
Available via tiger text
Please use your independent medical judgment in providing your response.
--- NOTE | 2025-01-08 14:01 | PTCARENOTE ---
Patient calling friction paint machine tender randall to alert staff that he is 'starving and this is torture.' He said he is calling his to bring him food. RN entered the room and patient started yelling at RN that 'this is ridiculous.' He stated that he is not
staying nor having the procedure and he is going home and will sign out AMA. RN attempted to calm patient and provide emotional support but unsuccessful. RN notified hospitalist, . Patient then walking out to the nurses station and
advised that he was willing to stay after speaking with his . Patient then apologized and stated its not just about the food, he feels confined and he misses his family. Patient remains NPO for heart catheterization.
--- NOTE | 2025-01-08 15:15 | PTCARENOTE ---
Gave report to laborer construction or leak gang. Patient taken to laborer construction or leak gang by 2 laborer construction or leak gang RN's.
--- NOTE | 2025-01-08 16:02 | W.PN.HOSP.TC ---
Today's Communication/Plan
-
Assessment / Plan
Assessment / Plan
Gen-AAOx3, NAD
HEENT-NC, AT, anicteric
Neck-supple
CV-reg, no M, +S1/S2
Lungs-lungs clear to auscultation bilaterally, no accessory muscle use
Abd-soft, NT, ND
Musculoskeletal-no edema, no deformity
Skin-warm and dry
Neuro-grossly non-focal
Psych-anxious, cooperative
Mr. Augustine is a 54-year-old male with a medical history of COPD, current smoker, HFimpEF (nonischemic, 55 to 60% 11/25/2024), moderate to severe MR, nonobstructive CAD, and recent hospitalization for respiratory failure requiring intubation who
presented from home with recurrent shortness of breath. EMS was called and found him to be hypoxic to 70% on room air and hypotensive when they arrived. He was placed on CPAP and given sublingual nitro x 2 and brought to the ED for further
evaluation. He was initially hypertensive, hypoxic, and afebrile in the ED. He was placed on BiPAP. Chest x-ray showed pulmonary edema and right lower lobe infiltrate suggesting pneumonia. He was started on nitroglycerin infusion and given IV
Lasix. Cartagena catheter was placed. Blood cultures were drawn and he was started on antibiotics. Labs were significant for leukocytosis of 14,000, potassium of 5.3, and a glucose of 238. Troponin within normal limits. EKG showing
age-indeterminate inferior infarct. He was admitted for management of acute hypoxic respiratory failure due to pulmonary edema and possible pneumonia.
Acute hypoxic respiratory failure:
-Due to volume overload with pulmonary edema, possible right lower lobe pneumonia
-Suspect acute exacerbation of HFrEF, last echo from 11/25/2024 showed recovered EF
-Diuresing well since admission
-Now breathing comfortably on room air
CHF with acute exacerbation
-History of HFrEF with recovered ejection fraction per echo 11/25/2024
-Now with third hospitalization for CHF recently
-Repeat echo 01/06/2025 shows moderately dilated LV with inferolateral akinesis and moderate MR
-Has been diuresing well since admission
-Continue Lasix to 40 mg IV daily
-Afterload reduction with home lisinopril 5 mg daily as blood pressure tolerates
-Beta-blockade with home carvedilol 6.25 mg p.o. twice daily
-Cardiology following, planning left and right heart catheterization today 01/08
Pneumonia:
-At risk for hospital-acquired infection considering recent hospitalization
-Started on broad-spectrum antibiotics
-MRSA swab negative, discontinued vancomycin
-Transition antibiotics to Augmentin to complete a 5-day course
-Repeat x-ray of chest today 01/08 shows significant improvement
Hypokalemia:
-Mild, initial potassium 5.3
-Now resolved
-Hold spironolactone
CODE STATUS: Full code
Anticipated Discharge: 24 - 48 hours
Subjective/Interval History
-
Date of Service: January 08, 2025
Patient was seen and examined at bedside this morning. No acute distress. Anxiously awaiting left and right heart catheterization today for further evaluation of heart failure.
Objective Data
-
Labs:
Laboratory Results
01/08/25
04:07
WBC 8.5
Hgb 14.0
Hct 41.0
Plt Count 200
Sodium 138
Potassium 4.4
Chloride 105
Carbon Dioxide 27
BUN 30 H
Creatinine 1.1
Glucose 115 H
Calcium 9.2
Vital Signs:
Vital Signs
Temp Pulse Resp BP Pulse Ox
98.0 F 66 21 141/87 94
01/08/25 11:15 01/08/25 14:00 01/08/25 14:00 01/08/25 14:00 01/08/25 14:00
I&O
01/07/25 01/08/25 01/09/25
06:59 06:59 06:59
Intake Total 1919 / 1919 100 / 100
Output Total 4550 / 4550 1650 / 1650
Balance -2630 / -2630 -1550 / -1550
Review of Systems
-
History Source: Patient
All other systems: Reviewed and negative
Physical Exam
-
General: No Apparent Distress
[2025-01-08 16:47] LABS: ACT-LR - POC 226 Seconds (116-155)
[2025-01-08 17:04] LABS: ACT-LR - POC 279 Seconds (116-155)
[2025-01-08 17:19] LABS: ACT-LR - POC 306 Seconds (116-155)
[2025-01-08 18:09] LABS: ACT-LR - POC 292 Seconds (116-155)
[2025-01-08 18:25] LABS: ACT-LR - POC 273 Seconds (116-155)
--- NOTE | 2025-01-08 18:36 | ITS.CL.CATH ---
[facility] - Catheterization
Cardiac Catheterization
Procedure Report:
LEFT HEART CATHETERIZATION AND CORONARY INTERVENTION
Date of Procedure: January 08, 2025
Referring: Javi Aguirre MD
PROCEDURES:
1. Left heart catheterization, coronary angiogram.
2. Right heart catheterization.
3. Successful percutaneous coronary artery intervention of 100% proximal left circumflex occlusion (ROLLY 0 flow) with one 3.0 x 28 mm Xience brandy point drug-eluting stent, postdilated using IVUS guidance with a 3.0 x 15 mm NC balloon at 18 donna
distally and 20 donna proximally.
4. Intravascular ultrasound (IVUS)
5. Ultrasound-guided access.
6. Moderate sedation.
INDICATION: Lalo is a 54-year-old gentleman with past medical history of hypertension, hyperlipidemia, tobacco abuse, marijuana use, prior cath showing nonobstructive coronary artery disease in November 2023 with presumed nonischemic cardiomyopathy
with EF as low as 41% in September 2024 who now presents for his third admission after experiencing flash pulmonary edema and acute decompensated systolic and diastolic heart failure being referred for a right left heart catheterization. Troponin I
peaked at 0.2. Patient never experienced any chest discomfort but had complaints most consistent with acute decompensated heart failure. Echocardiogram completed this admission showed new LVEF of 45 to 50% with inferolateral akinesis, inferior and
lateral hypokinesis, moderate MR. Most recent echocardiogram from November 25, 2024 showed LVEF of 50 to 55% with moderate to severe MR. Of note his most recent other admissions for heart failure were from November 24 through November 30, 2024 and
October 04 through October 08, 2024.
ACCESS: Right radial artery, 6 Venezuelan sheath, under ultrasound guidance.
Ultrasound was utilized for vascular access. The radial artery was visualized under ultrasound, and the vessel was patent and pulsatile. An image was stored permanently in the patient's medical record. Under direct ultrasound guidance, a 6 [place]
sheath was inserted into the artery using a micropuncture kit through a modified Seldinger technique.
HEMODYNAMICS : (mmHg)
RA (m) : 9
RV (s/d,m) : 32.8/12
PA (s/d, m) : 32/17, 24
PCWP (m) : 15
PA saturation: 67.4% on room air
AO saturation: 91.3% on room air
SVC saturation: 69.3% on room air
Cardiac Output : 5.75 L/min
Cardiac Index : 2.47 L/min/m-2
Systemic vascular resistance: 1155 dsc^(-5)
Pulmonary vascular resistance: 1.57 ray unit
AO (s/d) : 120/81
LV (s/d) : 118/12
LVEDP : 20
CORONARY FINDINGS
DOMINANCE: Right
LEFT MAIN: Short and unobstructed
LEFT ANTERIOR DESCENDING: The left anterior descending artery arises normally from the left main and runs in the anterior interventricular groove. The LAD supplies a large bifurcating first diagonal branch from the proximal one third of the artery.
The mid LAD just beyond the diagonal branch has a 30% stenosis. Angiographically the LAD diagonal system appears similar to prior cath from November 2023.
CIRCUMFLEX: The circumflex is a medium caliber nondominant vessel with 100% occlusion in the proximal portion with ROLLY 0-1 flow. Upon review of prior cath from November 2023, the circumflex gives rise to a single sizable obtuse marginal branch.
RIGHT CORONARY ARTERY: The right coronary artery is a dominant vessel that gives off a large caliber RPDA and a large right posterolateral system. There is luminal irregularities up to to 20-30% diffusely in the RCA. No focal obstructive stenosis.
CORONARY INTERVENTION: After discussion with interventional cardiology colleague, Dr. Benton Gutierrez, given patient had presented with flash pulmonary edema at the age of 54 with ischemic cardiomyopathy and a wall motion area notable in the lateral
region, decision was made to proceed with PCI of the proximal left circumflex. Additional heparin was given to maintain therapeutic ACT throughout the case. The left coronary system was selectively engaged using a 6 [place] EBU 3.5 guide catheter.
We initially attempted wiring with a 190 cm 0.014' run-through coronary wire despite multiple attempts we could not navigate across the proximal left circumflex occlusion. We then brought in a 190 cm 0.014 whisper hydrophilic coronary wire and
similar to the run-through wire despite multiple attempts our system kept getting pushed out without being able to navigate across the proximal left circumflex occlusion. At this point we introduced a 300 cm 0.014' airplane pilot commercial 50 coronary wire brought in
through a 0.014' fine cross microcatheter. After multiple attempts were able to successfully navigate across the proximal left circumflex occlusion into the distal vessel. We tried bringing in the fine cross across the lesion to confirm that we
were intraluminal however the fine cross would not cross despite multiple attempts and guide repositioning. At this point suddenly our fluoroscopy got disabled from an error message. We had to reboot the system completely. Patient remained stable
during this time. Once her fluoroscopy was available again, thankfully a fine cross and the wire were in place. We decided to take the fine cross out and attempt a 0.014' Turnpike LP microcatheter and 3 turning motion we were able to successfully
advance the Turnpike LP into the distal vessel. We took multiple distal shots through the microcatheter and noted that there was a OM occlusion as well as a distal 80 to 90% stenosis just proximal to the terminal OM however it was unclear if this
was due to spasm or actual atherosclerotic plaque. We did give some vasodilators without significant improvement. We also spent a decent amount of time at this point trying to get her wire through the OM occlusion but unfortunately we did not
succeed. At this time I discussed with Dr. Fish and our thought was to attempt improving the inflow at the level of the proximal left circumflex occlusion. Through the LP microcatheter we now brought in a 300 cm 0.014' BMW wire which we advanced
into the distal left circumflex.
SEDATION: 136 minutes of procedural sedation was utilized. An independent medical billing and coding specialist was present to assist with and help manage the patient's level of consciousness and physiologic status.
RADIATION SUMMARY: Fluoro Time (min): 31.2, Dose (mGy): 2422.94, DAP (Gy.cm2) : 148.77
Closure Device: 1. Vascular band over right radial artery, 11 cc of air.
2. Manual pressure was held over the right brachial venous access site with successful hemostasis.
CONCLUSIONS
1. Successful percutaneous coronary artery intervention of 100% proximal left circumflex occlusion (ROLLY 0 flow) with one 3.0 x 28 mm Xience brandy point drug-eluting stent, postdilated using IVUS guidance with a 3.0 x 15 mm NC balloon at 18 donna
distally and 20 donna proximally.
2. Mildly elevated right left-sided filling pressures with normal cardiac output and normal systemic vascular resistance.
RECOMMENDATIONS
1. Uninterrupted dual antiplatelet therapy with daily baby aspirin and Brilinta 90 mg twice daily, along with high intensity statin and beta-shannon as tolerated.
2. Aggressive management of cardiovascular risk factors. Continued diuresis.
3. Wean radial band per protocol.
Annemarie Wisdom MD, FACC, [facility]
[2025-01-08] MEDS: LOVENOX SC (19:44)
[2025-01-09] VITALS (10 sets, daily range): BP systolic 86–133; BP diastolic 59–96; BMI 29.5
--- NOTE | 2025-01-09 00:06 | PTCARENOTE ---
Pt educated on dietary and fluid restrictions.
--- NOTE | 2025-01-09 00:36 | PTCARENOTE ---
R radial band off without issues. R brachial site- began to ooz- pressure held for 5 mins and new dressing applied.
[2025-01-09 04:55] LABS: % Basophils 0.8 % (0-2); % Eosinophils 7.3 % (0-6); % Immature Granulocytes 0.1 % (0-0.5); % Monocytes 8.3 % (1.7-9.3); % Neutrophils 62.5 % (42.2-75.2); Absolute Basophils 0.1 10^3/uL (0-0.2); Absolute Eosinophils 0.7 10^3/uL (0-0.7); Absolute Monocytes 0.8 10^3/uL (0.1-0.6); Hematocrit 40.5 % (39.0-52.0); Hemoglobin 14.1 g/dL (13.0-18.0); Mean Corp Hgb Conc. 34.8 g/dL (33.0-37.0); Mean Corpuscular Volume 83.3 fL (80.0-94.0); Mean Platelet Volume 10.1 fL (7.4-10.4); Nucleated Red Blood Cells % 0 % (-); Platelet Count 216 10^3/uL (130-400); Red Blood Cell Count 4.86 10^6/uL (4.70-6.10); Red Cell Dist. Width 12.9 % (11.5-14.5); White Blood Cell Count 9.6 10^3/uL (4.8-10.8)
[2025-01-09 05:30] LABS: Blood Urea Nitrogen 25 mg/dl (9-20); Carbon Dioxide 26 mmol/L (22-30); Chloride 106 mmol/L (98-107); Estimated Creatinine Clearance 109 ml/min; Glucose 111 mg/dl (70-99); Magnesium 2.1 mg/dl (1.6-2.3); Phosphorus 3.9 mg/dl (2.5-4.5); Potassium 4.4 mmol/L (3.5-5.1); Sodium 138 mmol/L (135-145); eGFR > 60.00
[2025-01-09] MEDS: BRILINTA 90 MG PO (08:22)
[2025-01-09] MEDS: COREG 6.25 MG PO (08:23)
[2025-01-09] MEDS: LIPITOR 40 MG PO (08:23)
[2025-01-09] MEDS: AUGMENTIN 875 MG/125 MG 1 TABLET PO ×2 (08:24→20:52)
[2025-01-09] MEDS: NICODERM TRANSDERMAL 14 MG TRANSDERM (08:24)
[2025-01-09] MEDS: ZESTRIL 5 MG PO (08:24)
[2025-01-09] MEDS: LASIX 40 MG IV (08:25)
--- NOTE | 2025-01-09 09:00 | PTCARENOTE ---
Addendum entered by Lalita Garcia RN 01/09/25 12:03:
pt ambulating in halls. denies SOB. tolerated well.
Original Note:
Pt received in the AM. sleeping, easily awakens, appropriate and pleasant, oriented x3. CHF teaching and packet given. Pt encouraged to ambulate the halls. Call randall within reach.
--- NOTE | 2025-01-09 09:31 | CM ---
Addendum entered by Edwina Rivera 01/09/25 10:43:
Asked to check on co-pay for Prasugrel 10 mg once a day. His co-pay would be $15.00 a month or $30.00 a for a 90 day supply. Reviewed co-pay with him and he is agreeable to the 90 day co-pay of $30.00. 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
Addendum entered by Edwina Rivera 01/09/25 10:00:
Met with Mr. Hernandez to review co-py for Brilinta of $75.00 a month or $150.00 for three month supply via mail order. He feels he will not be able to afford the Brilinta cost. Reviewed with TUMBLER MACHINE OPERATOR.
Original Note:
Reviewed chart.. Mr. Augustine was transferred to IVU. Met with Mr. Augustine to review discharge plans. He states is feeling better. He states prior to admission he resides with his spouse in a two story home with four steps to enter. He states he has
a full flight of steps to get to to bedroom. He states his full bathroom is on the first floor. He states prior to admission he was independent with ambulation and adls. He states he has a Nebulizer at home. He states he has a prescription plan
with [facility] and uses [facility]. Telephone call to his [facility] to confirm that he has Brilinta 90 mg in stock. [facility] states they have Brilinta in stock. Telephone call to [facility], ([phone]) to check on coverage and co-pay
for Brilinta 90 mg po bid. His retail pharmacy cost is $75.00 a month and 90 day mail order is $150.00. He states his pharmacy texted him with his co-pay for Farxiga which would be $25.00 a month but he has commercial insurance so he can use the
zero co-pay coupon. He has the coupon in his bag. Medical work-up in progress, The discharge plan is to return home with his spouse when medically stable.
--- NOTE | 2025-01-09 13:38 | W.PN.CARDCBS ---
Addendum entered and electronically signed by Annemarie Wisdom MD 01/09/25 19:42:
I saw and examined the patient.
The Program Evaluation Consultant's note was reviewed and I agree with the note.
Comment: Patient did well overnight and does not offer any significant complaints. His back pain is significantly better. Overall his breathing has improved but he did note that yesterday he felt maybe a little bit more out of breath just at rest.
He denies any chest discomfort.
Vital signs and lab work reviewed. On exam patient is well-appearing, out of bed in chair, regular rate, normal S1 and S2, mildly elevated JVD, no murmurs, rubs or gallops, lungs are clear to auscultation bilaterally, abdomen is soft, nontender,
nondistended with active bowel sounds, warm extremities. Right radial access site and right brachial venous access site with dressing in place which is clean, dry and intact without evidence of hematoma or bruit.
Recommendations:
1. Uninterrupted dual antiplatelet therapy with daily baby aspirin. Given Brilinta is cost prohibitive, our plan is to switch him to Effient tomorrow with load in the morning followed by 10 mg daily. High intensity statin and beta-shannon as
tolerated.
2. Optimization of goal-directed medical therapy for underlying coronary artery disease and ischemic cardiomyopathy. No acute plans to bring back to the lab for any further left circumflex intervention given concern that that area may potentially
be infarcted already. We will see how he does on medical therapy for at least 1 month and reassess as need be in the future.
3. Additional 24 hours of IV diuretics followed by p.o. diuretics to maintain euvolemia.
4. Out of bed and ambulation.
5. Strongly emphasized complete smoking cessation. We briefly discussed following a high-fiber Mediterranean type diet and optimizing his cardiovascular risk factors and staying physically active.
6. Outpatient referral for cardiac rehab.
7. Likely discharge within 24 hours.
Annemarie Wisdom MD, [facility], [place]
Total time spent: 52mins
Original Note:
Today's Communication / Plan
-
Check CVE, ordered by me, atorvastatin 40 mg daily has been continued throughout admission
Brilinta is too expensive and he has been switched to Effient today
Continue with IV diuresis, LVEDP was elevated at time of cath
Impression / Plan
-
PCP: Edwina Monaco PA-C at [facility]
Tree And Shrub Worker: Dr. NJ Brennan
Impression:
Admitted with pulmonary edema 01/06/25
Recent admission for acute hypoxic and hypercapnic respiratory failure on admission 11/24/24 until 11/27/24
Recent admission for pulmonary edema 10/04/24 until 10/08/24
Acute on chronic HFrEF
EF 41% by echo 10/07/24 and improved to 55-60% by echo 11/25/24, reduced again to 45-50% by echo 01/06/25
Mod to sev MR by echo 11/25/24, but was at most mild to mod by ZENON 10/10/24
NICM
CAD
Nonobstructive CAD by cath 11/28/23
100% proximal circumflex occlusion s/p 3 mm Xience CAIN with residual OM disease 01/08/2025
HTN
COPD
Current smoker
Former ETOH use
Marijuana use
hyperglycemia
Echo 11/27/2023: EF 30-35%, global hypokinesis, mild cLVH, mild MR, mild AR, mild TR, estimated PAP 30-35mmHg
Echo 10/07/24: EF 41% by volumetric assessment and 48% by Gardner's method, moderate hypokinesis of the mid-distal inferolateral wall and the basal anterolateral wall, stage II diastolic dysfunction, normal right ventricular size and function,
thickened mitral valve leaflets. Mitral valve opens normally, restricted posterior leaflet with tethering and severe eccentric MR, systolic flow reversal in the pulmonary veins with MR, mild-moderate aortic regurgitation, ascending aorta measures
4.1 cm.
ZENON 10/10/2024: EF 55%, at most mild to moderate MR
Echo 11/25/24: EF 55 to 60%, moderate to severe MR
Echo 01/06/2025: EF 45 to 50%, inferior and lateral wall hypokinesis, stage I diastolic dysfunction, moderate MR, mild aortic regurgitation, Mildly dilated aortic root. Aortic root (3.8 cm), sinuses of Valsalva (4.3 cm) and ascending aorta (3.9 cm).
The aortic arch is normal in caliber. Since echocardiogram 11/25/2024 which was reviewed, left ventricle appears more dilated and ejection fraction is decreased from 55-60% to 45-50%.
Plan:
-Patient underwent cardiac cath 01/08/2025 and was found to have a 100% proximal circumflex occlusion which was new compared to cath 11/2023. The circumflex also gives rise then to a single sizable OM. Patient had 3 mm Xience CAIN to the proximal
circumflex. There was an OM occlusion as well as distal 80 to 90% stenosis just proximal to the terminal OM, however was unclear if this was due to spasm or actual atherosclerotic plaque, vasodilators were given without significant improvement and
time was spent trying to get a wire through the OM occlusion that was unsuccessful and so plan is for medical management of that lesion.
-Patient was started on aspirin and Brilinta, but he will not be able to afford Brilinta and was transition to Effient on 01/09/2025.
-Repeat echo on 01/06/2025 outlined above, the EF has dropped again compared to last echo from 11/25/2024.
-Weight is down 6 lbs this admission, cont Lasix 40 mg IV daily. Patient was taking Lasix 20 mg PO BID prior to admission.
-LVEDP 20 by cath 01/08/2025 this correlated with a weight of 235 lbs.
-Previous ZENON 10/10/24 suggested at most mild to moderate MR.
-Outpatient dose of Coreg 6.25 mg BID has been continued
-Outpatient dose of lisinopril 5 mg daily has been continued
-Outpatient dose of spironolactone 12.5 mg daily was held on admission due to hyperkalemia
-Troponin serially normal this admission
-Check CVE, ordered by me. Outpatient dose of atorvastatin 40 mg daily has been continued throughout this admission
-Hyperglycemia noted, HgbA1c pending
HPI: Patient came to ER early this morning with complaints of sudden onset SOB and was admitted with flash pulmonary edema and cardiology has been consulted. Patient previously admitted for pulmonary edema 10/04/2024 until 10/08/2024, 11/24/2024
until 11/27/2024 and again now. Patient had cardiac cath 11/28/2023 and had moderate nonobstructive CAD including IFR assessments of the LAD, diagonal and circumflex that measured above the ischemic threshold indicating nonflow limiting lesion.
There is also been previous concern about the level of his MR, MR has been moderate to severe by TTE, but by ZENON on 10/10/2024 it was at most mild to moderate. Patient says that he follows a sodium and fluid restriction, but 1-2 times a week has a
' day' where he lets himself eat above his salt and fluid restrictions. Patient feels that in the week leading up to this admission he had noticed some abdominal bloating and coughing, but denied any weight gain or LE edema. Denied any
orthopnea. Then woke up in the night feeling profoundly SOB and was able to call 911, but by the time paramedics arrived he was in respiratory distress and BiPAP was started. This is an improvement compared to last admission where he had VDRF.
Progress Note - Tree And Shrub Worker
Subjective
Date of Service: January 09, 2025
No chest pain
Objective
Labs:
01/09/25 04:47
01/09/25 04:47
Labs
Hgb 14.1 g/dL (13.0-18.0) 01/09/25 04:47
Hct 40.5 % (39.0-52.0) 01/09/25 04:47
Plt Count 216 10^3/uL (130-400) 01/09/25 04:47
Sodium 138 mmol/L (135-145) 01/09/25 04:47
Potassium 4.4 mmol/L (3.5-5.1) 01/09/25 04:47
BUN 25 mg/dl (9-20) H 01/09/25 04:47
Creatinine 0.9 mg/dL (0.7-1.3) 01/09/25 04:47
Glucose 111 mg/dl (70-99) H 01/09/25 04:47
Troponins
01/07/25 01/07/25
03:49 11:17
Troponin I 0.021 0.018
Vital Signs and I&O:
Vital Signs
Temp Pulse Resp BP Pulse Ox
97.8 F 72 18 9772 100
01/09/25 11:32 01/09/25 11:32 01/09/25 11:32 01/09/25 11:32 01/09/25 11:32
Vital Signs
Temp Pulse Resp BP Pulse Ox
97.8 F 72 18 9772 100
01/09/25 11:32 01/09/25 11:32 01/09/25 11:32 01/09/25 11:32 01/09/25 11:32
Intake & Output
01/07/25 01/08/25 01/09/25 01/10/25
06:59 06:59 06:59 06:59
Intake Total 1919 / 1919 100 / 100
Output Total 4550 / 4550 1650 / 1650 1325 / 1325
Balance -2630 / -2630 -1550 / -1550 -1325 / -1325
Physical Exam
Physical Exam
GEN: NAD. AAOx3
HEENT: EOMI, MMM
LUNGS: RA. No audible wheeze
CV: SR on tele.
ABD: ND
EXT: Trace edema B/L LE
NEURO: Gross non-focal
SKIN: Warm, dry, no rash
[2025-01-09 16:17] LABS: HDL Cholesterol 36 mg/dl; LDL Cholesterol, Calculated 74 mg/dl; Total Cholesterol 125 mg/dl (50-199); Triglyceride 76 mg/dl (10-149); Very Low Density Lipoprotein 15 mg/dl (0-30)
--- NOTE | 2025-01-09 16:59 | W.PN.HOSP.TC ---
Today's Communication/Plan
-
Assessment / Plan
Assessment / Plan
Gen-AAOx3, NAD
HEENT-NC, AT, anicteric
Neck-supple
CV-reg, no M, +S1/S2
Lungs-lungs clear to auscultation bilaterally, no accessory muscle use
Abd-soft, NT, ND
Musculoskeletal-no edema, no deformity
Skin-warm and dry, right wrist vascular access site clean dry intact
Neuro-grossly non-focal
Psych-anxious, cooperative
Mr. Augustine is a 54-year-old male with a medical history of COPD, current smoker, HFimpEF (nonischemic, 55 to 60% 11/25/2024), moderate to severe MR, nonobstructive CAD, and recent hospitalization for respiratory failure requiring intubation who
presented from home with recurrent shortness of breath. EMS was called and found him to be hypoxic to 70% on room air and hypotensive when they arrived. He was placed on CPAP and given sublingual nitro x 2 and brought to the ED for further
evaluation. He was initially hypertensive, hypoxic, and afebrile in the ED. He was placed on BiPAP. Chest x-ray showed pulmonary edema and right lower lobe infiltrate suggesting pneumonia. He was started on nitroglycerin infusion and given IV
Lasix. Cartagena catheter was placed. Blood cultures were drawn and he was started on antibiotics. Labs were significant for leukocytosis of 14,000, potassium of 5.3, and a glucose of 238. Troponin within normal limits. EKG showing
age-indeterminate inferior infarct. He was admitted for management of acute hypoxic respiratory failure due to pulmonary edema and possible pneumonia.
CAD:
-100% occluded left circumflex artery, status post PCI with CAIN 01/08, tolerated procedure well
-Started on Brilinta, will transition to Effient tomorrow 01/10 due to affordability
-Continue high intensity statin
-Patient breathing comfortably and ambulating without dyspnea
-Noted residual coronary artery disease on cath, will need follow-up and potentially further intervention
-Further recommendations per cardiology
Acute hypoxic respiratory failure:
-Suspect due to obstructive coronary disease which has been intervened on as outlined above
-Now breathing comfortably on room air
CHF with acute exacerbation
-History of HFrEF with recovered ejection fraction per echo 11/25/2024
-Now with third hospitalization for CHF recently
-Repeat echo 01/06/2025 shows moderately dilated LV with inferolateral akinesis and moderate MR
-Cardiac cath 01/08 showed obstructive disease with 100% stenosis of left circumflex, status post PCI with CAIN
-Has been diuresing well since admission
-Will transition to oral Lasix tomorrow 01/02
-Afterload reduction with home lisinopril 5 mg daily as blood pressure tolerates
-Beta-blockade with home carvedilol 6.25 mg p.o. twice daily
Pneumonia:
-At risk for hospital-acquired infection considering recent hospitalization
-Started on broad-spectrum antibiotics
-MRSA swab negative, discontinued vancomycin
-Transitioned antibiotics to Augmentin to complete a 5-day course
-Repeat x-ray of chest 01/08 shows significant improvement
Hypokalemia:
-Mild, initial potassium 5.3
-Now resolved
-Hold spironolactone
Hyperglycemia:
-Not on diabetic medications at home
-Follow-up hemoglobin A1c
-Potentially start on metformin
CODE STATUS: Full code
Anticipated Discharge: 24 - 48 hours
Subjective/Interval History
-
Date of Service: January 09, 2025
Patient was seen and examined at bedside. And event successful PCI to left circumflex yesterday. Tolerated the procedure well. No complaints this morning.
Objective Data
-
Labs:
Laboratory Results
01/09/25
04:47
Sodium 138
Potassium 4.4
Chloride 106
Carbon Dioxide 26
BUN 25 H
Creatinine 0.9
Glucose 111 H
Calcium 9.0
Vital Signs:
Vital Signs
Temp Pulse Resp BP Pulse Ox
98.3 F 98 22 108/68 98
01/09/25 14:51 01/09/25 16:07 01/09/25 14:51 01/09/25 14:43 01/09/25 14:51
I&O
01/08/25 01/09/25 01/10/25
06:59 06:59 06:59
Intake Total 100 / 100
Output Total 1650 / 1650 1325 / 1325
Balance -1550 / -1550 -1325 / -1325
Review of Systems
-
History Source: Patient
All other systems: Reviewed and negative
Physical Exam
-
General: No Apparent Distress
[2025-01-09] MEDS: LOVENOX 40 MG SC (17:58)
[2025-01-09] MEDS: COREG PO (20:00)
[2025-01-09 22:32] LABS: Glucose - Point of Care 118 mg/dl (70-99)
--- NOTE | 2025-01-09 23:42 | PTCARENOTE ---
Assumed care of the pt @ change of shift. Pt sitting in the chair AAOx3 SR on the monitor. Pt was instructed on fluid restriction and verbalized understanding. Pt walking hallways without difficulty. PM dose Coreg due BP 91/64 asymptomatic S.
Luis GRIPPER MACHINE OPERATOR notified and asked to hold dose for now and recheck BP in 2 hours. Repeat bp 96/67 and ordered to hold dose for tonight. Call randall within reach.
[2025-01-10 04:22] VITALS: BP 129/85
[2025-01-10 04:25] VITALS: BMI 29.6
[2025-01-10 07:17] VITALS: BP 136/98
--- NOTE | 2025-01-10 07:35 | W.PN.CARDCBS ---
Addendum entered and electronically signed by Dannie Bajwa MD 01/10/25 11:14:
I saw and examined the patient.
The Corporate Security Officer's note was reviewed and I agree with the note.
Comment:
GEN: No distress, awake, Ox3
HEENT: supple, anicteric, mmm
LUNGS: CTA, no wheezes/rales
CV: Reg, S1/S2, 1/6 syst apex, no gallop
ABD: soft, BS+, NT/ND
EXT: No edema
NEURO: Gross non-focal
SKIN: No rash
Plan:
Overall feels better status post left circumflex PCI. He does have residual disease. Volume status is stable.
Continue Lasix 40 mg daily. Continue aspirin and Brilinta.
Continue Coreg, lisinopril. He did have some hyperkalemia while hospitalized and spironolactone is on hold.
Repeat BMP in 1 week.
Hopefully PCI of his circumflex and lateral wall improves his mitral regurgitation. May need repeat ZENON if continues to have episodes of pulmonary edema and will revisit mitral valve.
Original Note:
Today's Communication / Plan
-
Continue PO lasix 40mg daily
Continue aspirin. Brilinta transitioned to Effient today, 01/10.
Continue coreg and lisinopril. Spironolactone on hold, will consider resuming as OP
BMP in 1 week
Cardiology follow up arranged.
Impression / Plan
-
PCP: Edwina Monaco PA-C at [facility]
Grazing Aide: Dr. NJ Brennan
Impression:
Admitted with pulmonary edema 01/06/25
Recent admission for acute hypoxic and hypercapnic respiratory failure on admission 11/24/24 until 11/27/24
Recent admission for pulmonary edema 10/04/24 until 10/08/24
Acute on chronic HFrEF
EF 41% by echo 10/07/24 and improved to 55-60% by echo 11/25/24, reduced again to 45-50% by echo 01/06/25
Mod to sev MR by echo 11/25/24, but was at most mild to mod by ZENON 10/10/24
NICM
CAD
Nonobstructive CAD by cath 11/28/23
100% proximal circumflex occlusion s/p 3 mm Xience CAIN with residual OM disease 01/08/2025
HTN
COPD
Current smoker
Former ETOH use
Marijuana use
hyperglycemia
Echo 11/27/2023: EF 30-35%, global hypokinesis, mild cLVH, mild MR, mild AR, mild TR, estimated PAP 30-35mmHg
Echo 10/07/24: EF 41% by volumetric assessment and 48% by Gardner's method, moderate hypokinesis of the mid-distal inferolateral wall and the basal anterolateral wall, stage II diastolic dysfunction, normal right ventricular size and function,
thickened mitral valve leaflets. Mitral valve opens normally, restricted posterior leaflet with tethering and severe eccentric MR, systolic flow reversal in the pulmonary veins with MR, mild-moderate aortic regurgitation, ascending aorta measures
4.1 cm.
ZENON 10/10/2024: EF 55%, at most mild to moderate MR
Echo 11/25/24: EF 55 to 60%, moderate to severe MR
Echo 01/06/2025: EF 45 to 50%, inferior and lateral wall hypokinesis, stage I diastolic dysfunction, moderate MR, mild aortic regurgitation, Mildly dilated aortic root. Aortic root (3.8 cm), sinuses of Valsalva (4.3 cm) and ascending aorta (3.9 cm).
The aortic arch is normal in caliber. Since echocardiogram 11/25/2024 which was reviewed, left ventricle appears more dilated and ejection fraction is decreased from 55-60% to 45-50%.
Plan:
-Presented with sudden onset SOB. Admitted with flash pulmonary edema, similar to other recent admissions.
-He has been diuresing with IV lasix and weight down to 230 lbs on 01/10.
-Creat has been stable, was 0.9 on 01/09. Will repeat AM labs.
-Transitioned to PO lasix 40mg daily on 01/10.
-Echo 01/06 showed EF down again to 45-50% with moderate MR as noted above.
-Underwent LHC 01/08 and found to have 100% proximal circumflex occlusion which was successfully stented. Also noted to have OM occlusion however was unclear if this was due to spasm or atherosclerotic plaque. No significant improvement noted w/
giving vasodilators. Plan is for medical management at this time.
-Continue DAPT. Was started on aspirin and Brilinta, but Brilinta is not affordable, so has been transitioned to Effient 01/10.
-Continue coreg and lisinopril. Spironolactone on hold due to hyperkalemia. K down to 4.4. May consider resuming as OP.
-Check BMP in 1 week.
-Continue lipitor 40mg daily. LDL 74.
-HgbA1c 5.7%.
-Cardiology follow up arranged.
HPI: Patient came to ER early this morning with complaints of sudden onset SOB and was admitted with flash pulmonary edema and cardiology has been consulted. Patient previously admitted for pulmonary edema 10/04/2024 until 10/08/2024, 11/24/2024
until 11/27/2024 and again now. Patient had cardiac cath 11/28/2023 and had moderate nonobstructive CAD including IFR assessments of the LAD, diagonal and circumflex that measured above the ischemic threshold indicating nonflow limiting lesion.
There is also been previous concern about the level of his MR, MR has been moderate to severe by TTE, but by ZENON on 10/10/2024 it was at most mild to moderate. Patient says that he follows a sodium and fluid restriction, but 1-2 times a week has a
'[place] day' where he lets himself eat above his salt and fluid restrictions. Patient feels that in the week leading up to this admission he had noticed some abdominal bloating and coughing, but denied any weight gain or LE edema. Denied any
orthopnea. Then woke up in the night feeling profoundly SOB and was able to call 911, but by the time paramedics arrived he was in respiratory distress and BiPAP was started. This is an improvement compared to last admission where he had VDRF.
Progress Note - Grazing Aide
Subjective
Date of Service: January 10, 2025
Feeling well. No SOB or edema.
Objective
Labs:
01/09/25 04:47
01/09/25 04:47
Labs
Hgb 14.1 g/dL (13.0-18.0) 01/09/25 04:47
Hct 40.5 % (39.0-52.0) 01/09/25 04:47
Plt Count 216 10^3/uL (130-400) 01/09/25 04:47
Sodium 138 mmol/L (135-145) 01/09/25 04:47
Potassium 4.4 mmol/L (3.5-5.1) 01/09/25 04:47
BUN 25 mg/dl (9-20) H 01/09/25 04:47
Creatinine 0.9 mg/dL (0.7-1.3) 01/09/25 04:47
Glucose 111 mg/dl (70-99) H 01/09/25 04:47
Troponins
01/07/25
11:17
Troponin I 0.018
Vital Signs and I&O:
Vital Signs
Temp Pulse Resp BP Pulse Ox
98.2 F 82 16 129/85 96
01/10/25 04:24 01/10/25 04:24 01/10/25 04:24 01/10/25 04:22 01/10/25 04:24
Vital Signs
Temp Pulse Resp BP Pulse Ox
98.2 F 82 16 129/85 96
01/10/25 04:24 01/10/25 04:24 01/10/25 04:24 01/10/25 04:22 01/10/25 04:24
Intake & Output
01/08/25 01/09/25 01/10/25 01/11/25
06:59 06:59 06:59 06:59
Intake Total 100 / 100 120 / 120
Output Total 1650 / 1650 1825 / 1825
Balance -1550 / -1550 -1705 / -1705
Physical Exam
Physical Exam
GEN: No distress, awake, alert, oriented x3
HEENT: supple, anicteric, mmm
LUNGS: CTA b/l, no wheezes/rales
CV: Reg, S1/S2, no murmur
EXT: No clubbing, cyanosis, or edema
NEURO: Gross non-focal
SKIN: Warm, dry, no rash
[2025-01-10] MEDS: COREG 6.25 MG PO (07:43)
[2025-01-10] MEDS: LIPITOR 40 MG PO (07:43)
[2025-01-10] MEDS: ZESTRIL 5 MG PO (07:44)
[2025-01-10] MEDS: NICODERM TRANSDERMAL 14 MG TRANSDERM (07:44)
[2025-01-10] MEDS: LASIX 40 MG PO (07:44)
[2025-01-10] MEDS: AUGMENTIN 875 MG/125 MG 1 TABLET PO (07:44)
[2025-01-10] MEDS: EFFIENT 60 MG PO (07:45)
[2025-01-10 08:16] LABS: Glycohemoglobin (HgbA1c) 5.7 % (4.0-5.6)
[2025-01-10 10:07] LABS: Blood Urea Nitrogen 28 mg/dl (9-20); Calcium 9.8 mg/dl (8.4-10.2); Carbon Dioxide 31 mmol/L (22-30); Chloride 101 mmol/L (98-107); Estimated Creatinine Clearance 89 ml/min; Glucose 127 mg/dl (70-99); Potassium 4.6 mmol/L (3.5-5.1); Sodium 140 mmol/L (135-145); eGFR > 60.00
[2025-01-10 11:14] VITALS: BP 93/57
--- NOTE | 2025-01-10 12:18 | W.DCSUMMARY ---
Discharge Summary
Discharge Data
Date of Admission: 01/06/25
Date of Discharge: 01/10/25
-
Pending Results: No
Hospital Course
Mr. Augustine is a 54-year-old male with a medical history of COPD, current smoker, HFimpEF (nonischemic, 55 to 60% 11/25/2024), moderate to severe MR, nonobstructive CAD, and recent hospitalization for respiratory failure requiring intubation who
presented from home with recurrent shortness of breath. EMS was called and found him to be hypoxic to 70% on room air and hypotensive when they arrived. He was placed on CPAP and given sublingual nitro x 2 and brought to the ED for further
evaluation. He was initially hypertensive, hypoxic, and afebrile in the ED. He was placed on BiPAP. Chest x-ray showed pulmonary edema and right lower lobe infiltrate suggesting pneumonia. He was started on nitroglycerin infusion and given IV
Lasix. Cartagena catheter was placed. Blood cultures were drawn and he was started on antibiotics. Labs were significant for leukocytosis of 14,000, potassium of 5.3, and a glucose of 238. Troponin within normal limits. EKG showing
age-indeterminate inferior infarct. He was admitted for management of acute hypoxic respiratory failure due to pulmonary edema and possible pneumonia.
Repeat echocardiogram in 01/06/2025 showed moderately dilated LV with inferolateral akinesis and moderate MR, LVEF 45 to 50% and stage I diastolic dysfunction. This is his third recent hospitalization for CHF. He clinically improved with aggressive
diuresis. He underwent left and right heart cath on 01/08 which showed multiple coronary artery lesions including a 100% occluded left circumflex artery. He underwent PCI with CAIN to left circumflex with restored flow. He tolerated the procedure
well. Initially he was started on Brilinta but then later transitioned to Effient. He will be continued on DAPT with aspirin and Effient and will continue high intensity statin therapy. He was also started on Farxiga. He may need follow-up
catheterization with further PCI if deemed appropriate by his cardiology team. His home spironolactone was held due to mild hyperkalemia which has since resolved. He will need repeat lab work in 1 week and outpatient follow-up with his
plastic top assembler prior to any further medication changes.
He completed a course of antibiotics for possible pneumonia although his respiratory symptoms were most likely related to heart failure exacerbation. He was noted to be hyperglycemic during this admission. His hemoglobin A1c was mildly abnormal at
5.7%. He did have 1 random blood glucose measurement above 200. He will be started on low-dose metformin for diabetic control and should follow-up closely with his primary care physician for further management and dosage adjustments as needed. He
has also been encouraged to quit smoking and a prescription for nicotine patches has been provided.
At time of hospital discharge he was medically stable. He has an appointment to follow-up with cardiology on 01/15/2025.
Gen-AAOx3, NAD
HEENT-NC, AT, anicteric
Neck-supple
CV-reg, no M, +S1/S2
Lungs-lungs clear to auscultation bilaterally, no accessory muscle use
Abd-soft, NT, ND
Musculoskeletal-no edema, no deformity
Skin-warm and dry, right wrist vascular access site clean dry intact
Neuro-grossly non-focal
Psych-anxious, cooperative
Discharge Plan
-
Patient Disposition: Home (Routine Discharge)
Discharge Diagnosis/Procedures: Angioplasty with stent to left circumflex artery
Diet: Low Cholesterol, 2 Gram Sodium and Restrict fluids to 64 oz
Driving Restrictions: No driving for 24 hours
Other Services: Cardiac Rehab
Specialty Instructions: Weigh Daily- Call MD for wt gain/loss 3 lbs overnight/5 lbs in 1 week
Activity Restrictions/Additional Instructions:
Mr. Augustine is a 54-year-old male with a medical history of COPD, current smoker, HFimpEF (nonischemic, 55 to 60% 11/25/2024), moderate to severe MR, nonobstructive CAD, and recent hospitalization for respiratory failure requiring intubation who
presented from home with recurrent shortness of breath. EMS was called and found him to be hypoxic to 70% on room air and hypotensive when they arrived. He was placed on CPAP and given sublingual nitro x 2 and brought to the ED for further
evaluation. He was initially hypertensive, hypoxic, and afebrile in the ED. He was placed on BiPAP. Chest x-ray showed pulmonary edema and right lower lobe infiltrate suggesting pneumonia. He was started on nitroglycerin infusion and given IV
Lasix. Cartagena catheter was placed. Blood cultures were drawn and he was started on antibiotics. Labs were significant for leukocytosis of 14,000, potassium of 5.3, and a glucose of 238. Troponin within normal limits. EKG showing
age-indeterminate inferior infarct. He was admitted for management of acute hypoxic respiratory failure due to pulmonary edema and possible pneumonia.
Repeat echocardiogram in 01/06/2025 showed moderately dilated LV with inferolateral akinesis and moderate MR, LVEF 45 to 50% and stage I diastolic dysfunction. This is his third recent hospitalization for CHF. He clinically improved with aggressive
diuresis. He underwent left and right heart cath on 01/08 which showed multiple coronary artery lesions including a 100% occluded left circumflex artery. He underwent PCI with CAIN to left circumflex with restored flow. He tolerated the procedure
well. Initially he was started on Brilinta but then later transitioned to Effient. He will be continued on DAPT with aspirin and Effient and will continue high intensity statin therapy. He was also started on Farxiga. He may need follow-up
catheterization with further PCI if deemed appropriate by his cardiology team. His home spironolactone was held due to mild hyperkalemia which has since resolved. He will need repeat lab work in 1 week and outpatient follow-up with his
plastic top assembler prior to any further medication changes.
He completed a course of antibiotics for possible pneumonia although his respiratory symptoms were most likely related to heart failure exacerbation. He was noted to be hyperglycemic during this admission. His hemoglobin A1c was mildly abnormal at
5.7%. He did have 1 random blood glucose measurement above 200. He will be started on low-dose metformin for diabetic control and should follow-up closely with his primary care physician for further management and dosage adjustments as needed. He
has also been encouraged to quit smoking and a prescription for nicotine patches has been provided.
At time of hospital discharge he was medically stable. He has an appointment to follow-up with cardiology on 01/15/2025.
Stand Alone Forms: DC Instructions- Cath/EP Lab
Referrals:
Kenny Armijo MD [Active] - in two to three weeks
Kassy Levine PA-C [Specified Professional Personl] - 01/15/25 7:40 am (You have a follow up visit with Dr. Brennan's PA, Kassy Levine, at the [place] office. Please call with questions. )
UNKNOWN - PT DOES,NOT KNOW [Family Provider] -
Prescriptions:
New
dapagliflozin propanediol [Farxiga] 10 mg tablet
10 mg PO DAILY Qty: 30 11RF
prasugrel HCl 10 mg Tablet
10 mg PO DAILY Qty: 30 11RF
nicotine 14 mg/24 hr Patch 24 Hour
14 mg transdermal DAILY Qty: 28 0RF
aspirin 81 mg capsule
81 mg PO DAILY Qty: 30 0RF
metformin 500 mg tablet
500 mg PO DAILY Qty: 30 0RF
Continued
atorvastatin 40 mg tablet
40 mg PO DAILY
carvedilol 6.25 mg tablet
6.25 mg PO BID
lisinopril 5 mg Tablet
5 mg PO DAILY Qty: 30 0RF
Changed
furosemide 40 mg tablet
40 mg PO BID Qty: 30 0RF
Held
spironolactone 25 mg Tablet
12.5 mg PO DAILY 30 Days Qty: 15 0RF
Hold Instructions: Hold until repeat lab work and follow-up with your plastic top assembler
Discontinued
ibuprofen 200 mg Tablet
1,000 mg PO HSPRN PRN (Reason: mild pain)
Discharge Orders:
Discharge Patient (As Directed); Ordered 01/10/25
Ordered By: Jose Arciniega
Care Plan Goals
Care Plan Goals:
Problem: Readiness for enhanced knowledge related to diagnosis and treatment plan
Goal: Understand your diagnosis and treatment plan needs, including medications if applicable.
Instructions: Know your diagnosis, underlying causes and treatment plan options, including medications if applicable. Consult with your health care team to learn about your diagnosis and treatment plan, including medications if applicable.
Discharge Date and Time
Print Language: TRISTANIAN
--- NOTE | 2025-01-10 12:56 | PTCARENOTE ---
Assumed care of pt from window dresser RN. JORDANOx3. NSR on quality assurance monitor body. R radial and R brachial sites CDI. RUE neurovascular checks WDL. Assessment documented. Plan for discharge home today.
== END 2025-01-10 13:19 | disposition home or self-care (01) | DRG 321 ==
LOC: IVU 08:01
PROVIDERS: Internal Medicine Interventional Cardiology; Physician Assistant; ADMITTING PHYSICIAN Internal Medicine; CONSULT PHYSICIAN Internal Medicine Cardiovascular Disease; CONSULT PHYSICIAN Internal Medicine Critical Care Medicine; EMERGENCY PHYSICIAN Emergency Medicine
PROC: 5A09357 Assistance with Respiratory Ventilation, Less than 24 Consecutive Hours, Continuous Positive Airway Pressure (ICD-10-PCS; 2025-01-06)
PROC: B2111ZZ Fluoroscopy of Multiple Coronary Arteries using Low Osmolar Contrast (ICD-10-PCS; 2025-01-08)
PROC: 027034Z Dilation of Coronary Artery, One Artery with Drug-eluting Intraluminal Device, Percutaneous Approach (ICD-10-PCS; 2025-01-08)
PROC: B240ZZ3 Ultrasonography of Single Coronary Artery, Intravascular (ICD-10-PCS; 2025-01-08)
PROC: 4A023N8 Measurement of Cardiac Sampling and Pressure, Bilateral, Percutaneous Approach (ICD-10-PCS; 2025-01-08)
DX: I11.0 Hypertensive heart disease with heart failure (principal); I50.23 Acute on chronic systolic (congestive) heart failure; J96.01 Acute respiratory failure with hypoxia; J18.9 Pneumonia, unspecified organism; J44.0 Chronic obstructive pulmonary disease with (acute) lower respiratory infection; F17.210 Nicotine dependence, cigarettes, uncomplicated; I25.10 Atherosclerotic heart disease of native coronary artery without angina pectoris; I08.0 Rheumatic disorders of both mitral and aortic valves; E11.65 Type 2 diabetes mellitus with hyperglycemia; I42.8 Other cardiomyopathies; R68.0 Hypothermia, not associated with low environmental temperature; E87.5 Hyperkalemia; I95.9 Hypotension, unspecified; E78.00 Pure hypercholesterolemia, unspecified; I25.2 Old myocardial infarction; Z11.52 Encounter for screening for COVID-19
CPT/HCPCS: 51702; 71045; 71046; 76937; 80048; 80053; 80061; 80306; 80307; 82805; 82962; 83036; 83605; 83735; 83880; 84100; 84484; 85025; 85347; 87040; 87641; 87811; 92978; 93005; 93306; 93460; 94640; 94660; 96365; 96366; 96367; 96375; 99291; C1725; C1769; C1874; C1894; C9600; J0153

== ENCOUNTER → 2025-04-22 08:01 | Outpatient (REF) | payer OTHER, SELFPAY | LOC: RCS 08:01 | PROVIDERS: ATTENDING PHYSICIAN Physician Assistant; FAMILY PHYSICIAN Physician Assistant Medical | DX: I50.32 Chronic diastolic (congestive) heart failure (principal) | CPT/HCPCS: 93306 ==

== ENCOUNTER 2025-06-02 09:23 | Inpatient (IN) | payer OTHER, SELFPAY ==
[2025-06-02] VITALS (25 sets, daily range): BP systolic 101–190; BP diastolic 63–134; PULSE 2–103; BMI 31.2; BMI 29.0
--- NOTE | 2025-06-02 06:39 | ED.GENMED ---
History of Present Illness
General
Chief Complaint: Breathing Problem
Source: patient and ambulance crew
Exam Limitations: none
Time Seen by Provider: 06/02/25 06:38
Nursing documentation reviewed up to this point in time: agreed with
History of Present Illness
History of Present Illness:
Note:
CHIEF COMPLAINT(S)
Shortness of breath and respiratory distress
HISTORY OF PRESENT ILLNESS
The patient is a 54-year-old male with a past medical history significant for hypertension, who presents with worsening shortness of breath and general respiratory distress. The respiratory issues are reported to have increased significantly, with
the patients respiratory rate fluctuating between 35 to 40 breaths per minute. The patient reports waking up around 5:30 AM with these symptoms. Blood pressure was last recorded at 150/84 mmHg. The patient was placed on bipap which provides some
relief, but the respiratory distress persists.
CHRONIC MEDICAL CONDITIONS SIGNIFICANTLY AFFECTING CARE
- Hypertension
SOCIAL HISTORY
The patient reports past use of marijuana. No current use of tobacco or other substances was specifically discussed.
REVIEW OF SYSTEMS
- Respiratory: Worsening shortness of breath, respiratory rate elevated, reported relief with CPAP.
- Cardiovascular: Known history of hypertension. Last blood pressure reading was 150/84 mmHg.
PHYSICAL EXAM
General: Alert but in some respiratory distress.
Skin: Warm, dry.
Head: Normocephalic, atraumatic.
Neck: Supple, trachea midline.
Eye Ears, nose, mouth and throat: Oral mucosa moist.
Cardiovascular: Normal peripheral perfusion, No edema, hypertensive history.
Respiratory: Respiratory distress noted, respiration rate reported elevated.
Gastrointestinal: Abdomen nondistended.
Back: Normal range of motion, Normal alignment.
Musculoskeletal: Normal range of motion, normal strength.
Neurological: Alert and oriented to person, place, time, and situation, No focal neurological deficit observed.
Psychiatric: Cooperative, appropriate mood & affect.
PLAN
- Considering the respiratory distress and elevated blood pressure, diuretics such as furosemide (Lasix) may be administered to alleviate symptoms.
- Monitor respiratory status and blood pressure closely.
- Continued use of CPAP for respiratory support is recommended.
DIFFERENTIAL DIAGNOSIS
The Differential Diagnosis includes, in no particular order and is not limited to:
1. Congestive Heart Failure
2. Chronic Obstructive Pulmonary Disease Exacerbation
3. Pulmonary Edema
4. Acute Respiratory Distress Syndrome
5. Pulmonary Embolism
6. Asthma
7. Pneumonia
8. Myocardial Infarction
9. Anxiety with Hyperventilation
10. Pneumothorax
CARE-UPDATE
06/02/25 - 07:30
Patient exhibits improvement with bi-PAP therapy, intravenous Lasix, and IV nitroglycerin drip. Admission to hospitalists is underway for continued management. Current therapies are resulting in stabilization of pulmonary symptoms. Monitor
respiratory status and continue current treatment regimen.
EKG
My independent EKG interpretation is:
- Time of EKG: Not provided
- Rhythm: Not specified
- Heart rate: 103 bpm
- Notable intervals: Not specified
- [place]: Not specified
- Abnormalities observed: Occasional PVCs (Premature Ventricular Contractions), nonspecific ST changes, and 'more cure us' (possibly a lubrication servicer error; clarification needed)
Disposition:
SUMMARY OF ENCOUNTER
The patient, a 54-year-old male with a history of hypertension, presented to the emergency department with worsening shortness of breath and respiratory distress. The patients respiratory rate fluctuated significantly, leading to acute respiratory
symptoms and the need for immediate medical intervention. The patient was admitted to the ICU, with a primary diagnosis consideration of congestive heart failure (CHF) exacerbation and potential acute respiratory failure. Management included the
administration of intravenous furosemide (Lasix) and continued respiratory support via bi-level positive airway pressure (BiPAP).
DISPOSITION
Admission to the hospital with ongoing management of pulmonary symptoms and monitoring in the ICU.
ASSESSMENT
The acute presentation is likely due to congestive heart failure exacerbation and potential chronic obstructive pulmonary disease exacerbation contributing to respiratory failure. Considerations include pulmonary edema and other differential
diagnoses such as asthma or pulmonary embolism.
EMERGENCY TREATMENTS ADMINISTERED
Intravenous furosemide (Lasix) and BiPAP therapy were utilized to manage the respiratory distress and fluid overload, typical of CHF exacerbation.
PLAN
Admit the patient to the ICU for continued management and monitoring. Continued use of BiPAP therapy is advised to support respiratory function. Monitor the patients fluid status and effect of IV furosemide closely. Evaluate for further
cardiovascular assessment and imaging if needed.
INDEPENDENT REVIEW OF LABS AND INTERPRETATION OF TESTS
My independent EKG interpretation is:
- Heart rate: 103 bpm
- Notable findings include occasional premature ventricular contractions (PVCs) and nonspecific ST changes.
MEDICAL DECISION MAKING
-Complexity of Data Reviewed: Chronic conditions affecting care include hypertension and potential CHF exacerbation. Differential diagnoses considered are CHF, COPD exacerbation, pulmonary edema, ARDS, pulmonary embolism, asthma, pneumonia,
myocardial infarction, anxiety with hyperventilation, and pneumothorax.
-Data:
Category 1
No explicit labs ordered in the emergency department were mentioned; however, additional diagnostics relevant to COPD and CHF exacerbation would have been considered.
Category 2
My independent interpretation of EKG reveals occasional PVCs and nonspecific ST changes.
Category 3
Management discussed with the hospitalist team for admission to the ICU and ongoing care.
DIAGNOSIS
1. Acute Congestive Heart Failure Exacerbation - ICD-10: I50.9
2. Acute Respiratory Failure - ICD-10: J96.00
3. Chronic Obstructive Pulmonary Disease Exacerbation - ICD-10: J44.1
Past History
Past History
ED Past Medical History: COPD, HTN, Hypercholesterolemia and CA
ED Past Surgical History: Appendectomy and Orthopedic (Right wrist surgery)
Social History
Tobacco: Smoker
Alcohol: Occasional
Personal: Single
Living: with family
Employment: Employed
Family History
Family History: Negative Diabetes
Phy Exam
Physical Exam
Physical Exam:
.
Scores
Heart Failure Risk
Heart Failure Risk Score: Yes
History of Stroke or TIA: No
History of intubation for respiratory distress: No
Heart rate on ED arrival >/= 110: No
SaO2 <90% on arrival on room air: Yes
HR >/=110 during 3min walk test (or too ill to perform test): Yes
ECG has acute ischemic changes: No
Urea >/=12mmol/L (BUN 33.6mg/dL): No
Serum CO2>/=35mmol/L: No
Troponin I or T elevated to CA Level (0.4mg/dL): No
NT-proBNP >/=5,000ng/L (5,000pg/ml): No
HF Risk Score: 3
Admission Status: HIGH RISK 15.9% Consider SNF treatment or admission to hospital
Course
Orders/Labs/Results
Orders:
Orders
06/02/25 06:34
Electrocardiogram (*1) Urgent
Reason for Study: Other
Other Reason for Exam: Respiratory Distress
Cardiac Monitoring- Treatment ONCE
EKG- Treatment ONCE
IV Insert/Care/Rem.- Treatment PRN
CR Chest Portable - 1 View Urgent
Comment:
Reason For Exam: respiratory distress
Reason Study Needs to be Portable: Patient Unstable
O2 Therapy [RESP] Urgent
Titrate/Wean O2 to maintain O2 sat greater than (%): 93
Special Instructions: TO MAINTAIN CONTINUOUS O2 SATS >/= 93%
Pulse Ox/cont/shift [RESP] Urgent
Quantity: 1
Special Instructions: continuous pulse ox
06/02/25 06:42
Complete Blood Count/With Diff Urgent
Comprehensive Metabolic Panel Urgent
NT-proBNP Urgent
Troponin I Urgent
06/02/25 06:43
Nitroglycerin Ointment [Nitro-Bid] 1 inch .ROUTE .STK-MED ONE
06/02/25 06:44
Furosemide [Lasix] 40 mg .ROUTE .STK-MED ONE
Nitroglycerin 100 mg/250 ml [Nitroglycerin Premix] 100 mg in 250 ml .ROUTE .STK-MED
Nitroglycerin 100 mg/250 ml [Nitroglycerin Premix] 100 mg in 250 ml .ROUTE .STK-MED
Nitroglycerin 100 mg/250 ml [Nitroglycerin Premix] 100 mg in 250 ml IV NOW
Initial dose in mcg/min, then titrate:: 10
Titrate to keep:: SBP < 160 mmHg
Titrate by mcg/min:: 5 mcg/min, may increase by 10 mcg/min if dose > 20 mcg/min
Frequency of titrations (minutes):: every 3-5 minutes
Maximum dose in mcg/min:: 200
Begin to taper infusion when:: Remained at goal for 2hrs
Taper by mcg/min:: 5 mcg/min
Frequency of taper (minutes) if patient maintains goal:: 30
Taper to off?: Yes
If infusion off & no longer maintaining goal:: Contact Provider
06/02/25 06:47
Furosemide [Lasix] 40 mg IV NOW STA
06/02/25 06:49
Cartagena Placement- Treatment ONCE
Reason for insertion: I&O's Critical Care
06/02/25 07:27
Dexamethasone Sod Phosphate [Decadron] 10 mg IV NOW STA
Ipratropium/Albuterol Sulfate [Duoneb] 3 ml INH R NOW STA
06/02/25 07:45
Morphine Sulfate 4 mg IV NOW STA
Ondansetron Injectable [Zofran] 4 mg IV NOW STA
06/02/25 07:46
Morphine Sulfate 4 mg .ROUTE .STK-MED ONE
06/02/25 08:53
Admit/Transfer Patient As Directed
Co-Sign Provider:
Level of Care: Inpatient admission
Assign to:: IMU- Intermediate Care
Physician / Group: Hospitalist
Diagnosis: Acute Respiraotory failure
Reason for Hospitalization: CHF exacerbation
Expected length of stay greater than two midnights?: Yes
ELOS- Estimated Length of Stay in days: 4
I certify the patient meets the requirements for IP care: Yes
PRN Pain Medication Management As Directed
May give lesser potent ordered pain med per pt: Yes
preference::
Protocol:: Medication orders for pain may be administered in a
manner that supports deferring to patient preference
when the pt is:
- Requesting an ordered lesser potent pain medication.
Least to most potent pain medications are defined
as: acetaminophen < NSAID < tramadol < opioids
(morphine, oxycodone, hydromorphone).
- Requesting a lesser dose of the same medication IF
ORDERED.
- Requesting a less intrusive route of administration
if both routes are prescribed by the provider (PO <
IV).
06/02/25 08:55
Code Status As Directed
Resuscitation Status: Full Code
06/02/25 10:36
HF DIETARY CONSULT Routine
HF EDUCATOR CONSULT Routine
Comment:
Activity As Directed
Activity Level: As Tolerated
Intake/ Output As Directed
Frequency: Per unit guidelines
Notify MD As Directed
Notify physician if: Bridge Admission orders placed.
Notify attending physician:
-- upon arrival to unit
OR
-- when patient is identified as an ED hold
Patient Education As Directed
Type: CHF folder
Comment: give on admission. Document in Interdisciplinary Education record
Sleep Apnea Assessment by RN As Directed
Comment:
Physician Instructions:
Vital Signs As Directed
Frequency: Per unit guidelines
Weight As Directed
Frequency: Daily
Type of Scale: Standing Scale
Comment: Daily morning weight. If unable to stand, use balanced bed scale.
Weight As Directed
Frequency: Once
Type of Scale: Standing Scale
Comment: Upon Admission. If unable to stand, use balanced bed scale.
O2 Therapy [RESP] Routine
Titrate/Wean O2 to maintain O2 sat greater than (%): 92
Pulse Ox/cont/shift [RESP] Routine
Quantity: 1
Special Instructions: Daily pulse oximetry at rest. If greater than 92% at rest also obtain pulse oximetry
while ambulating as tolerated.
DX Deep Vein Thrombosis Video Routine
06/02/25 20:00
Carvedilol [Coreg] 6.25 mg PO BID
Heparin 5,000 units SC Q12
06/03/25 06:00
Complete Blood Count/No Diff IN AM
Comprehensive Metabolic Panel IN AM
Magnesium IN AM
06/03/25 08:00
Atorvastatin [Lipitor] 40 mg PO DAILY
Dapagliflozin [Farxiga] 10 mg PO DAILY
Lisinopril [Zestril] 5 mg PO DAILY
Prasugrel Hydrochloride [Effient] 10 mg PO DAILY
aspirin 81 mg PO DAILY
Abnormal Lab Results
06/02/25
06:42
WBC 12.9 H 10^3/uL
(4.8-10.8)
RBC 6.54 H 10^6/uL
(4.70-6.10)
Hgb 18.6 H g/dL
(13.0-18.0)
Hct 57.5 H %
(39.0-52.0)
MCHC 32.3 L g/dL
(33.0-37.0)
MPV 10.5 H fL
(7.4-10.4)
Absolute Lymphs (auto) 3.8 H 10^3/uL
(1.2-3.4)
Absolute Monos (auto) 0.9 H 10^3/uL
(0.1-0.6)
Absolute Eos (auto) 2.2 H 10^3/uL
(0-0.7)
Eosinophils % 17.0 H %
(0-6)
Chloride 113 H mmol/L
(98-107)
BUN 22 H mg/dl
(9-20)
Glucose 210 H mg/dl
(70-99)
Alkaline Phosphatase 134 H U/L
(38-126)
06/02/25 06:42
06/02/25 06:42
Vital Signs
Initial and Last Documented VS:
Initial Vital Signs
Pulse Ox
98
06/02/25 06:33
Last Documented Vital Signs
Temp Pulse Resp BP Pulse Ox
97.5 F 90 18 141/90 93
06/02/25 11:00 06/02/25 13:00 06/02/25 13:00 06/02/25 12:00 06/02/25 13:18
*Pulse Oximetry
Patient hypoxic: yes
*Critical Care Note
Total Time (30-74mins, 75-104mins- exclusive of procedures): 32
comment:
Critical care statement: A total of 32 minutes of critical care time was provided for this patient. This includes management of unstable vital signs, evaluation of the patient at bedside, reviewing the patient's pertinent medical records, discussion
with consultants, review of old EKGs and review of pertinent medical records. This time with separate from time utilized to perform the aforementioned documented procedures
ED Attending Note
-
Portions of this chart may have been created with voice recognition software.� Occasional wrong word or��sound alike� substitutions may have occurred due to the inherent limitations of voice recognition software.
Discharge Plan
Departure
Patient Disposition: Admit
Date of Disposition: 06/02/25
Time of Disposition: 07:24
Admit to: ICU
Presentation/result/management discussed w/ accepting MD/DO: Hospitalist
Patient with high blood pressure during this ER visit?: Yes
Condition: Fair
Discharge Problem:
Acute exacerbation of CHF (congestive heart failure), Chronic obstructive pulmonary disease with acute exacerbation
Interventions
Interventions:
*Risk Screen - Suicide Last Done: 06/02/25 06:52
*General Assessment Last Done: 06/02/25 06:51
*Neglect/Abuse Screening Last Done: 06/02/25 06:52
*ED- Fall Risk Assessment Last Done: 06/02/25 06:50
*ED COVID-19 Vaccine History Last Done: 06/02/25 06:50
*Nursing Disposition Last Done: 06/02/25 10:30
ED- Cardiac Assessment Last Done: 06/02/25 06:54
ED- Pulmonary Assessment Last Done: 06/02/25 07:00
Discharge Date and Time
Discharge Date/Time: 06/02/25 10:30
[2025-06-02] MEDS: NITROGLYCERIN PREMIX 250 IV (06:47)
[2025-06-02] MEDS: LASIX 40 MG IV ×2 (06:49→16:23)
[2025-06-02 07:16] LABS: ALT (SGPT) 18 U/L (0-50); AST (SGOT) 22 U/L (17-59); Albumin 4.7 g/dl (3.5-5.0); Alkaline Phosphatase 134 U/L (38-126); Blood Urea Nitrogen 22 mg/dl (9-20); Calcium 9.4 mg/dl (8.4-10.2); Carbon Dioxide 22 mmol/L (22-30); Chloride 113 mmol/L (98-107); Estimated Creatinine Clearance 111 ml/min; Glucose 210 mg/dl (70-99); Potassium 4.5 mmol/L (3.5-5.1); Sodium 143 mmol/L (135-145); Total Protein 7.7 g/dl (6.3-8.2); eGFR > 60.00
[2025-06-02 07:18] LABS: Hematocrit 57.5 % (39.0-52.0); Hemoglobin 18.6 g/dL (13.0-18.0); Mean Corp Hgb Conc. 32.3 g/dL (33.0-37.0); Mean Corpuscular Volume 87.9 fL (80.0-94.0); Platelet Count 291 10^3/uL (130-400); Red Cell Dist. Width 13.3 % (11.5-14.5)
[2025-06-02 07:21] LABS: Troponin I < 0.012 ng/ml
[2025-06-02] MEDS: MORPHINE SULFATE 4 MG IV (07:47)
[2025-06-02] MEDS: DUONEB 3 ML INH (07:48)
[2025-06-02] MEDS: ZOFRAN 4 MG IV (07:48)
[2025-06-02] MEDS: DECADRON 10 MG IV (07:48)
[2025-06-02 09:31] LABS: Nucleated Red Blood Cells % 0 % (-)
--- NOTE | 2025-06-02 10:13 | CM ---
CM reviewed chart, attempted to speak with pt but he is currently on Bipap, information obtained from last admission.
Lives with his in 2 story home, has first floor full BA, full flight of steps to 2nd floor BF.
Independent in ADLs, personal care and ambulation at baseline. Still working and driving.
Has nebulizer at home, no hx VN or SNF
PCP: Laura Monaco
Pharmacy: [facility] in [place]
CM will continue to follow for all discharge planning needs.
--- NOTE | 2025-06-02 10:20 | HPS.HSE ---
Family Physician
-
Family Physician: NOT KNOW UNKNOWN - PT DOES
Chief Complaint
-
shortness of breath
History of Present Illness
54-year-old male with nonischemic cardiomyopathy with recovered EF, HFmrEF, COPD, HTN, HLD, CAD s/p ND
he woke up with dyspnea, and felt that it progressively worsened.
no changes to his routine, denies any recent illnesses or sick contacts, denies and medication changes
PMH n/f a previous admission that required intubation in december of this year
In the ED, o2sat 98%, HR 101, tachypeic to 28
BP 176/115
He is now on BIPAP
And received lasix 40mg IV. nitroglycerin drip; now stopped
duonebs/corticosteroids
Medical History
Past Medical History
Past Medical History: Reports Other
Additional Past Medical History:
HFmrEF, COPD, HTN, HLD, CAD s/p ND
Past Surgical History: Reports Other
Social History
Tobacco: Smoker (10 cigarettes/day)
Alcohol: None
Drug: None
Personal:
Living: With Family
Family History
Family History: Not pertinent
Allergies / Home Medications
Allergies reflects when Allergies were last updated in [facility].
Home Medications with original date entered in [facility]
Allergy/Medication List:
Allergies
Allergy/AdvReac Type Severity Reaction Status Date / Time
No Known Allergies Allergy Verified 11/24/24 07:44
Home Medications
atorvastatin 40 mg tablet 40 mg PO DAILY High cholesterol 10/04/24
carvedilol 6.25 mg tablet 6.25 mg PO BID Blood pressure 10/04/24
lisinopril 5 mg tablet 5 mg PO DAILY Blood pressure #30 tabs 11/27/24
dapagliflozin propanediol 10 mg tablet (Farxiga) 10 mg PO DAILY Heart Failure #30 tabs 01/06/25
prasugrel HCl 10 mg tablet 10 mg PO DAILY Heart disease/condition #30 tabs 01/09/25
furosemide 40 mg tablet 40 mg PO BID Fluid retention/Swelling #30 tabs 01/10/25
aspirin 81 mg capsule 81 mg PO DAILY Heart Disease/Condition 06/02/25
metformin 500 mg tablet 500 mg PO DAILY Diabetes 06/02/25
Review of Systems
-
History Source: Patient
Respiratory: Reports Trouble Breathing
Cardiac: Reports No Symptoms
Abdomen/GI: Reports No Symptoms
Skin: Reports Other (excoriations on legs)
Physical Exam
Vital Signs
Vital Signs
Temp Pulse Resp BP Pulse Ox
97.7 F 74 15 129/82 97
06/02/25 06:35 06/02/25 08:45 06/02/25 08:45 06/02/25 08:45 06/02/25 08:45
Physical Exam
General: Respiratory Distress
HEENT: NormoCephalic
Respiratory: Wheezes
Cardiac: Regular Rhythm and Other (no murmurs)
GI: Soft and Non Tender
Musculoskeletal: No Edema
Neuro: Awake and Alert
Psych: Calm
Laboratory Results
-
06/02/25 06:42
06/02/25 06:42
Laboratory Results
Total Bilirubin 0.8 mg/dl (0.2-1.3) 06/02/25 06:42
AST 22 U/L (17-59) 06/02/25 06:42
ALT 18 U/L (0-50) 06/02/25 06:42
Alkaline Phosphatase 134 U/L (38-126) H 06/02/25 06:42
Troponin I < 0.012 ng/ml 06/02/25 06:42
EKG 06/02/2025:
Vent. Rate : 103 BPM Atrial Rate : 103 BPM
P-R Int : 154 ms QRS Dur : 110 ms
QT Int : 348 ms P-R-T Axes : 44 -20 79 degrees
QTcB Int : 455 ms
SINUS TACHYCARDIA WITH OCCASIONAL PREMATURE VENTRICULAR COMPLEXES
POSSIBLE LEFT ATRIAL ENLARGEMENT
BORDERLINE ECG
WHEN COMPARED WITH ECG OF 09-Jan-2025 04:40,
PREMATURE VENTRICULAR COMPLEXES ARE NOW PRESENT
VENT. RATE HAS INCREASED by 36 bpm
CXR pulmonary vasculature prominent
Echocardiogram from April 2025
FINDINGS
Left Ventricle
Left ventricle is moderately dilated. Mild concentric left ventricular
hypertrophy. Mildly reduced left ventricular systolic function. Inferolateral
akinesis. Inferior and lateral hypokinesis. Left ventricular ejection fraction
is 45-50% by Gardner's method of discs. Stage I diastolic dysfunction
suggestive of abnormal relaxation.
Impression/Plan
-
IMPRESSION:
54 yo M PMH p/w dyspnea concerning for acute hypoxic respiratory failure likely attributed to acute exacerbation of HFmrEF and/or AECOPD.
# Acute exacerbation of HFmrEF
- EF was 45-50% in April 2025
- CXR this admission shows pulmonary interstitial edema
- furosemide 40mg IV bid
- continue Farxiga, carvedilol
- cardiology consult
- fluid restriction
# Acute respiratory failure
- on BIPAP; in previous admission required intubation for respiratory failure
- tachypnea
- monitor signs of respiratory fatigue
# acute exacerbation COPD
- bipap
- continue furosemide
- duonebs prn, corticosteroids; prednisone 40mg (06/02 is Day #1)
- defer abx for now, but monitor for any sputum production/changes in VS
# Hypertension
- continue lisinopril
- continue carvedilol
- hydralazine 10mg prn ordered
# Leukocytosis
- likely reactive
- afebrile
- monitor WBC
# Polycythemia
- unclear whether primary or secondary (likely the latter given smoking history and COPD diagnosis)
- can consider outpatient workup for a primary polycythemia upon discharge
- monitor CBC
#Chronic issues per below
# Diabetes mellitus
- hold metformin
- start sliding scale insulin
- carb controlled diet
# HLD
- continue statin
# CAD
- continue aspirin
DVT ppx:
- prasugrel, SCDs
[2025-06-02 10:55] LABS: Glucose - Point of Care 113 mg/dl (70-99)
--- NOTE | 2025-06-02 11:08 | PTCARENOTE ---
Pt rec'd from ED, IMU orders noted. Plan discussed with patient, questions answered. Orders reviewed-Nitro gtt dc'd per previous order. Pt with gomez in place draining clear yellow urine. Vitals and assessment as documented, please see flowsheet.
Call randall in hand. Safe environment maintained.
--- NOTE | 2025-06-02 12:17 | PTCARENOTE ---
diet ordered by attending, 2200 dd, jason removed. pt ordering meal at this time. order clarified re: fluid restriction.
--- NOTE | 2025-06-02 12:41 | W.PN.UPDATE ---
Update Note
Progress Note Update
54-year-old male with HFmrEF due to NICM, CAD s/p LCx PCI, COPD, HTN, HLD, current tobacco use, presented to the hospital today with shortness of breath and respiratory distress. Patient awoke near 5:30 AM with the symptoms, had worsening breathing
at let him to come to the ED. In the ED was hypoxemic requiring BiPAP with improvement, hypertensive with BP 190/134 mmHg, though otherwise stable and afebrile. Labs with WBC 12.9, hemoglobin 18.6, BNP 983. Initial troponin negative, ECG
unremarkable for acute ischemic findings. Chest x-ray showing pulmonary edema bilaterally on my prelim read, final read pending. Was given 10 mg Decadron, 40 mg IV Lasix, DuoNeb x 1 and started on nitroglycerin drip in the ED. Blood pressure
subsequently improved
AAO x 4, NAD on BiPAP. Bibasilar crackles though otherwise clear to auscultation. RRR without murmurs or gallops, normal S1 and 2. Benign abdomen with obese habitus. Trace LE edema, palpable pulses, distal extremities warm and well-perfused. No
focal deficits or cranial nerve deficits noted
Acute hypoxemic respiratory failure. Multifactorial with COPD, decompensated HFmrEF, hypertensive emergency with flash edema. Started on to BiPAP and nitroglycerin drip in the ED, as well as Lasix and steroid/bronchodilators for COPD. Continue
with multimodal management. IV Lasix 40 BID and trend I/O's and weights. Continue Decadron at 6 mg daily, RTC bronchodilators. Continue with nitroglycerin drip and wean as able back to home oral regimen. SpO2 goal 88 to 94% with COPD. Encourage
smoking cessation, nicotine patches ordered. PRN hydralazine for SBP goal < 160.
Elevated hemoglobin, 18.6. Suspect secondary polycythemia with his smoking history though cannot rule out primary etiology, JAK2/URIEL-R mutation. Encourage smoking cessation and provide nicotine patch as above. Trend CBC here, consider outpatient
testing for JAK2 and CALR
No added salt, carb controlled diet
SQ Lovenox, caution for bleed with prasugrel
Full code
I will be admitting Lalo Augustine to IMU. He is at high risk for worsening morbidity due to decompensation of his respiratory status. He will require intensive monitoring of his respiratory status, readjustment of his home pulmonary regimen as well
as diuretic regimen. I have discussed this case with the ED attending. I have reviewed the case with the resident and agree with all documentation unless otherwise specified.
--- NOTE | 2025-06-02 13:52 | CON.INTV ---
Consultation
Consultation Request
Date/Time Consultation Requested: 06/02
Date/Time Consultation Performed: 06/02
Reason for Consultation: Respiratory failure
Medical History
-
History of Present Illness:
History obtained from the chart and also from the patient. Patient is a 54-year-old male with history of COPD, nonischemic cardiomyopathy with history of heart failure, severe mitral valvular disease who was recently hospitalized in December 2024 with
hypoxic respiratory failure requiring intubation. Patient was hospitalized for 4 days, discharged to follow-up with pulmonary and cardiology. Unfortunately he has not followed up with pulmonary. He states he has been chronically short of breath
for 2 years. He suddenly became short of breath overnight, woke up around 5:30 in the morning. He denied chest pain, arm pain, jaw pain, nausea, abdominal pain. EMS was called. He was placed on a BiPAP and brought to [facility] where
upon arrival, afebrile, 98%. Chest x-ray suggested heart failure as did ED exam. Patient was given IV Lasix and maintained on BiPAP, pulmonary was asked to see urgently.
Presently, patient feels 'great'. He denies chest pain, shortness of breath, nausea at this time. He has a mild cough but no hemoptysis. He states prior to yesterday he was feeling fine without any respiratory issues. When asked why he thinks he
retained fluid, he states this because he drank at least a gallon of water on Monday work 15 hours at [employer] and it was hot and humid. He denies excessive salt intake
.
PMH: History of heart failure nonischemic with EF improvement from 30% to 50%, nonischemic, hypertension, hypercholesterolemia, history of COPD, history of renal insufficiency in the past, history of coronary disease with stent in the left
circumflex in the past
Past Medical History
Past Medical History: None (See above)
Past Surgical History: None (See above)
Social History
Tobacco: Smoker ([id number] history of smoking continues to smoke has cut down from 1.5 packs to 8 cigarettes, smoked for 35 years)
Alcohol: Occasional
Drug: None
Personal:
Living: With Family
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
Family History
Family History: Other (9 siblings healthy. 1 with head and neck cancer. No children. Father at age 78 from COPD, mother at 63 from sepsis)
Allergies / Home Medications
Allergies
Allergy/AdvReac Type Severity Reaction Status Date / Time
No Known Allergies Allergy Verified 11/24/24 07:44
Home Medications
�Medication �Instructions �Recorded �Confirmed �Last Taken �Type
atorvastatin 40 mg tablet 40 mg PO DAILY High cholesterol 10/04/24 06/02/25 01/05/25 History
carvedilol 6.25 mg tablet 6.25 mg PO BID Blood pressure 10/04/24 06/02/25 01/05/25 History
lisinopril 5 mg tablet 5 mg PO DAILY Blood pressure #30 11/27/24 06/02/25 01/05/25 Rx
tabs
dapagliflozin propanediol 10 mg 10 mg PO DAILY Heart Failure #30 01/06/25 06/02/25 Unknown Rx
tablet (Farxiga) tabs
prasugrel HCl 10 mg tablet 10 mg PO DAILY Heart 01/09/25 06/02/25 Unknown Rx
disease/condition #30 tabs
furosemide 40 mg tablet 40 mg PO BID Fluid 01/10/25 06/02/25 Unknown Rx
retention/Swelling #30 tabs
aspirin 81 mg capsule 81 mg PO DAILY Heart 06/02/25 06/02/25 Unknown History
Disease/Condition
metformin 500 mg tablet 500 mg PO DAILY Diabetes 06/02/25 06/02/25 Unknown History
Review of Systems
-
All other systems: Negative unless noted
Vitals / Labs / Diagnostic Testing
Vital Signs
Temp Pulse Resp BP Pulse Ox
97.5 F 90 18 141/90 93
06/02/25 11:00 06/02/25 13:00 06/02/25 13:00 06/02/25 12:00 06/02/25 13:18
Lab Data
06/02/25 06:42
06/02/25 06:42
Diagnostic Testing:
Physical Exam
-
HEENT: Normocephalic, Anicteric and Other (Missing some teeth)
Cardiovascular: S1/S2, Regular Rhythm, Murmur (n), Rub (n) and Peripheral Edema (tr)
Respiratory: Wheeze (n), Rales (Few at base), Rhonchi and Other (Bronchial)
GI: Soft, Non Distended and Non Tender
Neurology: Awake, Alert, Oriented and No Motor Deficits
Skin: Other (No clubbing, no cyanosis)
General: Comfortable
Assessment
-
54-year-old male with history of nonischemic cardiomyopathy with improved EF to 50%, hypertension, significant smoking history ongoing with history of coronary disease, mitral regurgitation, presents with acute onset shortness of breath at 5:30 in
the morning. He required BiPAP with EMS, received Lasix in the ED. Pulmonary was asked to see patient urgently.
Acute hypoxic respiratory failure
Requiring BiPAP
Bilateral infiltrates
Suspect acute congestive heart failure
Elevated hemoglobin, 18.6
Mild leukocytosis
17% peripheral eosinophilia
Hyperglycemia
Conditions present prior to admission
Hx of VDRF, intubated December 2024
Hypercapnic and hypoxic respiratory failure
Hypertension/hyperlipidemia
History of nonischemic cardiomyopathy
EF improved to 45% from 30%, per echo April 2025
Moderate mitral regurgitation
Mild pulm hypertension, PA pressure 32
Coronary disease with history of circumflex stent, 2024
History of renal insufficiency
Appendectomy 1991
50+ pack year history of smoking ongoing
Family history of COPD (father)
Plan/recommendations
At this time, patient appears to be comfortable, has responded to BiPAP and Lasix therapy
Patient admits to drinking excessive fluid on Monday prior to admission.
Chest x-ray with bilateral patchy infiltrates
Patient presented in similar fashion in December but at that time developed hypoxic and hypercapnic respiratory failure requiring intubation
Interestingly, significant peripheral eosinophilia noted with elevated hemoglobin. This is in the setting of patient supposedly drinking 'excessive water'
Moving forward
It is encouraging that patient has improved objectively and subjectively. Presently he is on room air
Notes suggest significant wheezing which seems to have resolved at this time
Patient was given Lasix therapy. This will continue
Cardiology has been consulted
Do not suspect acute COPD exacerbation at this time given rapid improvement
Discontinue prednisone
It is interesting that he has significant peripheral eosinophilia and has had a eosinophilia during prior hospital stays
This does raise the possibility of an inflammatory process. Given his polycythemia, he may benefit from outpatient hematology evaluation
No indication for hematology evaluation at this time acutely
Discussed at length importance of tobacco cessation. Discussed at length with patient risk for lung cancer. He remains high risk
He does qualify for lung cancer screening
Strongly recommend outpatient pulmonary follow-up. Patient has been contacted many times since his hospital stay in December without any return call or pulmonary follow-up
This will be an ongoing discussion
Reviewed above with critical care nursing
We will follow
[2025-06-02] MEDS: LOVENOX 40 MG SC (17:06)
[2025-06-02 17:11] LABS: Glucose - Point of Care 120 mg/dl (70-99)
--- NOTE | 2025-06-02 19:06 | PTCARENOTE ---
Assumed care of pt. approx 1899.
Normocephalic, Mentating appropriately, no neurological deficits noted.
NSR, Normotensive, Normothermic.
RA, vesicular B/L.
Walking unit on monitor, All questions answered, offers no complaints at this time.
[2025-06-02] MEDS: COREG 6.25 MG PO (19:53)
[2025-06-03 00:58] VITALS: BP 116/63
[2025-06-03 02:00] VITALS: BP 150/89
[2025-06-03 03:01] LABS: Hematocrit 47.9 % (39.0-52.0); Hemoglobin 16.4 g/dL (13.0-18.0); Mean Corp Hgb Conc. 34.2 g/dL (33.0-37.0); Mean Corpuscular Volume 83.6 fL (80.0-94.0); Platelet Count 235 10^3/uL (130-400); Red Cell Dist. Width 13.2 % (11.5-14.5)
[2025-06-03 03:03] VITALS: BMI 29.0
--- NOTE | 2025-06-03 03:13 | PTCARENOTE ---
assumed care, Ox3 denies pain, NSR on the monitor + pulses, lungs clear RA 93%, BSx4, voiding in urinal c yellow output, 20G L wrist dressing changed, labs sent, weight obtained, call randall within reach, pt able to make needs known, otherwise refer
to documentation
[2025-06-03 03:25] LABS: ALT (SGPT) 18 U/L (0-50); AST (SGOT) 20 U/L (17-59); Albumin 4.1 g/dl (3.5-5.0); Alkaline Phosphatase 110 U/L (38-126); Blood Urea Nitrogen 30 mg/dl (9-20); Calcium 9.4 mg/dl (8.4-10.2); Carbon Dioxide 27 mmol/L (22-30); Chloride 103 mmol/L (98-107); Estimated Creatinine Clearance 112 ml/min; Glucose 122 mg/dl (70-99); Magnesium 2.0 mg/dl (1.6-2.3); Potassium 4.3 mmol/L (3.5-5.1); Sodium 138 mmol/L (135-145); Total Protein 6.6 g/dl (6.3-8.2); eGFR > 60.00
[2025-06-03 04:00] VITALS: BP 108/65
[2025-06-03 06:00] VITALS: BP 123/63
--- NOTE | 2025-06-03 07:09 | W.PN.HOSP.TC ---
Today's Communication/Plan
-
- transfer to telemetry
- f/u cardiology recommendations
Assessment / Plan
Assessment / Plan
54 yo M PMH p/w dyspnea concerning for acute hypoxic respiratory failure likely attributed to acute exacerbation of HFimpEF
# Acute exacerbation of HFimpEF
- EF was 45-50% in April 2025
- CXR this admission shows pulmonary interstitial edema
- furosemide 40mg IV bid
- continue Farxiga, carvedilol
- cardiology consult
- fluid restriction
- per pulmonary, okay to transfer to telemetry
# Acute hypoxic respiratory failure
- was on BIPAP; in previous admission required intubation for respiratory failure
- tachypnea
- duonebs prn
# Hypertension
- continue lisinopril
- continue carvedilol
- hydralazine 10mg prn ordered
# Leukocytosis
- likely reactive, resolving now to 11.4
- afebrile
- monitor WBC
# Polycythemia
- could be attributed to lab artifact since Hgb is currently within normal limits
- secondary polycythemia may be consistent with smoking history and COPD
- can consider outpatient workup for a primary polycythemia upon discharge
- monitor CBC
#Chronic issues per below
# Prediabetes
- HbA1c 5.8%
- hold metformin
- sliding scale insulin
- carb controlled diet
# HLD
- continue statin
# CAD
- continue aspirin
DVT ppx:
- prasugrel, SCDs, lovenox
- Nicotine patches given smoking history
Anticipated Discharge: 24 - 48 hours
Subjective/Interval History
-
Date of Service: June 03, 2025
feels great, off the mask
Objective Data
-
Labs:
Laboratory Results
06/03/25
02:37
WBC 11.4 H
Hgb 16.4
Hct 47.9
Plt Count 235
Sodium 138
Potassium 4.3
Chloride 103
Carbon Dioxide 27
BUN 30 H
Creatinine 0.9
Glucose 122 H
Calcium 9.4
Total Bilirubin 1.0
AST 20
ALT 18
Alkaline Phosphatase 110
WBC coming down to 11.4
Vital Signs:
Vital Signs
Temp Pulse Resp BP Pulse Ox
98.1 F 67 23 123/63 93
06/03/25 03:04 06/03/25 06:00 06/03/25 06:00 06/03/25 06:00 06/03/25 03:04
I&O
06/02/25 06/03/25 06/04/25
06:59 06:59 06:59
Intake Total 960 / 960
Output Total 5380 / 5380
Balance -4420 / -4420
Review of Systems
-
History Source: Patient
All other systems: Reviewed and negative
Physical Exam
-
General: No Apparent Distress
HEENT: Normocephalic and Atraumatic
Respiratory: Clear to Auscultation
Cardiac: Regular Rhythm and Other (no murmurs)
Musculoskeletal: No Edema
Neuro: Awake and Alert
Psych: Calm
[2025-06-03 07:39] LABS: Glucose - Point of Care 132 mg/dl (70-99)
--- NOTE | 2025-06-03 07:39 | W.PN.INTV ---
Today's Communication / Plan
Recommendations
Continue management per cardiology
Discussed tobacco cessation efforts
Discussed lung cancer screening
Discussed importance of pulmonary follow-up, information left in chart
Okay to transfer to telemetry, disposition efforts
Pulmonary will continue to follow
Assessment
-
54-year-old male with history of nonischemic cardiomyopathy with improved EF to 50%, hypertension, significant smoking history ongoing with history of coronary disease, mitral regurgitation, presents with acute onset shortness of breath at 5:30 in
the morning. He required BiPAP with EMS, received Lasix in the ED. Pulmonary was asked to see patient urgently.
Acute hypoxic respiratory failure
Requiring BiPAP
Bilateral infiltrates
Suspect acute congestive heart failure
Elevated hemoglobin, 18.6
Mild leukocytosis
17% peripheral eosinophilia
Hyperglycemia
Conditions present prior to admission
Hx of VDRF, intubated December 2024
Hypercapnic and hypoxic respiratory failure
Hypertension/hyperlipidemia
History of nonischemic cardiomyopathy
EF improved to 45% from 30%, per echo April 2025
Moderate mitral regurgitation
Mild pulm hypertension, PA pressure 32
Coronary disease with history of circumflex stent, 2024
History of renal insufficiency
Appendectomy 1991
50+ pack year history of smoking ongoing
Family history of COPD (father)
Plan/recommendations
At this time, patient appears to be comfortable, much improved objectively and subjectively
Patient admits to drinking excessive fluid on Monday prior to admission.
Chest x-ray with bilateral patchy infiltrates
Patient presented in similar fashion in December but at that time developed hypoxic and hypercapnic respiratory failure requiring intubation
Interestingly, significant peripheral eosinophilia noted with elevated hemoglobin. This is in the setting of patient supposedly drinking 'excessive water'
Moving forward
Presently he is on room air
Notes suggest significant wheezing which seems to have resolved at this time
Patient was given Lasix therapy. This will continue
Cardiology following
-4 L
Do not suspect acute COPD exacerbation at this time given rapid improvement
Prednisone discontinued 06/02
It is interesting that he has significant peripheral eosinophilia and has had a eosinophilia during prior hospital stays
This does raise the possibility of an inflammatory process. Given his polycythemia, he may benefit from outpatient hematology evaluation
No indication for hematology evaluation at this time acutely
Discussed at length importance of tobacco cessation. Discussed at length with patient risk for lung cancer. He remains high risk
Discussed importance of tobacco cessation. Spent greater than 3 minutes discussing the importance of this
He does qualify for lung cancer screening
Strongly recommend outpatient pulmonary follow-up. Patient has been contacted many times since his hospital stay in December without any return call or pulmonary follow-up
This will be an ongoing discussion
Okay to transfer to telemetry and evaluate for disposition efforts
Subjective Dataa
Subjective Data
Date of Service:
Date of Service: June 03, 2025
Subjective:
Patient is much improved. He denies any pulmonary symptoms. Denies cough, chest pain, nausea, abdominal pain. Lying flat on room air
Objective Data
Data Reviewed
Vital Signs / I&O / Oxygen:
Vital Signs
Temp Pulse Resp BP Pulse Ox
98.6 F 67 23 123/63 93
06/03/25 07:17 06/03/25 06:00 06/03/25 06:00 06/03/25 06:00 06/03/25 03:04
Intake and Output
06/02/25 06/03/25 06/04/25
06:59 06:59 06:59
Intake Total 960 / 960
Output Total 5380 / 5380
Balance -4420 / -4420
SaO2 93
Nasal Cannula flow liters per 2
minute
Physical Exam
General: Comfortable
HEENT: Normocephalic and Anicteric
Cardiovascular: S1-S2, Regular Rhythm, Murmur (n), Rub (n), Peripheral Edema (n) and Calf Tenderness (n)
Respiratory: Wheeze (n), Crackles (n), Rhonchi (n), Non-Labored Respirations, Stridor (n) and Other (Bronchial breath sounds, decreased)
GI: Soft, Non Distended and Non Tender
Neurology: Awake, Alert and No Motor Deficits
Skin: Jaundice (n) and Rash (n)
Labs/Micro/Reports
Lab Data
06/03/25 02:37
06/03/25 02:37
[2025-06-03] MEDS: LOW STRENGTH ASPIRIN 81 MG PO (08:34)
[2025-06-03] MEDS: LIPITOR 40 MG PO (08:34)
[2025-06-03] MEDS: COREG 6.25 MG PO (08:34)
[2025-06-03] MEDS: FARXIGA 10 MG PO (08:34)
[2025-06-03 09:00] LABS: Glycohemoglobin (HgbA1c) 5.8 % (4.0-5.6)
--- NOTE | 2025-06-03 09:27 | PTCARENOTE ---
Plan discussed with Dr. Iglesias and Resident this am, will hold Lasix and Zestril pending followup bp after am meds. Pt declines nicotine patch this am. Effient not available in pyxis, discussed with pharmacy. Pt remains AOX3 amb in room and mejias,
room air, no needs. Voiding in urinal, washing self in bathroom, breakfast ordered. Pt pleasant and cooperative, plan discussed, pt is looking forward to going home.
[2025-06-03] MEDS: ZESTRIL 5 MG PO (10:15)
[2025-06-03] MEDS: LASIX IV ×2 (10:16→11:05)
[2025-06-03] MEDS: EFFIENT 10 MG PO (10:31)
[2025-06-03] MEDS: LASIX 40 MG PO (11:08)
--- NOTE | 2025-06-03 11:30 | PTCARENOTE ---
Lasix changed to PO, dose given per order. Pt's arrived at bedside. No needs.
[2025-06-03 12:10] LABS: Glucose - Point of Care 109 mg/dl (70-99)
[2025-06-03 12:12] VITALS: BP 107/64
--- NOTE | 2025-06-03 12:19 | PTCARENOTE ---
pt ambulating in halls, seated back in room, tele alarmed at 12:11 for 'vtach', pt asymptomatic...BP 107/64. Que Harris and Harris notified, strip posted.
[2025-06-03 14:00] VITALS: BP 101/76
--- NOTE | 2025-06-03 14:00 | CON.CAR ---
Addendum entered and electronically signed by Danika Bedoya DO 06/03/25 21:52:
I saw and examined the patient.
The [employer]'s note was reviewed and I agree with the note.
Comment: Patient was seen and examined with cardiac PA. He was ambulating in room and anxious to go home. Patient is a 54 yo M with PMH of chronic heart failure with improved EF, most recently 45-50% by echo 04/2025, mixed cardiomyopathy, CAD
status post circumflex PCI 12/2024, moderate mitral regurgitation, hypertension, COPD with ongoing smoking who presented to [facility] with shortness of breath which started yesterday morning. He was hospitalized 12/2024 for hypoxic
respiratory failure requiring intubation. He reports yesterday morning became significantly short of breath and EMS was called. He reports on Monday he had been outside doing yard work and had had over a gallon of water to drink. He states that
he was sweating so he thought that this mitigated his fluid intake. He also reports that he misunderstood his Lasix dosing, and was only taking 40 mg daily instead of 40 mg twice daily as prescribed. He was placed on BiPAP on arrival with some
improvement. He was given IV Lasix with significant improvement. proBNP 938. Additionally during mejias ambulation he had a brief episode of tachycardia which was asymptomatic. Cardiology consulted for further evaluation.
General: NAD, out of bed to chair on room air
HEENT:mmm
Respiratory: Clear to auscultation
Cardiac:Regular. Positive S1-S2. 2/6SM
GI: Soft, Non Tender, Non Distended and Normal Bowel Sounds
Musculoskeletal: No significant lower extremity edema. Prominent varicose veins.
Plan:
- Mr. Augustine presented with shortness of breath and evidence of acute heart failure, initially requiring BiPAP. proBNP 938
- Now significantly improved status post diuresis, walking laps around the unit. new dry weight ~230 pounds.
- he was on po lasix 40mg daily prior to admission, was supposed to be taking 40mg BID. would plan for BID dosing upon DC
- discussed fluid and salt restrictions
- reviewed recent echo 04/22/25, EF 45-50%
- tele reviewed. with episode of suspected atrial tachycardia noted, patient asymptomatic. will plan for monitor to be placed in office at follow up appt scheduled 06/05.
- continue coreg, lisinopril, farxiga.
- continue asa, Effient in setting of stenting less than 1 year ago
- d/w nursing
Original Note:
Consultation
Consultation Request
Date/Time Consultation Performed: 06/03/25
Requesting Provider: Dr. Iglesias
Performing Provider: Hoda Bass PA-C for Dr. Bedoya
Reason for Consultation: CHF
Medical History
-
Chief Complaint: SOB
History of Present Illness:
Patient is a 54 yo M with PMH of chronic heart failure with improved EF, most recently 45-50% by echo 04/2025, mixed cardiomyopathy, CAD status post circumflex PCI 12/2024, moderate mitral regurgitation, hypertension, COPD with ongoing smoking who
presented to [facility] with shortness of breath which started yesterday morning. He was hospitalized 12/2024 for hypoxic respiratory failure requiring intubation. He reports yesterday morning became significantly short of breath and EMS
was called. He reports on Monday he had been outside doing yard work and had had over a gallon of water to drink. He states that he was sweating so he thought that this mitigated his fluid intake. He also reports that he misunderstood his Lasix
dosing, and was only taking 40 mg daily instead of 40 mg twice daily as prescribed. He was placed on BiPAP on arrival with some improvement. He was given IV Lasix with significant improvement. proBNP 938. Cardiology consulted for further
evaluation.
PMH:
Chronic HPimpEF
Mixed cardiomyopathy, EF 45-50% by echo 04/2025
CAD s/p circ PCI 01/08/25
Mod MR by echo 04/2025
HTN
COPD
Current smoker
Former ETOH use
Past Medical History
Past Medical History: HTN
Past Surgical History: Appendectomy and Orthopedic
Social History
Tobacco: Smoker
Alcohol: None
Personal: (No children)
Living: With Family
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
Family History
Family History: Reviewed & Not Pertinent
Allergies / Home Medications
Allergy/AdvReac Type Severity Reaction Status Date / Time
No Known Allergies Allergy Verified 11/24/24 07:44
�Medication �Instructions �Recorded �Confirmed �Type
atorvastatin 40 mg tablet 40 mg PO DAILY High cholesterol 10/04/24 06/02/25 History
carvedilol 6.25 mg tablet 6.25 mg PO BID Blood pressure 10/04/24 06/02/25 History
lisinopril 5 mg tablet 5 mg PO DAILY Blood pressure #30 11/27/24 06/02/25 Rx
tabs
dapagliflozin propanediol 10 mg 10 mg PO DAILY Heart Failure #30 01/06/25 06/02/25 Rx
tablet (Farxiga) tabs
prasugrel HCl 10 mg tablet 10 mg PO DAILY Heart 01/09/25 06/02/25 Rx
disease/condition #30 tabs
furosemide 40 mg tablet 40 mg PO BID Fluid 01/10/25 06/02/25 Rx
retention/Swelling #30 tabs
aspirin 81 mg capsule 81 mg PO DAILY Heart 06/02/25 06/02/25 History
Disease/Condition
metformin 500 mg tablet 500 mg PO DAILY Diabetes 06/02/25 06/02/25 History
Review of Systems
-
History Source: Patient
All other systems: Negative unless noted
Physical Exam
Vital Signs
Temp Pulse Resp BP Pulse Ox
97.9 F 80 18 107/64 98
06/03/25 12:04 06/03/25 12:12 06/03/25 12:12 06/03/25 12:12 06/03/25 10:18
Lab Results
06/03/25 02:37
06/03/25 02:37
Troponin I < 0.012 ng/ml 06/02/25 06:42
Azm-Y-Nckpmbavlda Pept 938 pg/ml 06/02/25 06:42
Physical Exam
General: No Apparent Distress and Comfortable
HEENT: Normocephalic, Anicteric and Moist Mucous Membranes
Respiratory: Non Labored Respirations
Cardiac: Regular Rhythm and Murmur
GI: Soft, Non Tender, Non Distended and Normal Bowel Sounds
Musculoskeletal: No Clubbing, No Cyanosis, No Edema and Other (varicose veins)
Skin: Warm and Dry
Neuro: AO x 3
Impression / Plan
-
Primary Public Relations Account Supervisor: Dr. [place] Brennan
Assessment:
SOB
Acute HFimpEF, initially requiring bipap
Paroxysmal atrial tachycardia
Mixed cardiomyopathy, EF 45-50% by echo 04/2025
CAD s/p circ PCI 01/08/25
Mod MR by echo 04/2025
HTN
COPD
Current smoker
Former ETOH use
ECHO 04/22/2025: EF 45 to 50%, inferior and lateral hypokinesis, moderate MR, mild AI, mild TR, PAP 32 mmHg
Plan:
- Mr. Augustine presented with shortness of breath and evidence of acute heart failure, initially requiring BiPAP. proBNP 938
- Now significantly improved status post diuresis, walking laps around the unit. new dry weight ~230 pounds.
- he was on po lasix 40mg daily prior to admission, was supposed to be taking 40mg BID. would plan for BID dosing upon DC
- discussed fluid and salt restrictions
- reviewed recent echo 04/22/25, EF 45-50%
- tele reviewed. with episode of suspected atrial tachycardia noted, patient asymptomatic. will plan for monitor to be placed in office at follow up appt scheduled 06/05.
- continue coreg, lisinopril, farxiga.
- continue asa, Effient in setting of stenting less than 1 year ago
- d/w nursing
Data Reviewed
-
EKG: Tracing Personally Visualized and interpreted
Radiology: Report Reviewed by me
Medical Tests (Nuc Med, Echo etc): Report Reviewed by me
Labs: Labs Reviewed by me
Old Records: Reviewed
--- NOTE | 2025-06-03 15:07 | PTCARENOTE ---
Pt ok to be discharged per cardiology, will plan for monitor to be placed at outpatient followup appt. DC process initiated by attending and resident at this time. Patient updated.
--- NOTE | 2025-06-03 15:49 | CM ---
Patient has been medically cleared for discharge to home with no additional skilled services. Patient has arranged for transport home.
--- NOTE | 2025-06-03 15:55 | W.DCSUMMARY ---
Documented by User: Carlos Grey MD, Resident 06/03/25 16:07
Discharge Summary
Discharge Data
Date of Admission: 06/02/25
Date of Discharge: 06/03/25
-
Pending Results: No
Hospital Course
Discharging Physician : Benton Iglesias, Carlos Grey
Disposition : Home
Primary care physician : Edwina Monaco
Principal Discharge diagnosis : Acute exacerbation of congestive heart failure
Chronic Discharge diagnosis : HFimpEF, COPD, HTN, HLD, CAD s/p [place]
Hospital Course :
54 yo M who woke up with dyspnea, and felt that it progressively worsened during the morning of 06/02.
Upon further history-taking, he reports that on 06/01, he consumed large volume of liquids because of the hot weather outside, and he did not want to dehydrate himself. It was also later discovered that the patient is taking his furosemide 40mg
daily instead of BID. He otherwise denies any changes to his routine, denies any recent illnesses or sick contacts, denies and medication changes. No sputum production.
In the ED, VS were n/f tachypnea to 28, he was placed on BIPAP with oxygen saturation > 95%. CXR showed pulmonary interstitial edema. His presentation was more suspicious for an acute exacerbation of HFimpEF vs. COPD.
The following problems were addressed during this admission.
# Acute exacerbation of HFimpEF
- EF was 45-50% in April 2025
- CXR shows pulmonary interstitial edema
- furosemide 40mg IV bid -> PO 40mg bid upon discharge
- continue Farxiga, carvedilol
- cardiology consulted, they recommend continue medications and adhere to furosemide bid regimen
- patient advised on salt, fluid restriction and carbohydrate-control diet
- follow-up with cardiology
# Acute hypoxic respiratory failure
- was on BIPAP upon presentation in the ED, then subsequently weaned off
- VSS; tachypnea resolved
- follow-up with pulmonary for PFTs and lung cancer screening
# Supraventricular tachycardia
- Brief run of SVT noted on telemetry during ambulation
- patient was asymptomatic
- per cardiology follow-up for Holter monitor placement
# Hypertension
- continue lisinopril
- continue carvedilol
# Eosinophilia
- Elevated peripheral eosinophils noted on labs
- Please follow-up with PCP and/or pulmonary medicine
# Leukocytosis
- likely reactive, upon discharge at 11.4
- VSS and afebrile this admission
# Elevated hemoglobin, suspected polycythemia
- Hgb was elevated to 18.3 on one lab draw, which normalized on repeat the following morning
- could be attributed to primary, secondary polycythemia or lab artifact
- follow-up with PCP
#Chronic issues per below
# Diabetes mellitus: continue metformin upon discharge
# HLD: continue statin
# CAD: continue aspirin
Important imaging findings :
CXR 06/02/2025:
IMPRESSION: Diffuse increased interstitial opacity most consistent with interstitial edema. New small area of consolidation over the right lower lung which could be related to alveolar edema or pneumonia.
Procedure findings :
EKG 06/02/2025:
Vent. Rate : 103 BPM Atrial Rate : 103 BPM
P-R Int : 154 ms QRS Dur : 110 ms
QT Int : 348 ms P-R-T Axes : 44 -20 79 degrees
QTcB Int : 455 ms
SINUS TACHYCARDIA WITH OCCASIONAL PREMATURE VENTRICULAR COMPLEXES
POSSIBLE LEFT ATRIAL ENLARGEMENT
BORDERLINE ECG
WHEN COMPARED WITH ECG OF 09-Jan-2025 04:40,
PREMATURE VENTRICULAR COMPLEXES ARE NOW PRESENT
VENT. RATE HAS INCREASED by 36 bpm
NONSPECIFIC T WAVE ABNORMALITY NOW EVIDENT IN LATERAL LEADS
Discharge Plan
-
Patient Disposition: Home (Routine Discharge)
Discharge Diagnosis/Procedures: Acute exacerbation of CHF (congestive heart failure)
Condition: Good
Diet: 2 Gram Sodium, Diabetic, Carb Controlled and Restrict fluids to 48 oz
Activity: As tolerated
Driving Restrictions: As prior to admission
Bathing Restrictions: None
Blood Work: Repeat CBC in one week with PCP
Specialty Instructions: Weigh Daily- Call MD for wt gain/loss 3 lbs overnight/5 lbs in 1 week
Instructions: *DCA Heart Failure Instructions
Stand Alone Forms: Return to Work
Referrals:
Daniel Tracey MD [Active, Pulmonary Medicine] - in three to four weeks
Referral Note: pt NEEDS pulmonary follow up with Full PFT
May have emphysema, interstitial lung disease
he is HIGH RISK for lung cancer
Edwina Monaco PA-C [Non-Admitting Privileges, Family Practice] - in less than 1 week
Janneth Jean CRNP [Specified Professional Personl, Cardiology] - 06/05/25 10:20 am
Referral Note: You have a cardiology follow-up appointment at the [place] office with Dr. Brennan's nurse practitioner, Janneth. Please call with questions. At this visit, a monitoring specialist will be placed.
Additional Discharge Medication Instructions: Please continue your home medications as below.
Note that you should be taking furosemide 40mg by mouth TWICE per day.
Please check your blood pressure at home at least twice a day AFTER being seated for 10-15 minutes. Document the measurements and take the values to your primary care provider.
Please note that you have an appointment with cardiology scheduled for June 05 for Holter monitor.
You should adhere to a low salt and fluid restricted diet, and be mindful of carbohydrates.
Please follow-up with Pulmonary medicine as well for pulmonary function tests and lung cancer screening.
Prescriptions:
Continued
atorvastatin 40 mg tablet
40 mg PO DAILY
carvedilol 6.25 mg tablet
6.25 mg PO BID
lisinopril 5 mg Tablet
5 mg PO DAILY Qty: 30 0RF
dapagliflozin propanediol [Farxiga] 10 mg tablet
10 mg PO DAILY Qty: 30 11RF
prasugrel HCl 10 mg Tablet
10 mg PO DAILY Qty: 30 11RF
metformin 500 mg tablet
500 mg PO DAILY
aspirin 81 mg capsule
81 mg PO DAILY
furosemide 40 mg tablet
40 mg PO BID Qty: 60 0RF
Discharge Orders:
Discharge Patient (As Directed); Ordered 06/03/25
Ordered By: Carlos Grey
Discharge Date and Time
Discharge Date/Time: 06/03/25 16:13
Print Language: ROMANIAN

Documented by User: Benton Iglesias DO 06/03/25 17:09
Discharge Summary
Discharge Data
Date of Admission: 06/02/25
Date of Discharge: 06/03/25
Total time spent discharging patient (in min): 32
Discharge Plan
-
Patient Disposition: Home (Routine Discharge)
Discharge Diagnosis/Procedures: Acute exacerbation of CHF (congestive heart failure)
Condition: Good
Diet: 2 Gram Sodium, Diabetic, Carb Controlled and Restrict fluids to 48 oz
Activity: As tolerated
Driving Restrictions: As prior to admission
Bathing Restrictions: None
Blood Work: Repeat CBC in one week with PCP
Specialty Instructions: Weigh Daily- Call MD for wt gain/loss 3 lbs overnight/5 lbs in 1 week
Instructions: *DCA Heart Failure Instructions
Stand Alone Forms: Return to Work
Referrals:
Daniel Tracey MD [Active, Pulmonary Medicine] - in three to four weeks
Referral Note: pt NEEDS pulmonary follow up with Full PFT
May have emphysema, interstitial lung disease
he is HIGH RISK for lung cancer
Edwina Monaco PA-C [Non-Admitting Privileges, Family Practice] - in less than 1 week
Janneth Jean CRNP [Specified Professional Personl, Cardiology] - 06/05/25 10:20 am
Referral Note: You have a cardiology follow-up appointment at the [place] office with Dr. Brennan's nurse practitioner, Janneth. Please call with questions. At this visit, a monitoring specialist will be placed.
Additional Discharge Medication Instructions: Please continue your home medications as below.
Note that you should be taking furosemide 40mg by mouth TWICE per day.
Please check your blood pressure at home at least twice a day AFTER being seated for 10-15 minutes. Document the measurements and take the values to your primary care provider.
Please note that you have an appointment with cardiology scheduled for June 05 for Holter monitor.
You should adhere to a low salt and fluid restricted diet, and be mindful of carbohydrates.
Please follow-up with Pulmonary medicine as well for pulmonary function tests and lung cancer screening.
Prescriptions:
Continued
atorvastatin 40 mg tablet
40 mg PO DAILY
carvedilol 6.25 mg tablet
6.25 mg PO BID
lisinopril 5 mg Tablet
5 mg PO DAILY Qty: 30 0RF
dapagliflozin propanediol [Farxiga] 10 mg tablet
10 mg PO DAILY Qty: 30 11RF
prasugrel HCl 10 mg Tablet
10 mg PO DAILY Qty: 30 11RF
metformin 500 mg tablet
500 mg PO DAILY
aspirin 81 mg capsule
81 mg PO DAILY
furosemide 40 mg tablet
40 mg PO BID Qty: 60 0RF
Discharge Orders:
Discharge Patient (As Directed); Ordered 06/03/25
Ordered By: Carlos Grey
Discharge Date and Time
Discharge Date/Time: 06/03/25 16:13
Print Language: ROMANIAN
--- NOTE | 2025-06-03 16:09 | PTCARENOTE ---
Discharge instructions, followup appointments, and medications reviewed, pt verbalized understanding. Pt walked out to car with , all belongings taken with patient.
== END 2025-06-03 16:13 | disposition home or self-care (01) | DRG 291 ==
LOC: ICU 09:23
PROVIDERS: ADMITTING PHYSICIAN Internal Medicine; CONSULT PHYSICIAN Internal Medicine Cardiovascular Disease; EMERGENCY PHYSICIAN Emergency Medicine; OTHER PHYSICIAN Internal Medicine Critical Care Medicine
PROC: 5A09357 Assistance with Respiratory Ventilation, Less than 24 Consecutive Hours, Continuous Positive Airway Pressure (ICD-10-PCS; 2025-06-02)
DX: I11.0 Hypertensive heart disease with heart failure (principal); I50.23 Acute on chronic systolic (congestive) heart failure; J96.01 Acute respiratory failure with hypoxia; J44.1 Chronic obstructive pulmonary disease with (acute) exacerbation; I16.1 Hypertensive emergency; I47.19 Other supraventricular tachycardia; I42.8 Other cardiomyopathies; I25.10 Atherosclerotic heart disease of native coronary artery without angina pectoris; D75.1 Secondary polycythemia; I27.20 Pulmonary hypertension, unspecified; E11.65 Type 2 diabetes mellitus with hyperglycemia; D72.10 Eosinophilia, unspecified; I34.0 Nonrheumatic mitral (valve) insufficiency; I49.3 Ventricular premature depolarization; E78.00 Pure hypercholesterolemia, unspecified; I83.90 Asymptomatic varicose veins of unspecified lower extremity; F17.210 Nicotine dependence, cigarettes, uncomplicated; I25.2 Old myocardial infarction; Z79.84 Long term (current) use of oral hypoglycemic drugs; Z79.82 Long term (current) use of aspirin; Z95.5 Presence of coronary angioplasty implant and graft; Z82.5 Family history of asthma and other chronic lower respiratory diseases
CPT/HCPCS: 71045; 80053; 82962; 83036; 83735; 83880; 84484; 85025; 85027; 93005; 94640; 94660; 96374; 96375; 99291; 99406